=== PATIENT | male | born 1945 | race Caucasian/White ===

== ENCOUNTER → 2016-03-31 | Outpatient (CLI) | payer MEDICARE ==
[~2016-03-31] MED LIST: ASPI1TAB PO; ATEN100T PO; ATEN50TA2 PO; BACT800T5 PO; BIMA01SOL OU; CALC1TAB30 PO; CALC1TAB42 PO; CENTTAB PO; CLON0.5T PO; DRIS50002 PO; FISH100035 PO; FLAX10005 PO; FURO40TA2 PO; INSUDET SC; LATA5OPD OU; LISI-538 PO; LISI10TA4 PO; LOPE2TAB PO; MINO25TA PO; NEPHTAB PO; NIAS1TAB PO; NORC5TAB PO; PRAV20TA2 PO; RANI150T PO; VIAG100T PO; VITMTA PO
--- NOTE | 2016-03-31 11:32 | REP ---
LIMITED ABDOMINAL ULTRASOUND: Limited abdominal ultrasound performed to evaluate for ascites prior to a schedule paracentesis. Minimal ascites is present and paracentesis is not performed, as there is not enough fluid for paracentesis. Signed by Carlos Rodas MD 03/31/2016 05:20 P
== END | disposition home or self-care (01) ==
LOC: M RADPRO 10:16
PROVIDERS: ATTEND Internal Medicine
DX: R18.8 Other ascites (principal); K74.60 Unspecified cirrhosis of liver

== ENCOUNTER → 2016-04-14 | Outpatient (CLI) | payer MEDICARE ==
--- NOTE | 2016-04-14 11:17 | REP ---
Limited abdominal sonography: History: A survey for ascites. Findings: Limited abdominal sonography demonstrates a trace of ascites visible. Not sufficient quantity to tap. Impression: Trace abdominal ascites present. Signed by Karlos Reyna MD 04/14/2016 08:10 P
== END ==
LOC: M RADPRO 10:12
PROVIDERS: ATTEND Internal Medicine
DX: R18.8 Other ascites (principal); K74.60 Unspecified cirrhosis of liver; Z53.9 Procedure and treatment not carried out, unspecified reason

== ENCOUNTER 2016-04-29 15:03 | Inpatient (IN) | payer MEDICARE ==
[~2016-04-29] VITALS: Ht 172.7 cm; Wt 88.2 kg
[2016-04-29] MEDS ORDERED: PANTOPRAZOLE 40MG INJ (PROTONIX) (C9113) As Ordered ONE (15:39)
[2016-04-29 15:46] LABS: BASO % 0.3 % (0.0-1.0); EOS # 0.2 K/mm3 (0.0-0.50); EOS % 3.1 % (0.0-3.0); LARGE UNSTAINED CELL # 0.1 K/mm3 (0.0-0.4); LARGE UNSTAINED CELL % 2.1 % (0.0-4.0); LYMPH # 0.3 K/mm3 (1.5-4.5); LYMPH % 6.1 % (24.0-44.0); MEAN CORPUSCULAR HEMOGLOBIN 30.9 pg (27.0-33.0); MEAN CORPUSCULAR HGB CONC 33.7 g/dl (32.0-36.5); MEAN CORPUSCULAR VOLUME 91.7 fl (80.0-96.0); MONO # 0.3 K/mm3 (0.0-0.8); MONO % 4.6 % (0.0-5.0); NEUTROPHILS # 4.5 K/mm3 (1.8-7.7); NEUTROPHILS % 83.7 % (36.0-66.0); PLATELET COUNT, AUTOMATED 132 k/mm3 (150-450); RED CELL DISTRIBUTION WIDTH 17.2 % (11.5-14.5); WHITE BLOOD COUNT 5.3 K/mm3 (4.0-10.0)
[2016-04-29 15:56] LABS: ALBUMIN 3.5 GM/DL (3.2-5.2); ALBUMIN/GLOBULIN RATIO 1.17 (1.00-1.93); BILIRUBIN,DIRECT 0.2 MG/DL (0.0-0.2); BILIRUBIN,TOTAL 0.6 MG/DL (0.2-1.0); CALCIUM LEVEL 8.5 MG/DL (8.8-10.2); CREATININE FOR GFR 4.42 MG/DL (0.70-1.30); GLOMERULAR FILTRATION RATE 14.1 (>42); POTASSIUM SERUM 3.8 MEQ/L (3.5-5.1); TOTAL PROTEIN 6.5 GM/DL (6.4-8.2)
[2016-04-29 16:05] LABS: INR 1.14
--- NOTE | 2016-04-29 16:31 | REP ---
Portable chest x-ray: Single view. History: fatigue. Comparison chest x-ray February 21, 2016. Findings: Moderate cardiac enlargement is seen unchanged. The lungs are symmetrically aerated and free of infiltrate. Pleural angles are sharp. EKG electrodes are seen. The aorta is calcific and tortuous. No significant bony abnormality is seen. Impression: Cardiomegaly. Otherwise no active disease. Signed by Karlos Reyna MD 04/30/2016 10:14 A
[2016-04-29] MEDS ORDERED: LISI-538 PO (17:24)
[2016-04-29] MEDS ORDERED: LOPERAMIDE 2 MG CAP PO PRN (17:45)
[2016-04-29 18:08] LABS: RETIC HEMOGLOBIN CONTENT CHr 35.9 PG (24-36); RETICULOCYTE ABSOLUTE ADVIA212 148 x10(9)/L (17-77)
--- NOTE | 2016-04-29 18:39 | EDDOCDS ---
Physician Documentation [facility] Name: Jadiel Rodriguez Age: 70 yrs Sex: Male : 1945 Arrival Date: 04/29/2016 Time: 15:03 Bed 11 Private MD: Disposition: 04/29 16:44 Critical Care:. pc Disposition: 04/29/16 16:46 Hospitalization ordered by Bladimir Ventura for Inpatient Admission. Preliminary diagnosis are Gastrointestinal hemorrhage, unspecified - upper, Anemia, unspecified - multifactorial: acute blood loss, AoCD, Fe def anemia, End stage renal disease. - Bed requested for PCU. - Status is Inpatient Admission. kr3 - Condition is Stable. - Problem is new. - Symptoms have improved. HPI: 15:43 This 70 yrs old Male presents to ER via Ambulance with complaints of Weakness.pc 15:43 The history is obtained from the patient. He has been feeling weak for 2-3 days, pc started vomiting black material for 2 days, but none in 24 hours, and fernandez shad black bowel movements for 36 hours. He does get iron during dialysis but is not on any oral iron. He was at dialysis and was not feeling well and staff noticed he was not himself, stopped dialysis an hour short and called for EMS. He denies any abdominal pain, he remains nauseated and complains of thirst and fatigue. He was admitted for the same 2 months ago, with hemoccult positive stools but was discharged after transfusion of 3 units of PRBC with an UGI bleed not believed to be the cause. The patient has been recently seen by Dr. Jackson. Historical: - Allergies: amlodipine; Levaquin; - Home Meds: 1. aspirin 81 mg Oral tab 1 tab once daily 2. atenolol 50 mg Oral tab once daily 3. Calcium + Vitamin D 500mg-1250mg Oral 1 tab daily 4. Centrum Silver oral tab daily 5. clonazepam 0.5 mg Oral tab 1 tab nightly 6. Fish Oil 1,000 mg Oral cap twice a day 7. flaxseed 1,000 mg oral cap twice a day on non dialysis days 8. furosemide 40 mg Oral tab 1 tab 2 times per day 9. hydrocodone-acetaminophen 5-325 mg Oral tab nightly 10. lisinopril 10 mg Oral tab 1 tab once daily 11. Lumigan 0.01 % Opht drop 1 drop nightly 12. pravastatin 20 mg oral tab 1 tab once daily 13. ranitidine HCl 150 mg Oral cap 1 cap 2 times per day 14. Viagra 100 mg Oral tab 1 tab as needed 15. Vitamin D2 50,000 unit oral cap once wkly 16. Renvela 800 mg oral tab 1 tab 3 times per day 17. Imodium 2 mg Oral cap twice a day 18. minoxidil 2.5 mg Oral tab 1 tabs 2 times per day 19. iron during dialysis - PMHx: Cancer, Bladder; Chronic Renal Failure with dialysis; Diabetes - IDDM: controlled; High Cholesterol; Hypertension; Alcoholism; Cirrhosis; - PSHx: bilateral lower leg amputee; Hernia repair; Cystectomy; Urostomy Construction; circumcision; AV Fistula- Left arm; - The history from nurses notes was reviewed: and elements of the historical information I have obtained differs from that reported to nursing. - Social history: Smoking status: Patient states former smoker of tobacco. No barriers to communication noted, The patient speaks fluent Hebrew, Speaks appropriately for age. - : The pt / caregiver states he / she is not on anticoagulants. Home medication list is obtained from the facility MAR. - Exposure Risk Screening:: None identified. - Immunization history:: All immunizations up-to-date. - Family history: Not pertinent. - Social history:: the patient is a non-smoker, the patient formerly used alcohol. ROS: 15:48 All systems are negative except as listed. pc Exam: 15:48 General Appearance: no acute distress, alert, lethargic. pc 15:48 EENT: ears, nose and throat normal, pale conjunctiva, mucous membranes dry. 15:48 Neck: The exam reveals no acute abnormalities. ROM is normal and painless. No nuchal rigidity is noted.. 15:48 Respiratory: no respiratory distress, normal breath sounds. 15:48 CVS: regular pulse rate, regular rhythm, normal S1 and S2, no murmurs, strong peripheral pulses, normal capillary refill. 15:48 Abdomen: soft, non-tender, no organomegaly, normal bowel sounds, Rectal exam: stool is guaiac positive, black. 15:48 Back: normal inspection. 15:48 Skin: warm, dry, the skin appears pale, diffusely. 15:48 Extremities: bilateral BKAs. 15:48 Neuro: oriented x 3, cranial nerves normal as tested, no motor deficits, no sensory deficits. 15:48 Psych: normal mood. Vital Signs: 15:17 BP 169 / 70; Pulse 63; Resp 18; Temp 97.2(O); Pulse Ox 97% on R/A; ld5 15:40 BP 158 / 69 (auto/); kr3 15:40 Pulse 64 MON; Pulse Ox 95% ; kr3 15:46 Weight 78.93 kg / 174.01 lbs (R); Height 5 ft. 8 in. (172.72 cm) (R); kr3 16:10 BP 145 / 75 (auto/); kr3 16:10 Pulse 60 MON; Pulse Ox 97% ; kr3 16:40 BP 144 / 65 (auto/); kr3 16:40 Pulse 60 MON; Pulse Ox 98% ; kr3 17:09 Pulse 58 MON; Pulse Ox 96% ; kr3 17:10 BP 154 / 71 (auto/); kr3 17:27 BP 162 / 72 (auto/); kr3 17:27 Pulse 60 MON; Pulse Ox 97% ; kr3 17:40 BP 158 / 72 (auto/); kr3 17:40 Pulse 62 MON; Pulse Ox 96% ; kr3 17:43 BP 160 / 72 (auto/); kr3 17:44 Pulse 60 MON; Resp 16; Temp 97.1(O); Pulse Ox 97% ; kr3 18:10 BP 158 / 70 (auto/); kr3 18:10 Pulse 58 MON; Resp 16; Pulse Ox 98% on R/A; kr3 15:46 Body Mass Index 26.46 (78.93 kg, 172.72 cm) kr3 MDM: 15:29 IV Saline Lock ordered. pc 15:29 NS 0.9% 1000 ml IV at 100 mL/hr continuous ordered. pc 15:29 Technical Sales Representative/Pulse Ox/q 30 min VS ordered. pc 15:30 CBC with Diff Ordered. EDMS 15:30 MED Profile Ordered. EDMS 15:30 Liver Profile Ordered. EDMS 15:31 NOTHING BY MOUTH+DIET ordered. EDMS 15:37 pantoprazole 80 mg IV at bolus once ordered. pc 15:48 Differential Diagnosis: UGI bleed, ESRD on HD, alcoholic cirrhosis. Plan: labs, EKG, pc imaging, meds. 15:52 CBC with Diff Reviewed. pc 15:52 Chest, 1 View Ordered. EDMS 15:53 Transfuse PRBC's 2 units, ensure PRBCs ordered in lab ordered. pc 15:55 Type and Cross, Packed Cells Ordered. EDMS 15:55 Pt & Aptt Ordered. EDMS 15:56 TYPE & SCREEN Ordered. EDMS 15:58 ECG WITH READING ER PHYS+CARDIAG ordered. EDMS 15:58 BED REQUEST+ADM ordered. EDMS 16:27 MED Profile Reviewed. pc 16:27 Pt & Aptt Reviewed. pc 16:27 Liver Profile Reviewed. pc 16:43 TYPE & SCREEN Reviewed. pc 16:43 Chest, 1 View Reviewed. pc 16:44 Data reviewed: old medical records, vital signs, nurses notes, lab test results, all pc radiology studies and available results. Test interpretation: LAB - all labs as ordered have been reviewed, interpreted and considered in the overall management of the clinical presentation; X-RAY - interpreted by Radiologist and personally reviewed, 1 view chest no acute disease. The patient has been re-examined and re-evaluated. The patient's symptoms have mildly improved after treatment. Physician consultation: Dr. Power Alan MD regarding consult, and will see patient in inpatient room. 16:44 Physician consultation: Dr. Bladimir Ventura regarding admission, and will see patient in ED. Disposition: The historical points, examination findings, and any diagnostic results supporting the provided diagnosis, were discussed with the patient or legal guardian. The need for further work-up and/or treatment in the hospital was explained. 16:59 Test interpretation: EKG. pc 17:05 Financial registration complete. zo 17:06 [facility] Payment Agreement was scanned into [employer] and attached to record. zo 17:33 HEMOGLOBIN & HEMATOCRIT Ordered. EDMS 17:35 Admission / Observation Status ordered. EDMS 17:35 CLEAR LIQUIDS DIET ordered. EDMS 17:35 NPO FOR TEST/PROCEDURE ordered. EDMS EC:59 Rate is 60 beats/min. Rhythm is regular, Normal Sinus Rhythm. QRS [place] is Normal. HI pc interval is normal. QRS interval is normal. QT interval is prolonged at 470 msec. No Q waves. T waves are Normal. No ST changes noted. Clinical impression: Normal Sinus Rhythm, LVH, and prolonged QT. Administered Medications: 15:38 Drug: NS 0.9% 1000 ml [sodium chloride 0.9 % intravenous solution] Route: IV; Rate: 100 kr3 mL/hr; Site: right forearm; 17:30 Follow up: IV Status: Infusion discontinued; IV Intake: 100ml kr3 15:46 Drug: pantoprazole 80 mg [pantoprazole 40 mg intravenous solution] Route: IV; Rate: kr3 bolus; Site: right forearm; Critical Care Time: 16:44 Critical care time: Bedside Care: 20 minutes, Consultation: 15 minutes. Total time: 35 pc minutes Signatures: Dispatcher [employer] EDMS Saran Scott MD MD pc Robie, Kathleen, RN RN kr3 Etta Bryant Michele RN RN mts The chart was reviewed and I authenticate all verbal orders and agree with the evaluation and treatment provided.Corrections: (The following items were deleted from the chart) 15:20 15:14 Home Meds: minoxidil 2.5 mg Oral tab 2 tabs 2 times per day; kr3 kr3 15:49 15:43 The history from nurses notes was reviewed and I agree with what is documented. pcpc 16:03 15:30 TYPE & SCREEN+BBK ordered. EDMS EDMS 17:35 17:35 NPO DIET ordered. EDMS EDMS 17:35 17:35 NPO DIET ordered. EDMS EDMS 17:59 17:33 RETICULOCYTE COUNT ordered. EDMS EDMS Attachments: 17:06 [facility] [place] [email or web address]
--- NOTE | 2016-04-29 18:39 | EDDOCDS ---
Nurse's Notes [facility] Name: Jadiel Rodriguez Age: 70 yrs Sex: Male : 1945 Arrival Date: 04/29/2016 Time: 15:03 Bed 11 Private MD: Diagnosis: Gastrointestinal hemorrhage, unspecified-upper;Anemia, unspecified-multifactorial: acute blood loss, AoCD, Fe def anemia;End stage renal disease Presentation: 04/29 15:05 Presenting complaint: EMS states: at 2:15 noticed decrease responsiveness, droop left kr3 eye and left cheek per dialysis saff. The last date and time the patient was known to be well was was at 14:15 on April 29, 2016. No acute neurological deficit is noted. Pre-hospital glucose is not applicable to this patient. Adult Sepsis Screening: The patient does not have new or worsening altered mentation. Patient's respiratory rate is less than 22. Systolic blood pressure is greater than 100. Patient has a qSOFA score of 0- Negative Sepsis Screen. Suicide/Homicide risk assessment- the patient denies having any suicidal and/or homicidal ideations and does not present with any other emotional, behavioral or mental health complaints. Status: Patient is not a social services coordinator or dependent. Transition of care: patient was received from dialysis. Care prior to arrival: Glucose check. 244. 15:05 Method Of Arrival: Ambulance kr3 15:05 Acuity: PRADIP Level 3 kr3 15:14 Presenting complaint: Patient states: Tuesday night had vomiting which continued into kr3 Tuesday. Skipped Dialysis on Tuesday. Reports had dark stools when seen by PCP this week. Triage Assessment: 15:14 The onset of the patients symptoms was less than three hours ago. General: Appears in kr3 no apparent distress, comfortable, Behavior is appropriate for age, cooperative. Pain: Denies pain. The patient is triaged at the bedside. See Assessment in Nurses Notes section of ED record. Neurological: Level of Consciousness is awake, alert, Moves all extremities. Speech is normal. Respiratory: Respiratory effort is even, unlabored. Derm: Skin is dry, Skin is normal. Historical: - Allergies: amlodipine; Levaquin; - Home Meds: 1. aspirin 81 mg Oral tab 1 tab once daily 2. atenolol 50 mg Oral tab once daily 3. Calcium + Vitamin D 500mg-1250mg Oral 1 tab daily 4. Centrum Silver oral tab daily 5. clonazepam 0.5 mg Oral tab 1 tab nightly 6. Fish Oil 1,000 mg Oral cap twice a day 7. flaxseed 1,000 mg oral cap twice a day on non dialysis days 8. furosemide 40 mg Oral tab 1 tab 2 times per day 9. hydrocodone-acetaminophen 5-325 mg Oral tab nightly 10. lisinopril 10 mg Oral tab 1 tab once daily 11. Lumigan 0.01 % Opht drop 1 drop nightly 12. pravastatin 20 mg oral tab 1 tab once daily 13. ranitidine HCl 150 mg Oral cap 1 cap 2 times per day 14. Viagra 100 mg Oral tab 1 tab as needed 15. Vitamin D2 50,000 unit oral cap once wkly 16. Renvela 800 mg oral tab 1 tab 3 times per day 17. Imodium 2 mg Oral cap twice a day 18. minoxidil 2.5 mg Oral tab 1 tabs 2 times per day 19. iron during dialysis - PMHx: Cancer, Bladder; Chronic Renal Failure with dialysis; Diabetes - IDDM: controlled; High Cholesterol; Hypertension; Alcoholism; Cirrhosis; - PSHx: bilateral lower leg amputee; Hernia repair; Cystectomy; Urostomy Construction; circumcision; AV Fistula- Left arm; - The history from nurses notes was reviewed: and elements of the historical information I have obtained differs from that reported to nursing. - Social history: Smoking status: Patient states former smoker of tobacco. No barriers to communication noted, The patient speaks fluent Syriac, Speaks appropriately for age. - : The pt / caregiver states he / she is not on anticoagulants. Home medication list is obtained from the facility [facility]. - Exposure Risk Screening:: None identified. - Immunization history:: All immunizations up-to-date. - Family history: Not pertinent. - Social history:: the patient is a non-smoker, the patient formerly used alcohol. Screenin:28 Screening information is obtained from the patient. Fall risk: At risk due to gait kr3 disturbance, The following interventions are performed due to a positive Fall Risk Screen: Fall Alert bracelet is placed on the patient. Assistance ADL's: requires no assistance with activities of daily living. Abuse/DV Screen: The patient / caregiver reports he/she is: not in a situation that causes fear, pain or injury. Nutritional screening: On renal diet. home support is adequate. 18:09 Advance Directives: Currently, there is a health care proxy, daughter. There is an kr3 active Power of Barber Apprentice, daughter. Assessment: 15:28 Reassessment: Patient appears in no apparent distress at this time. Patient denies pain kr3 at this time. 16:33 Reassessment: Patient appears in no apparent distress at this time. General: Behavior kr3 is cooperative, pleasant. Pain: Denies pain. Neurological: Level of Consciousness is awake, alert, Moves all extremities. Speech is normal. 17:45 Reassessment: Patient appears in no apparent distress at this time. General: Appears kr3 comfortable, Behavior is cooperative, no complaints, daughter at bedside. 18:15 Reassessment: Patient appears in no apparent distress at this time. Patient denies pain kr3 at this time. Neurological: No deficits noted. Respiratory: Respiratory effort is even, unlabored. Derm: Skin is dry, Skin is normal. Vital Signs: 15:17 BP 169 / 70; Pulse 63; Resp 18; Temp 97.2(O); Pulse Ox 97% on R/A; ld5 15:40 BP 158 / 69 (auto/); kr3 15:40 Pulse 64 MON; Pulse Ox 95% ; kr3 15:46 Weight 78.93 kg (R); Height 5 ft. 8 in. (172.72 cm) (R); kr3 16:10 BP 145 / 75 (auto/); kr3 16:10 Pulse 60 MON; Pulse Ox 97% ; kr3 16:40 BP 144 / 65 (auto/); kr3 16:40 Pulse 60 MON; Pulse Ox 98% ; kr3 17:09 Pulse 58 MON; Pulse Ox 96% ; kr3 17:10 BP 154 / 71 (auto/); kr3 17:27 BP 162 / 72 (auto/); kr3 17:27 Pulse 60 MON; Pulse Ox 97% ; kr3 17:40 BP 158 / 72 (auto/); kr3 17:40 Pulse 62 MON; Pulse Ox 96% ; kr3 17:43 BP 160 / 72 (auto/); kr3 17:44 Pulse 60 MON; Resp 16; Temp 97.1(O); Pulse Ox 97% ; kr3 18:10 BP 158 / 70 (auto/); kr3 18:10 Pulse 58 MON; Resp 16; Pulse Ox 98% on R/A; kr3 15:46 Body Mass Index 26.46 (78.93 kg, 172.72 cm) kr3 Vitals: 15:17 Log In Time N/A - ambulance arrival. ld5 ED Course: 15:04 Patient visited by Destiny Holman, Senior Field Service Engineer. deg 15:04 Rachel Humphries,RN is Primary Nurse. deg 15:04 Patient moved to Waiting deg 15:04 Patient moved to 11 deg 15:07 Triage Initiated kr3 15:10 Saran Scott MD is Attending Physician. pc 15:28 Patient visited by Saran Scott MD. pc 15:28 Maintain field IV. Dressing intact. Good blood return noted. Site clean & dry. Gauge & kr3 site: #20 right forearm. 16:33 Patient visited by Rachel Humphries RN. kr3 16:38 Chest, 1 View Returned. EDMS 16:46 Bladimir Ventura is Hospitalizing Provider. pc 16:52 Patient visited by Emmanuel Bergman PCA. jrd 16:52 EKG done. (by ED staff). Reviewed by Saran Scott MD. jrd 17:06 [facility] Payment Agreement was scanned into [employer] and attached to record. zo 17:44 Blood products: PRBCs X 1 unit given. See transfusion record [id number]. kr3 17:45 The patient / caregiver is instructed regarding the plan of care and ED course. Patient kr3 has correct armband on for positive identification. Placed in gown. Bed in low position. Call light in reach. Side rails up X2. lunchroom monitor on. Pulse ox on. NIBP on. 17:45 PO fluids given. kr3 18:10 No procedures done that require assistance. kr3 Administered Medications: 15:38 Drug: NS 0.9% 1000 ml [sodium chloride 0.9 % intravenous solution] Route: IV; Rate: 100 kr3 mL/hr; Site: right forearm; 17:30 Follow up: IV Status: Infusion discontinued; IV Intake: 100ml kr3 15:46 Drug: pantoprazole 80 mg [pantoprazole 40 mg intravenous solution] Route: IV; Rate: kr3 bolus; Site: right forearm; Intake: 17:30 IV: 100.00ml; Total: 100.00ml. kr3 Order Results: Lab Order: CBC with Diff; SPEC'M 04/29/16 15:24 Test: WHITE BLOOD COUNT; Value: 5.3; Range: 4.0-10.0; Units: K/mm3; Status: F Test: RED BLOOD COUNT; Value: 2.32; Range: 4.30-6.10; Abnormal: Below low normal; Units: M/mm3; Status: F Test: HEMOGLOBIN; Value: 7.2; Range: 14.0-18.0; Abnormal: Below low normal; Units: g/dl; Status: F Test: HEMATOCRIT; Value: 21.3; Range: 42.0-52.0; Abnormal: Below low normal; Units: %; Status: F Test: MEAN CORPUSCULAR VOLUME; Value: 91.7; Range: 80.0-96.0; Units: fl; Status: F Test: MEAN CORPUSCULAR HEMOGLOBIN; Value: 30.9; Range: 27.0-33.0; Units: pg; Status: F Test: MEAN CORPUSCULAR HGB CONC; Value: 33.7; Range: 32.0-36.5; Units: g/dl; Status: F Test: RED CELL DISTRIBUTION WIDTH; Value: 17.2; Range: 11.5-14.5; Abnormal: Above high normal; Units: %; Status: F Test: PLATELET COUNT, AUTOMATED; Value: 132; Range: 150-450; Abnormal: Below low normal; Units: k/mm3; Status: F Test: NEUTROPHILS %; Value: 83.7; Range: 36.0-66.0; Abnormal: Above high normal; Units: %; Status: F Test: LYMPH %; Value: 6.1; Range: 24.0-44.0; Abnormal: Below low normal; Units: %; Status: F Test: MONO %; Value: 4.6; Range: 0.0-5.0; Units: %; Status: F Test: EOS %; Value: 3.1; Range: 0.0-3.0; Abnormal: Above high normal; Units: %; Status: F Test: BASO %; Value: 0.3; Range: 0.0-1.0; Units: %; Status: F Test: LARGE UNSTAINED CELL %; Value: 2.1; Range: 0.0-4.0; Units: %; Status: F Test: NEUTROPHILS #; Value: 4.5; Range: 1.8-7.7; Units: K/mm3; Status: F Test: LYMPH #; Value: 0.3; Range: 1.5-4.5; Abnormal: Below low normal; Units: K/mm3; Status: F Test: MONO #; Value: 0.3; Range: 0.0-0.8; Units: K/mm3; Status: F Test: EOS #; Value: 0.2; Range: 0.0-0.50; Units: K/mm3; Status: F Test: BASO #; Value: 0.0; Range: 0.0-0.2; Units: K/mm3; Status: F Test: LARGE UNSTAINED CELL #; Value: 0.1; Range: 0.0-0.4; Units: K/mm3; Status: F Lab Order: MED Profile; [facility]' 04/29/16 15:24 Test: GLUCOSE, FASTING; Value: 188; Range: 83-110; Abnormal: Above high normal; Units: MG/DL; Status: F Test: BLOOD UREA NITROGEN; Value: 75; Range: 7-18; Abnormal: Above high normal; Units: MG/DL; Status: F Test: CREATININE FOR GFR; Value: 4.42; Range: 0.70-1.30; Abnormal: Above high normal; Units: MG/DL; Status: F Test: GLOMERULAR FILTRATION RATE; Value: 14.1; Range: >42; Abnormal: Below low normal; Status: F Test: SODIUM LEVEL; Value: 140; Range: 136-145; Units: MEQ/L; Status: F Test: POTASSIUM SERUM; Value: 3.8; Range: 3.5-5.1; Units: MEQ/L; Status: F Test: CHLORIDE LEVEL; Value: 103; Range: 98-107; Units: MEQ/L; Status: F Test: CARBON DIOXIDE LEVEL; Value: 24; Range: 21-32; Units: MEQ/L; Status: F Test: ANION GAP; Value: 13; Range: 8-16; Units: MEQ/L; Status: F Test: CALCIUM LEVEL; Value: 8.5; Range: 8.8-10.2; Abnormal: Below low normal; Units: MG/DL; Status: F Test Note: ; Units are mL/min/1.73 m2 Chronic Kidney Disease Staging per NKF: Stage I & II GFR >=60 Normal to Mildly Decreased Stage III GFR 30-59 Moderately Decreased Stage IV GFR 15-29 Severely Decreased Stage V GFR <15 Very Little GFR Left ESRD GFR <15 on FLOOR SANDER Lab Order: Liver Profile; SPEC'M 04/29/16 15:24 Test: AST/SGOT; Value: 17; Range: 15-37; Units: U/L; Status: F Test: ALT/SGPT; Value: 19; Range: 12-78; Units: U/L; Status: F Test: ALKALINE PHOSPHATASE; Value: 70; Range: 45-117; Units: U/L; Status: F Test: BILIRUBIN,TOTAL; Value: 0.6; Range: 0.2-1.0; Units: MG/DL; Status: F Test: BILIRUBIN,DIRECT; Value: 0.2; Range: 0.0-0.2; Units: MG/DL; Status: F Test: TOTAL PROTEIN; Value: 6.5; Range: 6.4-8.2; Units: GM/DL; Status: F Test: ALBUMIN; Value: 3.5; Range: 3.2-5.2; Units: GM/DL; Status: F Test: ALBUMIN/GLOBULIN RATIO; Value: 1.17; Range: 1.00-1.93; Status: F Lab Order: Pt & Aptt; SPEC'04/29/16 15:24 Test: PROTHROMBIN TIME; Value: 14.7; Range: 12.3-14.5; Abnormal: Above high normal; Units: SECONDS; Status: F Test: INR; Value: 1.14; Status: F Test: PARTIAL THROMBOPLASTIN TIME; Value: 29.2; Range: 26.6-37.1; Units: SECONDS; Status: F Test Note: ; THERAPUTIC HUMAN INR VALUES INDICATIONS NORMAL RANGES PROPHYLAXIS/TREATMENT OF: VENOUS THROMBOSIS 2.0-3.0 PULMONARY EMBOLISM 2.0-3.0 PREVENTION OF SYSTEMIC EMBOLISM FROM: TISSUE HEART VALVES 2.0-3.0 ACUTE MYOCARDIAL INFARCTION 2.0-3.0 VALVULAR HEART DISEASE 2.0-3.0 ATRIAL FIBRILLATION 2.0-3.0 MECHANICAL VALVES(HIGH RISK) 2.5-3.5 RECURRENT MYOCARDIAL INFARCTION 2.5-3.5 Lab Order: TYPE & SCREEN; YURIY'Sara 04/29/16 15:24 Test: BLOOD TYPE; Value: O NEG; Status: F Test: AB SCREEN (INDIRECT RENAE)GEL; Value: NEGATIVE; Status: F Test: IMMEDIATE SPIN CROSSMATCH; Value: [id number] O NEGATIVE Compatible? Y; Status: F Test: IMMEDIATE SPIN CROSSMATCH; Value: [id number] O NEGATIVE Compatible? Y; Status: F Lab Order: RETICULOCYTE COUNT; SPEC'M 04/29/16 15:24 Test: RETICULOCYTE % [id number]; Value: 6.20; Range: 0.5-1.5; Abnormal: Above high normal; Units: %; Status: F Test: RETICULOCYTE ABSOLUTE [id number]; Value: 148; Range: 17-77; Abnormal: Above high normal; Units: x10(9)/L; Status: F Test: RETIC HEMOGLOBIN CONTENT CHr; Value: 35.9; Range: 24-36; Units: PG; Status: F Radiology Order: Chest, 1 View Test: Chest, 1 View REASON FOR EXAMINATION: fatigue; Portable chest x-ray: Single view.; ; History: fatigue.; ; Comparison chest x-ray February 21, 2016.; ; Findings: Moderate cardiac enlargement is seen unchanged. The lungs are; symmetrically aerated and free of infiltrate. Pleural angles are sharp. EKG; electrodes are seen. The aorta is calcific and tortuous. No significant bony; abnormality is seen.; ; Impression:; ; Cardiomegaly. Otherwise no active disease.; ; ; ; ; Unreviewed; Outcome: 16:46 Decision to Hospitalize by Provider. pc 18:10 No special radiology studies were completed. kr3 18:10 Discharge Assessment: patient administered narcotics - no. kr3 18:15 The following High Risk Discharge criteria are identified: None. Admitted to PCU kr3 accompanied by nurse, family with patient, via stretcher, on monitor, with chart. Condition: stable. Property :Personal belongings accompany Pt. 18:38 Patient left the ED. kr3 Signatures: Dispatcher [employer] EDMS Tyler Saran, MD MD pc Holman, Destiny, Senior Field Service Engineer Unit deg Rachel Humhpries,RN RN kr3 Etta Bryant Laura,RN RN ld5 Emmanuel Bergman, WANDA [employer] SALES MANAGER jrd Corrections: (The following items were deleted from the chart) 15:20 15:14 Home Meds: minoxidil 2.5 mg Oral tab 2 tabs 2 times per day; kr3 kr3 15:49 15:43 The history from nurses notes was reviewed and I agree with what is documented. pcpc MTDD
[2016-04-29 18:54] VITALS: BP 191/78
[2016-04-29] MEDS: PANTOPRAZOLE SODIUM 40 MG in D5W MINI-BAG PLUS 50 ML IV SCH ×2 (19:33→22:30)
--- NOTE | 2016-04-29 19:39 | HPEPDOC ---
General Date of Admission Apr 29, 2016 at 17:24 Chief Complaint The patient is a 70-year-old male Presented to the ER with complains of dark stool and vomiting dark material for 2 days. History of Present Illness Patient is a 70 year old male with a PMHx of ESRD ON HD (TTS), HTN, DLP, Cirrhosis (goes for paracentesis evaluation every 2 weeks), DM (no longer on medications), and Bladder CA (s/p surgery and now with cystostomy) who presented to the ER with complaints of vomiting dark substance and having tarry black stool. He notes that this has been going on for multiple times in the day. He had missed his HD session on Tuesday because of these symptoms. When he went for HD today (04/29) he was not feeling well and was sent to the ER. He notes that he does experience some dizziness, but denies SOB, palpitations or chest pain. Denies passing out. He notes that he has not had an EGD in the past, but has had a colonoscopy in 11/2015 which reveled polyps. He has not been taking over the counter medications, including NSAIDS. Patient was admitted on 03/03 to 03/05 for anemia. He had occult blood checked and was negative. He did received 3 units of PRBC transfusion at that time. Currently he denies fever, chills, SOB, cough, abdominal pain, diarrhea or constipation. Denies any dysuria. Home Medications Scheduled (Fish Oil 1000 mg) 1 Cap Cap 1 CAP PO BID (Reported) (Flaxseed Oil 1000 mg) 1 Cap Cap 1 CAP PO 4XWK (Reported) TAKES ON NON-DIALYSIS DAYS ONLY (Calcium 500+D 500-200 mg-Unit) 1 Tab Tab 1 TAB PO QHS (Reported) Acetaminophen/Hydrocodone ([place] 5-325 mg) 1 Tab Tab 1 TAB PO QHS (Reported) Aspirin (Aspirin 81) 81 Mg Tab 81 MG PO DAILY (Reported) Atenolol (Atenolol) 50 Mg Tab 50 MG PO QHS (Reported) Clonazepam (Clonazepam) 0.5 Mg Tab 0.5 MG PO QHS (Reported) Furosemide (Furosemide) 40 Mg Tab 40 MG PO BID (Reported) Latanoprost (Latanoprost) 50 Drop/2.5 Ml Soln 1 DROP OU QHS (Reported) Lisinopril (Lisinopril) 20 Mg Tab 20 MG PO QHS (Reported) Minoxidil (Minoxidil) 2.5 Mg Tab 2.5 MG PO BID (Reported) Multivitamins *[facility] STOCKED* (Thera M Plus *[facility] STOCKED*) 1 Tab Tab 1 TAB PO DAILY (Reported) Pravastatin Sodium (Pravastatin Sodium) 20 Mg Tab 20 MG PO DAILY (Reported) Ranitidine HCl (Ranitidine HCl) 150 Mg Tab 1 TAB PO BID (Reported) Vitamin D (Drisdol) 50,000 Unit Cap 50,000 UNIT PO QWEEK (Reported) SUNDAYS Scheduled PRN Loperamide HCl (Loperamide HCl) 2 Mg Tab 2 MG PO BID PRN PRN DIARRHEA (Reported ) Sildenafil Citrate (Viagra) 100 Mg Tab 100 MG PO PRN PRN PRN ERECTILE DYSFUNCTION (Reported) Allergies Coded Allergies: Quinolones (Verified Allergy, Mild, RASH RT ARM,ITCHING, 06/26/12) Amlodipine (Unverified Allergy, Unknown, 05/23/15) Levofloxacin (Unverified Allergy, Unknown, 05/23/15) Past Medical History Medical History ESRD ON HD (TTS), HTN, DLP, Cirrhosis (goes for paracentesis evaluation every 2 weeks), DM (no longer on medications), and Bladder CA (s/p surgery and now with cystostomy) Surgical History 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 Bladder surgery 10 years prior Family History Family History Non-contributory Social History Social History - Denies the use of alcohol or illicit drugs; Quit smoking 20-30 years ago, smoked for 40 years at 1ppd - Denies recent travel or sick contacts - Lives alone - 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; 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 Review of Symptoms Other systems Constitutional: Denies weight loss, change in appetite, or recent trauma Eyes: No visual changes or eye pain Ears, Nose, Throat: Denies nose bleeds, or difficulty swallowing Cardiovascular: Denies chest pain, sweating, or orthopnea Respiratory: Denies cough, wheezing, or shortness of breath GI: Positive nausea, vomiting, and dark stools, Denies abdominal pain, Constipation : Denies pain with urination or frequency Musculoskeletal: Denies joint pain or swelling Neuro / Psych: Denies muscle weakness or sensory loss, Positive dizziness Skin: No skin rashes noted All other review of systems negative; otherwise stated in history of present illness Vital Signs - Vitals: BP 158/69, HR 64, RR 18, Sat 95%RA, Temp 97.2F - General: Lying in bed, No acute distress, Speaking in full sentences, AAOx3 - HEENT: NC, AT, PERRLA, EOMI - CVS: RRR, +S1S2, +Systolic murmur - Lungs: Fair air entry bilaterally, Bilateral crackles at bases - Abdomen: Soft, Non-distended, Non-tender, + Bowel sounds x 4, + Cystostomy - Extremities: + PPx4, Bilateral below knee amputations - Neuro: No focal motor or sensory deficit - Skin: No visible rashes Laboratory Data Labs 24H Laboratory Tests 2 04/29/16 15:24: Absolute Reticulocyte Count 148H, Activated Partial Thromboplast Time 29.2, Aspartate Amino Transf (AST/SGOT) 17, Alanine Aminotransferase (ALT/SGPT) 19, Alkaline Phosphatase 70, Total Bilirubin 0.6, Direct Bilirubin 0.2, Albumin 3.5 , Albumin/Globulin Ratio 1.17, Anion Gap 13, White Blood Count 5.3, Red Blood Count 2.32L, Hemoglobin 7.2L, Hematocrit 21.3L, Mean Corpuscular Volume 91.7, Mean Corpuscular Hemoglobin 30.9, Mean Corpuscular Hemoglobin Concent 33.7, Red Cell Distribution Width 17.2H, Platelet Count 132L, Neutrophils (%) (Auto) 83.7H , Lymphocytes (%) (Auto) 6.1L, Monocytes (%) (Auto) 4.6, Eosinophils (%) (Auto) 3.1H, Basophils (%) (Auto) 0.3, Neutrophils # (Auto) 4.5, Lymphocytes # (Auto) 0.3L, Monocytes # (Auto) 0.3, Eosinophils # (Auto) 0.2, Basophils # (Auto) 0.0, Calcium Level 8.5L, Glomerular Filtration Rate 14.1L, Large Unclassified Cells # 0.1, Large Unclassified Cells % 2.1, Percent Reticulocyte Count 6.20H, Prothromb Time International Ratio 1.14, Prothrombin Time 14.7H, Reticulocyte Hgb Content (CHr) 35.9, Total Protein 6.5 CBC/BMP Laboratory Tests 04/29/16 15:24 Red Blood Count 2.32 L, Mean Corpuscular Volume 91.7, Mean Corpuscular Hemoglobin 30.9, Mean Corpuscular Hemoglobin Concent 33.7, Red Cell Distribution Width 17.2 H, Neutrophils (%) (Auto) 83.7 H, Lymphocytes (%) (Auto ) 6.1 L, Monocytes (%) (Auto) 4.6, Eosinophils (%) (Auto) 3.1 H, Basophils (%) ( Auto) 0.3, Neutrophils # (Auto) 4.5, Lymphocytes # (Auto) 0.3 L, Monocytes # ( Auto) 0.3, Eosinophils # (Auto) 0.2, Basophils # (Auto) 0.0 Plan / VTE VTE Prophylaxis Ordered?: Yes Plan Plan Dark vomitus and dark stool likely 2/2 Upper GI bleed - Presented to ER with 2 days history of tarry black stool and black vomitus - History of anemia in the past, but has never had an EGD - Colonoscopy 11/2015 only revealed polyps - Physical is unrevealing - Hg currently 7.2, down from baseline of 9-10 - He is currently receiving 2 units of PRBC transfusion in the ER - Will follow H&H q6 hours - Will start protonix drip - Discussed case with Dr. Alan (surgery); will go for EGD in AM ESRD ON HD (TTS) - Missed HD on Tuesday - Has received 3 hour session of dialysis today (04/29) - Nephrology on case (Dr. Coleman) appreciate their input HTN - will c/w home medications with holding parameters DLP - c/ pravastatin Cirrhosis - INR of 1.14, Albumin of 3.5 - Goes for paracentesis evaluation every 2 weeks - Does not appear to have any ascities at this time - Next scheduled evaluation is May 19 DM - Use to be on medications, but has resolved with weight loss Bladder CA - s/p surgery and now with cystostomy Gastrointestinal prophylaxis - Will start protonix DVT prophylaxis - Will start SCDs Will be signed out to TED Garcia MD Apr 29, 2016 19:39
[2016-04-29 20:00] VITALS: BP 150/65
[2016-04-29] MEDS ORDERED: ATENOLOL 50 MG TAB PO SCH (21:00)
[2016-04-29] MEDS: clonazePAM 0.5 MG TAB PO SCH (21:12)
[2016-04-29] MEDS: MINOXIDIL 2.5 MG TAB PO SCH (21:12)
[2016-04-29] MEDS: LISINOPRIL 20 MG TAB PO SCH (21:12)
[2016-04-29] MEDS: LATANOPROST 0.005% OPHTH SOLN 2.5 ML OU SCH (21:12)
[2016-04-29] MEDS: NORCO, ANEXSIA 5/325MG TABLET (HYDROcodone/ACETAMINOPHEN) PO SCH (21:13)
--- NOTE | 2016-04-29 22:38 | CR ---
DATE OF CONSULTATION: 04/29/2016 REQUESTING PHYSICIAN: Dr. Mustapha Alvarado CONSULTING PHYSICIAN: Dr. Coleman REASON FOR CONSULTATION: Management of end-stage renal disease and hemodialysis. CHIEF COMPLAINT: The patient presented to the emergency room with complaints of dark stool and dark vomiting for the last 2 days. HISTORY OF THE PRESENT ILLNESS: MR. Jadiel Rodriguez is a 70-year-old male with past medical history of end-stage renal disease, on hemodialysis Tuesday, , Tuesday, history of cirrhosis, he gets paracentesis done every 2 weeks, status post bilateral below-knee amputation, multiple other comorbidities as mentioned below. He is well known to nephrology service from dialysis center. He was being dialyzed today as an outpatient. He was not feeling well, his blood pressures were low during hemodialysis. He was also experiencing dizziness. He also reported having black, tarry stools for the last 2 days and he also complained of vomiting a dark substance, so the patient's hemodialysis was stopped after 3 hours and he was sent to the emergency room for further evaluation of possible upper gastrointestinal (GI) bleed. The patient was found to have a hemoglobin of 7.2 on arrival in the emergency room. Stat packed red blood cells transfusion was started and nephrology service was called for further management of end-stage renal disease. PAST MEDICAL HISTORY: The patient has a past medical history of end-stage renal disease, on hemodialysis Tuesday, , Tuesday, history of decompensated cirrhosis with ascites requiring ascitic taps every 2 weeks, diet-controlled diabetes mellitus, hypertension, history of CA of bladder status post cystostomy. PAST SURGICAL HISTORY: Bilateral below-knee amputations secondary to gangrene in 2011 and status post cystectomy and formation of right lower quadrant ileal conduit. ALLERGIES: The patient is allergic to AMLODIPINE, LEVAQUIN and QUINOLONES. CURRENT MEDICATIONS: The patient is currently on: - Protonix drip - [place] as needed - atenolol 50 mg by mouth nightly - Klonopin 0.5 mg nightly - Lasix 40 mg by mouth twice a day - latanoprost eye drops - lisinopril 20 mg nightly - Imodium as needed for diarrhea - minoxidil 2.5 mg by mouth twice a day - multivitamin - pravastatin 20 mg by mouth daily FAMILY HISTORY: No significant family history of end-stage renal disease or hemodialysis. SOCIAL HISTORY: The patient denies any drug abuse, alcohol abuse or smoking. He is a former smoker; he quit almost 20 years ago. The patient lives alone, and he is retired. REVIEW OF SYSTEMS: CONSTITUTIONAL: The patient denies any fever, chills, rigors or weight loss. EYES: The patient denies any blurry vision or any recent change in vision. ENT: He denies any nose bleeds, dysphagia, odynophagia or ear discharge. CARDIOVASCULAR: He denies any chest pain, palpitations. RESPIRATORY: He denies any cough, wheezing or shortness of breath. GASTROINTESTINAL: He reports nausea, vomiting and black, tarry stools. GENITOURINARY: He denies any dysuria or hematuria. He has a history of cystectomy. He has a right lower quadrant urostomy at this time. MUSCULOSKELETAL: He has a history of bilateral below-knee amputations. CENTRAL NERVOUS SYSTEM: He denies any history of strokes or seizures. SKIN: He denies any rashes or ulcers. PSYCHIATRIC: He denies any history of depression or anxiety. All other review of systems is negative. PHYSICAL EXAMINATION: GENERAL: The patient is awake, alert, oriented times three, sitting in the bed, no apparent distress. He looks very pale on exam. VITAL SIGNS: Temperature is 98 degrees Fahrenheit. Blood pressure is 158/69, pulse is 64, respiratory rate of 18, saturating 95% on room air. HEAD AND NECK EXAM: Extraocular muscles intact. Positive conjunctival pallor. There is no jaundice. Mucous membranes are moist. Neck is supple. There is no jugular venous distention (JVD). CARDIOVASCULAR: S1, S2. Regular rate. No murmur, rub or gallop. RESPIRATORY: Decreased breath sounds at the bases. Bilateral inspiratory crepitations at the bases. ABDOMEN: Soft. Positive bowel sounds. Nontender. Mild amount of ascites and positive right lower quadrant cystostomy with slightly cloudy urine in the bag. EXTREMITIES: Positive bilateral below-knee amputations. CENTRAL NERVOUS SYSTEM: No focal neurological deficit. Power is 5/5 in all extremities. SKIN: No rashes or ulcers. PSYCHIATRIC: Normal mood and affect. LAB REVIEW: CBC showed a WBC of 5.3, hemoglobin 7.2, platelets 132. INR is 1.14. BMP showed sodium 140, potassium 3.8, chloride 103, bicarbonate 24, BUN 75, creatinine 4.4, calcium is 8.5. IMAGING: A chest x-ray done today in the emergency room showed cardiomegaly; otherwise there was no acute cardiopulmonary process. ASSESSMENT: A 70-year-old male with a past medical history of end-stage renal disease, on hemodialysis, admitted this time with dark-colored vomiting and melena, possible upper gastrointestinal (GI) bleed. Nephrology following the patient for management of end-stage renal disease. PLAN: 1. Melena and dark vomiting. Most likely upper GI bleed. The patient is kept nothing by mouth (n.p.o.) at this time. He is getting packed red blood cell transfusion. The patient will get an upper GI endoscopy tomorrow morning. The rest of the management is as per primary team and Dr. Alan. 2. End-stage renal disease, on hemodialysis. The patient got hemodialysis for 3 hours today. No urgent need for hemodialysis today. The patient will be evaluated tomorrow for any need of hemodialysis after the procedure. 3. Hypertension. Continue the home medications with holding parameters because the patient is having upper GI bleed. 4. Liver cirrhosis. The patient's INR is normal at this time. He gets paracentesis every 2 weeks. No urgent need for ascitic tap at this time. Continue the diuretics at this time. 5. Anemia in end-stage renal disease. The patient is having blood transfusion at this time. He does not need any IV iron or Aranesp at this time. Thank you for involving us in the care of this patient. We shall be happy to follow the patient along with you tomorrow morning. Plan of care was discussed with the hospitalist team doctor, Bladimir Ventura. STEVEN
[2016-04-29] MEDS: LIDOCAINE 5% (LIDODERM) PATCH TD SCH (22:53)
[2016-04-29 23:59] VITALS: BP 126/60
[2016-04-30] VITALS (7 sets, daily range): BP systolic 110–164; BP diastolic 52–75
[2016-04-30] MEDS: PANTOPRAZOLE SODIUM 40 MG in D5W MINI-BAG PLUS 50 ML IV SCH ×3 (03:30→14:49)
[2016-04-30 05:42] LABS: BASO % 0.4 % (0.0-1.0); EOS # 0.3 K/mm3 (0.0-0.50); EOS % 6.6 % (0.0-3.0); LARGE UNSTAINED CELL # 0.1 K/mm3 (0.0-0.4); LARGE UNSTAINED CELL % 2.8 % (0.0-4.0); LYMPH # 0.6 K/mm3 (1.5-4.5); LYMPH % 13.3 % (24.0-44.0); MEAN CORPUSCULAR HEMOGLOBIN 30.5 pg (27.0-33.0); MEAN CORPUSCULAR HGB CONC 33.2 g/dl (32.0-36.5); MEAN CORPUSCULAR VOLUME 91.9 fl (80.0-96.0); MONO # 0.4 K/mm3 (0.0-0.8); MONO % 7.9 % (0.0-5.0); NEUTROPHILS # 3.3 K/mm3 (1.8-7.7); PLATELET COUNT, AUTOMATED 107 k/mm3 (150-450); RED CELL DISTRIBUTION WIDTH 16.8 % (11.5-14.5); WHITE BLOOD COUNT 4.8 K/mm3 (4.0-10.0)
[2016-04-30 06:01] LABS: ALBUMIN 2.9 GM/DL (3.2-5.2); ALBUMIN/GLOBULIN RATIO 1.04 (1.00-1.93); BILIRUBIN,TOTAL 0.6 MG/DL (0.2-1.0); CALCIUM LEVEL 8.3 MG/DL (8.8-10.2); CREATININE FOR GFR 5.29 MG/DL (0.70-1.30); GLOMERULAR FILTRATION RATE 11.5 (>42); POTASSIUM SERUM 4.2 MEQ/L (3.5-5.1); TOTAL PROTEIN 5.7 GM/DL (6.4-8.2)
[2016-04-30] MEDS: PRAVASTATIN 20 MG TAB PO SCH (08:28)
[2016-04-30] MEDS: MULTIVITAMINS/MINERALS THERAP 1 TAB PO SCH (08:29)
[2016-04-30] MEDS: FUROSEMIDE 40 MG TAB PO SCH ×2 (08:29→17:27)
[2016-04-30] MEDS: MINOXIDIL 2.5 MG TAB PO SCH ×2 (08:29→20:20)
[2016-04-30] MEDS: **NOTE PATIENT COMMENT** MISC XX SCH (08:32)
--- NOTE | 2016-04-30 10:50 | ECGEPIP ---
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
--- NOTE | 2016-04-30 11:07 | CR ---
DATE OF CONSULTATION: 04/29/2016 REASON FOR CONSULTATION: Possible upper gastrointestinal bleeding, acute blood loss anemia. HISTORY OF PRESENT ILLNESS: Mr. Rodriguez is a 70-year-old gentleman with end-stage renal disease on dialysis, likewise a long-time history of liver cirrhosis with ascites. He also has been chronically intermittently anemic. He was admitted back in early February 2016 with anemia at that time, though during that time it was not evident that he was having acute GI blood loss. This time around, the patient reports that last Tuesday they checked his blood and his hemoglobin was deemed appropriate at 10. On Tuesday evening, the patient started having bouts of nausea, coffee ground and black vomitus, as well as melena going through to Tuesday. He held off on dialysis last Tuesday due to feeling well. On during dialysis he was hypotensive, thus they cut down on his dialysis time. He was sent to the emergency room and was found to be profoundly anemic at 7.2 of hemoglobin. Subsequently admitted. Last bowel movement was early this morning, it is still black but now formed. He denies any associated abdominal pain. He had an upper endoscopy more than [address] Siegel for suspected dyspeptic symptoms. He had a colonoscopy in November 2015 in [place] and was found to have polyps, otherwise no other significant findings according to the patient. He was scheduled for an upper endoscopy this April also in [place]. I was then called in to consider an upper endoscopy during this admission. ALLERGIES: AMLODIPINE, LEVOFLOXACIN, QUINOLONES. HOME MEDICATIONS: Home medications were reviewed. He is only on 81 mg of aspirin. He is not on any blood thinners. PAST MEDICAL HISTORY: Includes: 1. End-stage renal disease on dialysis. 2. Hypertension. 3. Cirrhosis with ascites. 4. History of bladder cancer status post radiation, chemotherapy and subsequently on recurrence had a radical cystectomy with a cystostomy. PAST SURGICAL HISTORY: 1. Bilateral below-knee amputations due to gangrene. 2. Radical cystectomy. FAMILY HISTORY: Noncontributory. SOCIAL HISTORY: The patient denies any his current use of alcohol. REVIEW OF SYSTEMS: The patient denies any ongoing white weight loss. He denies change in appetite. Denies any visual problems, hearing problems. Denies any problems with swallowing, hoarseness in his voice. Denies neck pains. Denies any chest pains or palpitations. Reports some mild dizziness during dialysis yesterday. Denies any chronic cough or colds, dyspnea on effort. The patient denies any abdominal complaints. The rest of the gastrointestinal symptoms enumerated in history of present illness. The patient has a radical cystectomy with ileal conduit. He still produces urine. He is on hemodialysis. The patient reports previously he was diabetic, but not on any medications right now , well controlled. Reports chronic history of cirrhosis, unknown etiology. No history of variceal bleeding, but has had frequent ascites, though this also seems to be getting less, requiring less taps. No skin rashes reported. Denies any history of strokes, seizures, muscle weakness. Has bilateral amputations and is wearing prosthesis. PHYSICAL EXAMINATION: Most latest vitals were reviewed. He is hemodynamically stable. Temperature of 97.7, pulse rate 56, respiratory rate of 18, blood pressure of 110/56, 96% pulse oximetry reading on room air. Patient is seen laying in bed, appears comfortable, awake, alert, oriented. He is pleasant and cooperative. Skin is warm and moist. Normocephalic, atraumatic. Mildly pale palpebral conjunctivae. Nonicteric sclerae. Lips appear moist. Neck is supple. No thyromegaly. No chest wall abnormalities. Lung sounds are clear to auscultation bilaterally. No wheezing appreciated. Heart rate with systolic ejection type murmur, moderate in severity, 3/6. Has a left upper extremity AV fistula. Abdomen is slightly rounded, soft, nondistended, nontender on palpation. Extremities with BKA prosthesis on the bed. LABORATORY Initial labs on presentation showed hemoglobin of 7.2 and after 2 units packed red blood cells this is 8.7, hematocrit of 26.1, WBCs 4.8, platelet count is 107. Chemistry: Sodium is 141, potassium 4.2, chloride is 105, CO2 is 24, BUN of 82, creatinine 5.29, glucose is 120. Liver function tests fall within normal range. Total bilirubin at 0.6, AST is 15, ALT of 18, albumin of 2.9, PT of 14.7, INR of 1.14, a PTT of 29.2. IMAGING STUDIES: The chest x-ray was done showing no acute disease. I reviewed all his previous studies. He did not have any recent CT scans of the abdomen and pelvis. Multiple abdominal ultrasounds to check for ascites. Last CT of the abdomen was in 2009. IMPRESSION 1. Acute blood loss anemia, probably from melena from suspected upper gastrointestinal bleeding. The etiology of the upper GI bleeding could be multifactorial. His risks, including that of liver cirrhosis with possibility of variceal bleeding, though this is usually more dramatic in presentation with hematemesis and the patient would be more symptomatic. He had a colonoscopy in 2016. There was no mention of rectal varices. There was no recent CT scan of the abdomen and pelvis to check for varices in the esophagus and around the stomach though this is a distinct possibility. This includes ulcers or gastritis. He is hemodynamically stable at this point. He got 2 units of packed red blood cells and this irasema up appropriately. Last bowel movement early this morning is now formed, so there is a possibility that he is no longer bleeding. He is scheduled for an upper GI endoscopy today. This will be done in the operating room as per hospital protocol because he is a hemodialysis patient. I have discussed with him risks and benefits of the procedure and got consent from the patient. He is in agreement with our plan of therapy. STEVEN
--- NOTE | 2016-04-30 13:01 | IPNPDOC ---
Assessment/Plan Date Seen The patient was seen on 04/30/16. Problems Problems: (1) Anemia due to acute blood loss Status: Acute Problem Text: * pt admits to having dark blood in vomit and black tarry stool * s/p 2 units of PRBC, hg went from 7.2 to 8.7 * hemodynamically stable, no chest pain, sob or dizziness * was seen by surgery, EGD scheduled for today * pantoprazole drip (2) ESRD on hemodialysis Status: Chronic Problem Text: * HD tuesday , and tuesday * s/p dialysis on 04/29 * Dr Mac aware that pt is here (3) Symptomatic anemia Status: Acute Response to Treatment: Stable, Improving (4) Diabetes Status: Chronic Problem Text: * pt is not on any medication at home (5) History of bladder cancer Status: Resolved (6) Dyslipidemia Status: Chronic Problem Text: continue pravastatin (7) Cirrhosis Status: Chronic Problem Text: gets paracentesis every 2 weeks, next schedule one is on may 19 Plan / VTE VTE Prophylaxis Ordered?: Yes Subjective Review of Systems CC/HPI The patient is a 70-year-old male admitted with a reason for visit of Symptomatic Anemia. Events since last encounter pt seen and examined, denies any chest pain or palpitations, no shortness of breath, no dizziness or light headness Objective Physical Examination General Exam: Positive: Alert, No Acute Distress Neck Exam: Positive: Supple, Negative: JVD, thyromegaly Chest Exam: Positive: Clear to auscultation, Normal air movement Heart Exam: Positive: Murmurs (systolic 3/6), Rate Normal Abdomen Exam: Positive: Normal bowel sounds, Soft Extremity Exam: Positive: Other (lower extremety ambulations) Vital Signs/I&O Vital Signs Date Time Temp Pulse Resp B/P Pulse Ox O2 Delivery O2 Flow Rate FiO2 04/30/16 08:29 125/75 04/30/16 08:02 Room Air 04/30/16 04:00 97.7 56 18 96 I&O- Last 24 Hours up to 6 AM 04/30/16 06:00 Intake Total 710 ml Output Total 250 ml Balance 460 ml Laboratory Data Labs 24H Laboratory Tests 2 04/29/16 15:24: Absolute Reticulocyte Count 148H, Activated Partial Thromboplast Time 29.2, Aspartate Amino Transf (AST/SGOT) 17, Alanine Aminotransferase (ALT/SGPT) 19, Alkaline Phosphatase 70, Total Bilirubin 0.6, Direct Bilirubin 0.2, Albumin 3.5 , Albumin/Globulin Ratio 1.17, Anion Gap 13, White Blood Count 5.3, Red Blood Count 2.32L, Hemoglobin 7.2L, Hematocrit 21.3L, Mean Corpuscular Volume 91.7, Mean Corpuscular Hemoglobin 30.9, Mean Corpuscular Hemoglobin Concent 33.7, Red Cell Distribution Width 17.2H, Platelet Count 132L, Neutrophils (%) (Auto) 83.7H , Lymphocytes (%) (Auto) 6.1L, Monocytes (%) (Auto) 4.6, Eosinophils (%) (Auto) 3.1H, Basophils (%) (Auto) 0.3, Neutrophils # (Auto) 4.5, Lymphocytes # (Auto) 0.3L, Monocytes # (Auto) 0.3, Eosinophils # (Auto) 0.2, Basophils # (Auto) 0.0, Calcium Level 8.5L, Glomerular Filtration Rate 14.1L, Large Unclassified Cells # 0.1, Large Unclassified Cells % 2.1, Percent Reticulocyte Count 6.20H, Prothromb Time International Ratio 1.14, Prothrombin Time 14.7H, Reticulocyte Hgb Content (CHr) 35.9, Total Protein 6.5 04/30/16 05:14: Aspartate Amino Transf (AST/SGOT) 15, Alanine Aminotransferase (ALT/SGPT) 18, Alkaline Phosphatase 67, Total Bilirubin 0.6, Albumin 2.9L, Albumin/Globulin Ratio 1.04, Anion Gap 12, White Blood Count 4.8, Red Blood Count 2.84L, Hemoglobin 8.7L, Hematocrit 26.1L, Mean Corpuscular Volume 91.9, Mean Corpuscular Hemoglobin 30.5, Mean Corpuscular Hemoglobin Concent 33.2, Red Cell Distribution Width 16.8H, Platelet Count 107L, Neutrophils (%) (Auto) 69.0H, Lymphocytes (%) (Auto) 13.3L, Monocytes (%) (Auto) 7.9H, Eosinophils (%) (Auto) 6.6H, Basophils (%) (Auto) 0.4, Neutrophils # (Auto) 3.3, Lymphocytes # (Auto) 0.6L, Monocytes # (Auto) 0.4, Eosinophils # (Auto) 0.3, Basophils # (Auto) 0.0, Calcium Level 8.3L, Glomerular Filtration Rate 11.5L, Large Unclassified Cells # 0.1, Large Unclassified Cells % 2.8, Total Protein 5.7L, Blood Urea Nitrogen 82H, Creatinine 5.29H, Sodium Level 141, Potassium Level 4.2, Chloride Level 105 , Carbon Dioxide Level 24, Magnesium Level 2.0 CBC/BMP Laboratory Tests 04/29/16 15:24 Red Blood Count 2.32 L, Mean Corpuscular Volume 91.7, Mean Corpuscular Hemoglobin 30.9, Mean Corpuscular Hemoglobin Concent 33.7, Red Cell Distribution Width 17.2 H, Neutrophils (%) (Auto) 83.7 H, Lymphocytes (%) (Auto ) 6.1 L, Monocytes (%) (Auto) 4.6, Eosinophils (%) (Auto) 3.1 H, Basophils (%) ( Auto) 0.3, Neutrophils # (Auto) 4.5, Lymphocytes # (Auto) 0.3 L, Monocytes # ( Auto) 0.3, Eosinophils # (Auto) 0.2, Basophils # (Auto) 0.0 04/29/16 20:46 04/30/16 05:14 Red Blood Count 2.84 L, Mean Corpuscular Volume 91.9, Mean Corpuscular Hemoglobin 30.5, Mean Corpuscular Hemoglobin Concent 33.2, Red Cell Distribution Width 16.8 H, Neutrophils (%) (Auto) 69.0 H, Lymphocytes (%) (Auto ) 13.3 L, Monocytes (%) (Auto) 7.9 H, Eosinophils (%) (Auto) 6.6 H, Basophils (% ) (Auto) 0.4, Neutrophils # (Auto) 3.3, Lymphocytes # (Auto) 0.6 L, Monocytes # (Auto) 0.4, Eosinophils # (Auto) 0.3, Basophils # (Auto) 0.0, Calcium Level 8.3 L, Aspartate Amino Transf (AST/SGOT) 15, Alanine Aminotransferase (ALT/SGPT) 18 , Alkaline Phosphatase 67, Total Bilirubin 0.6, Total Protein 5.7 L, Albumin 2.9 L NIECY KAT DO Apr 30, 2016 11:24
--- NOTE | 2016-04-30 13:53 | IPNPDOC ---
Date Seen The patient was seen on 04/30/16. Progress Note DATE OF ENCOUNTER: 04/30/2016 SUBJECTIVE: Mr. Rodriguez was seen this morning at bedside. No acute overnight issues. He reports that he has dark stool. No nausea, vomiting, hematemesis, abdominal pain, diarrhea. No chest pain, chest pressure, palpitations, shortness of breath, lightheadedness, dizziness or headache. No fevers or chills. He is due to have endoscopy today. He had hemodialysis yesterday. OBJECTIVE: Vital Signs Date Time Temp Pulse Resp B/P Pulse Ox O2 Delivery O2 Flow Rate FiO2 04/30/16 12:00 98.0 50 18 130/52 98 Room Air I&O- Last 24 Hours up to 6 AM 04/30/16 06:00 Intake Total 710 ml Output Total 250 ml Balance 460 ml PHYSICAL EXAMINATION: GENERAL: Alert and oriented, in no acute distress. HEENT: Normocephalic, atraumatic, extraocular muscles are intact, moist mucosa. NECK: Supple. No thyromegaly. No jugular venous distention appreciated. HEART: Normal S1, S2. Regular rate and rhythm. LUNGS: Diminished breath sounds bilaterally. No rhonchi or wheezing appreciated. ABDOMEN: Soft. Non-tender. Bowel sounds are present. He has right lower quadrant cystostomy bag. EXTREMITIES: He has bilateral below knee amputation. No evidence of swelling in the stump area. SKIN: Warm and dry. No rashes noted. NEUROLOGIC: No focal deficits. Moving all extremities. LABORATORY DATA: 04/30/16 05:14 MICROBIOLOGY: IMAGING: Chest x-ray on 04/29 revealed moderate cardiac enlargement, no acute disease. ASSESSMENT AND PLAN: 1. End-stage renal disease, on hemodialysis. Patient received hemodialysis yesterday. We will continue with his normal schedule of Tuesday, and Tuesday. His volume status appears stable and electrolytes are stable. 2. Melena with likely upper GI bleed. He is currently nothing by mouth. He will be taken to the operating room for upper endoscopy by Dr. Alan today. Hemoglobin is currently 8.7. He is status post 2 units of packed red blood cells on 04/29. 3. Hypertension. Blood pressure stable on Lasix, atenolol, lisinopril and minoxidil. Monitor for hemodynamic instability. 4. Liver cirrhosis. He gets paracentesis every 2 weeks. Continue with Lasix. 5. Anemia in end-stage renal disease superimposed on likely GI bleed. Hemoglobin is currently 8.7. He is status post 2 units of packed red blood cells. GME ATTESTATION GME ATTESTATION My preceptor for this patient encounter was physically present in the building during the encounter and was fully available. As needed, all aspects of the patient interview, examination, medical decision making process, and medical care plan development were reviewed and approved by the preceptor. Preceptor is aware and concurs with the plan as stated in the body of this note and will attest to such by his/her cosignature. ATTENDING NOTE Nephrology: Pt was examined during rounds. s/p 2 unit PRBC yesterday. NPO for EGD today. No need of HD today. KINJAL STEEN DO Apr 30, 2016 13:53 DEANDRE TAN MD May 02, 2016 22:06
[2016-04-30] MEDS ORDERED: LIDOCAINE 2% INJ 100 MG/5 ML SDV (FOR ANES.) As Ordered ONE (14:07)
[2016-04-30] MEDS ORDERED: MIDAZOLAM INJ 2 MG/2 ML VIAL (J2250) As Ordered ONE (14:07)
[2016-04-30] MEDS ORDERED: PROPOFOL 200 MG/20 ML VIAL As Ordered ONE (14:07)
[2016-04-30] MEDS ORDERED: fentaNYL 100 MCG/2 ML INJECTION (J3010) As Ordered ONE (14:08)
--- NOTE | 2016-04-30 15:00 | ROOR ---
Patient Name: Jadiel Rodriguez Procedure Date: 04/30/2016 2:11 PM Date of : 1945 Age: 70 Room: Main OR Gender: Male Note Status: Finalized Procedure: Upper GI endoscopy Indications: Melena Providers: Power Alan MD Referring MD: Mustapha Alvarado DO Requesting Provider: Medicines: Monitored Anesthesia Care Complications: No immediate complications. Procedure: Pre-Anesthesia Assessment: - Prior to the procedure, a History and Physical was performed, and patient medications and allergies were reviewed. The patient is competent. The risks and benefits of the procedure and the sedation options and risks were discussed with the patient. All questions were answered and informed consent was obtained. Patient identification and proposed procedure were verified by the physician, the nurse and the soa architect in the procedure room. Mental Status Examination: alert and oriented. Airway Examination: normal oropharyngeal airway and neck mobility. Respiratory Examination: clear to auscultation. CV Examination: systolic murmur. Prophylactic Antibiotics: The patient does not require prophylactic antibiotics. Prior Anticoagulants: The patient has taken aspirin, last dose was 1 day prior to procedure. ASA Grade Assessment: III - A patient with severe systemic disease. After reviewing the risks and benefits, the patient was deemed in satisfactory condition to undergo the procedure. The anesthesia plan was to use monitored anesthesia care (MAC). Immediately prior to administration of medications, the patient was re-assessed for adequacy to receive sedatives. The heart rate, respiratory rate, oxygen saturations, blood pressure, adequacy of pulmonary ventilation, and response to care were monitored throughout the procedure. The physical status of the patient was re-assessed after the procedure. The Endoscope was introduced through the mouth, and advanced to the second part of duodenum. The upper GI endoscopy was accomplished without difficulty. The patient tolerated the procedure well. The Endoscope was introduced through the mouth, and advanced to the second part of duodenum. Findings: The examined esophagus was normal. No evidence for bleeding. No esophageal varices Estimated blood loss: none. Mild portal hypertensive gastropathy was found in the gastric fundus and in the gastric body. This was biopsied with a cold forceps for histology. Estimated blood loss was minimal. The second portion of the duodenum was normal. Impression: - Normal esophagus. - Portal hypertensive gastropathy. Biopsied. - Normal second portion of the duodenum. Recommendation: - [facility] the [facility]. - Resume regular diet today. - Give a beta morris with dosage titrated by the heart rate. Power Alan MD Power Alan MD 04/30/2016 3:00:44 PM This report has been signed electronically. Number of Addenda: 0 Note Initiated On: 04/30/2016 2:11 PM Estimated Blood Loss: Estimated blood loss was minimal.
[2016-04-30] MEDS ORDERED: SLF 3 ML SYR IV PRN (17:00)
[2016-04-30] MEDS ORDERED: LR 1,000 ML IV SCH (17:30)
[2016-04-30] MEDS: NORCO, ANEXSIA 5/325MG TABLET (HYDROcodone/ACETAMINOPHEN) PO SCH (20:20)
[2016-04-30] MEDS: clonazePAM 0.5 MG TAB PO SCH (20:20)
[2016-04-30] MEDS: PANTOPRAZOLE 40MG TAB (PROTONIX) PO SCH (20:21)
[2016-04-30] MEDS: LISINOPRIL 20 MG TAB PO SCH (20:21)
[2016-04-30] MEDS: LATANOPROST 0.005% OPHTH SOLN 2.5 ML OU SCH (20:22)
[2016-04-30] MEDS: LIDOCAINE 5% (LIDODERM) PATCH TD SCH (20:25)
[2016-04-30] MEDS: PROPRANOLOL 20 MG TAB PO SCH (21:10)
[2016-04-30] MEDS: SLF 3 ML SYR IV SCH (22:00)
[2016-05-01] MEDS ORDERED: ONDANSETRON 4MG/2ML VIAL (J2405) IV ONE (01:45)
[2016-05-01 05:20] VITALS: BP 168/56
[2016-05-01 05:50] LABS: BASO % 0.3 % (0.0-1.0); EOS # 0.2 K/mm3 (0.0-0.50); EOS % 4.4 % (0.0-3.0); LARGE UNSTAINED CELL # 0.1 K/mm3 (0.0-0.4); LARGE UNSTAINED CELL % 2.5 % (0.0-4.0); LYMPH # 0.5 K/mm3 (1.5-4.5); LYMPH % 9.7 % (24.0-44.0); MEAN CORPUSCULAR HEMOGLOBIN 30.4 pg (27.0-33.0); MEAN CORPUSCULAR HGB CONC 32.5 g/dl (32.0-36.5); MEAN CORPUSCULAR VOLUME 93.5 fl (80.0-96.0); MONO # 0.2 K/mm3 (0.0-0.8); MONO % 4.8 % (0.0-5.0); NEUTROPHILS % 78.3 % (36.0-66.0); PLATELET COUNT, AUTOMATED 108 k/mm3 (150-450); WHITE BLOOD COUNT 5.1 K/mm3 (4.0-10.0)
[2016-05-01 06:03] LABS: ALBUMIN 3.3 GM/DL (3.2-5.2); ALBUMIN/GLOBULIN RATIO 1.1 (1.00-1.93); BILIRUBIN,TOTAL 0.5 MG/DL (0.2-1.0); CALCIUM LEVEL 8.6 MG/DL (8.8-10.2); CREATININE FOR GFR 6.49 MG/DL (0.70-1.30); GLOMERULAR FILTRATION RATE 9.1 (>42); MAGNESIUM LEVEL 2.2 MG/DL (1.8-2.4); TOTAL PROTEIN 6.3 GM/DL (6.4-8.2)
[2016-05-01] MEDS: PRAVASTATIN 20 MG TAB PO SCH (06:12)
[2016-05-01] MEDS: MINOXIDIL 2.5 MG TAB PO SCH ×2 (06:12→21:41)
[2016-05-01] MEDS: PROPRANOLOL 20 MG TAB PO SCH ×2 (06:13→22:16)
[2016-05-01] MEDS: MULTIVITAMINS/MINERALS THERAP 1 TAB PO SCH (06:14)
[2016-05-01] MEDS: FUROSEMIDE 40 MG TAB PO SCH ×2 (06:14→22:17)
[2016-05-01] MEDS: PANTOPRAZOLE 40MG TAB (PROTONIX) PO SCH ×2 (06:22→21:41)
[2016-05-01] MEDS: SLF 3 ML SYR IV SCH ×3 (06:23→21:42)
[2016-05-01 08:00] VITALS: BP 160/58
[2016-05-01] MEDS: **NOTE PATIENT COMMENT** MISC XX SCH (08:35)
[2016-05-01 11:41] VITALS: BP 152/50
[2016-05-01 16:00] VITALS: BP 162/60
--- NOTE | 2016-05-01 17:14 | IPNPDOC ---
Date Seen The patient was seen on 05/01/16. Progress Note DATE OF ENCOUNTER: 05/01/2016 SUBJECTIVE: Mr. Rodriguez was seen this afternoon in hemodialysis. No acute overnight issues. He denies any bleeding in his stool. No hematemesis. No bright red blood per rectum. No nausea, vomiting, abdominal pain, diarrhea. No chest pain, chest pressure, palpitations, shortness of breath, lightheadedness, dizziness or headache. No fevers or chills. He had an upper endoscopy yesterday which showed portal hypertensive gastropathy and he was started on a beta morris. He is currently receiving hemodialysis. Vitals are stable thus far. OBJECTIVE: Vital Signs Date Time Temp Pulse Resp B/P Pulse Ox O2 Delivery O2 Flow Rate FiO2 05/01/16 16:00 97.1 58 18 162/60 98 Room Air I&O- Last 24 Hours up to 6 AM 05/01/16 06:00 Intake Total 1205 ml Output Total 150 ml Balance 1055 ml GENERAL: Alert and oriented, in no acute distress. HEENT: Normocephalic, atraumatic, extraocular muscles are intact, moist mucosa. NECK: Supple. No thyromegaly. No jugular venous distention appreciated. HEART: Normal S1, S2. Regular rate and rhythm. Positive systolic murmur heard along the left sternal border. LUNGS: Faint crackles heard bilaterally. Good air movement. ABDOMEN: Soft. Non-tender. Bowel sounds are present. Mild ascites. He has right lower quadrant cystostomy bag. EXTREMITIES: He has bilateral below knee amputation. No evidence of swelling in the stump area. SKIN: Warm and dry. No rashes noted. NEUROLOGIC: No focal deficits. Moving all extremities. LABORATORY DATA: 05/01/16 05:24 05/01/16 12:00 IMAGING: Chest x-ray on 04/29 revealed moderate cardiac enlargement, no acute disease. ASSESSMENT AND PLAN: 1. End-stage renal disease, on hemodialysis. Patient is receiving hemodialysis today, goal of removing 3.5 L. Volume status and electrolytes are stable. We will continue with his normal schedule of Tuesday, and Tuesday. 2. Melena, thought to be due to possible upper GI bleed. He is status post 2 units of packed red blood cells on 04/29. He had upper endoscopy done yesterday which revealed portal hypertensive gastropathy, no active bleeding. He was initiated on a beta morris. No evidence of further bleeding. 3. Portal hypertensive gastropathy. Patient has been initiated on propranolol by the primary team. 4. Liver cirrhosis. He gets regular paracentesis. He reports that he has not had one done in about 5 weeks, as the last time he had ultrasound, there was no significant ascites. Continue with Lasix. 5. Hypertension. Blood pressure stable. Continue Lasix, lisinopril and minoxidil. His atenolol was changed to propranolol. 6. Anemia in end-stage renal disease. Hemoglobin is currently 8.2. He is status post 2 units of packed red blood cells. No evidence of bleeding on endoscopy. GME ATTESTATION GME ATTESTATION My preceptor for this patient encounter was physically present in the building during the encounter and was fully available. As needed, all aspects of the patient interview, examination, medical decision making process, and medical care plan development were reviewed and approved by the preceptor. Preceptor is aware and concurs with the plan as stated in the body of this note and will attest to such by his/her cosignature. KINJAL STEEN DO May 01, 2016 17:14
--- NOTE | 2016-05-01 19:39 | EDDOCDS ---
Physician Documentation [facility] Name: Jadiel Rodriguez Age: 70 yrs Sex: Male : 1945 Arrival Date: 04/29/2016 Time: 15:03 Bed 11 Private MD: Disposition: 04/29 16:44 Critical Care:. pc Disposition: 04/29/16 16:46 Hospitalization ordered by Bladimir Ventura for Inpatient Admission. Preliminary diagnosis are Gastrointestinal hemorrhage, unspecified - upper, Anemia, unspecified - multifactorial: acute blood loss, AoCD, Fe def anemia, End stage renal disease. - Bed requested for PCU. - Status is Inpatient Admission. kr3 - Condition is Stable. - Problem is new. - Symptoms have improved. HPI: 15:43 This 70 yrs old Male presents to ER via Ambulance with complaints of Weakness.pc 15:43 The history is obtained from the patient. He has been feeling weak for 2-3 days, pc started vomiting black material for 2 days, but none in 24 hours, and fernandez shad black bowel movements for 36 hours. He does get iron during dialysis but is not on any oral iron. He was at dialysis and was not feeling well and staff noticed he was not himself, stopped dialysis an hour short and called for EMS. He denies any abdominal pain, he remains nauseated and complains of thirst and fatigue. He was admitted for the same 2 months ago, with hemoccult positive stools but was discharged after transfusion of 3 units of PRBC with an UGI bleed not believed to be the cause. The patient has been recently seen by Dr. Jackson. Historical: - Allergies: amlodipine; Levaquin; - Home Meds: 1. aspirin 81 mg Oral tab 1 tab once daily 2. atenolol 50 mg Oral tab once daily 3. Calcium + Vitamin D 500mg-1250mg Oral 1 tab daily 4. Centrum Silver oral tab daily 5. clonazepam 0.5 mg Oral tab 1 tab nightly 6. Fish Oil 1,000 mg Oral cap twice a day 7. flaxseed 1,000 mg oral cap twice a day on non dialysis days 8. furosemide 40 mg Oral tab 1 tab 2 times per day 9. hydrocodone-acetaminophen 5-325 mg Oral tab nightly 10. lisinopril 10 mg Oral tab 1 tab once daily 11. Lumigan 0.01 % Opht drop 1 drop nightly 12. pravastatin 20 mg oral tab 1 tab once daily 13. ranitidine HCl 150 mg Oral cap 1 cap 2 times per day 14. Viagra 100 mg Oral tab 1 tab as needed 15. Vitamin D2 50,000 unit oral cap once wkly 16. Renvela 800 mg oral tab 1 tab 3 times per day 17. Imodium 2 mg Oral cap twice a day 18. minoxidil 2.5 mg Oral tab 1 tabs 2 times per day 19. iron during dialysis - PMHx: Cancer, Bladder; Chronic Renal Failure with dialysis; Diabetes - IDDM: controlled; High Cholesterol; Hypertension; Alcoholism; Cirrhosis; - PSHx: bilateral lower leg amputee; Hernia repair; Cystectomy; Urostomy Construction; circumcision; AV Fistula- Left arm; - The history from nurses notes was reviewed: and elements of the historical information I have obtained differs from that reported to nursing. - Social history: Smoking status: Patient states former smoker of tobacco. No barriers to communication noted, The patient speaks fluent Syriac, Speaks appropriately for age. - : The pt / caregiver states he / she is not on anticoagulants. Home medication list is obtained from the facility MAR. - Exposure Risk Screening:: None identified. - Immunization history:: All immunizations up-to-date. - Family history: Not pertinent. - Social history:: the patient is a non-smoker, the patient formerly used alcohol. ROS: 15:48 All systems are negative except as listed. pc Exam: 15:48 General Appearance: no acute distress, alert, lethargic. pc 15:48 EENT: ears, nose and throat normal, pale conjunctiva, mucous membranes dry. 15:48 Neck: The exam reveals no acute abnormalities. ROM is normal and painless. No nuchal rigidity is noted.. 15:48 Respiratory: no respiratory distress, normal breath sounds. 15:48 CVS: regular pulse rate, regular rhythm, normal S1 and S2, no murmurs, strong peripheral pulses, normal capillary refill. 15:48 Abdomen: soft, non-tender, no organomegaly, normal bowel sounds, Rectal exam: stool is guaiac positive, black. 15:48 Back: normal inspection. 15:48 Skin: warm, dry, the skin appears pale, diffusely. 15:48 Extremities: bilateral BKAs. 15:48 Neuro: oriented x 3, cranial nerves normal as tested, no motor deficits, no sensory deficits. 15:48 Psych: normal mood. Vital Signs: 15:17 BP 169 / 70; Pulse 63; Resp 18; Temp 97.2(O); Pulse Ox 97% on R/A; ld5 15:40 BP 158 / 69 (auto/); kr3 15:40 Pulse 64 MON; Pulse Ox 95% ; kr3 15:46 Weight 78.93 kg / 174.01 lbs (R); Height 5 ft. 8 in. (172.72 cm) (R); kr3 16:10 BP 145 / 75 (auto/); kr3 16:10 Pulse 60 MON; Pulse Ox 97% ; kr3 16:40 BP 144 / 65 (auto/); kr3 16:40 Pulse 60 MON; Pulse Ox 98% ; kr3 17:09 Pulse 58 MON; Pulse Ox 96% ; kr3 17:10 BP 154 / 71 (auto/); kr3 17:27 BP 162 / 72 (auto/); kr3 17:27 Pulse 60 MON; Pulse Ox 97% ; kr3 17:40 BP 158 / 72 (auto/); kr3 17:40 Pulse 62 MON; Pulse Ox 96% ; kr3 17:43 BP 160 / 72 (auto/); kr3 17:44 Pulse 60 MON; Resp 16; Temp 97.1(O); Pulse Ox 97% ; kr3 18:10 BP 158 / 70 (auto/); kr3 18:10 Pulse 58 MON; Resp 16; Pulse Ox 98% on R/A; kr3 15:46 Body Mass Index 26.46 (78.93 kg, 172.72 cm) kr3 MDM: 15:29 IV Saline Lock ordered. pc 15:29 NS 0.9% 1000 ml IV at 100 mL/hr continuous ordered. pc 15:29 Technology Risk Intern/Pulse Ox/q 30 min VS ordered. pc 15:30 CBC with Diff Ordered. EDMS 15:30 MED Profile Ordered. EDMS 15:30 Liver Profile Ordered. EDMS 15:31 NOTHING BY MOUTH+DIET ordered. EDMS 15:37 pantoprazole 80 mg IV at bolus once ordered. pc 15:48 Differential Diagnosis: UGI bleed, ESRD on HD, alcoholic cirrhosis. Plan: labs, EKG, pc imaging, meds. 15:52 CBC with Diff Reviewed. pc 15:52 Chest, 1 View Ordered. EDMS 15:53 Transfuse PRBC's 2 units, ensure PRBCs ordered in lab ordered. pc 15:55 Type and Cross, Packed Cells Ordered. EDMS 15:55 Pt & Aptt Ordered. EDMS 15:56 TYPE & SCREEN Ordered. EDMS 15:58 ECG WITH READING ER PHYS+CARDIAG ordered. EDMS 15:58 BED REQUEST+ADM ordered. EDMS 16:27 MED Profile Reviewed. pc 16:27 Pt & Aptt Reviewed. pc 16:27 Liver Profile Reviewed. pc 16:43 TYPE & SCREEN Reviewed. pc 16:43 Chest, 1 View Reviewed. pc 16:44 Data reviewed: old medical records, vital signs, nurses notes, lab test results, all pc radiology studies and available results. Test interpretation: LAB - all labs as ordered have been reviewed, interpreted and considered in the overall management of the clinical presentation; X-RAY - interpreted by Radiologist and personally reviewed, 1 view chest no acute disease. The patient has been re-examined and re-evaluated. The patient's symptoms have mildly improved after treatment. Physician consultation: Dr. Power Alan MD regarding consult, and will see patient in inpatient room. 16:44 Physician consultation: Dr. Bladimir Ventura regarding admission, and will see patient in ED. Disposition: The historical points, examination findings, and any diagnostic results supporting the provided diagnosis, were discussed with the patient or legal guardian. The need for further work-up and/or treatment in the hospital was explained. 16:59 Test interpretation: EKG. pc 17:05 Financial registration complete. zo 17:06 [facility] [place] was [place] into [employer] and attached to record. zo 17:33 HEMOGLOBIN & HEMATOCRIT Ordered. EDMS 17:35 Admission / Observation Status ordered. EDMS 17:35 CLEAR LIQUIDS DIET ordered. EDMS 17:35 NPO FOR TEST/PROCEDURE ordered. EDMS 04/30 11:07 Consents was scanned into [employer] and attached to record. 11:07 ECG/EKG was scanned into [employer] and attached to record. gb EC/02 16:59 Rate is 60 beats/min. Rhythm is regular, Normal Sinus Rhythm. QRS [place] is Normal. MO pc interval is normal. QRS interval is normal. QT interval is prolonged at 470 msec. No Q waves. T waves are Normal. No ST changes noted. Clinical impression: Normal Sinus Rhythm, LVH, and prolonged QT. Administered Medications: 15:38 Drug: NS 0.9% 1000 ml [sodium chloride 0.9 % intravenous solution] Route: IV; Rate: 100 kr3 mL/hr; Site: right forearm; 17:30 Follow up: IV Status: Infusion discontinued; IV Intake: 100ml kr3 15:46 Drug: pantoprazole 80 mg [pantoprazole 40 mg intravenous solution] Route: IV; Rate: kr3 bolus; Site: right forearm; Critical Care Time: 16:44 Critical care time: Bedside Care: 20 minutes, Consultation: 15 minutes. Total time: 35 pc minutes Signatures: Dispatcher [employer] EDSaran Greco MD MD pc Barnhardt, Gloria, Reg Reg gb Robie, Kathleen, RN RN kr3 Etta Bryant Michele, RN RN mts The chart was reviewed and I authenticate all verbal orders and agree with the evaluation and treatment provided.Corrections: (The following items were deleted from the chart) 15:20 15:14 Home Meds: minoxidil 2.5 mg Oral tab 2 tabs 2 times per day; kr3 kr3 15:49 15:43 The history from nurses notes was reviewed and I agree with what is documented. pcpc 16:03 15:30 TYPE & SCREEN+BBK ordered. EDMS EDMS 17:35 17:35 NPO DIET ordered. EDMS EDMS 17:35 17:35 NPO DIET ordered. EDMS EDMS 17:59 17:33 RETICULOCYTE COUNT ordered. EDMS EDMS Attachments: 17:06 [facility] Payment Agreement zo 11:07 ECG/EKG gb Chart Complete MTDD
--- NOTE | 2016-05-01 19:40 | EDDOCDS ---
Nurse's Notes [facility] Name: Jadiel Rodriguez Age: 70 yrs Sex: Male : 1945 Arrival Date: 04/29/2016 Time: 15:03 Bed 11 Private MD: Diagnosis: Gastrointestinal hemorrhage, unspecified-upper;Anemia, unspecified-multifactorial: acute blood loss, AoCD, Fe def anemia;End stage renal disease Presentation: 04/29 15:05 Presenting complaint: EMS states: at 2:15 noticed decrease responsiveness, droop left kr3 eye and left cheek per dialysis saff. The last date and time the patient was known to be well was was at 14:15 on April 29, 2016. No acute neurological deficit is noted. Pre-hospital glucose is not applicable to this patient. Adult Sepsis Screening: The patient does not have new or worsening altered mentation. Patient's respiratory rate is less than 22. Systolic blood pressure is greater than 100. Patient has a qSOFA score of 0- Negative Sepsis Screen. Suicide/Homicide risk assessment- the patient denies having any suicidal and/or homicidal ideations and does not present with any other emotional, behavioral or mental health complaints. Status: Patient is not a caregiver services home or dependent. Transition of care: patient was received from dialysis. Care prior to arrival: Glucose check. 244. 15:05 Method Of Arrival: Ambulance kr3 15:05 Acuity: PRADIP Level 3 kr3 15:14 Presenting complaint: Patient states: Tuesday night had vomiting which continued into kr3 Tuesday. Skipped Dialysis on Tuesday. Reports had dark stools when seen by PCP this week. Triage Assessment: 15:14 The onset of the patients symptoms was less than three hours ago. General: Appears in kr3 no apparent distress, comfortable, Behavior is appropriate for age, cooperative. Pain: Denies pain. The patient is triaged at the bedside. See Assessment in Nurses Notes section of ED record. Neurological: Level of Consciousness is awake, alert, Moves all extremities. Speech is normal. Respiratory: Respiratory effort is even, unlabored. Derm: Skin is dry, Skin is normal. Historical: - Allergies: amlodipine; Levaquin; - Home Meds: 1. aspirin 81 mg Oral tab 1 tab once daily 2. atenolol 50 mg Oral tab once daily 3. Calcium + Vitamin D 500mg-1250mg Oral 1 tab daily 4. Centrum Silver oral tab daily 5. clonazepam 0.5 mg Oral tab 1 tab nightly 6. Fish Oil 1,000 mg Oral cap twice a day 7. flaxseed 1,000 mg oral cap twice a day on non dialysis days 8. furosemide 40 mg Oral tab 1 tab 2 times per day 9. hydrocodone-acetaminophen 5-325 mg Oral tab nightly 10. lisinopril 10 mg Oral tab 1 tab once daily 11. Lumigan 0.01 % Opht drop 1 drop nightly 12. pravastatin 20 mg oral tab 1 tab once daily 13. ranitidine HCl 150 mg Oral cap 1 cap 2 times per day 14. Viagra 100 mg Oral tab 1 tab as needed 15. Vitamin D2 50,000 unit oral cap once wkly 16. Renvela 800 mg oral tab 1 tab 3 times per day 17. Imodium 2 mg Oral cap twice a day 18. minoxidil 2.5 mg Oral tab 1 tabs 2 times per day 19. iron during dialysis - PMHx: Cancer, Bladder; Chronic Renal Failure with dialysis; Diabetes - IDDM: controlled; High Cholesterol; Hypertension; Alcoholism; Cirrhosis; - PSHx: bilateral lower leg amputee; Hernia repair; Cystectomy; Urostomy Construction; circumcision; AV Fistula- Left arm; - The history from nurses notes was reviewed: and elements of the historical information I have obtained differs from that reported to nursing. - Social history: Smoking status: Patient states former smoker of tobacco. No barriers to communication noted, The patient speaks fluent Telugu, Speaks appropriately for age. - : The pt / caregiver states he / she is not on anticoagulants. Home medication list is obtained from the facility [facility]. - Exposure Risk Screening:: None identified. - Immunization history:: All immunizations up-to-date. - Family history: Not pertinent. - Social history:: the patient is a non-smoker, the patient formerly used alcohol. Screenin:28 Screening information is obtained from the patient. Fall risk: At risk due to gait kr3 disturbance, The following interventions are performed due to a positive Fall Risk Screen: Fall Alert bracelet is placed on the patient. Assistance ADL's: requires no assistance with activities of daily living. Abuse/DV Screen: The patient / caregiver reports he/she is: not in a situation that causes fear, pain or injury. Nutritional screening: On renal diet. home support is adequate. 18:09 Advance Directives: Currently, there is a health care proxy, daughter. There is an kr3 active Power of Car[employer] Cutter Helper, daughter. Assessment: 15:28 Reassessment: Patient appears in no apparent distress at this time. Patient denies pain kr3 at this time. 16:33 Reassessment: Patient appears in no apparent distress at this time. General: Behavior kr3 is cooperative, pleasant. Pain: Denies pain. Neurological: Level of Consciousness is awake, alert, Moves all extremities. Speech is normal. 17:45 Reassessment: Patient appears in no apparent distress at this time. General: Appears kr3 comfortable, Behavior is cooperative, no complaints, daughter at bedside. 18:15 Reassessment: Patient appears in no apparent distress at this time. Patient denies pain kr3 at this time. Neurological: No deficits noted. Respiratory: Respiratory effort is even, unlabored. Derm: Skin is dry, Skin is normal. Vital Signs: 15:17 BP 169 / 70; Pulse 63; Resp 18; Temp 97.2(O); Pulse Ox 97% on R/A; ld5 15:40 BP 158 / 69 (auto/); kr3 15:40 Pulse 64 MON; Pulse Ox 95% ; kr3 15:46 Weight 78.93 kg (R); Height 5 ft. 8 in. (172.72 cm) (R); kr3 16:10 BP 145 / 75 (auto/); kr3 16:10 Pulse 60 MON; Pulse Ox 97% ; kr3 16:40 BP 144 / 65 (auto/); kr3 16:40 Pulse 60 MON; Pulse Ox 98% ; kr3 17:09 Pulse 58 MON; Pulse Ox 96% ; kr3 17:10 BP 154 / 71 (auto/); kr3 17:27 BP 162 / 72 (auto/); kr3 17:27 Pulse 60 MON; Pulse Ox 97% ; kr3 17:40 BP 158 / 72 (auto/); kr3 17:40 Pulse 62 MON; Pulse Ox 96% ; kr3 17:43 BP 160 / 72 (auto/); kr3 17:44 Pulse 60 MON; Resp 16; Temp 97.1(O); Pulse Ox 97% ; kr3 18:10 BP 158 / 70 (auto/); kr3 18:10 Pulse 58 MON; Resp 16; Pulse Ox 98% on R/A; kr3 15:46 Body Mass Index 26.46 (78.93 kg, 172.72 cm) kr3 Vitals: 15:17 Log In Time N/A - ambulance arrival. ld5 ED Course: 15:04 Patient visited by Destiny Holman, Vp Security. deg 15:04 Rachel Humphries,RN is Primary Nurse. deg 15:04 Patient moved to Waiting deg 15:04 Patient moved to 11 deg 15:07 Triage Initiated kr3 15:10 Saran Scott MD is Attending Physician. pc 15:28 Patient visited by Saran Scott MD. pc 15:28 Maintain field IV. Dressing intact. Good blood return noted. Site clean & dry. Gauge & kr3 site: #20 right forearm. 16:33 Patient visited by Rachel Humphries RN. kr3 16:38 Chest, 1 View Returned. EDMS 16:46 Bladimir Ventura is Hospitalizing Provider. pc 16:52 Patient visited by Emmanuel Bergman PCA. jrd 16:52 EKG done. (by ED staff). Reviewed by Saran Scott MD. jrd 17:06 [facility] Payment Agreement was scanned into [employer] and attached to record. zo 17:44 Blood products: PRBCs X 1 unit given. See transfusion record [id number]. kr3 17:45 The patient / caregiver is instructed regarding the plan of care and ED course. Patient kr3 has correct armband on for positive identification. Placed in gown. Bed in low position. Call light in reach. Side rails up X2. clinical research monitor on. Pulse ox on. NIBP on. 17:45 PO fluids given. kr3 18:10 No procedures done that require assistance. kr3 04/30 11:07 Consents was scanned into [employer] and attached to record. gb 11:07 ECG/EKG was scanned into [employer] and attached to record. gb Administered Medications: 04/29 15:38 Drug: NS 0.9% 1000 ml [sodium chloride 0.9 % intravenous solution] Route: IV; Rate: 100 kr3 mL/hr; Site: right forearm; 17:30 Follow up: IV Status: Infusion discontinued; IV Intake: 100ml kr3 15:46 Drug: pantoprazole 80 mg [pantoprazole 40 mg intravenous solution] Route: IV; Rate: kr3 bolus; Site: right forearm; Attachments: 04/30 11:07 Consents gb Intake: 04/29 17:30 IV: 100.00ml; Total: 100.00ml. kr3 Order Results: Lab Order: CBC with Diff; SPEC'M 04/29/16 15:24 Test: WHITE BLOOD COUNT; Value: 5.3; Range: 4.0-10.0; Units: K/mm3; Status: F Test: RED BLOOD COUNT; Value: 2.32; Range: 4.30-6.10; Abnormal: Below low normal; Units: M/mm3; Status: F Test: HEMOGLOBIN; Value: 7.2; Range: 14.0-18.0; Abnormal: Below low normal; Units: g/dl; Status: F Test: HEMATOCRIT; Value: 21.3; Range: 42.0-52.0; Abnormal: Below low normal; Units: %; Status: F Test: MEAN CORPUSCULAR VOLUME; Value: 91.7; Range: 80.0-96.0; Units: fl; Status: F Test: MEAN CORPUSCULAR HEMOGLOBIN; Value: 30.9; Range: 27.0-33.0; Units: pg; Status: F Test: MEAN CORPUSCULAR HGB CONC; Value: 33.7; Range: 32.0-36.5; Units: g/dl; Status: F Test: RED CELL DISTRIBUTION WIDTH; Value: 17.2; Range: 11.5-14.5; Abnormal: Above high normal; Units: %; Status: F Test: PLATELET COUNT, AUTOMATED; Value: 132; Range: 150-450; Abnormal: Below low normal; Units: k/mm3; Status: F Test: NEUTROPHILS %; Value: 83.7; Range: 36.0-66.0; Abnormal: Above high normal; Units: %; Status: F Test: LYMPH %; Value: 6.1; Range: 24.0-44.0; Abnormal: Below low normal; Units: %; Status: F Test: MONO %; Value: 4.6; Range: 0.0-5.0; Units: %; Status: F Test: EOS %; Value: 3.1; Range: 0.0-3.0; Abnormal: Above high normal; Units: %; Status: F Test: BASO %; Value: 0.3; Range: 0.0-1.0; Units: %; Status: F Test: LARGE UNSTAINED CELL %; Value: 2.1; Range: 0.0-4.0; Units: %; Status: F Test: NEUTROPHILS #; Value: 4.5; Range: 1.8-7.7; Units: K/mm3; Status: F Test: LYMPH #; Value: 0.3; Range: 1.5-4.5; Abnormal: Below low normal; Units: K/mm3; Status: F Test: MONO #; Value: 0.3; Range: 0.0-0.8; Units: K/mm3; Status: F Test: EOS #; Value: 0.2; Range: 0.0-0.50; Units: K/mm3; Status: F Test: BASO #; Value: 0.0; Range: 0.0-0.2; Units: K/mm3; Status: F Test: LARGE UNSTAINED CELL #; Value: 0.1; Range: 0.0-0.4; Units: K/mm3; Status: F Lab Order: [facility] Profile; [facility]' 04/29/16 15:24 Test: GLUCOSE, FASTING; Value: 188; Range: 83-110; Abnormal: Above high normal; Units: MG/DL; Status: F Test: BLOOD UREA NITROGEN; Value: 75; Range: 7-18; Abnormal: Above high normal; Units: MG/DL; Status: F Test: CREATININE FOR GFR; Value: 4.42; Range: 0.70-1.30; Abnormal: Above high normal; Units: MG/DL; Status: F Test: GLOMERULAR FILTRATION RATE; Value: 14.1; Range: >42; Abnormal: Below low normal; Status: F Test: SODIUM LEVEL; Value: 140; Range: 136-145; Units: MEQ/L; Status: F Test: POTASSIUM SERUM; Value: 3.8; Range: 3.5-5.1; Units: MEQ/L; Status: F Test: CHLORIDE LEVEL; Value: 103; Range: 98-107; Units: MEQ/L; Status: F Test: CARBON DIOXIDE LEVEL; Value: 24; Range: 21-32; Units: MEQ/L; Status: F Test: ANION GAP; Value: 13; Range: 8-16; Units: MEQ/L; Status: F Test: CALCIUM LEVEL; Value: 8.5; Range: 8.8-10.2; Abnormal: Below low normal; Units: MG/DL; Status: F Test Note: ; Units are mL/min/1.73 m2 Chronic Kidney Disease Staging per NKF: Stage I & II GFR >=60 Normal to Mildly Decreased Stage III GFR 30-59 Moderately Decreased Stage IV GFR 15-29 Severely Decreased Stage V GFR <15 Very Little GFR Left ESRD GFR <15 on TELEPHONE DIRECTORY DISTRIBUTOR DRIVER Lab Order: Liver Profile; SPEC'04/29/16 15:24 Test: AST/SGOT; Value: 17; Range: 15-37; Units: U/L; Status: F Test: ALT/SGPT; Value: 19; Range: 12-78; Units: U/L; Status: F Test: ALKALINE PHOSPHATASE; Value: 70; Range: 45-117; Units: U/L; Status: F Test: BILIRUBIN,TOTAL; Value: 0.6; Range: 0.2-1.0; Units: MG/DL; Status: F Test: BILIRUBIN,DIRECT; Value: 0.2; Range: 0.0-0.2; Units: MG/DL; Status: F Test: TOTAL PROTEIN; Value: 6.5; Range: 6.4-8.2; Units: GM/DL; Status: F Test: ALBUMIN; Value: 3.5; Range: 3.2-5.2; Units: GM/DL; Status: F Test: ALBUMIN/GLOBULIN RATIO; Value: 1.17; Range: 1.00-1.93; Status: F Lab Order: Pt & Aptt; SPEC'04/29/16 15:24 Test: PROTHROMBIN TIME; Value: 14.7; Range: 12.3-14.5; Abnormal: Above high normal; Units: SECONDS; Status: F Test: INR; Value: 1.14; Status: F Test: PARTIAL THROMBOPLASTIN TIME; Value: 29.2; Range: 26.6-37.1; Units: SECONDS; Status: F Test Note: ; THERAPUTIC HUMAN INR VALUES INDICATIONS NORMAL RANGES PROPHYLAXIS/TREATMENT OF: VENOUS THROMBOSIS 2.0-3.0 PULMONARY EMBOLISM 2.0-3.0 PREVENTION OF SYSTEMIC EMBOLISM FROM: TISSUE HEART VALVES 2.0-3.0 ACUTE MYOCARDIAL INFARCTION 2.0-3.0 VALVULAR HEART DISEASE 2.0-3.0 ATRIAL FIBRILLATION 2.0-3.0 MECHANICAL VALVES(HIGH RISK) 2.5-3.5 RECURRENT MYOCARDIAL INFARCTION 2.5-3.5 Lab Order: TYPE & SCREEN; SPEC' 04/29/16 15:24 Test: BLOOD TYPE; Value: O NEG; Status: F Test: AB SCREEN (INDIRECT RENAE)GEL; Value: NEGATIVE; Status: F Test: IMMEDIATE SPIN CROSSMATCH; Value: [id number] O NEGATIVE Compatible? Y; Status: F Test: IMMEDIATE SPIN CROSSMATCH; Value: [id number] O NEGATIVE Compatible? Y; Status: F Lab Order: RETICULOCYTE COUNT; [facility]' 04/29/16 15:24 Test: RETICULOCYTE % [id number]; Value: 6.20; Range: 0.5-1.5; Abnormal: Above high normal; Units: %; Status: F Test: RETICULOCYTE ABSOLUTE [id number]; Value: 148; Range: 17-77; Abnormal: Above high normal; Units: x10(9)/L; Status: F Test: RETIC HEMOGLOBIN CONTENT CHr; Value: 35.9; Range: 24-36; Units: PG; Status: F Radiology Order: Chest, 1 View Test: Chest, 1 View REASON FOR EXAMINATION: fatigue; Portable chest x-ray: Single view.; ; History: fatigue.; ; Comparison chest x-ray February 21, 2016.; ; Findings: Moderate cardiac enlargement is seen unchanged. The lungs are; symmetrically aerated and free of infiltrate. Pleural angles are sharp. EKG; electrodes are seen. The aorta is calcific and tortuous. No significant bony; abnormality is seen.; ; Impression:; ; Cardiomegaly. Otherwise no active disease.; ; ; ; ; Unreviewed; Outcome: 16:46 Decision to Hospitalize by Provider. 18:10 No special radiology studies were completed. 3 18:10 Discharge Assessment: patient administered narcotics - no. kr3 18:15 The following High Risk Discharge criteria are identified: None. Admitted to PCU kr3 accompanied by nurse, family with patient, via stretcher, on monitor, with chart. Condition: stable. Property :Personal belongings accompany Pt. 18:38 Patient left the ED. kr3 Signatures: Dispatcher [employer] Saran Ortiz MD MD pc Murray, Denise, Vp Security Unit deg Tanika, Ines, Reg Reg gb Rachel HumphriesRN RN kr3 Etta Bryant Laura, RN RN ld5 Emmanuel Bergman, WANDA SENIOR ACCOUNTING MANAGER jrd Corrections: (The following items were deleted from the chart) 15:20 15:14 Home Meds: minoxidil 2.5 mg Oral tab 2 tabs 2 times per day; kr3 kr3 15:49 15:43 The history from nurses notes was reviewed and I agree with what is documented. pcpc Chart Complete MTDD
--- NOTE | 2016-05-01 20:56 | IPNPDOC ---
Assessment/Plan Date Seen The patient was seen on 05/01/16. Problems Problems: (1) Anemia due to acute blood loss Status: Acute Problem Text: * pt admits to having dark blood in vomit and black tarry stool * s/p 2 units of PRBC, hg went from 7.2 to 8.7 * hemodynamically stable, no chest pain, sob or dizziness * was seen by surgery, EGD 04/30 no active bleeding seen * pantoprazole * switch atenolol to propranolol (2) ESRD on hemodialysis Status: Chronic Problem Text: * HD tuesday , and tuesday * s/p dialysis on 04/29 * Dr Mac aware that pt is here (3) Symptomatic anemia Status: Acute Response to Treatment: Stable, Improving (4) Diabetes Status: Chronic Problem Text: * pt is not on any medication at home (5) History of bladder cancer Status: Resolved (6) Dyslipidemia Status: Chronic Problem Text: continue pravastatin (7) Cirrhosis Status: Chronic Problem Text: gets paracentesis every 2 weeks, next schedule one is on may 19 Plan / VTE VTE Prophylaxis Ordered?: Yes Subjective Review of Systems CC/HPI The patient is a 70-year-old male admitted with a reason for visit of Symptomatic Anemia. Pulmonary: Denies: Cough, Dyspnea Cardiovascular: Denies: Chest Pain, Edema, Lt Headedness, Orthopnea, Other Symptoms, Palpitations, Paroxysmal Noc. Dyspnea Objective Physical Examination General Exam: Positive: Alert, No Acute Distress Neck Exam: Positive: Supple, Negative: JVD, thyromegaly Chest Exam: Positive: Clear to auscultation, Normal air movement Heart Exam: Positive: Murmurs (systolic 3/6), Rate Normal Abdomen Exam: Positive: Normal bowel sounds, Soft Extremity Exam: Positive: Other (lower extremety ambulations) Vital Signs/I&O Vital Signs Date Time Temp Pulse Resp B/P Pulse Ox O2 Delivery O2 Flow Rate FiO2 05/01/16 16:00 97.1 58 18 162/60 98 Room Air I&O- Last 24 Hours up to 6 AM 05/01/16 06:00 Intake Total 1205 ml Output Total 150 ml Balance 1055 ml Laboratory Data Labs 24H Laboratory Tests 2 05/01/16 05:24: Blood Urea Nitrogen 89H, Creatinine 6.49H, Sodium Level 140, Potassium Level 5.0 , Chloride Level 104, Carbon Dioxide Level 22, Calcium Level 8.6L, Aspartate Amino Transf (AST/SGOT) 14L, Alanine Aminotransferase (ALT/SGPT) 17, Alkaline Phosphatase 77, Total Bilirubin 0.5, Total Protein 6.3L, Albumin 3.3, Albumin/ Globulin Ratio 1.10, Anion Gap 14, White Blood Count 5.1, Red Blood Count 2.96L , Hemoglobin 9.0L, Hematocrit 27.7L, Mean Corpuscular Volume 93.5, Mean Corpuscular Hemoglobin 30.4, Mean Corpuscular Hemoglobin Concent 32.5, Red Cell Distribution Width 17.0H, Platelet Count 108L, Neutrophils (%) (Auto) 78.3H, Lymphocytes (%) (Auto) 9.7L, Monocytes (%) (Auto) 4.8, Eosinophils (%) (Auto) 4.4H, Basophils (%) (Auto) 0.3, Neutrophils # (Auto) 4.0, Lymphocytes # (Auto) 0.5L, Monocytes # (Auto) 0.2, Eosinophils # (Auto) 0.2, Basophils # (Auto) 0.0, Glomerular Filtration Rate 9.1L, Large Unclassified Cells # 0.1, Large Unclassified Cells % 2.5, Magnesium Level 2.2 CBC/BMP Laboratory Tests 05/01/16 00:04 05/01/16 05:24 Calcium Level 8.6 L, Aspartate Amino Transf (AST/SGOT) 14 L, Alanine Aminotransferase (ALT/SGPT) 17, Alkaline Phosphatase 77, Total Bilirubin 0.5, Total Protein 6.3 L, Albumin 3.3, Red Blood Count 2.96 L, Mean Corpuscular Volume 93.5, Mean Corpuscular Hemoglobin 30.4, Mean Corpuscular Hemoglobin Concent 32.5, Red Cell Distribution Width 17.0 H, Neutrophils (%) (Auto) 78.3 H , Lymphocytes (%) (Auto) 9.7 L, Monocytes (%) (Auto) 4.8, Eosinophils (%) (Auto ) 4.4 H, Basophils (%) (Auto) 0.3, Neutrophils # (Auto) 4.0, Lymphocytes # (Auto ) 0.5 L, Monocytes # (Auto) 0.2, Eosinophils # (Auto) 0.2, Basophils # (Auto) 0.0 05/01/16 12:00 05/01/16 18:00 NIECY KAT DO May 01, 2016 20:56
[2016-05-01 21:40] VITALS: BP 158/58
[2016-05-01] MEDS: NORCO, ANEXSIA 5/325MG TABLET (HYDROcodone/ACETAMINOPHEN) PO SCH (21:40)
[2016-05-01] MEDS: clonazePAM 0.5 MG TAB PO SCH (21:40)
[2016-05-01] MEDS: LISINOPRIL 20 MG TAB PO SCH (21:41)
[2016-05-01] MEDS: LATANOPROST 0.005% OPHTH SOLN 2.5 ML OU SCH (21:42)
[2016-05-01] MEDS: LIDOCAINE 5% (LIDODERM) PATCH TD SCH (21:42)
[2016-05-01 23:54] VITALS: BP 138/52
[2016-05-02] VITALS (7 sets, daily range): BP systolic 122–156; BP diastolic 48–65
[2016-05-02] MEDS: SLF 3 ML SYR IV SCH ×3 (04:57→21:48)
[2016-05-02 05:30] LABS: ALBUMIN 2.9 GM/DL (3.2-5.2); ALBUMIN/GLOBULIN RATIO 1.07 (1.00-1.93); BILIRUBIN,TOTAL 0.6 MG/DL (0.2-1.0); CALCIUM LEVEL 8.2 MG/DL (8.8-10.2); CREATININE FOR GFR 3.95 MG/DL (0.70-1.30); GLOMERULAR FILTRATION RATE 16.1 (>42); MAGNESIUM LEVEL 1.9 MG/DL (1.8-2.4); POTASSIUM SERUM 3.6 MEQ/L (3.5-5.1); TOTAL PROTEIN 5.6 GM/DL (6.4-8.2)
[2016-05-02 05:36] LABS: BASO % 0.1 % (0.0-1.0); EOS # 0.2 K/mm3 (0.0-0.50); EOS % 6.9 % (0.0-3.0); LARGE UNSTAINED CELL # 0.1 K/mm3 (0.0-0.4); LARGE UNSTAINED CELL % 2.3 % (0.0-4.0); LYMPH # 0.6 K/mm3 (1.5-4.5); LYMPH % 14.1 % (24.0-44.0); MEAN CORPUSCULAR HEMOGLOBIN 30.2 pg (27.0-33.0); MEAN CORPUSCULAR HGB CONC 32.7 g/dl (32.0-36.5); MEAN CORPUSCULAR VOLUME 92.3 fl (80.0-96.0); MONO # 0.3 K/mm3 (0.0-0.8); MONO % 8.3 % (0.0-5.0); NEUTROPHILS # 2.4 K/mm3 (1.8-7.7); NEUTROPHILS % 68.3 % (36.0-66.0); RED CELL DISTRIBUTION WIDTH 17.5 % (11.5-14.5); WHITE BLOOD COUNT 3.5 K/mm3 (4.0-10.0)
[2016-05-02 05:40] LABS: PLATELET COUNT, AUTOMATED 86 k/mm3 (150-450)
[2016-05-02] MEDS: **NOTE PATIENT COMMENT** MISC XX SCH (09:00)
[2016-05-02] MEDS: PANTOPRAZOLE 40MG TAB (PROTONIX) PO SCH ×2 (09:05→21:46)
[2016-05-02] MEDS: FUROSEMIDE 40 MG TAB PO SCH ×2 (09:05→16:26)
[2016-05-02] MEDS: PRAVASTATIN 20 MG TAB PO SCH (09:05)
[2016-05-02] MEDS: PROPRANOLOL 20 MG TAB PO SCH ×2 (09:05→21:46)
[2016-05-02] MEDS: MULTIVITAMINS/MINERALS THERAP 1 TAB PO SCH (09:05)
[2016-05-02] MEDS: MINOXIDIL 2.5 MG TAB PO SCH ×2 (09:09→21:47)
--- NOTE | 2016-05-02 11:54 | IPN ---
DATE: 05/02/2016 Mr. Rodriguez is seen this morning on his bedside. He underwent hemodialysis yesterday afternoon which he tolerated very well. His blood pressure remained stable through dialysis treatments. The patient denies any nausea, vomiting, dyspnea or chest pain. He reports that he had a bowel movement yesterday with normal color stools and no more blood or black colored stool noted. He denies any abdominal pain. However, his ascites is present. The patient reports a good appetite and he ate a good breakfast this morning. On physical exam, temperature 98 degrees Fahrenheit, heart rate 56 per minute and respiratory rate 18 per minute. Blood pressure 142/48 mmHg and oxygen saturation 95% on room air. Head is atraumatic. Ears, nose and throat are unremarkable. Neck is supple and without any jugular venous distention or thyroid enlargement. Pupils are equal and reactive to light and sclera is anicteric. Heart: Sounds are regular and without a gallop or murmur. Lungs: Clear to auscultation. Abdomen is distended with ascites. Hepatomegaly is noted. Bowel sounds are normal. Extremities have no cyanosis or clubbing. Left arm AV fistula is patent. He has bilateral [id number] amputations. Today's labs showed WBC count 3.5, hemoglobin 8.5 and hematocrit 26.2. Sodium 140 and potassium 3.6. BUN 37 and creatinine 3.95. PROBLEMS: 1. Recurrent anemia with GI bleed. The patient had upper endoscopy which did not show any signs of active bleeding or source of bleeding. He has been transfused however, his anemia is worsened once again. He is likely to require further transfusion. I recommend to recheck his CBC later today and consider transfusing 1 unit if needed. 2. End-stage renal disease: The patient was dialyzed yesterday which he tolerated very well. His volume status is well-compensated and electrolytes are within normal range. Next dialysis will be scheduled for Tuesday. 3. Recurrent ascites with cirrhosis: The patient does get periodic paracentesis. At this point there is no emergent need for paracentesis and his ascites was only moderate. He will need to have an abdominal ultrasound in few days when he will need another paracentesis. All other issues are being addressed by hospitalist service and they are stable.
--- NOTE | 2016-05-02 20:35 | IPNPDOC ---
Assessment/Plan Date Seen The patient was seen on 05/02/16. Problems Problems: (1) Anemia due to acute blood loss Status: Acute Problem Text: * pt admits to having dark blood in vomit and black tarry stool * s/p 2 units of PRBC, hg went from 7.2 to 8.7 * hemodynamically stable, no chest pain, sob or dizziness * was seen by surgery, EGD 04/30 no active bleeding seen * pantoprazole * switch atenolol to propranolol (2) ESRD on hemodialysis Status: Chronic Problem Text: * HD tuesday , and tuesday * s/p dialysis on 04/29 * Dr Mac aware that pt is here (3) Symptomatic anemia Status: Acute Response to Treatment: Stable, Improving (4) Diabetes Status: Chronic Problem Text: * pt is not on any medication at home (5) History of bladder cancer Status: Resolved (6) Dyslipidemia Status: Chronic Problem Text: continue pravastatin (7) Cirrhosis Status: Chronic Problem Text: gets paracentesis every 2 weeks, next schedule one is on may 19 Plan / VTE VTE Prophylaxis Ordered?: Yes Subjective Review of Systems CC/HPI The patient is a 70-year-old male admitted with a reason for visit of Symptomatic Anemia. Objective Physical Examination General Exam: Positive: Alert, No Acute Distress Neck Exam: Positive: Supple, Negative: JVD, thyromegaly Chest Exam: Positive: Clear to auscultation, Normal air movement Heart Exam: Positive: Murmurs (systolic 3/6), Rate Normal Abdomen Exam: Positive: Normal bowel sounds, Soft Extremity Exam: Positive: Other (lower extremety ambulations) Vital Signs/I&O Vital Signs Date Time Temp Pulse Resp B/P Pulse Ox O2 Delivery O2 Flow Rate FiO2 05/02/16 20:16 Room Air 05/02/16 19:20 98.3 58 18 150/56 93 I&O- Last 24 Hours up to 6 AM 05/02/16 06:00 Intake Total 600 ml Output Total 3675 ml Balance -3075 ml Laboratory Data Labs 24H Laboratory Tests 2 05/02/16 04:54: Blood Urea Nitrogen 37#H, Creatinine 3.95H, Sodium Level 140, Potassium Level 3.6#, Chloride Level 101, Carbon Dioxide Level 28, Calcium Level 8.2L, Aspartate Amino Transf (AST/SGOT) 12L, Alanine Aminotransferase (ALT/SGPT) 18, Alkaline Phosphatase 74, Total Bilirubin 0.6, Total Protein 5.6L, Albumin 2.9L, Albumin/Globulin Ratio 1.07, Anion Gap 11, White Blood Count 3.5L, Red Blood Count 2.83L, Hemoglobin 8.5L, Hematocrit 26.2L, Mean Corpuscular Volume 92.3, Mean Corpuscular Hemoglobin 30.2, Mean Corpuscular Hemoglobin Concent 32.7, Red Cell Distribution Width 17.5H, Platelet Count 86L, Neutrophils (%) (Auto) 68.3H , Lymphocytes (%) (Auto) 14.1L, Monocytes (%) (Auto) 8.3H, Eosinophils (%) (Auto ) 6.9H, Basophils (%) (Auto) 0.1, Neutrophils # (Auto) 2.4, Lymphocytes # (Auto ) 0.6L, Monocytes # (Auto) 0.3, Eosinophils # (Auto) 0.2, Basophils # (Auto) 0.0 , Glomerular Filtration Rate 16.1L, Large Unclassified Cells # 0.1, Large Unclassified Cells % 2.3, Magnesium Level 1.9 CBC/BMP Laboratory Tests 05/02/16 04:54 Calcium Level 8.2 L, Aspartate Amino Transf (AST/SGOT) 12 L, Alanine Aminotransferase (ALT/SGPT) 18, Alkaline Phosphatase 74, Total Bilirubin 0.6, Total Protein 5.6 L, Albumin 2.9 L, Red Blood Count 2.83 L, Mean Corpuscular Volume 92.3, Mean Corpuscular Hemoglobin 30.2, Mean Corpuscular Hemoglobin Concent 32.7, Red Cell Distribution Width 17.5 H, Neutrophils (%) (Auto) 68.3 H , Lymphocytes (%) (Auto) 14.1 L, Monocytes (%) (Auto) 8.3 H, Eosinophils (%) ( Auto) 6.9 H, Basophils (%) (Auto) 0.1, Neutrophils # (Auto) 2.4, Lymphocytes # ( Auto) 0.6 L, Monocytes # (Auto) 0.3, Eosinophils # (Auto) 0.2, Basophils # (Auto ) 0.0 05/02/16 11:58 05/02/16 17:44 NIECY KAT DO May 02, 2016 20:35
[2016-05-02] MEDS: LISINOPRIL 20 MG TAB PO SCH (21:46)
[2016-05-02] MEDS: clonazePAM 0.5 MG TAB PO SCH (21:47)
[2016-05-02] MEDS: NORCO, ANEXSIA 5/325MG TABLET (HYDROcodone/ACETAMINOPHEN) PO SCH (21:47)
[2016-05-02] MEDS: LATANOPROST 0.005% OPHTH SOLN 2.5 ML OU SCH (21:47)
[2016-05-02] MEDS: LIDOCAINE 5% (LIDODERM) PATCH TD SCH (21:48)
[2016-05-03 03:57] VITALS: BP 152/58
[2016-05-03] MEDS: **NOTE PATIENT COMMENT** MISC XX SCH (04:13)
[2016-05-03] MEDS: SLF 3 ML SYR IV SCH (04:14)
[2016-05-03 05:30] LABS: BASO % 0.2 % (0.0-1.0); EOS # 0.4 K/mm3 (0.0-0.50); EOS % 10.9 % (0.0-3.0); LARGE UNSTAINED CELL # 0.1 K/mm3 (0.0-0.4); LYMPH # 0.6 K/mm3 (1.5-4.5); LYMPH % 13.3 % (24.0-44.0); MEAN CORPUSCULAR HEMOGLOBIN 30.3 pg (27.0-33.0); MEAN CORPUSCULAR HGB CONC 33.5 g/dl (32.0-36.5); MEAN CORPUSCULAR VOLUME 90.4 fl (80.0-96.0); MONO # 0.3 K/mm3 (0.0-0.8); MONO % 6.6 % (0.0-5.0); NEUTROPHILS # 2.6 K/mm3 (1.8-7.7); RED CELL DISTRIBUTION WIDTH 17.2 % (11.5-14.5); WHITE BLOOD COUNT 3.8 K/mm3 (4.0-10.0)
[2016-05-03 05:42] LABS: BILIRUBIN,TOTAL 0.7 MG/DL (0.2-1.0); CALCIUM LEVEL 8.1 MG/DL (8.8-10.2); CREATININE FOR GFR 5.21 MG/DL (0.70-1.30); GLOMERULAR FILTRATION RATE 11.7 (>42); MAGNESIUM LEVEL 1.9 MG/DL (1.8-2.4); POTASSIUM SERUM 4.2 MEQ/L (3.5-5.1)
[2016-05-03 05:45] LABS: PLATELET COUNT, AUTOMATED 93 k/mm3 (150-450)
[2016-05-03 08:00] VITALS: BP 142/78
[2016-05-03] MEDS ORDERED: PANT40TA2 PO (08:56)
[2016-05-03] MEDS ORDERED: PROP20TA PO (08:56)
[2016-05-03] MEDS: PROPRANOLOL 20 MG TAB PO SCH (09:08)
[2016-05-03 09:09] VITALS: BP 152/58
[2016-05-03] MEDS: MULTIVITAMINS/MINERALS THERAP 1 TAB PO SCH (09:09)
[2016-05-03] MEDS: PRAVASTATIN 20 MG TAB PO SCH (09:09)
[2016-05-03] MEDS: FUROSEMIDE 40 MG TAB PO SCH (09:09)
[2016-05-03] MEDS: MINOXIDIL 2.5 MG TAB PO SCH (09:09)
[2016-05-03] MEDS: PANTOPRAZOLE 40MG TAB (PROTONIX) PO SCH (09:09)
--- NOTE | 2016-05-03 12:37 | IPN ---
DATE: 05/03/2016 SUBJECTIVE: Patient was seen and examined at the bedside today in the morning. He denies anymore episodes of melena or vomiting. His hemoglobin is stable. He is hemodynamically stable at this time. REVIEW OF SYSTEMS: Patient denies any fever or chills, rigors, headache, nausea, vomiting, chest pain, shortness of breath, pain in abdomen, constipation, or diarrhea. The rest of review of system is negative. OBJECTIVE: VITAL SIGNS: Temperature is 96.6 degrees Fahrenheit. Blood pressure is 142/78. Pulse is 56. Respiratory rate of 18. Saturating 96% on room air. INTAKE/OUTPUT: Urine output recorded is 525 mL yesterday, 425 mL so far today. Weight on the bed scale is 88.2 kg. PHYSICAL EXAMINATION: GENERAL: Patient is awake, alert, oriented times three, sitting in the bed, no apparent distress. HEAD AND NECK EXAM: Extraocular muscles intact. Pupils are equally round and reactive to light. Mucous membranes are moist. Neck is supple. There is no jugular venous distention (JVD). CARDIOVASCULAR: S1, S2. Regular rate. No murmur, rub, or gallop. RESPIRATORY: Chest is clear to auscultation bilaterally. Bilateral equal air entry. ABDOMEN: Is soft. Positive bowel sounds. Nontender. Mild amount of ascites. Right lower quadrant cystotomy with cloudy urine in the bag. EXTREMITIES: Patient has bilateral [id number]. CENTRAL NERVOUS SYSTEM (RECENTERER): No focal neurological deficit. Power is 5/5 in all extremities. LABORATORY REVIEW: CBC showed WBC 3.8, hemoglobin is 9.8, platelets are 93. BMP showed sodium 138, potassium 4.2, chloride 100, bicarbonate 25, BUN 48, creatinine is 5.2. CURRENT MEDICATIONS: Patient's medications are all reviewed by me. There is no change in the medications at this time. ASSESSMENT: 70-year-old male with past medical history of end-stage renal disease on hemodialysis, cirrhosis with recurrent ascites, admitted this time with recurrent anemia and possible gastrointestinal (GI) bleed. Nephrology service following the patient for management of end-stage renal disease. PROBLEMS: 1. Recurrent anemia and with GI bleed. Patient got the esophagogastroduodenoscopy (EGD) done this time and that showed portal hypertensive gastropathy. He has bene started on beta-blockers for portal hypertension, and he continues to be on Protonix at this time. No further need of transfusion at this time. 2. End-stage renal disease. Patient's regular dialysis days are Tuesday, , Tuesday. No urgent need of dialysis today. Patient can be dialyzed as outpatient tomorrow morning. 3. Recurrent ascites and cirrhosis. Patient's ascites is under control. He requires ascitic tap about 3-4 weeks. At this time, his volume status is optimized. We shall try to do more ultrafiltration with hemodialysis. 4. Discharge planning. It is okay to discharge the patient from nephrology standpoint. Patient will be dialyzed as outpatient tomorrow morning.
== END 2016-05-03 11:19 | disposition home or self-care (01) | DRG 377 ==
LOC: M ED 15:03 → M ED INP 17:24 → M PCU 18:30
PROVIDERS: ADMIT Internal Medicine; ATTEND Internal Medicine
PROC: 30253N1 (ICD-10-PCS; 2016-04-29)
PROC: 0DB68ZX Excision of Stomach, Via Natural or Artificial Opening Endoscopic, Diagnostic (ICD-10-PCS; principal; 2016-05-03)
DX: K92.2 Gastrointestinal hemorrhage, unspecified (principal); N18.6 End stage renal disease; I12.0 Hypertensive chronic kidney disease with stage 5 chronic kidney disease or end stage renal disease; D62 Acute posthemorrhagic anemia; R18.8 Other ascites; E78.5 Hyperlipidemia, unspecified; K31.89 Other diseases of stomach and duodenum; D63.1 Anemia in chronic kidney disease; K74.60 Unspecified cirrhosis of liver; Z85.51 Personal history of malignant neoplasm of bladder; Z99.2 Dependence on renal dialysis; Z79.82 Long term (current) use of aspirin; Z79.899 Other long term (current) drug therapy; Z89.511 Acquired absence of right leg below knee; Z89.512 Acquired absence of left leg below knee; Z87.891 Personal history of nicotine dependence; Z93.59 Other cystostomy status; Z92.21 Personal history of antineoplastic chemotherapy; Z92.3 Personal history of irradiation

== ENCOUNTER → 2016-05-19 | Outpatient (CLI) | payer MEDICARE ==
[~2016-05-19] MED LIST changes: +PANT40TA2 PO; +PROP20TA PO
--- NOTE | 2016-05-19 11:03 | REP ---
LIMITED ABDOMINAL ULTRASOUND: 05/19/2016. Clinical history: Hepatic cirrhosis with recurrent ascites. Ultrasound guidance for paracentesis. Findings: Four quadrant scanning for this examination shows no ultrasound evidence of intra-abdominal or pelvic ascites. No drainable collection. Impression: 1. No visible ascites in the abdomen or pelvis. No drainable fluid. Procedure cancelled. The patient is discharged. Signed by Pratik Paulson MD 05/19/2016 08:17 P
== END ==
LOC: M RADPRO 10:12
PROVIDERS: ATTEND Internal Medicine
DX: R18.8 Other ascites (principal); K74.60 Unspecified cirrhosis of liver

== ENCOUNTER → 2016-06-16 | Outpatient (CLI) | payer MEDICARE ==
--- NOTE | 2016-06-16 10:54 | REP ---
Clinical: Ascites. Findings: Ultrasound survey of the four quadrants of the abdomen and pelvis demonstrates no significant ascites. Impression: No ascites. The patient is not amendable to paracentesis. Signed by Andre Murillo MD 06/16/2016 10:46 A
== END ==
LOC: M RADPRO 09:58
PROVIDERS: ATTEND Internal Medicine
DX: R18.8 Other ascites (principal); K74.60 Unspecified cirrhosis of liver; Z88.8 Allergy status to other drugs, medicaments and biological substances; Z79.82 Long term (current) use of aspirin; Z79.899 Other long term (current) drug therapy

== ENCOUNTER → 2016-08-02 | Outpatient (CLI) | payer MEDICARE ==
[~2016-08-02] MED LIST changes: +NORC1TAB4 PO; -NORC5TAB PO
[2016-08-02 18:21] LABS: INR 1.11
[2016-08-02 19:03] LABS: MEAN CORPUSCULAR HEMOGLOBIN 29.8 pg (27.0-33.0); MEAN CORPUSCULAR HGB CONC 31.4 g/dl (32.0-36.5); RED CELL DISTRIBUTION WIDTH 16.1 % (11.5-14.5); WHITE BLOOD COUNT 4.4 K/mm3 (4.0-10.0)
[2016-08-02 19:39] LABS: ALBUMIN 3.9 GM/DL (3.2-5.2); ALBUMIN/GLOBULIN RATIO 1.18 (1.00-1.93); BILIRUBIN,TOTAL 0.6 MG/DL (0.2-1.0); CREATININE FOR GFR 5.75 MG/DL (0.70-1.30); GLOMERULAR FILTRATION RATE 10.4 (>42); TOTAL PROTEIN 7.2 GM/DL (6.4-8.2)
[2016-08-02 19:42] LABS: POTASSIUM SERUM 5.7 MEQ/L (3.5-5.1)
== END ==
LOC: M WUC 12:50
PROVIDERS: ATTEND Dentist
DX: Z01.812 Encounter for preprocedural laboratory examination (principal); Z79.899 Other long term (current) drug therapy

== ENCOUNTER 2016-10-04 10:06 | Outpatient (CLI) | payer MEDICARE ==
[~2016-10-04 10:06] MED LIST changes: -FISH100035 PO; +FISH7.5C PO; +LOPE2CAP PO; -LOPE2TAB PO; +MINO2.5T PO; -MINO25TA PO
== END 2016-10-04 12:20 | disposition home or self-care (01) ==
LOC: M OPCLI3 10:06 → M LDI 10:11 → M RR INP 10:38 → M OPCLI3 12:20
PROVIDERS: ATTEND Internal Medicine Nephrology
DX: D62 Acute posthemorrhagic anemia (principal); Z53.09 Procedure and treatment not carried out because of other contraindication

== ENCOUNTER 2016-10-06 10:44 | Outpatient (CLI) | payer MEDICARE | END 2016-10-06 16:50 | disposition home or self-care (01) | LOC: M INFU 10:44 | PROVIDERS: ATTEND Internal Medicine Nephrology | DX: D62 Acute posthemorrhagic anemia (principal); Z79.899 Other long term (current) drug therapy; Z79.82 Long term (current) use of aspirin; Z88.1 Allergy status to other antibiotic agents; Z88.8 Allergy status to other drugs, medicaments and biological substances | CPT/HCPCS: 36430; P9016 ==

== ENCOUNTER 2017-02-20 17:06 | Emergency (ER) | payer MEDICARE ==
[~2017-02-20] VITALS: Ht 172.7 cm; Wt 81.8 kg
[2017-02-20 17:07] VITALS: BP 180/80
[2017-02-20] MEDS ORDERED: ACETAMINOPH W/CODEINE #3 TAB UD PO ONE (18:00)
[2017-02-20] MEDS ORDERED: LIDOCAINE VISCOUS 2% SOLN 15ML UDC MT ONE (18:00)
[2017-02-20] MEDS ORDERED: CLINDAMYCIN 150 MG CAP PO ONE (18:00)
[2017-02-20] MEDS ORDERED: CLEO300C2 PO (18:04)
[2017-02-20] MEDS ORDERED: ACET30TAB PO (18:04)
== END 2017-02-20 18:41 | disposition home or self-care (01) ==
LOC: M ED 17:06
DX: K04.7 Periapical abscess without sinus (principal); K08.89 Other specified disorders of teeth and supporting structures; E11.40 Type 2 diabetes mellitus with diabetic neuropathy, unspecified; I12.0 Hypertensive chronic kidney disease with stage 5 chronic kidney disease or end stage renal disease; N18.6 End stage renal disease; K70.31 Alcoholic cirrhosis of liver with ascites; Z89.511 Acquired absence of right leg below knee; Z89.512 Acquired absence of left leg below knee; Z87.891 Personal history of nicotine dependence; Z88.8 Allergy status to other drugs, medicaments and biological substances; Z88.1 Allergy status to other antibiotic agents; Z79.899 Other long term (current) drug therapy; Z79.82 Long term (current) use of aspirin

== ENCOUNTER → 2017-05-04 | Outpatient (CLI) | payer MEDICARE ==
[~2017-05-04] MED LIST changes: -ASPI1TAB PO; -ATEN100T PO; -ATEN50TA2 PO; -BACT800T5 PO; -BIMA01SOL OU; -CALC1TAB30 PO; -CALC1TAB42 PO; -CENTTAB PO; -CLON0.5T PO; -DRIS50002 PO; -FISH7.5C PO; -FLAX10005 PO; -FURO40TA2 PO; -INSUDET SC; +ISOVUE-300 61% 50ML VIAL (Q9967) As Ordered; -LATA5OPD OU; -LISI-538 PO; -LISI10TA4 PO; -LOPE2CAP PO; +MIDAZOLAM INJ 2 MG/2 ML VIAL (J2250) As Ordered; -MINO2.5T PO; -NEPHTAB PO; -NIAS1TAB PO; -NORC1TAB4 PO; -PANT40TA2 PO; -PRAV20TA2 PO; -PROP20TA PO; -RANI150T PO; -VIAG100T PO; -VITMTA PO; +fentaNYL 100 MCG/2 ML INJECTION (J3010) As Ordered
== END | disposition home or self-care (01) ==
LOC: M IRPRO 12:31
DX: T82.858A Stenosis of other vascular prosthetic devices, implants and grafts, initial encounter (principal); N18.6 End stage renal disease
CPT/HCPCS: 36902

== ENCOUNTER 2017-06-04 16:48 | Inpatient (IN) | payer MEDICARE ==
[2017-06-04] MEDS ORDERED: PANTOPRAZOLE SODIUM 40 MG in D5W 50 ML IV (17:30)
[2017-06-04 17:57] LABS: BASO % 0.2 % (0.0-1.0); EOS # 0.2 10^3/uL (0.0-0.50); EOS % 3.2 % (0.0-3.0); HEMATOCRIT 22.5 % (42.0-52.0); IMMATURE GRANULOCYTE % 0.9 % (0-3.0); LYMPH # 0.5 10^3/uL (1.5-4.5); LYMPH % 7.1 % (24.0-44.0); MEAN CORPUSCULAR HEMOGLOBIN 28.8 pg (27.0-33.0); MEAN CORPUSCULAR HGB CONC 30.7 g/dl (32.0-36.5); MEAN CORPUSCULAR VOLUME 93.8 fl (80.0-96.0); MONO # 0.5 10^3/uL (0.0-0.8); MONO % 7.3 % (0.0-5.0); NEUTROPHILS # 5.1 10^3/uL (1.8-7.7); NEUTROPHILS % 81.3 % (36.0-66.0); PLATELET COUNT, AUTOMATED 229 10^3/uL (150-450); RED CELL DISTRIBUTION WIDTH 19.6 % (11.5-14.5); WHITE BLOOD COUNT 6.3 10^3/uL (4.0-10.0)
[2017-06-04 17:58] LABS: HEMOGLOBIN 6.9 g/dl (14.0-18.0)
[2017-06-04 18:00] LABS: INR 1.18; PROTHROMBIN TIME 15.2 SECONDS (12.4-14.5)
[2017-06-04 18:01] LABS: PARTIAL THROMBOPLASTIN TIME 37.3 SECONDS (26.8-37.9)
[2017-06-04 18:04] LABS: RETIC HEMOGLOBIN EQUIVALENT 31.3 pg (24-36); RETICULOCYTE # 139.1 10^9/L (17-77); RETICULOCYTE % 5.8 % (0.5-1.5)
[2017-06-04 18:08] LABS: ALBUMIN 3.2 GM/DL (3.2-5.2); ALKALINE PHOSPHATASE 99 U/L (45-117); ALT/SGPT 16 U/L (12-78); AMYLASE 61 U/L (25-115); ANION GAP 7 MEQ/L (8-16); AST/SGOT 23 U/L (7-37); BILIRUBIN,DIRECT 0.3 MG/DL (0.0-0.2); BILIRUBIN,TOTAL 0.7 MG/DL (0.2-1.0); BLOOD UREA NITROGEN 13 MG/DL (7-18); CALCIUM LEVEL 8.4 MG/DL (8.8-10.2); CARBON DIOXIDE LEVEL 33 MEQ/L (21-32); CHLORIDE LEVEL 98 MEQ/L (98-107); CK-MB VALUE MASS 5.3 NG/ML (0.0-3.6); CPK CREATINE PHOSPHOKINASE 126 U/L (39-308); CREATININE FOR GFR 2.35 MG/DL (0.70-1.30); FERRITIN 775 NG/ML (26-388); GLOMERULAR FILTRATION RATE 29.2 (>42); GLUCOSE, FASTING 142 MG/DL (70-100); IRON (FE) 78 UG/DL (65-175); LIPASE 157 U/L (73-393); PERCENT SATURATION 36.3 % (19.7-50.0); POTASSIUM SERUM 2.9 MEQ/L (3.5-5.1); SODIUM LEVEL 138 MEQ/L (136-145); TOTAL IRON BINDING CAPACITY 215 UG/DL (250-450); TOTAL PROTEIN 7.2 GM/DL (6.4-8.2); TROPONIN I 0.02 NG/ML (< 0.10)
[2017-06-04] MEDS: PANTOPRAZOLE 40MG INJ (PROTONIX) (C9113) IV ×2 (18:15→19:02)
[2017-06-04] MEDS: PANTOPRAZOLE SODIUM 40 MG in D5W 50 ML IV (18:18)
[2017-06-04] MEDS: LISINOPRIL 20 MG TAB PO (19:02)
[2017-06-04] MEDS: MINOXIDIL 2.5 MG TAB PO (19:02)
[2017-06-04] MEDS: SUCRALFATE 1 GM TAB PO (19:02)
[2017-06-04 19:13] LABS: IMMEDIATE SPIN CROSSMATCH 1 1
[2017-06-04] MEDS: POTASSIUM CHLORIDE 10 MEQ SR TABLET PO ×2 (20:24→21:18)
[2017-06-04 20:53] LABS: MAGNESIUM LEVEL 2.2 MG/DL (1.8-2.4)
[2017-06-04] MEDS: **NOTE PATIENT COMMENT** MISC XX (21:00)
[2017-06-04] MEDS: clonazePAM 0.5 MG TAB PO (21:19)
[2017-06-04] MEDS: NORCO, ANEXSIA 5/325MG TABLET (HYDROcodone/ACETAMINOPHEN) PO (21:19)
[2017-06-04] MEDS: PROPRANOLOL 20 MG TAB PO (21:20)
[2017-06-04 21:58] LABS: IMMEDIATE SPIN CROSSMATCH 1 1
[2017-06-05] MEDS: PANTOPRAZOLE SODIUM 40 MG in D5W 50 ML IV ×3 (00:38→06:24)
[2017-06-05] MEDS: LATANOPROST 0.005% OPHTH SOLN 2.5 ML OU ×2 (00:39→21:50)
[2017-06-05] MEDS: SUCRALFATE 1 GM TAB PO ×4 (00:39→17:07)
[2017-06-05] MEDS: D5W/0.45% SODIUM CHLORIDE 1,000 ML IV (01:27)
[2017-06-05 01:39] LABS: HEMATOCRIT 24.7 % (42.0-52.0); HEMOGLOBIN 7.8 g/dl (14.0-18.0)
[2017-06-05 03:03] LABS: CK-MB VALUE MASS 3.5 NG/ML (0.0-3.6); CPK CREATINE PHOSPHOKINASE 100 U/L (39-308); TROPONIN I 0.03 NG/ML (< 0.10)
[2017-06-05 05:18] LABS: HEMATOCRIT 23.5 % (42.0-52.0); HEMOGLOBIN 7.4 g/dl (14.0-18.0); MEAN CORPUSCULAR HEMOGLOBIN 28.6 pg (27.0-33.0); MEAN CORPUSCULAR HGB CONC 31.5 g/dl (32.0-36.5); MEAN CORPUSCULAR VOLUME 90.7 fl (80.0-96.0); PLATELET COUNT, AUTOMATED 182 10^3/uL (150-450); RED BLOOD COUNT 2.59 10^6/uL (4.30-6.10); RED CELL DISTRIBUTION WIDTH 19.3 % (11.5-14.5); WHITE BLOOD COUNT 5.9 10^3/uL (4.0-10.0)
[2017-06-05 05:34] LABS: ANION GAP 7 MEQ/L (8-16); BLOOD UREA NITROGEN 17 MG/DL (7-18); CALCIUM LEVEL 8.1 MG/DL (8.8-10.2); CARBON DIOXIDE LEVEL 32 MEQ/L (21-32); CHLORIDE LEVEL 102 MEQ/L (98-107); CREATININE FOR GFR 2.99 MG/DL (0.70-1.30); GLOMERULAR FILTRATION RATE 22.1 (>42); GLUCOSE, FASTING 136 MG/DL (70-100); POTASSIUM SERUM 3.6 MEQ/L (3.5-5.1); SODIUM LEVEL 141 MEQ/L (136-145)
[2017-06-05 05:44] LABS: CPK CREATINE PHOSPHOKINASE 85 U/L (39-308); MB/CK RELATIVE INDEX 3.52 (< OR =4); TROPONIN I 0.03 NG/ML (< 0.10)
[2017-06-05] MEDS: MULTIVITAMINS/MINERALS THERAP 1 TAB PO (09:15)
[2017-06-05] MEDS: PROPRANOLOL 20 MG TAB PO ×2 (09:15→20:57)
[2017-06-05] MEDS: PRAVASTATIN 20 MG TAB PO (09:15)
[2017-06-05 10:33] LABS: INFLUENZA A AMPLIFICATION NEGATIVE (NEGATIVE); INFLUENZA B AMPLIFICATION NEGATIVE (NEGATIVE)
[2017-06-05 11:37] LABS: HEMATOCRIT 23.9 % (42.0-52.0); HEMOGLOBIN 7.6 g/dl (14.0-18.0)
[2017-06-05] MEDS: PANTOPRAZOLE 40MG INJ (PROTONIX) (C9113) IV ×2 (12:03→21:49)
[2017-06-05 17:57] LABS: HEMOGLOBIN 7.8 g/dl (14.0-18.0)
[2017-06-05] MEDS: **NOTE PATIENT COMMENT** MISC XX (21:00)
[2017-06-05] MEDS: clonazePAM 0.5 MG TAB PO (21:50)
[2017-06-05] MEDS: diphenhydrAMINE CREAM 30GM TOP (21:50)
[2017-06-05] MEDS: LISINOPRIL 20 MG TAB PO (21:50)
[2017-06-05] MEDS: MINOXIDIL 2.5 MG TAB PO (21:51)
[2017-06-05] MEDS: NORCO, ANEXSIA 5/325MG TABLET (HYDROcodone/ACETAMINOPHEN) PO (21:52)
[2017-06-05 23:39] LABS: HEMATOCRIT 24.9 % (42.0-52.0); HEMOGLOBIN 7.9 g/dl (14.0-18.0)
[2017-06-06] MEDS: SUCRALFATE 1 GM TAB PO ×5 (00:05→23:26)
[2017-06-06 05:19] LABS: HEMATOCRIT 23.4 % (42.0-52.0); HEMOGLOBIN 7.4 g/dl (14.0-18.0); MEAN CORPUSCULAR HEMOGLOBIN 28.8 pg (27.0-33.0); MEAN CORPUSCULAR HGB CONC 31.6 g/dl (32.0-36.5); MEAN CORPUSCULAR VOLUME 91.1 fl (80.0-96.0); PLATELET COUNT, AUTOMATED 164 10^3/uL (150-450); RED BLOOD COUNT 2.57 10^6/uL (4.30-6.10); RED CELL DISTRIBUTION WIDTH 19.1 % (11.5-14.5); WHITE BLOOD COUNT 4.5 10^3/uL (4.0-10.0)
[2017-06-06 05:49] LABS: ANION GAP 8 MEQ/L (8-16); BLOOD UREA NITROGEN 23 MG/DL (7-18); CALCIUM LEVEL 8.2 MG/DL (8.8-10.2); CARBON DIOXIDE LEVEL 30 MEQ/L (21-32); CHLORIDE LEVEL 98 MEQ/L (98-107); CREATININE FOR GFR 4.18 MG/DL (0.70-1.30); GLUCOSE, FASTING 112 MG/DL (70-100); POTASSIUM SERUM 3.9 MEQ/L (3.5-5.1); SODIUM LEVEL 136 MEQ/L (136-145)
[2017-06-06 07:11] LABS: MAGNESIUM LEVEL 2.2 MG/DL (1.8-2.4)
[2017-06-06] MEDS: MULTIVITAMINS/MINERALS THERAP 1 TAB PO (09:14)
[2017-06-06] MEDS: PROPRANOLOL 20 MG TAB PO ×2 (09:15→20:31)
[2017-06-06] MEDS: PRAVASTATIN 20 MG TAB PO (09:15)
[2017-06-06] MEDS: PANTOPRAZOLE 40MG INJ (PROTONIX) (C9113) IV ×2 (09:15→20:29)
[2017-06-06 12:32] LABS: VITAMIN B12 LEVEL 993 PG/ML (247-911)
[2017-06-06 12:37] LABS: FOLATE 12.7 NG/ML (>5.4)
[2017-06-06 17:18] LABS: SOURCE, BODY FLUID ALBUMIN PERITONEAL
[2017-06-06 17:20] LABS: BF MONONUCLEAR CELL % 56.8 % (0-0); BF POLYMORPHONUCLEAR CELL % 43.2 % (0-0); RBC BODY FLUID < 2 10^3/uL (<2); WBC BODY FLUID 876 /uL (0-10)
[2017-06-06 17:21] LABS: PERITONEAL FL COLOR YELLOW (COLORLESS); SOURCE, BODY FLUID PERITONEAL
[2017-06-06 17:22] LABS: APPEARANCE, BODY FLUID HAZY (CLEAR); BF DIFF IF INDICATED? YES (NO); SPEC. GRAVITY BODY FLUIDS 1.022 (NOT ESTABLISHED)
[2017-06-06 17:23] LABS: SOURCE, BODY FLUID GLUCOSE PERITONEAL; SOURCE, BODY FLUID TOT PROTEIN PERITONEAL; TOTAL PROTEIN, BODY FLUID 3.4 G/DL (NOT ESTABLISHED)
[2017-06-06] MEDS: **NOTE PATIENT COMMENT** MISC XX (20:26)
[2017-06-06] MEDS: MINOXIDIL 2.5 MG TAB PO (20:31)
[2017-06-06] MEDS: NORCO, ANEXSIA 5/325MG TABLET (HYDROcodone/ACETAMINOPHEN) PO (20:31)
[2017-06-06] MEDS: clonazePAM 0.5 MG TAB PO (20:31)
[2017-06-06] MEDS: LISINOPRIL 20 MG TAB PO (20:31)
[2017-06-06] MEDS: LATANOPROST 0.005% OPHTH SOLN 2.5 ML OU (20:32)
[2017-06-07] MEDS ORDERED: SLF 3 ML SYR IV (04:15)
[2017-06-07] MEDS: PROPRANOLOL 20 MG TAB PO ×2 (06:00→21:52)
[2017-06-07] MEDS: PRAVASTATIN 20 MG TAB PO (06:21)
[2017-06-07] MEDS: MULTIVITAMINS/MINERALS THERAP 1 TAB PO (06:21)
[2017-06-07] MEDS: SUCRALFATE 1 GM TAB PO ×4 (06:21→23:16)
[2017-06-07] MEDS: PANTOPRAZOLE 40MG INJ (PROTONIX) (C9113) IV ×2 (06:21→21:51)
[2017-06-07] MEDS: SLF 3 ML SYR IV ×3 (06:22→21:54)
[2017-06-07 10:24] LABS: BASO % 0.2 % (0.0-1.0); EOS # 0.2 10^3/uL (0.0-0.50); EOS % 5.1 % (0.0-3.0); HEMATOCRIT 24.1 % (42.0-52.0); HEMOGLOBIN 7.9 g/dl (14.0-18.0); IMMATURE GRANULOCYTE % 0.9 % (0-3.0); LYMPH # 0.4 10^3/uL (1.5-4.5); LYMPH % 8.6 % (24.0-44.0); MEAN CORPUSCULAR HGB CONC 32.8 g/dl (32.0-36.5); MEAN CORPUSCULAR VOLUME 88.6 fl (80.0-96.0); MONO # 0.5 10^3/uL (0.0-0.8); MONO % 11.8 % (0.0-5.0); NEUTROPHILS # 3.2 10^3/uL (1.8-7.7); NEUTROPHILS % 73.4 % (36.0-66.0); PLATELET COUNT, AUTOMATED 165 10^3/uL (150-450); RED BLOOD COUNT 2.72 10^6/uL (4.30-6.10); RED CELL DISTRIBUTION WIDTH 17.8 % (11.5-14.5); WHITE BLOOD COUNT 4.3 10^3/uL (4.0-10.0)
[2017-06-07 11:00] LABS: ANION GAP 7 MEQ/L (8-16); BLOOD UREA NITROGEN 19 MG/DL (7-18); CALCIUM LEVEL 8.3 MG/DL (8.8-10.2); CARBON DIOXIDE LEVEL 30 MEQ/L (21-32); CHLORIDE LEVEL 99 MEQ/L (98-107); GLOMERULAR FILTRATION RATE 22.9 (>42); GLUCOSE, FASTING 105 MG/DL (70-100); POTASSIUM SERUM 3.8 MEQ/L (3.5-5.1); SODIUM LEVEL 136 MEQ/L (136-145)
[2017-06-07] MEDS: diphenhydrAMINE CREAM 30GM TOP (18:15)
[2017-06-07] MEDS: **NOTE PATIENT COMMENT** MISC XX ×2 (21:00)
[2017-06-07] MEDS: clonazePAM 0.5 MG TAB PO (21:51)
[2017-06-07] MEDS: MINOXIDIL 2.5 MG TAB PO (21:52)
[2017-06-07] MEDS: NORCO, ANEXSIA 5/325MG TABLET (HYDROcodone/ACETAMINOPHEN) PO (21:53)
[2017-06-07] MEDS: LATANOPROST 0.005% OPHTH SOLN 2.5 ML OU (21:53)
[2017-06-07] MEDS: LISINOPRIL 20 MG TAB PO (21:53)
[2017-06-07] MEDS: LIDOCAINE 5% (LIDODERM) PATCH TD (23:16)
[2017-06-08 05:51] LABS: HEMOGLOBIN 8.5 g/dl (14.0-18.0); MEAN CORPUSCULAR HEMOGLOBIN 28.1 pg (27.0-33.0); MEAN CORPUSCULAR HGB CONC 31.5 g/dl (32.0-36.5); MEAN CORPUSCULAR VOLUME 89.4 fl (80.0-96.0); PLATELET COUNT, AUTOMATED 194 10^3/uL (150-450); RED BLOOD COUNT 3.02 10^6/uL (4.30-6.10); RED CELL DISTRIBUTION WIDTH 17.7 % (11.5-14.5); WHITE BLOOD COUNT 5.2 10^3/uL (4.0-10.0)
[2017-06-08] MEDS: SUCRALFATE 1 GM TAB PO ×3 (05:59→17:14)
[2017-06-08] MEDS: SLF 3 ML SYR IV ×3 (06:00→22:27)
[2017-06-08 06:18] LABS: ALBUMIN 2.3 GM/DL (3.2-5.2); ANION GAP 4 MEQ/L (8-16); BLOOD UREA NITROGEN 15 MG/DL (7-18); CALCIUM LEVEL 8.5 MG/DL (8.8-10.2); CARBON DIOXIDE LEVEL 30 MEQ/L (21-32); CHLORIDE LEVEL 99 MEQ/L (98-107); CREATININE FOR GFR 3.29 MG/DL (0.70-1.30); GLOMERULAR FILTRATION RATE 19.8 (>42); GLUCOSE, FASTING 131 MG/DL (70-100); MAGNESIUM LEVEL 2.3 MG/DL (1.8-2.4); PHOSPHORUS LEVEL 2.2 MG/DL (2.5-4.9); POTASSIUM SERUM 4.5 MEQ/L (3.5-5.1); SODIUM LEVEL 133 MEQ/L (136-145)
[2017-06-08] MEDS: PROPRANOLOL 20 MG TAB PO ×2 (09:00→21:00)
[2017-06-08] MEDS: PANTOPRAZOLE 40MG INJ (PROTONIX) (C9113) IV ×2 (09:30→22:27)
[2017-06-08] MEDS: MULTIVITAMINS/MINERALS THERAP 1 TAB PO (09:30)
[2017-06-08] MEDS: PRAVASTATIN 20 MG TAB PO (09:30)
[2017-06-08] MEDS: **NOTE PATIENT COMMENT** MISC XX (21:00)
[2017-06-08] MEDS: clonazePAM 0.5 MG TAB PO (22:27)
[2017-06-08] MEDS: NORCO, ANEXSIA 5/325MG TABLET (HYDROcodone/ACETAMINOPHEN) PO (22:28)
[2017-06-08] MEDS: MINOXIDIL 2.5 MG TAB PO (22:28)
[2017-06-08] MEDS: LISINOPRIL 20 MG TAB PO (22:28)
[2017-06-08] MEDS: LIDOCAINE 5% (LIDODERM) PATCH TD (22:29)
[2017-06-08] MEDS: LATANOPROST 0.005% OPHTH SOLN 2.5 ML OU (22:29)
[2017-06-09] MEDS: SUCRALFATE 1 GM TAB PO ×5 (01:12→23:59)
[2017-06-09 05:10] LABS: HEMATOCRIT 25.4 % (42.0-52.0); MEAN CORPUSCULAR HEMOGLOBIN 27.7 pg (27.0-33.0); MEAN CORPUSCULAR HGB CONC 31.5 g/dl (32.0-36.5); MEAN CORPUSCULAR VOLUME 87.9 fl (80.0-96.0); PLATELET COUNT, AUTOMATED 181 10^3/uL (150-450); RED BLOOD COUNT 2.89 10^6/uL (4.30-6.10); WHITE BLOOD COUNT 5.1 10^3/uL (4.0-10.0)
[2017-06-09 05:22] LABS: ALBUMIN 2.1 GM/DL (3.2-5.2); ANION GAP 7 MEQ/L (8-16); BLOOD UREA NITROGEN 23 MG/DL (7-18); CARBON DIOXIDE LEVEL 27 MEQ/L (21-32); CHLORIDE LEVEL 97 MEQ/L (98-107); CREATININE FOR GFR 4.25 MG/DL (0.70-1.30); GLOMERULAR FILTRATION RATE 14.7 (>42); GLUCOSE, FASTING 113 MG/DL (70-100); MAGNESIUM LEVEL 1.8 MG/DL (1.8-2.4); PHOSPHORUS LEVEL 2.3 MG/DL (2.5-4.9); POTASSIUM SERUM 4.6 MEQ/L (3.5-5.1); SODIUM LEVEL 131 MEQ/L (136-145)
[2017-06-09] MEDS: PRAVASTATIN 20 MG TAB PO (05:29)
[2017-06-09] MEDS: MULTIVITAMINS/MINERALS THERAP 1 TAB PO (05:29)
[2017-06-09] MEDS: PANTOPRAZOLE 40MG INJ (PROTONIX) (C9113) IV ×2 (05:29→20:35)
[2017-06-09] MEDS: SLF 3 ML SYR IV ×3 (05:30→20:36)
[2017-06-09] MEDS: PROPRANOLOL 20 MG TAB PO ×2 (07:45→20:38)
[2017-06-09 09:55] LABS: IMMEDIATE SPIN CROSSMATCH 1 1
[2017-06-09] MEDS: clonazePAM 0.5 MG TAB PO (20:33)
[2017-06-09] MEDS: MINOXIDIL 2.5 MG TAB PO (20:33)
[2017-06-09] MEDS: LISINOPRIL 20 MG TAB PO (20:35)
[2017-06-09] MEDS: NORCO, ANEXSIA 5/325MG TABLET (HYDROcodone/ACETAMINOPHEN) PO (20:35)
[2017-06-09] MEDS: LATANOPROST 0.005% OPHTH SOLN 2.5 ML OU (20:35)
[2017-06-09] MEDS: **NOTE PATIENT COMMENT** MISC XX (20:36)
[2017-06-09] MEDS: diphenhydrAMINE CREAM 30GM TOP (20:45)
[2017-06-09] MEDS: LIDOCAINE 5% (LIDODERM) PATCH TD (23:38)
[2017-06-10] MEDS: SLF 3 ML SYR IV ×3 (05:20→22:00)
[2017-06-10] MEDS: SUCRALFATE 1 GM TAB PO ×3 (05:20→18:45)
[2017-06-10 07:05] LABS: HEMATOCRIT 28.8 % (42.0-52.0); HEMOGLOBIN 9.5 g/dl (14.0-18.0); MEAN CORPUSCULAR HEMOGLOBIN 28.7 pg (27.0-33.0); PLATELET COUNT, AUTOMATED 157 10^3/uL (150-450); RED BLOOD COUNT 3.31 10^6/uL (4.30-6.10); WHITE BLOOD COUNT 5.9 10^3/uL (4.0-10.0)
[2017-06-10 07:25] LABS: ALBUMIN 2.4 GM/DL (3.2-5.2); ANION GAP 7 MEQ/L (8-16); BLOOD UREA NITROGEN 18 MG/DL (7-18); CALCIUM LEVEL 7.9 MG/DL (8.8-10.2); CARBON DIOXIDE LEVEL 28 MEQ/L (21-32); CHLORIDE LEVEL 98 MEQ/L (98-107); CREATININE FOR GFR 3.21 MG/DL (0.70-1.30); GLOMERULAR FILTRATION RATE 20.4 (>42); GLUCOSE, FASTING 104 MG/DL (70-100); MAGNESIUM LEVEL 1.8 MG/DL (1.8-2.4); PHOSPHORUS LEVEL 2.2 MG/DL (2.5-4.9); POTASSIUM SERUM 4.1 MEQ/L (3.5-5.1); SODIUM LEVEL 133 MEQ/L (136-145)
[2017-06-10] MEDS: PRAVASTATIN 20 MG TAB PO (09:17)
[2017-06-10] MEDS: PANTOPRAZOLE 40MG INJ (PROTONIX) (C9113) IV ×2 (09:17→21:06)
[2017-06-10] MEDS: PROPRANOLOL 20 MG TAB PO ×2 (09:17→21:16)
[2017-06-10] MEDS: MULTIVITAMINS/MINERALS THERAP 1 TAB PO (09:17)
[2017-06-10] MEDS: diphenhydrAMINE CREAM 30GM TOP (18:46)
[2017-06-10] MEDS: **NOTE PATIENT COMMENT** MISC XX (21:00)
[2017-06-10] MEDS: LOPERAMIDE 2 MG CAP PO (21:07)
[2017-06-10] MEDS: NORCO, ANEXSIA 5/325MG TABLET (HYDROcodone/ACETAMINOPHEN) PO (21:07)
[2017-06-10] MEDS: clonazePAM 0.5 MG TAB PO (21:07)
[2017-06-10] MEDS: LISINOPRIL 20 MG TAB PO (21:17)
[2017-06-10] MEDS: MINOXIDIL 2.5 MG TAB PO (21:17)
[2017-06-10] MEDS: LIDOCAINE 5% (LIDODERM) PATCH TD (21:18)
[2017-06-11] MEDS: LATANOPROST 0.005% OPHTH SOLN 2.5 ML OU ×2 (00:13→20:18)
[2017-06-11] MEDS: SUCRALFATE 1 GM TAB PO ×5 (00:13→20:17)
[2017-06-11] MEDS ORDERED: **NOTE PATIENT COMMENT** MISC XX (04:45)
[2017-06-11] MEDS: PRAVASTATIN 20 MG TAB PO (05:13)
[2017-06-11] MEDS: PROPRANOLOL 20 MG TAB PO ×2 (05:13→20:16)
[2017-06-11] MEDS: LOPERAMIDE 2 MG CAP PO (05:13)
[2017-06-11] MEDS: MULTIVITAMINS/MINERALS THERAP 1 TAB PO (05:13)
[2017-06-11] MEDS: PANTOPRAZOLE 40MG INJ (PROTONIX) (C9113) IV (05:13)
[2017-06-11] MEDS: SLF 3 ML SYR IV ×3 (05:14→20:20)
[2017-06-11 06:35] LABS: HEMATOCRIT 28.4 % (42.0-52.0); HEMOGLOBIN 9.2 g/dl (14.0-18.0); MEAN CORPUSCULAR HGB CONC 32.4 g/dl (32.0-36.5); MEAN CORPUSCULAR VOLUME 86.3 fl (80.0-96.0); PLATELET COUNT, AUTOMATED 145 10^3/uL (150-450); RED BLOOD COUNT 3.29 10^6/uL (4.30-6.10); RED CELL DISTRIBUTION WIDTH 16.7 % (11.5-14.5); WHITE BLOOD COUNT 5.6 10^3/uL (4.0-10.0)
[2017-06-11 06:50] LABS: ALBUMIN 2.2 GM/DL (3.2-5.2); ANION GAP 10 MEQ/L (8-16); BLOOD UREA NITROGEN 34 MG/DL (7-18); CARBON DIOXIDE LEVEL 25 MEQ/L (21-32); CHLORIDE LEVEL 96 MEQ/L (98-107); CREATININE FOR GFR 4.24 MG/DL (0.70-1.30); GLOMERULAR FILTRATION RATE 14.8 (>42); GLUCOSE, FASTING 112 MG/DL (70-100); PHOSPHORUS LEVEL 2.6 MG/DL (2.5-4.9); POTASSIUM SERUM 4.3 MEQ/L (3.5-5.1); SODIUM LEVEL 131 MEQ/L (136-145)
[2017-06-11] MEDS: MINOXIDIL 2.5 MG TAB PO (20:16)
[2017-06-11] MEDS: clonazePAM 0.5 MG TAB PO (20:17)
[2017-06-11] MEDS: NORCO, ANEXSIA 5/325MG TABLET (HYDROcodone/ACETAMINOPHEN) PO (20:17)
[2017-06-11] MEDS: LISINOPRIL 20 MG TAB PO (20:17)
[2017-06-11] MEDS: PANTOPRAZOLE 40MG TAB (PROTONIX) PO (20:17)
[2017-06-12] MEDS: SLF 3 ML SYR IV ×3 (05:49→20:23)
[2017-06-12 06:22] LABS: HEMATOCRIT 27.3 % (42.0-52.0); HEMOGLOBIN 8.8 g/dl (14.0-18.0); MEAN CORPUSCULAR HEMOGLOBIN 27.9 pg (27.0-33.0); MEAN CORPUSCULAR HGB CONC 32.2 g/dl (32.0-36.5); MEAN CORPUSCULAR VOLUME 86.7 fl (80.0-96.0); PLATELET COUNT, AUTOMATED 149 10^3/uL (150-450); RED BLOOD COUNT 3.15 10^6/uL (4.30-6.10); RED CELL DISTRIBUTION WIDTH 16.7 % (11.5-14.5)
[2017-06-12 06:46] LABS: ALBUMIN 2.2 GM/DL (3.2-5.2); ANION GAP 7 MEQ/L (8-16); BLOOD UREA NITROGEN 25 MG/DL (7-18); CARBON DIOXIDE LEVEL 27 MEQ/L (21-32); CHLORIDE LEVEL 99 MEQ/L (98-107); GLUCOSE, FASTING 110 MG/DL (70-100); MAGNESIUM LEVEL 1.8 MG/DL (1.8-2.4); PHOSPHORUS LEVEL 2.1 MG/DL (2.5-4.9); POTASSIUM SERUM 4.2 MEQ/L (3.5-5.1); SODIUM LEVEL 133 MEQ/L (136-145)
[2017-06-12] MEDS: PRAVASTATIN 20 MG TAB PO (08:24)
[2017-06-12] MEDS: PROPRANOLOL 20 MG TAB PO ×2 (08:24→20:22)
[2017-06-12] MEDS: PANTOPRAZOLE 40MG TAB (PROTONIX) PO ×2 (08:25→20:22)
[2017-06-12] MEDS: MULTIVITAMINS/MINERALS THERAP 1 TAB PO (08:25)
[2017-06-12] MEDS: SUCRALFATE 1 GM TAB PO ×4 (08:25→20:21)
[2017-06-12] MEDS: LISINOPRIL 20 MG TAB PO (18:52)
[2017-06-12] MEDS: NORCO, ANEXSIA 5/325MG TABLET (HYDROcodone/ACETAMINOPHEN) PO (20:21)
[2017-06-12] MEDS: MINOXIDIL 2.5 MG TAB PO (20:22)
[2017-06-12] MEDS: LATANOPROST 0.005% OPHTH SOLN 2.5 ML OU (20:22)
[2017-06-12] MEDS: clonazePAM 0.5 MG TAB PO (20:22)
[2017-06-13] MEDS: SLF 3 ML SYR IV ×3 (06:02→20:18)
[2017-06-13 06:51] LABS: HEMATOCRIT 26.7 % (42.0-52.0); HEMOGLOBIN 8.6 g/dl (14.0-18.0); MEAN CORPUSCULAR HEMOGLOBIN 27.9 pg (27.0-33.0); MEAN CORPUSCULAR HGB CONC 32.2 g/dl (32.0-36.5); MEAN CORPUSCULAR VOLUME 86.7 fl (80.0-96.0); PLATELET COUNT, AUTOMATED 136 10^3/uL (150-450); RED BLOOD COUNT 3.08 10^6/uL (4.30-6.10); RED CELL DISTRIBUTION WIDTH 16.1 % (11.5-14.5); WHITE BLOOD COUNT 4.9 10^3/uL (4.0-10.0)
[2017-06-13 07:14] LABS: ALBUMIN 2.3 GM/DL (3.2-5.2); ANION GAP 9 MEQ/L (8-16); BLOOD UREA NITROGEN 39 MG/DL (7-18); CALCIUM LEVEL 8.2 MG/DL (8.8-10.2); CARBON DIOXIDE LEVEL 26 MEQ/L (21-32); CHLORIDE LEVEL 93 MEQ/L (98-107); CREATININE FOR GFR 3.94 MG/DL (0.70-1.30); GLOMERULAR FILTRATION RATE 16.1 (>42); GLUCOSE, FASTING 111 MG/DL (70-100); PHOSPHORUS LEVEL 2.3 MG/DL (2.5-4.9); POTASSIUM SERUM 4.4 MEQ/L (3.5-5.1); SODIUM LEVEL 128 MEQ/L (136-145)
[2017-06-13] MEDS: PROPRANOLOL 20 MG TAB PO ×2 (08:21→20:17)
[2017-06-13] MEDS: PRAVASTATIN 20 MG TAB PO (08:21)
[2017-06-13] MEDS: MULTIVITAMINS/MINERALS THERAP 1 TAB PO (08:21)
[2017-06-13] MEDS: LIDOCAINE 5% (LIDODERM) PATCH TD (08:22)
[2017-06-13] MEDS: SUCRALFATE 1 GM TAB PO ×4 (08:22→20:17)
[2017-06-13] MEDS: PANTOPRAZOLE 40MG TAB (PROTONIX) PO ×2 (08:22→20:17)
[2017-06-13] MEDS: NORCO, ANEXSIA 5/325MG TABLET (HYDROcodone/ACETAMINOPHEN) PO ×3 (14:25→23:53)
[2017-06-13] MEDS: MINOXIDIL 2.5 MG TAB PO (20:17)
[2017-06-13] MEDS: LISINOPRIL 20 MG TAB PO (20:17)
[2017-06-13] MEDS: clonazePAM 0.5 MG TAB PO (20:18)
[2017-06-13] MEDS: LATANOPROST 0.005% OPHTH SOLN 2.5 ML OU (20:18)
[2017-06-14] MEDS: SLF 3 ML SYR IV (05:05)
[2017-06-14] MEDS: MULTIVITAMINS/MINERALS THERAP 1 TAB PO (05:10)
[2017-06-14] MEDS: PRAVASTATIN 20 MG TAB PO (05:10)
[2017-06-14] MEDS: LOPERAMIDE 2 MG CAP PO (05:11)
[2017-06-14] MEDS: PROPRANOLOL 20 MG TAB PO (05:11)
[2017-06-14] MEDS: PANTOPRAZOLE 40MG TAB (PROTONIX) PO (05:11)
[2017-06-14] MEDS: SUCRALFATE 1 GM TAB PO ×2 (05:13→12:00)
[2017-06-14 05:37] LABS: HEMATOCRIT 27.7 % (42.0-52.0); HEMOGLOBIN 9.2 g/dl (14.0-18.0); MEAN CORPUSCULAR HEMOGLOBIN 28.6 pg (27.0-33.0); MEAN CORPUSCULAR HGB CONC 33.2 g/dl (32.0-36.5); PLATELET COUNT, AUTOMATED 124 10^3/uL (150-450); RED BLOOD COUNT 3.22 10^6/uL (4.30-6.10); RED CELL DISTRIBUTION WIDTH 15.8 % (11.5-14.5); WHITE BLOOD COUNT 5.2 10^3/uL (4.0-10.0)
[2017-06-14 05:53] LABS: ALBUMIN 2.2 GM/DL (3.2-5.2); ANION GAP 10 MEQ/L (8-16); BLOOD UREA NITROGEN 50 MG/DL (7-18); CALCIUM LEVEL 7.8 MG/DL (8.8-10.2); CARBON DIOXIDE LEVEL 24 MEQ/L (21-32); CHLORIDE LEVEL 92 MEQ/L (98-107); CREATININE FOR GFR 4.96 MG/DL (0.70-1.30); GLOMERULAR FILTRATION RATE 12.3 (>42); GLUCOSE, FASTING 130 MG/DL (70-100); MAGNESIUM LEVEL 1.8 MG/DL (1.8-2.4); PHOSPHORUS LEVEL 3.3 MG/DL (2.5-4.9); POTASSIUM SERUM 4.9 MEQ/L (3.5-5.1); SODIUM LEVEL 126 MEQ/L (136-145)
== END 2017-06-14 11:40 | DRG 377 ==
LOC: M MS5PR 06-09 23:16 → M ED 16:48 → M ED INP 18:18 → M PCU 23:56
PROC: 30233N1 Transfusion of Nonautologous Red Blood Cells into Peripheral Vein, Percutaneous Approach (ICD-10-PCS; 2017-06-04)
PROC: 0W9G3ZZ Drainage of Peritoneal Cavity, Percutaneous Approach (ICD-10-PCS; 2017-06-06)
PROC: 5A1D70Z Performance of Urinary Filtration, Intermittent, Less than 6 Hours Per Day (ICD-10-PCS; principal; 2017-06-07)
PROC: 0W9G3ZZ Drainage of Peritoneal Cavity, Percutaneous Approach (ICD-10-PCS; 2017-06-13)
DX: K92.2 Gastrointestinal hemorrhage, unspecified (principal); N18.6 End stage renal disease; D62 Acute posthemorrhagic anemia; I12.0 Hypertensive chronic kidney disease with stage 5 chronic kidney disease or end stage renal disease; K31.89 Other diseases of stomach and duodenum; E87.6 Hypokalemia; D63.1 Anemia in chronic kidney disease; E78.5 Hyperlipidemia, unspecified; F10.21 Alcohol dependence, in remission; K70.31 Alcoholic cirrhosis of liver with ascites; Z85.51 Personal history of malignant neoplasm of bladder; Z89.511 Acquired absence of right leg below knee; Z89.512 Acquired absence of left leg below knee; Z87.891 Personal history of nicotine dependence; Z99.2 Dependence on renal dialysis; Z79.82 Long term (current) use of aspirin; Z79.899 Other long term (current) drug therapy; Z88.1 Allergy status to other antibiotic agents; Z88.8 Allergy status to other drugs, medicaments and biological substances; Z95.828 Presence of other vascular implants and grafts

== ENCOUNTER 2017-06-14 16:25 | Inpatient (IN) | payer MEDICARE ==
[~2017-06-14 16:25] MED LIST changes: +BISACODYL 10 MG SUPP PR; +FLEET ENEMA PR; -ISOVUE-300 61% 50ML VIAL (Q9967) As Ordered; +LOPERAMIDE 2 MG CAP PO; -MIDAZOLAM INJ 2 MG/2 ML VIAL (J2250) As Ordered; +MOM 30ML SUSPENSION UDC PO; +ONDANSETRON 4 MG ORAL DISINTEGRATING TAB (S0181) PO; -fentaNYL 100 MCG/2 ML INJECTION (J3010) As Ordered
[2017-06-14] MEDS: SUCRALFATE 1 GM TAB PO ×2 (18:02→22:34)
[2017-06-14] MEDS: **NOTE PATIENT COMMENT** MISC XX (22:30)
[2017-06-14] MEDS: clonazePAM 0.5 MG TAB PO (22:34)
[2017-06-14] MEDS: PANTOPRAZOLE 40MG TAB (PROTONIX) PO (22:34)
[2017-06-14] MEDS: PROPRANOLOL 20 MG TAB PO (22:34)
[2017-06-14] MEDS: LISINOPRIL 20 MG TAB PO (22:35)
[2017-06-14] MEDS: MINOXIDIL 2.5 MG TAB PO (22:37)
[2017-06-14] MEDS: NORCO, ANEXSIA 5/325MG TABLET (HYDROcodone/ACETAMINOPHEN) PO (22:57)
[2017-06-14] MEDS: LATANOPROST 0.005% OPHTH SOLN 2.5 ML OU (23:05)
[2017-06-15 06:56] LABS: BASO % 0.5 % (0.0-1.0); EOS # 0.2 10^3/uL (0.0-0.50); HEMOGLOBIN 8.8 g/dl (14.0-18.0); IMMATURE GRANULOCYTE % 0.3 % (0-3.0); LYMPH # 0.5 10^3/uL (1.5-4.5); LYMPH % 12.7 % (24.0-44.0); MEAN CORPUSCULAR HEMOGLOBIN 27.7 pg (27.0-33.0); MEAN CORPUSCULAR HGB CONC 32.6 g/dl (32.0-36.5); MEAN CORPUSCULAR VOLUME 84.9 fl (80.0-96.0); MONO # 0.5 10^3/uL (0.0-0.8); MONO % 13.2 % (0.0-5.0); NEUTROPHILS # 2.6 10^3/uL (1.8-7.7); NEUTROPHILS % 69.3 % (36.0-66.0); PLATELET COUNT, AUTOMATED 131 10^3/uL (150-450); RED BLOOD COUNT 3.18 10^6/uL (4.30-6.10); RED CELL DISTRIBUTION WIDTH 15.9 % (11.5-14.5); WHITE BLOOD COUNT 3.7 10^3/uL (4.0-10.0)
[2017-06-15 07:18] LABS: ALBUMIN 2.2 GM/DL (3.2-5.2); ALBUMIN/GLOBULIN RATIO 0.71 (1.00-1.93); ALKALINE PHOSPHATASE 93 U/L (45-117); ALT/SGPT 18 U/L (12-78); ANION GAP 9 MEQ/L (8-16); AST/SGOT 30 U/L (7-37); BILIRUBIN,TOTAL 0.6 MG/DL (0.2-1.0); BLOOD UREA NITROGEN 26 MG/DL (7-18); CALCIUM LEVEL 7.9 MG/DL (8.8-10.2); CARBON DIOXIDE LEVEL 28 MEQ/L (21-32); CHLORIDE LEVEL 100 MEQ/L (98-107); CREATININE FOR GFR 3.16 MG/DL (0.70-1.30); GLOMERULAR FILTRATION RATE 20.7 (>42); GLUCOSE, FASTING 102 MG/DL (70-100); POTASSIUM SERUM 3.9 MEQ/L (3.5-5.1); SODIUM LEVEL 137 MEQ/L (136-145); TOTAL PROTEIN 5.3 GM/DL (6.4-8.2)
[2017-06-15] MEDS: PROPRANOLOL 20 MG TAB PO ×2 (08:34→22:23)
[2017-06-15] MEDS: MULTIVITAMINS/MINERALS THERAP 1 TAB PO (08:34)
[2017-06-15] MEDS: PANTOPRAZOLE 40MG TAB (PROTONIX) PO ×2 (08:34→22:24)
[2017-06-15] MEDS: PRAVASTATIN 20 MG TAB PO (08:34)
[2017-06-15] MEDS: SUCRALFATE 1 GM TAB PO ×4 (08:34→22:23)
[2017-06-15] MEDS: LIDOCAINE 5% (LIDODERM) PATCH TD (17:13)
[2017-06-15] MEDS: NORCO, ANEXSIA 5/325MG TABLET (HYDROcodone/ACETAMINOPHEN) PO ×2 (17:13→22:27)
[2017-06-15] MEDS: **NOTE PATIENT COMMENT** MISC XX (21:00)
[2017-06-15] MEDS: MINOXIDIL 2.5 MG TAB PO (22:24)
[2017-06-15] MEDS: clonazePAM 0.5 MG TAB PO (22:24)
[2017-06-15] MEDS: LISINOPRIL 20 MG TAB PO (22:24)
[2017-06-15] MEDS: LATANOPROST 0.005% OPHTH SOLN 2.5 ML OU (22:28)
[2017-06-16] MEDS: SUCRALFATE 1 GM TAB PO ×4 (09:41→21:21)
[2017-06-16] MEDS: PRAVASTATIN 20 MG TAB PO (09:41)
[2017-06-16] MEDS: PANTOPRAZOLE 40MG TAB (PROTONIX) PO ×2 (09:41→21:21)
[2017-06-16] MEDS: PROPRANOLOL 20 MG TAB PO ×2 (09:41→21:21)
[2017-06-16] MEDS: MULTIVITAMINS/MINERALS THERAP 1 TAB PO (09:41)
[2017-06-16] MEDS: LIDOCAINE 5% (LIDODERM) PATCH TD (12:21)
[2017-06-16] MEDS: **NOTE PATIENT COMMENT** MISC XX (21:00)
[2017-06-16] MEDS: LISINOPRIL 20 MG TAB PO (21:21)
[2017-06-16] MEDS: clonazePAM 0.5 MG TAB PO (21:21)
[2017-06-16] MEDS: MINOXIDIL 2.5 MG TAB PO (21:22)
[2017-06-16] MEDS: LATANOPROST 0.005% OPHTH SOLN 2.5 ML OU (21:26)
[2017-06-16] MEDS ORDERED: DARBEPOETIN 100 MCG/0.5 ML *DIALYSIS* SYRINGE (J0882) IV (21:30)
[2017-06-16] MEDS: NORCO, ANEXSIA 5/325MG TABLET (HYDROcodone/ACETAMINOPHEN) PO (22:39)
[2017-06-17] MEDS: NORCO, ANEXSIA 5/325MG TABLET (HYDROcodone/ACETAMINOPHEN) PO ×2 (03:44→20:13)
[2017-06-17] MEDS: SUCRALFATE 1 GM TAB PO ×4 (07:46→20:13)
[2017-06-17] MEDS: MULTIVITAMINS/MINERALS THERAP 1 TAB PO (07:46)
[2017-06-17] MEDS: PROPRANOLOL 20 MG TAB PO ×2 (07:46→20:13)
[2017-06-17] MEDS: PANTOPRAZOLE 40MG TAB (PROTONIX) PO ×2 (07:46→20:13)
[2017-06-17] MEDS: PRAVASTATIN 20 MG TAB PO (07:46)
[2017-06-17] MEDS: LOPERAMIDE 2 MG CAP PO (14:58)
[2017-06-17] MEDS: LIDOCAINE 5% (LIDODERM) PATCH TD (20:09)
[2017-06-17] MEDS: LISINOPRIL 20 MG TAB PO (20:13)
[2017-06-17] MEDS: clonazePAM 0.5 MG TAB PO (20:13)
[2017-06-17] MEDS: MINOXIDIL 2.5 MG TAB PO (20:13)
[2017-06-17] MEDS: LATANOPROST 0.005% OPHTH SOLN 2.5 ML OU (20:14)
[2017-06-17] MEDS: **NOTE PATIENT COMMENT** MISC XX (20:33)
[2017-06-18] MEDS: NORCO, ANEXSIA 5/325MG TABLET (HYDROcodone/ACETAMINOPHEN) PO ×2 (00:17→20:33)
[2017-06-18] MEDS: PRAVASTATIN 20 MG TAB PO (06:54)
[2017-06-18] MEDS: PROPRANOLOL 20 MG TAB PO ×2 (06:54→20:32)
[2017-06-18] MEDS: PANTOPRAZOLE 40MG TAB (PROTONIX) PO ×2 (06:54→20:33)
[2017-06-18] MEDS: SUCRALFATE 1 GM TAB PO ×4 (06:54→20:33)
[2017-06-18] MEDS: MULTIVITAMINS/MINERALS THERAP 1 TAB PO (06:54)
[2017-06-18] MEDS: **NOTE PATIENT COMMENT** MISC XX ×2 (08:00→20:33)
[2017-06-18] MEDS: LIDOCAINE 5% (LIDODERM) PATCH TD ×2 (08:30→20:32)
[2017-06-18 11:41] LABS: BASO % 0.3 % (0.0-1.0); EOS # 0.2 10^3/uL (0.0-0.50); EOS % 5.5 % (0.0-3.0); HEMATOCRIT 28.1 % (42.0-52.0); HEMOGLOBIN 9.1 g/dl (14.0-18.0); IMMATURE GRANULOCYTE % 0.3 % (0-3.0); LYMPH # 0.3 10^3/uL (1.5-4.5); LYMPH % 8.2 % (24.0-44.0); MEAN CORPUSCULAR HEMOGLOBIN 28.2 pg (27.0-33.0); MEAN CORPUSCULAR HGB CONC 32.4 g/dl (32.0-36.5); MONO # 0.5 10^3/uL (0.0-0.8); MONO % 12.6 % (0.0-5.0); NEUTROPHILS # 2.8 10^3/uL (1.8-7.7); NEUTROPHILS % 73.1 % (36.0-66.0); PLATELET COUNT, AUTOMATED 106 10^3/uL (150-450); RED BLOOD COUNT 3.23 10^6/uL (4.30-6.10); RED CELL DISTRIBUTION WIDTH 16.1 % (11.5-14.5); WHITE BLOOD COUNT 3.8 10^3/uL (4.0-10.0)
[2017-06-18 12:01] LABS: ALBUMIN 2.4 GM/DL (3.2-5.2); ANION GAP 8 MEQ/L (8-16); BLOOD UREA NITROGEN 41 MG/DL (7-18); CALCIUM LEVEL 7.9 MG/DL (8.8-10.2); CARBON DIOXIDE LEVEL 29 MEQ/L (21-32); CHLORIDE LEVEL 97 MEQ/L (98-107); CREATININE FOR GFR 4.31 MG/DL (0.70-1.30); GLOMERULAR FILTRATION RATE 14.4 (>42); GLUCOSE, FASTING 151 MG/DL (70-100); PHOSPHORUS LEVEL 3.1 MG/DL (2.5-4.9); POTASSIUM SERUM 4.6 MEQ/L (3.5-5.1); SODIUM LEVEL 134 MEQ/L (136-145)
[2017-06-18] MEDS: LATANOPROST 0.005% OPHTH SOLN 2.5 ML OU (20:33)
[2017-06-18] MEDS: LISINOPRIL 20 MG TAB PO (20:33)
[2017-06-18] MEDS: clonazePAM 0.5 MG TAB PO (20:33)
[2017-06-18] MEDS: MINOXIDIL 2.5 MG TAB PO (20:33)
[2017-06-18] MEDS: diphenhydrAMINE CREAM 30GM TOP (20:36)
[2017-06-19] MEDS: NORCO, ANEXSIA 5/325MG TABLET (HYDROcodone/ACETAMINOPHEN) PO ×2 (00:35→21:22)
[2017-06-19] MEDS: SUCRALFATE 1 GM TAB PO ×4 (07:32→21:20)
[2017-06-19] MEDS: MULTIVITAMINS/MINERALS THERAP 1 TAB PO (08:07)
[2017-06-19] MEDS: PRAVASTATIN 20 MG TAB PO (08:07)
[2017-06-19] MEDS: PANTOPRAZOLE 40MG TAB (PROTONIX) PO ×2 (08:07→21:22)
[2017-06-19] MEDS: PROPRANOLOL 20 MG TAB PO ×2 (08:07→21:22)
[2017-06-19] MEDS: **NOTE PATIENT COMMENT** MISC XX (21:00)
[2017-06-19] MEDS: LISINOPRIL 20 MG TAB PO (21:21)
[2017-06-19] MEDS: MINOXIDIL 2.5 MG TAB PO (21:22)
[2017-06-19] MEDS: LATANOPROST 0.005% OPHTH SOLN 2.5 ML OU (21:22)
[2017-06-19] MEDS: diphenhydrAMINE CREAM 30GM TOP (21:23)
[2017-06-19] MEDS: LIDOCAINE 5% (LIDODERM) PATCH TD (21:26)
[2017-06-19] MEDS: clonazePAM 0.5 MG TAB PO (21:31)
[2017-06-20] MEDS: NORCO, ANEXSIA 5/325MG TABLET (HYDROcodone/ACETAMINOPHEN) PO ×3 (01:09→21:06)
[2017-06-20] MEDS: MULTIVITAMINS/MINERALS THERAP 1 TAB PO (08:18)
[2017-06-20] MEDS: PRAVASTATIN 20 MG TAB PO (08:18)
[2017-06-20] MEDS: SUCRALFATE 1 GM TAB PO ×4 (08:18→21:05)
[2017-06-20] MEDS: PANTOPRAZOLE 40MG TAB (PROTONIX) PO ×2 (08:18→21:05)
[2017-06-20] MEDS: **NOTE PATIENT COMMENT** MISC XX (08:19)
[2017-06-20] MEDS: PROPRANOLOL 20 MG TAB PO ×2 (08:19→21:05)
[2017-06-20] MEDS ORDERED: HYDROCORTISONE 1% CREAM 30 GM TOP (09:57)
[2017-06-20] MEDS: HYDROCORTISONE 1% CREAM 30 GM TOP ×3 (13:55→21:08)
[2017-06-20] MEDS: clonazePAM 0.5 MG TAB PO (21:05)
[2017-06-20] MEDS: MINOXIDIL 2.5 MG TAB PO (21:06)
[2017-06-20] MEDS: LISINOPRIL 20 MG TAB PO (21:06)
[2017-06-20] MEDS: LATANOPROST 0.005% OPHTH SOLN 2.5 ML OU (21:07)
[2017-06-20] MEDS: LIDOCAINE 5% (LIDODERM) PATCH TD (21:07)
[2017-06-21] MEDS: NORCO, ANEXSIA 5/325MG TABLET (HYDROcodone/ACETAMINOPHEN) PO ×3 (01:07→21:34)
[2017-06-21] MEDS: PRAVASTATIN 20 MG TAB PO (08:45)
[2017-06-21] MEDS: PANTOPRAZOLE 40MG TAB (PROTONIX) PO ×2 (08:45→21:34)
[2017-06-21] MEDS: MULTIVITAMINS/MINERALS THERAP 1 TAB PO (08:45)
[2017-06-21] MEDS: **NOTE PATIENT COMMENT** MISC XX (08:45)
[2017-06-21] MEDS: PROPRANOLOL 20 MG TAB PO ×2 (08:45→21:33)
[2017-06-21] MEDS: SUCRALFATE 1 GM TAB PO ×4 (08:45→21:33)
[2017-06-21] MEDS: HYDROCORTISONE 1% CREAM 30 GM TOP ×3 (08:45→21:35)
[2017-06-21 15:14] LABS: BASO % 0.5 % (0.0-1.0); EOS # 0.3 10^3/uL (0.0-0.50); EOS % 7.1 % (0.0-3.0); HEMOGLOBIN 9.6 g/dl (14.0-18.0); IMMATURE GRANULOCYTE % 0.2 % (0-3.0); LYMPH # 0.4 10^3/uL (1.5-4.5); LYMPH % 9.3 % (24.0-44.0); MEAN CORPUSCULAR HEMOGLOBIN 28.6 pg (27.0-33.0); MEAN CORPUSCULAR HGB CONC 33.1 g/dl (32.0-36.5); MEAN CORPUSCULAR VOLUME 86.3 fl (80.0-96.0); MONO # 0.4 10^3/uL (0.0-0.8); MONO % 10.2 % (0.0-5.0); NEUTROPHILS # 3.1 10^3/uL (1.8-7.7); NEUTROPHILS % 72.7 % (36.0-66.0); PLATELET COUNT, AUTOMATED 108 10^3/uL (150-450); RED BLOOD COUNT 3.36 10^6/uL (4.30-6.10); WHITE BLOOD COUNT 4.2 10^3/uL (4.0-10.0)
[2017-06-21 15:31] LABS: ALBUMIN 2.7 GM/DL (3.2-5.2); ANION GAP 10 MEQ/L (8-16); BLOOD UREA NITROGEN 49 MG/DL (7-18); CALCIUM LEVEL 8.4 MG/DL (8.8-10.2); CARBON DIOXIDE LEVEL 24 MEQ/L (21-32); CHLORIDE LEVEL 99 MEQ/L (98-107); CREATININE FOR GFR 5.32 MG/DL (0.70-1.30); GLOMERULAR FILTRATION RATE 11.3 (>42); GLUCOSE, FASTING 133 MG/DL (70-100); PHOSPHORUS LEVEL 3.5 MG/DL (2.5-4.9); POTASSIUM SERUM 4.9 MEQ/L (3.5-5.1); SODIUM LEVEL 133 MEQ/L (136-145)
[2017-06-21] MEDS: LIDOCAINE 5% (LIDODERM) PATCH TD (20:30)
[2017-06-21] MEDS: clonazePAM 0.5 MG TAB PO (21:33)
[2017-06-21] MEDS: MINOXIDIL 2.5 MG TAB PO (21:34)
[2017-06-21] MEDS: LISINOPRIL 20 MG TAB PO (21:34)
[2017-06-21] MEDS: LATANOPROST 0.005% OPHTH SOLN 2.5 ML OU (21:35)
[2017-06-22] MEDS: NORCO, ANEXSIA 5/325MG TABLET (HYDROcodone/ACETAMINOPHEN) PO (01:39)
[2017-06-22] MEDS: PROPRANOLOL 20 MG TAB PO (08:30)
[2017-06-22] MEDS: PRAVASTATIN 20 MG TAB PO (08:30)
[2017-06-22] MEDS: PANTOPRAZOLE 40MG TAB (PROTONIX) PO (08:30)
[2017-06-22] MEDS: MULTIVITAMINS/MINERALS THERAP 1 TAB PO (08:30)
[2017-06-22] MEDS: **NOTE PATIENT COMMENT** MISC XX (08:30)
[2017-06-22] MEDS: SUCRALFATE 1 GM TAB PO ×2 (08:30→12:12)
== END 2017-06-22 13:35 | disposition home or self-care (01) | DRG 947 ==
LOC: M PM&R 16:25
PROC: 5A1D70Z Performance of Urinary Filtration, Intermittent, Less than 6 Hours Per Day (ICD-10-PCS; 2017-06-16)
PROC: 0W9G3ZZ Drainage of Peritoneal Cavity, Percutaneous Approach (ICD-10-PCS; principal; 2017-06-21)
DX: R53.81 Other malaise (principal); N18.6 End stage renal disease; E87.1 Hypo-osmolality and hyponatremia; D62 Acute posthemorrhagic anemia; R53.1 Weakness; E11.9 Type 2 diabetes mellitus without complications; I10 Essential (primary) hypertension; Z99.2 Dependence on renal dialysis; E78.5 Hyperlipidemia, unspecified; Z85.51 Personal history of malignant neoplasm of bladder; Z89.511 Acquired absence of right leg below knee; Z89.512 Acquired absence of left leg below knee; K70.31 Alcoholic cirrhosis of liver with ascites; Z87.891 Personal history of nicotine dependence; R19.7 Diarrhea, unspecified; Z79.899 Other long term (current) drug therapy; Z88.1 Allergy status to other antibiotic agents; Z88.8 Allergy status to other drugs, medicaments and biological substances; I73.9 Peripheral vascular disease, unspecified; D63.1 Anemia in chronic kidney disease

== ENCOUNTER → 2017-07-20 | Outpatient (CLI) | payer MEDICARE | LOC: M RADPRO 11:51 | DX: K70.31 Alcoholic cirrhosis of liver with ascites (principal); I12.0 Hypertensive chronic kidney disease with stage 5 chronic kidney disease or end stage renal disease; E78.00 Pure hypercholesterolemia, unspecified; N18.6 End stage renal disease; D64.9 Anemia, unspecified; I73.9 Peripheral vascular disease, unspecified; Z79.899 Other long term (current) drug therapy; Z88.8 Allergy status to other drugs, medicaments and biological substances; Z89.511 Acquired absence of right leg below knee; Z89.512 Acquired absence of left leg below knee | CPT/HCPCS: 49083 ==

== ENCOUNTER → 2017-08-10 | Outpatient (CLI) | payer MEDICARE | LOC: M RADPRO 11:55 | DX: K70.31 Alcoholic cirrhosis of liver with ascites (principal); I12.0 Hypertensive chronic kidney disease with stage 5 chronic kidney disease or end stage renal disease; E78.00 Pure hypercholesterolemia, unspecified; E11.9 Type 2 diabetes mellitus without complications; N18.6 End stage renal disease; Z87.19 Personal history of other diseases of the digestive system; Z85.51 Personal history of malignant neoplasm of bladder | CPT/HCPCS: 49083 ==

== ENCOUNTER 2017-09-07 00:08 | Inpatient (IN) | payer MEDICARE ==
[2017-09-07 00:37] LABS: BASO % 0.1 % (0.0-1.0); EOS # 0.3 10^3/uL (0.0-0.50); EOS % 3.8 % (0.0-3.0); IMMATURE GRANULOCYTE % 0.3 % (0-3.0); LYMPH # 0.5 10^3/uL (1.5-4.5); LYMPH % 6.9 % (24.0-44.0); MEAN CORPUSCULAR HEMOGLOBIN 29.2 pg (27.0-33.0); MEAN CORPUSCULAR HGB CONC 33.3 g/dl (32.0-36.5); MEAN CORPUSCULAR VOLUME 87.7 fl (80.0-96.0); MONO # 0.7 10^3/uL (0.0-0.8); MONO % 10.1 % (0.0-5.0); NEUTROPHILS # 5.6 10^3/uL (1.8-7.7); NEUTROPHILS % 78.8 % (36.0-66.0); PLATELET COUNT, AUTOMATED 146 10^3/uL (150-450); RED BLOOD COUNT 1.71 10^6/uL (4.30-6.10); RED CELL DISTRIBUTION WIDTH 16.8 % (11.5-14.5); WHITE BLOOD COUNT 7.1 10^3/uL (4.0-10.0)
[2017-09-07] MEDS ORDERED: ONDANSETRON 4MG/2ML VIAL (J2405) As Ordered (01:43)
[2017-09-07] MEDS: ONDANSETRON 4MG/2ML VIAL (J2405) IV ×3 (01:50→10:08)
[2017-09-07 02:38] LABS: ALBUMIN 2.4 GM/DL (3.2-5.2); ALBUMIN/GLOBULIN RATIO 0.73 (1.00-1.93); ALKALINE PHOSPHATASE 87 U/L (45-117); ALT/SGPT 19 U/L (12-78); ANION GAP 5 MEQ/L (8-16); AST/SGOT 28 U/L (7-37); BILIRUBIN,DIRECT 0.2 MG/DL (0.0-0.2); BILIRUBIN,TOTAL 0.5 MG/DL (0.2-1.0); BLOOD UREA NITROGEN 43 MG/DL (7-18); CALCIUM LEVEL 7.5 MG/DL (8.8-10.2); CARBON DIOXIDE LEVEL 32 MEQ/L (21-32); CHLORIDE LEVEL 99 MEQ/L (98-107); CK-MB VALUE MASS 7.2 NG/ML (<3.6); CPK CREATINE PHOSPHOKINASE 210 U/L (39-308); CREATININE FOR GFR 2.85 MG/DL (0.70-1.30); GLOMERULAR FILTRATION RATE 23.3 (>42); GLUCOSE, FASTING 150 MG/DL (70-100); LIPASE 231 U/L (73-393); MB/CK RELATIVE INDEX 3.42 (< OR =4); POTASSIUM SERUM 3.7 MEQ/L (3.5-5.1); SODIUM LEVEL 136 MEQ/L (136-145); TOTAL PROTEIN 5.7 GM/DL (6.4-8.2); TROPONIN I 0.03 NG/ML (< 0.10)
[2017-09-07 02:38] LABS: AMMONIA 131 uMOL/L (<32)
[2017-09-07] MEDS: LACTULOSE 20 GM/30 ML SYRUP UD PO ×3 (02:43→20:08)
[2017-09-07 03:01] LABS: LACTIC ACID SEPSIS PROTOCOL 2.5 MMOL/L (0.4-2.0)
[2017-09-07] MEDS ORDERED: ACETAMINOPHEN TAB 650MG DOSE (2X325MG) PO (03:30)
[2017-09-07] MEDS: NS 1,000 ML IV ×3 (03:33→13:45)
[2017-09-07 03:37] LABS: INR 1.19; PARTIAL THROMBOPLASTIN TIME 35.9 SECONDS (26.8-37.9); PROTHROMBIN TIME 15.3 SECONDS (12.4-14.5)
[2017-09-07] MEDS: PANTOPRAZOLE SODIUM 40 MG in D5W 50 ML IV ×4 (04:21→20:08)
[2017-09-07] MEDS: cefTRIAXone SOD 1 GM in D5W MINI-BAG PLUS 50 ML IV (04:22)
[2017-09-07] MEDS: OCTREOTIDE ACETATE 1,200 MCG in NS 238.8 ML IV (04:30)
[2017-09-07] MEDS ORDERED: cefTRIAXone SOD 1 GM VIAL (J0696) IM (09:00)
[2017-09-07 09:41] LABS: BASO % 0.3 % (0.0-1.0); EOS # 0.1 10^3/uL (0.0-0.50); EOS % 1.3 % (0.0-3.0); HEMATOCRIT 23.5 % (42.0-52.0); LYMPH # 0.6 10^3/uL (1.5-4.5); LYMPH % 8.3 % (24.0-44.0); MEAN CORPUSCULAR HEMOGLOBIN 29.2 pg (27.0-33.0); MEAN CORPUSCULAR HGB CONC 33.6 g/dl (32.0-36.5); MEAN CORPUSCULAR VOLUME 86.7 fl (80.0-96.0); MONO # 0.8 10^3/uL (0.0-0.8); MONO % 11.5 % (0.0-5.0); NEUTROPHILS # 5.5 10^3/uL (1.8-7.7); NEUTROPHILS % 77.6 % (36.0-66.0); PLATELET COUNT, AUTOMATED 153 10^3/uL (150-450); RED BLOOD COUNT 2.71 10^6/uL (4.30-6.10); RED CELL DISTRIBUTION WIDTH 15.6 % (11.5-14.5)
[2017-09-07 09:47] LABS: HEMOGLOBIN 7.9 g/dl (13.5-17.5)
[2017-09-07 09:54] LABS: AMMONIA 116 uMOL/L (<32)
[2017-09-07 10:06] LABS: ANION GAP 11 MEQ/L (8-16); BLOOD UREA NITROGEN 49 MG/DL (7-18); CALCIUM LEVEL 7.9 MG/DL (8.8-10.2); CARBON DIOXIDE LEVEL 27 MEQ/L (21-32); CHLORIDE LEVEL 98 MEQ/L (98-107); CREATININE FOR GFR 3.13 MG/DL (0.70-1.30); GLOMERULAR FILTRATION RATE 20.9 (>42); GLUCOSE, FASTING 150 MG/DL (70-100); POTASSIUM SERUM 3.7 MEQ/L (3.5-5.1); SODIUM LEVEL 136 MEQ/L (136-145)
[2017-09-07 13:06] LABS: BF MONONUCLEAR CELL % 78.5 % (0-0); BF POLYMORPHONUCLEAR CELL % 21.5 % (0-0); RBC BODY FLUID < 2 10^3/uL (<2); WBC BODY FLUID 93 /uL (0-10)
[2017-09-07 13:13] LABS: APPEARANCE, BODY FLUID CLEAR (CLEAR); PERITONEAL FL COLOR PALE YELLOW (COLORLESS); SOURCE, BODY FLUID PERITONEAL
[2017-09-07 13:14] LABS: BF DIFF IF INDICATED? YES (NO)
[2017-09-07 13:20] LABS: SPEC. GRAVITY BODY FLUIDS 1.019 (NOT ESTABLISHED)
[2017-09-07] MEDS ORDERED: fentaNYL 100 MCG/2 ML INJECTION (J3010) As Ordered (13:23)
[2017-09-07] MEDS ORDERED: MIDAZOLAM INJ 2 MG/2 ML VIAL (J2250) As Ordered (13:23)
[2017-09-07] MEDS ORDERED: ROCURONIUM BROMIDE 50 MG/5 ML VIAL As Ordered (13:26)
[2017-09-07] MEDS ORDERED: PROPOFOL 200 MG/20 ML VIAL As Ordered (13:26)
[2017-09-07] MEDS ORDERED: LIDOCAINE 2% INJ 100 MG/5 ML SDV (FOR ANES.) As Ordered (13:26)
[2017-09-07 13:42] LABS: SOURCE, BODY FLUID ALBUMIN PERITONEAL; SOURCE, BODY FLUID GLUCOSE PERITONEAL; SOURCE, BODY FLUID TOT PROTEIN PERITONEAL; TOTAL PROTEIN, BODY FLUID 2.6 G/DL (NOT ESTABLISHED)
[2017-09-07] MEDS ORDERED: ePHEDrine SULFATE 25 MG/5 ML(5MG/ML) SYRINGE As Ordered (14:37)
[2017-09-07] MEDS ORDERED: PHENYLephrine HCL 500 MCG/5 ML (100MCG/ML) SYRINGE (J2370) As Ordered (14:40)
[2017-09-07 17:28] LABS: HEMATOCRIT 22.1 % (42.0-52.0); HEMOGLOBIN 7.6 g/dl (13.5-17.5); MEAN CORPUSCULAR HEMOGLOBIN 29.9 pg (27.0-33.0); MEAN CORPUSCULAR HGB CONC 34.4 g/dl (32.0-36.5); PLATELET COUNT, AUTOMATED 141 10^3/uL (150-450); RED BLOOD COUNT 2.54 10^6/uL (4.30-6.10); RED CELL DISTRIBUTION WIDTH 15.8 % (11.5-14.5); WHITE BLOOD COUNT 8.7 10^3/uL (4.0-10.0)
[2017-09-07 18:34] LABS: IMMEDIATE SPIN CROSSMATCH 1 5
[2017-09-08] MEDS: PANTOPRAZOLE SODIUM 40 MG in D5W 50 ML IV ×2 (00:05→04:50)
[2017-09-08] MEDS: OCTREOTIDE ACETATE 1,200 MCG in NS 238.8 ML IV (02:48)
[2017-09-08] MEDS: cefTRIAXone SOD 1 GM in D5W MINI-BAG PLUS 50 ML IV (04:50)
[2017-09-08 05:33] LABS: HEMATOCRIT 20.4 % (42.0-52.0); MEAN CORPUSCULAR HGB CONC 34.3 g/dl (32.0-36.5); MEAN CORPUSCULAR VOLUME 87.6 fl (80.0-96.0); PLATELET COUNT, AUTOMATED 131 10^3/uL (150-450); RED BLOOD COUNT 2.33 10^6/uL (4.30-6.10); RED CELL DISTRIBUTION WIDTH 15.6 % (11.5-14.5); WHITE BLOOD COUNT 8.1 10^3/uL (4.0-10.0)
[2017-09-08 05:53] LABS: ANION GAP 12 MEQ/L (8-16); BLOOD UREA NITROGEN 59 MG/DL (7-18); CALCIUM LEVEL 7.3 MG/DL (8.8-10.2); CARBON DIOXIDE LEVEL 26 MEQ/L (21-32); CHLORIDE LEVEL 99 MEQ/L (98-107); CREATININE FOR GFR 3.99 MG/DL (0.70-1.30); GLOMERULAR FILTRATION RATE 15.8 (>42); GLUCOSE, FASTING 167 MG/DL (70-100); POTASSIUM SERUM 3.7 MEQ/L (3.5-5.1); SODIUM LEVEL 137 MEQ/L (136-145)
[2017-09-08 06:01] LABS: ESTIMATED AVERAGE GLUCOSE 94 MG/DL (60-110); HEMOGLOBIN A1c 4.9 %
[2017-09-08] MEDS ORDERED: NS 1,000 ML IV (07:30)
[2017-09-08] MEDS: LACTULOSE 20 GM/30 ML SYRUP UD PO ×2 (08:40→20:14)
[2017-09-08] MEDS: PANTOPRAZOLE 40MG INJ (PROTONIX) (C9113) IV (08:40)
[2017-09-08] MEDS: NORCO, ANEXSIA 5/325MG TABLET (HYDROcodone/ACETAMINOPHEN) PO ×2 (10:19→19:31)
[2017-09-08] MEDS: LIDOCAINE 5% (LIDODERM) PATCH TD (10:20)
[2017-09-08 15:18] LABS: IMMEDIATE SPIN CROSSMATCH 1 2
[2017-09-08 17:05] LABS: TYPE AND SCREEN 1
[2017-09-08 18:29] LABS: HEMOGLOBIN 8.9 g/dl (13.5-17.5)
[2017-09-08] MEDS: FUROSEMIDE 40 MG TAB PO (20:13)
[2017-09-08] MEDS: LISINOPRIL 20 MG TAB PO (20:13)
[2017-09-08] MEDS: **NOTE PATIENT COMMENT** MISC XX (20:17)
[2017-09-08] MEDS: MINOXIDIL 2.5 MG TAB PO (20:39)
[2017-09-08] MEDS: LABETALOL HCL 100 MG/20 ML VIAL IV (22:32)
[2017-09-09 02:49] LABS: BASO % 0.3 % (0.0-1.0); EOS # 0.4 10^3/uL (0.0-0.50); EOS % 5.9 % (0.0-3.0); HEMATOCRIT 22.9 % (42.0-52.0); HEMOGLOBIN 7.8 g/dl (13.5-17.5); IMMATURE GRANULOCYTE % 0.7 % (0-3.0); LYMPH # 0.5 10^3/uL (1.5-4.5); LYMPH % 8.3 % (24.0-44.0); MEAN CORPUSCULAR HEMOGLOBIN 29.7 pg (27.0-33.0); MEAN CORPUSCULAR HGB CONC 34.1 g/dl (32.0-36.5); MEAN CORPUSCULAR VOLUME 87.1 fl (80.0-96.0); MONO # 0.7 10^3/uL (0.0-0.8); MONO % 12.6 % (0.0-5.0); NEUTROPHILS # 4.3 10^3/uL (1.8-7.7); NEUTROPHILS % 72.2 % (36.0-66.0); PLATELET COUNT, AUTOMATED 107 10^3/uL (150-450); RED BLOOD COUNT 2.63 10^6/uL (4.30-6.10); RED CELL DISTRIBUTION WIDTH 15.9 % (11.5-14.5); WHITE BLOOD COUNT 5.9 10^3/uL (4.0-10.0)
[2017-09-09] MEDS: cefTRIAXone SOD 1 GM in D5W MINI-BAG PLUS 50 ML IV (03:00)
[2017-09-09 03:08] LABS: ALBUMIN 2.6 GM/DL (3.2-5.2); ALKALINE PHOSPHATASE 70 U/L (45-117); ALT/SGPT 14 U/L (12-78); ANION GAP 9 MEQ/L (8-16); AST/SGOT 16 U/L (7-37); BILIRUBIN,TOTAL 0.7 MG/DL (0.2-1.0); BLOOD UREA NITROGEN 24 MG/DL (7-18); CALCIUM LEVEL 7.9 MG/DL (8.8-10.2); CARBON DIOXIDE LEVEL 27 MEQ/L (21-32); CHLORIDE LEVEL 106 MEQ/L (98-107); CREATININE FOR GFR 2.55 MG/DL (0.70-1.30); GLOMERULAR FILTRATION RATE 26.5 (>42); GLUCOSE, FASTING 199 MG/DL (70-100); POTASSIUM SERUM 3.6 MEQ/L (3.5-5.1); SODIUM LEVEL 142 MEQ/L (136-145); TOTAL PROTEIN 5.2 GM/DL (6.4-8.2)
[2017-09-09] MEDS: FUROSEMIDE 40 MG TAB PO ×2 (07:54→16:14)
[2017-09-09] MEDS: PROPRANOLOL 20 MG TAB PO ×2 (07:54→20:31)
[2017-09-09] MEDS: LACTULOSE 20 GM/30 ML SYRUP UD PO (09:00)
[2017-09-09] MEDS ORDERED: LACTULOSE 20 GM/30 ML SYRUP UD PO (09:00)
[2017-09-09 09:17] LABS: IMMEDIATE SPIN CROSSMATCH 1 1
[2017-09-09] MEDS: LIDOCAINE 5% (LIDODERM) PATCH TD (09:23)
[2017-09-09] MEDS: LISINOPRIL 10 MG TAB PO (09:23)
[2017-09-09] MEDS: PANTOPRAZOLE 40MG INJ (PROTONIX) (C9113) IV (09:23)
[2017-09-09] MEDS: NORCO, ANEXSIA 5/325MG TABLET (HYDROcodone/ACETAMINOPHEN) PO ×2 (09:52→16:15)
[2017-09-09 10:15] LABS: AMMONIA 32 uMOL/L (<32)
[2017-09-09] MEDS ORDERED: SLF 3 ML SYR IV (14:30)
[2017-09-09 14:47] LABS: iSTAT CA++ 4.4 MG/DL (4.5-5.3)
[2017-09-09 18:20] LABS: HEMOGLOBIN 10.1 g/dl (13.5-17.5)
[2017-09-09] MEDS: MINOXIDIL 2.5 MG TAB PO (20:33)
[2017-09-09] MEDS: LISINOPRIL 20 MG TAB PO (20:33)
[2017-09-09] MEDS: **NOTE PATIENT COMMENT** MISC XX (21:00)
[2017-09-09] MEDS: SLF 3 ML SYR IV (22:00)
[2017-09-10] MEDS: NORCO, ANEXSIA 5/325MG TABLET (HYDROcodone/ACETAMINOPHEN) PO ×4 (00:08→20:50)
[2017-09-10] MEDS: cefTRIAXone SOD 1 GM in D5W MINI-BAG PLUS 50 ML IV (04:13)
[2017-09-10 05:03] LABS: BASO % 0.1 % (0.0-1.0); EOS # 0.6 10^3/uL (0.0-0.50); EOS % 8.6 % (0.0-3.0); HEMATOCRIT 25.8 % (42.0-52.0); HEMOGLOBIN 8.8 g/dl (13.5-17.5); IMMATURE GRANULOCYTE % 0.5 % (0-3.0); LYMPH # 0.6 10^3/uL (1.5-4.5); LYMPH % 7.6 % (24.0-44.0); MEAN CORPUSCULAR HEMOGLOBIN 30.2 pg (27.0-33.0); MEAN CORPUSCULAR HGB CONC 34.1 g/dl (32.0-36.5); MEAN CORPUSCULAR VOLUME 88.7 fl (80.0-96.0); MONO # 0.8 10^3/uL (0.0-0.8); NEUTROPHILS # 5.4 10^3/uL (1.8-7.7); NEUTROPHILS % 72.2 % (36.0-66.0); PLATELET COUNT, AUTOMATED 119 10^3/uL (150-450); RED BLOOD COUNT 2.91 10^6/uL (4.30-6.10); RED CELL DISTRIBUTION WIDTH 15.9 % (11.5-14.5); WHITE BLOOD COUNT 7.5 10^3/uL (4.0-10.0)
[2017-09-10 05:25] LABS: ALBUMIN 2.4 GM/DL (3.2-5.2); ALBUMIN/GLOBULIN RATIO 0.96 (1.00-1.93); ALKALINE PHOSPHATASE 92 U/L (45-117); ALT/SGPT 19 U/L (12-78); ANION GAP 9 MEQ/L (8-16); AST/SGOT 26 U/L (7-37); BILIRUBIN,TOTAL 0.5 MG/DL (0.2-1.0); BLOOD UREA NITROGEN 34 MG/DL (7-18); CALCIUM LEVEL 7.3 MG/DL (8.8-10.2); CARBON DIOXIDE LEVEL 26 MEQ/L (21-32); CHLORIDE LEVEL 102 MEQ/L (98-107); CREATININE FOR GFR 3.65 MG/DL (0.70-1.30); GLOMERULAR FILTRATION RATE 17.5 (>42); GLUCOSE, FASTING 176 MG/DL (70-100); POTASSIUM SERUM 4.1 MEQ/L (3.5-5.1); SODIUM LEVEL 137 MEQ/L (136-145); TOTAL PROTEIN 4.9 GM/DL (6.4-8.2)
[2017-09-10] MEDS: SLF 3 ML SYR IV ×3 (06:10→21:55)
[2017-09-10] MEDS: PANTOPRAZOLE 40MG INJ (PROTONIX) (C9113) IV (08:11)
[2017-09-10] MEDS: LACTULOSE 20 GM/30 ML SYRUP UD PO ×2 (08:12→16:34)
[2017-09-10] MEDS: LIDOCAINE 5% (LIDODERM) PATCH TD (08:12)
[2017-09-10] MEDS: LISINOPRIL 10 MG TAB PO (08:13)
[2017-09-10] MEDS: PROPRANOLOL 20 MG TAB PO ×2 (08:23→20:35)
[2017-09-10] MEDS: FUROSEMIDE 40 MG TAB PO ×2 (08:43→16:35)
[2017-09-10 10:03] LABS: HEMOGLOBIN 10.2 g/dl (13.5-17.5)
[2017-09-10] MEDS: MINOXIDIL 2.5 MG TAB PO (20:49)
[2017-09-10] MEDS: LISINOPRIL 20 MG TAB PO (20:50)
[2017-09-10] MEDS: **NOTE PATIENT COMMENT** MISC XX (20:53)
[2017-09-11] MEDS: cefTRIAXone SOD 1 GM in D5W MINI-BAG PLUS 50 ML IV (03:17)
[2017-09-11] MEDS: SLF 3 ML SYR IV ×3 (03:18→21:41)
[2017-09-11 04:03] LABS: BASO % 0.2 % (0.0-1.0); EOS # 0.5 10^3/uL (0.0-0.50); EOS % 8.7 % (0.0-3.0); HEMATOCRIT 27.9 % (42.0-52.0); HEMOGLOBIN 9.3 g/dl (13.5-17.5); IMMATURE GRANULOCYTE % 0.6 % (0-3.0); LYMPH # 0.4 10^3/uL (1.5-4.5); LYMPH % 6.6 % (24.0-44.0); MEAN CORPUSCULAR HEMOGLOBIN 29.8 pg (27.0-33.0); MEAN CORPUSCULAR HGB CONC 33.3 g/dl (32.0-36.5); MEAN CORPUSCULAR VOLUME 89.4 fl (80.0-96.0); MONO # 0.7 10^3/uL (0.0-0.8); MONO % 11.7 % (0.0-5.0); NEUTROPHILS # 4.5 10^3/uL (1.8-7.7); NEUTROPHILS % 72.2 % (36.0-66.0); PLATELET COUNT, AUTOMATED 129 10^3/uL (150-450); RED BLOOD COUNT 3.12 10^6/uL (4.30-6.10); RED CELL DISTRIBUTION WIDTH 16.4 % (11.5-14.5); WHITE BLOOD COUNT 6.2 10^3/uL (4.0-10.0)
[2017-09-11] MEDS: NORCO, ANEXSIA 5/325MG TABLET (HYDROcodone/ACETAMINOPHEN) PO ×2 (04:17→21:40)
[2017-09-11 04:26] LABS: ALBUMIN 2.5 GM/DL (3.2-5.2); ALBUMIN/GLOBULIN RATIO 0.86 (1.00-1.93); ALKALINE PHOSPHATASE 104 U/L (45-117); ALT/SGPT 21 U/L (12-78); ANION GAP 10 MEQ/L (8-16); AST/SGOT 28 U/L (7-37); BILIRUBIN,TOTAL 0.7 MG/DL (0.2-1.0); BLOOD UREA NITROGEN 20 MG/DL (7-18); CALCIUM LEVEL 7.7 MG/DL (8.8-10.2); CARBON DIOXIDE LEVEL 28 MEQ/L (21-32); CHLORIDE LEVEL 100 MEQ/L (98-107); CREATININE FOR GFR 2.63 MG/DL (0.70-1.30); GLOMERULAR FILTRATION RATE 25.5 (>42); GLUCOSE, FASTING 174 MG/DL (70-100); MAGNESIUM LEVEL 1.7 MG/DL (1.8-2.4); POTASSIUM SERUM 4.1 MEQ/L (3.5-5.1); SODIUM LEVEL 138 MEQ/L (136-145); TOTAL PROTEIN 5.4 GM/DL (6.4-8.2)
[2017-09-11] MEDS: PROPRANOLOL 20 MG TAB PO ×2 (09:00→21:00)
[2017-09-11] MEDS: PANTOPRAZOLE 40MG TAB (PROTONIX) PO (09:58)
[2017-09-11] MEDS: LACTULOSE 20 GM/30 ML SYRUP UD PO (09:58)
[2017-09-11] MEDS: LIDOCAINE 5% (LIDODERM) PATCH TD (09:58)
[2017-09-11] MEDS: FUROSEMIDE 40 MG TAB PO ×2 (09:59→16:53)
[2017-09-11] MEDS: LISINOPRIL 10 MG TAB PO (09:59)
[2017-09-11] MEDS: **NOTE PATIENT COMMENT** MISC XX (21:00)
[2017-09-11] MEDS: LISINOPRIL 20 MG TAB PO (21:39)
[2017-09-11] MEDS: **hydrALAZINE** 10 MG TAB PO (21:39)
[2017-09-11] MEDS: MINOXIDIL 2.5 MG TAB PO (21:39)
[2017-09-12] MEDS: cefTRIAXone SOD 1 GM in D5W MINI-BAG PLUS 50 ML IV (04:14)
[2017-09-12] MEDS: NORCO, ANEXSIA 5/325MG TABLET (HYDROcodone/ACETAMINOPHEN) PO ×3 (04:15→20:55)
[2017-09-12 05:21] LABS: BASO % 0.2 % (0.0-1.0); EOS # 0.6 10^3/uL (0.0-0.50); EOS % 9.4 % (0.0-3.0); HEMATOCRIT 27.6 % (42.0-52.0); HEMOGLOBIN 9.2 g/dl (13.5-17.5); IMMATURE GRANULOCYTE % 0.5 % (0-3.0); LYMPH # 0.5 10^3/uL (1.5-4.5); LYMPH % 7.6 % (24.0-44.0); MEAN CORPUSCULAR HEMOGLOBIN 29.5 pg (27.0-33.0); MEAN CORPUSCULAR HGB CONC 33.3 g/dl (32.0-36.5); MEAN CORPUSCULAR VOLUME 88.5 fl (80.0-96.0); MONO # 0.7 10^3/uL (0.0-0.8); NEUTROPHILS # 4.7 10^3/uL (1.8-7.7); NEUTROPHILS % 71.3 % (36.0-66.0); PLATELET COUNT, AUTOMATED 123 10^3/uL (150-450); RED BLOOD COUNT 3.12 10^6/uL (4.30-6.10); WHITE BLOOD COUNT 6.6 10^3/uL (4.0-10.0)
[2017-09-12] MEDS: **hydrALAZINE** 10 MG TAB PO ×3 (05:25→22:10)
[2017-09-12] MEDS: SLF 3 ML SYR IV ×3 (05:26→22:14)
[2017-09-12 05:46] LABS: ALBUMIN 2.3 GM/DL (3.2-5.2); ALBUMIN/GLOBULIN RATIO 0.74 (1.00-1.93); ALKALINE PHOSPHATASE 114 U/L (45-117); ALT/SGPT 25 U/L (12-78); ANION GAP 8 MEQ/L (8-16); AST/SGOT 35 U/L (7-37); BILIRUBIN,TOTAL 0.5 MG/DL (0.2-1.0); BLOOD UREA NITROGEN 30 MG/DL (7-18); CALCIUM LEVEL 7.7 MG/DL (8.8-10.2); CARBON DIOXIDE LEVEL 26 MEQ/L (21-32); CHLORIDE LEVEL 98 MEQ/L (98-107); GLOMERULAR FILTRATION RATE 17.2 (>42); GLUCOSE, FASTING 149 MG/DL (70-100); MAGNESIUM LEVEL 1.7 MG/DL (1.8-2.4); POTASSIUM SERUM 4.3 MEQ/L (3.5-5.1); SODIUM LEVEL 132 MEQ/L (136-145); TOTAL PROTEIN 5.4 GM/DL (6.4-8.2)
[2017-09-12] MEDS: LACTULOSE 20 GM/30 ML SYRUP UD PO (08:55)
[2017-09-12] MEDS: PROPRANOLOL 20 MG TAB PO ×2 (08:56→20:51)
[2017-09-12] MEDS: FUROSEMIDE 40 MG TAB PO ×2 (08:56→18:21)
[2017-09-12] MEDS: LIDOCAINE 5% (LIDODERM) PATCH TD (08:57)
[2017-09-12] MEDS: PANTOPRAZOLE 40MG TAB (PROTONIX) PO (08:57)
[2017-09-12] MEDS: LISINOPRIL 10 MG TAB PO (08:57)
[2017-09-12] MEDS: MINOXIDIL 2.5 MG TAB PO (20:51)
[2017-09-12] MEDS: LISINOPRIL 20 MG TAB PO (20:51)
[2017-09-12] MEDS: **NOTE PATIENT COMMENT** MISC XX (20:52)
[2017-09-13] MEDS: cefTRIAXone SOD 1 GM in D5W MINI-BAG PLUS 50 ML IV (03:00)
[2017-09-13] MEDS: NORCO, ANEXSIA 5/325MG TABLET (HYDROcodone/ACETAMINOPHEN) PO ×2 (03:00→09:42)
[2017-09-13] MEDS: SLF 3 ML SYR IV (06:00)
[2017-09-13] MEDS: **hydrALAZINE** 10 MG TAB PO (06:39)
[2017-09-13] MEDS: PROPRANOLOL 20 MG TAB PO (06:40)
[2017-09-13] MEDS: LISINOPRIL 10 MG TAB PO (06:41)
[2017-09-13] MEDS: FUROSEMIDE 40 MG TAB PO (06:41)
[2017-09-13] MEDS: PANTOPRAZOLE 40MG TAB (PROTONIX) PO (06:42)
[2017-09-13] MEDS: LIDOCAINE 5% (LIDODERM) PATCH TD (06:43)
[2017-09-13 06:59] LABS: BASO % 0.1 % (0.0-1.0); EOS # 0.8 10^3/uL (0.0-0.50); EOS % 10.5 % (0.0-3.0); HEMATOCRIT 29.6 % (42.0-52.0); IMMATURE GRANULOCYTE % 0.5 % (0-3.0); LYMPH # 0.5 10^3/uL (1.5-4.5); LYMPH % 6.7 % (24.0-44.0); MEAN CORPUSCULAR HEMOGLOBIN 29.8 pg (27.0-33.0); MEAN CORPUSCULAR HGB CONC 33.8 g/dl (32.0-36.5); MEAN CORPUSCULAR VOLUME 88.1 fl (80.0-96.0); MONO # 0.8 10^3/uL (0.0-0.8); MONO % 10.8 % (0.0-5.0); NEUTROPHILS # 5.4 10^3/uL (1.8-7.7); NEUTROPHILS % 71.4 % (36.0-66.0); PLATELET COUNT, AUTOMATED 150 10^3/uL (150-450); RED BLOOD COUNT 3.36 10^6/uL (4.30-6.10); WHITE BLOOD COUNT 7.5 10^3/uL (4.0-10.0)
[2017-09-13 07:27] LABS: ALBUMIN 2.5 GM/DL (3.2-5.2); ALBUMIN/GLOBULIN RATIO 0.71 (1.00-1.93); ALKALINE PHOSPHATASE 129 U/L (45-117); ALT/SGPT 29 U/L (12-78); ANION GAP 13 MEQ/L (8-16); AST/SGOT 42 U/L (7-37); BILIRUBIN,TOTAL 0.7 MG/DL (0.2-1.0); BLOOD UREA NITROGEN 41 MG/DL (7-18); CALCIUM LEVEL 7.7 MG/DL (8.8-10.2); CARBON DIOXIDE LEVEL 25 MEQ/L (21-32); CHLORIDE LEVEL 92 MEQ/L (98-107); CREATININE FOR GFR 4.49 MG/DL (0.70-1.30); GLOMERULAR FILTRATION RATE 13.8 (>42); GLUCOSE, FASTING 119 MG/DL (70-100); MAGNESIUM LEVEL 1.6 MG/DL (1.8-2.4); POTASSIUM SERUM 4.6 MEQ/L (3.5-5.1); SODIUM LEVEL 130 MEQ/L (136-145)
[2017-09-13] MEDS ORDERED: NEPHRO-VIT TAB (NEPHROCAPS) PO (09:00)
[2017-09-13] MEDS ORDERED: MAGNESIUM CHLORIDE 64 MG TABCR (SLO MAG) PO (09:00)
== END 2017-09-13 14:13 | DRG 377 ==
LOC: M MS4PR 09-12 09:49 → M ED 00:08 → M ED INP 03:29 → M ICU 08:32
PROC: 0W3P8ZZ Control Bleeding in Gastrointestinal Tract, Via Natural or Artificial Opening Endoscopic (ICD-10-PCS; principal; 2017-09-07 11:08)
PROC: 30233N1 Transfusion of Nonautologous Red Blood Cells into Peripheral Vein, Percutaneous Approach (ICD-10-PCS; 2017-09-07 14:29)
PROC: 30233J1 Transfusion of Nonautologous Serum Albumin into Peripheral Vein, Percutaneous Approach (ICD-10-PCS; 2017-09-07 14:29)
PROC: 5A1D70Z Performance of Urinary Filtration, Intermittent, Less than 6 Hours Per Day (ICD-10-PCS; 2017-09-07 14:29)
DX: K31.811 Angiodysplasia of stomach and duodenum with bleeding (principal); N18.6 End stage renal disease; D62 Acute posthemorrhagic anemia; I12.0 Hypertensive chronic kidney disease with stage 5 chronic kidney disease or end stage renal disease; K31.89 Other diseases of stomach and duodenum; K74.60 Unspecified cirrhosis of liver; E11.22 Type 2 diabetes mellitus with diabetic chronic kidney disease; E11.51 Type 2 diabetes mellitus with diabetic peripheral angiopathy without gangrene; K72.90 Hepatic failure, unspecified without coma; E78.5 Hyperlipidemia, unspecified; D69.6 Thrombocytopenia, unspecified; Z89.511 Acquired absence of right leg below knee; Z89.512 Acquired absence of left leg below knee; Z85.51 Personal history of malignant neoplasm of bladder; Z79.891 Long term (current) use of opiate analgesic; Z79.899 Other long term (current) drug therapy; Z99.2 Dependence on renal dialysis; Z88.1 Allergy status to other antibiotic agents; Z88.8 Allergy status to other drugs, medicaments and biological substances; Z87.891 Personal history of nicotine dependence

== ENCOUNTER 2017-09-13 14:15 | Inpatient (IN) | payer MEDICARE ==
[~2017-09-13 14:15] MED LIST changes: +BISACODYL 5 MG TAB PO; -LOPERAMIDE 2 MG CAP PO; -MOM 30ML SUSPENSION UDC PO; +ONDANSETRON 4 MG ORAL DISINTEGRATING TAB (Q0162 PER 1MG) PO; -ONDANSETRON 4 MG ORAL DISINTEGRATING TAB (S0181) PO
[2017-09-13] MEDS: **hydrALAZINE** 10 MG TAB PO ×2 (15:35→22:27)
[2017-09-13] MEDS: NORCO, ANEXSIA 5/325MG TABLET (HYDROcodone/ACETAMINOPHEN) PO ×2 (17:06→23:07)
[2017-09-13] MEDS: FUROSEMIDE 40 MG TAB PO (17:06)
[2017-09-13] MEDS: clonazePAM 0.5 MG TAB PO (22:27)
[2017-09-13] MEDS: FAMOTIDINE 20 MG TAB PO (22:27)
[2017-09-13] MEDS: PRAVASTATIN 20 MG TAB PO (22:27)
[2017-09-13] MEDS: LATANOPROST 0.005% OPHTH SOLN 2.5 ML OU (22:27)
[2017-09-13] MEDS: MINOXIDIL 2.5 MG TAB PO (22:28)
[2017-09-13] MEDS: LISINOPRIL 20 MG TAB PO (22:28)
[2017-09-13] MEDS: PROPRANOLOL 20 MG TAB PO (22:29)
[2017-09-13] MEDS: **NOTE PATIENT COMMENT** MISC XX (22:35)
[2017-09-14] MEDS: **hydrALAZINE** 10 MG TAB PO ×3 (05:49→21:37)
[2017-09-14] MEDS: NORCO, ANEXSIA 5/325MG TABLET (HYDROcodone/ACETAMINOPHEN) PO ×2 (05:52→18:45)
[2017-09-14 06:57] LABS: BASO % 0.3 % (0.0-1.0); EOS # 0.5 10^3/uL (0.0-0.50); EOS % 8.5 % (0.0-3.0); HEMATOCRIT 26.6 % (42.0-52.0); HEMOGLOBIN 9.1 g/dl (13.5-17.5); IMMATURE GRANULOCYTE % 0.5 % (0-3.0); LYMPH # 0.4 10^3/uL (1.5-4.5); LYMPH % 6.9 % (24.0-44.0); MEAN CORPUSCULAR HGB CONC 34.2 g/dl (32.0-36.5); MEAN CORPUSCULAR VOLUME 87.8 fl (80.0-96.0); MONO # 0.9 10^3/uL (0.0-0.8); MONO % 15.1 % (0.0-5.0); NEUTROPHILS % 68.7 % (36.0-66.0); PLATELET COUNT, AUTOMATED 131 10^3/uL (150-450); RED BLOOD COUNT 3.03 10^6/uL (4.30-6.10); RED CELL DISTRIBUTION WIDTH 16.3 % (11.5-14.5); WHITE BLOOD COUNT 5.8 10^3/uL (4.0-10.0)
[2017-09-14 07:19] LABS: ALBUMIN 2.3 GM/DL (3.2-5.2); ALBUMIN/GLOBULIN RATIO 0.72 (1.00-1.93); ALKALINE PHOSPHATASE 120 U/L (45-117); ALT/SGPT 24 U/L (12-78); ANION GAP 10 MEQ/L (8-16); AST/SGOT 37 U/L (7-37); BILIRUBIN,TOTAL 0.5 MG/DL (0.2-1.0); BLOOD UREA NITROGEN 24 MG/DL (7-18); CALCIUM LEVEL 7.3 MG/DL (8.8-10.2); CARBON DIOXIDE LEVEL 27 MEQ/L (21-32); CHLORIDE LEVEL 101 MEQ/L (98-107); GLOMERULAR FILTRATION RATE 21.1 (>42); GLUCOSE, FASTING 120 MG/DL (70-100); POTASSIUM SERUM 3.7 MEQ/L (3.5-5.1); SODIUM LEVEL 138 MEQ/L (136-145); TOTAL PROTEIN 5.5 GM/DL (6.4-8.2)
[2017-09-14] MEDS: PANTOPRAZOLE 40MG TAB (PROTONIX) PO (08:31)
[2017-09-14] MEDS: FAMOTIDINE 20 MG TAB PO ×2 (08:31→21:35)
[2017-09-14] MEDS: MULTIVITAMINS/MINERALS THERAP 1 TAB PO (08:31)
[2017-09-14] MEDS: MAGNESIUM CHLORIDE 64 MG TABCR (SLO MAG) PO (08:31)
[2017-09-14] MEDS: PROPRANOLOL 20 MG TAB PO ×2 (08:32→21:36)
[2017-09-14] MEDS: LIDOCAINE 5% (LIDODERM) PATCH TD ×3 (08:32→21:34)
[2017-09-14] MEDS: FUROSEMIDE 40 MG TAB PO ×2 (08:32→17:50)
[2017-09-14] MEDS: LISINOPRIL 10 MG TAB PO (08:33)
[2017-09-14] MEDS: LACTULOSE 20 GM/30 ML SYRUP UD PO ×2 (08:33→08:37)
[2017-09-14] MEDS ORDERED: **NOTE PATIENT COMMENT** MISC XX (10:35)
[2017-09-14 16:33] LABS: HEMATOCRIT 28.6 % (42.0-52.0); HEMOGLOBIN 9.5 g/dl (13.5-17.5); MEAN CORPUSCULAR HEMOGLOBIN 29.8 pg (27.0-33.0); MEAN CORPUSCULAR HGB CONC 33.2 g/dl (32.0-36.5); MEAN CORPUSCULAR VOLUME 89.7 fl (80.0-96.0); PLATELET COUNT, AUTOMATED 135 10^3/uL (150-450); RED BLOOD COUNT 3.19 10^6/uL (4.30-6.10); RED CELL DISTRIBUTION WIDTH 16.4 % (11.5-14.5); WHITE BLOOD COUNT 7.2 10^3/uL (4.0-10.0)
[2017-09-14 16:48] LABS: INR 1.09; PROTHROMBIN TIME 14.3 SECONDS (12.4-14.5)
[2017-09-14] MEDS: LATANOPROST 0.005% OPHTH SOLN 2.5 ML OU (21:33)
[2017-09-14] MEDS: PRAVASTATIN 20 MG TAB PO (21:35)
[2017-09-14] MEDS: clonazePAM 0.5 MG TAB PO (21:35)
[2017-09-14] MEDS: LISINOPRIL 20 MG TAB PO (21:35)
[2017-09-14] MEDS: MINOXIDIL 2.5 MG TAB PO (21:36)
[2017-09-14 21:57] LABS: HEMATOCRIT 27.6 % (42.0-52.0); HEMOGLOBIN 9.3 g/dl (13.5-17.5); MEAN CORPUSCULAR HEMOGLOBIN 30.1 pg (27.0-33.0); MEAN CORPUSCULAR HGB CONC 33.7 g/dl (32.0-36.5); MEAN CORPUSCULAR VOLUME 89.3 fl (80.0-96.0); PLATELET COUNT, AUTOMATED 131 10^3/uL (150-450); RED BLOOD COUNT 3.09 10^6/uL (4.30-6.10); RED CELL DISTRIBUTION WIDTH 16.4 % (11.5-14.5); WHITE BLOOD COUNT 6.7 10^3/uL (4.0-10.0)
[2017-09-14 22:08] LABS: TYPE AND SCREEN 1
[2017-09-15 00:21] LABS: TYPE AND SCREEN 1
[2017-09-15] MEDS: NORCO, ANEXSIA 5/325MG TABLET (HYDROcodone/ACETAMINOPHEN) PO ×4 (00:57→22:53)
[2017-09-15 05:26] LABS: HEMATOCRIT 24.7 % (42.0-52.0); HEMOGLOBIN 8.5 g/dl (13.5-17.5); MEAN CORPUSCULAR HEMOGLOBIN 30.5 pg (27.0-33.0); MEAN CORPUSCULAR HGB CONC 34.4 g/dl (32.0-36.5); MEAN CORPUSCULAR VOLUME 88.5 fl (80.0-96.0); PLATELET COUNT, AUTOMATED 123 10^3/uL (150-450); RED BLOOD COUNT 2.79 10^6/uL (4.30-6.10); RED CELL DISTRIBUTION WIDTH 16.1 % (11.5-14.5); WHITE BLOOD COUNT 4.9 10^3/uL (4.0-10.0)
[2017-09-15 05:43] LABS: INR 1.11; PROTHROMBIN TIME 14.5 SECONDS (12.4-14.5)
[2017-09-15 05:49] LABS: ALBUMIN 2.3 GM/DL (3.2-5.2); ALBUMIN/GLOBULIN RATIO 0.77 (1.00-1.93); ALKALINE PHOSPHATASE 104 U/L (45-117); ALT/SGPT 24 U/L (12-78); ANION GAP 10 MEQ/L (8-16); AST/SGOT 31 U/L (7-37); BILIRUBIN,TOTAL 0.6 MG/DL (0.2-1.0); BLOOD UREA NITROGEN 39 MG/DL (7-18); CARBON DIOXIDE LEVEL 26 MEQ/L (21-32); CHLORIDE LEVEL 97 MEQ/L (98-107); CREATININE FOR GFR 4.28 MG/DL (0.70-1.30); GLOMERULAR FILTRATION RATE 14.6 (>42); GLUCOSE, FASTING 108 MG/DL (70-100); MAGNESIUM LEVEL 1.6 MG/DL (1.8-2.4); POTASSIUM SERUM 4.4 MEQ/L (3.5-5.1); SODIUM LEVEL 133 MEQ/L (136-145); TOTAL PROTEIN 5.3 GM/DL (6.4-8.2)
[2017-09-15] MEDS: **hydrALAZINE** 10 MG TAB PO ×3 (05:57→22:54)
[2017-09-15] MEDS: MULTIVITAMINS/MINERALS THERAP 1 TAB PO (08:20)
[2017-09-15] MEDS: PANTOPRAZOLE 40MG TAB (PROTONIX) PO (08:20)
[2017-09-15] MEDS: FAMOTIDINE 20 MG TAB PO ×2 (08:21→21:35)
[2017-09-15] MEDS: FUROSEMIDE 40 MG TAB PO ×2 (08:21→17:42)
[2017-09-15] MEDS: PROPRANOLOL 20 MG TAB PO ×2 (08:21→21:35)
[2017-09-15] MEDS: MAGNESIUM CHLORIDE 64 MG TABCR (SLO MAG) PO (08:21)
[2017-09-15] MEDS: LISINOPRIL 10 MG TAB PO (08:21)
[2017-09-15] MEDS: LACTULOSE 20 GM/30 ML SYRUP UD PO (08:21)
[2017-09-15] MEDS: **NOTE PATIENT COMMENT** MISC XX (08:22)
[2017-09-15 09:58] LABS: HEMATOCRIT 29.6 % (42.0-52.0); HEMOGLOBIN 9.9 g/dl (13.5-17.5); MEAN CORPUSCULAR HEMOGLOBIN 30.3 pg (27.0-33.0); MEAN CORPUSCULAR HGB CONC 33.4 g/dl (32.0-36.5); MEAN CORPUSCULAR VOLUME 90.5 fl (80.0-96.0); PLATELET COUNT, AUTOMATED 155 10^3/uL (150-450); RED BLOOD COUNT 3.27 10^6/uL (4.30-6.10); RED CELL DISTRIBUTION WIDTH 16.5 % (11.5-14.5); WHITE BLOOD COUNT 7.1 10^3/uL (4.0-10.0)
[2017-09-15 16:03] LABS: MEAN CORPUSCULAR HGB CONC 34.6 g/dl (32.0-36.5); MEAN CORPUSCULAR VOLUME 86.7 fl (80.0-96.0); PLATELET COUNT, AUTOMATED 126 10^3/uL (150-450); WHITE BLOOD COUNT 5.7 10^3/uL (4.0-10.0)
[2017-09-15] MEDS: PRAVASTATIN 20 MG TAB PO (21:35)
[2017-09-15] MEDS: LISINOPRIL 20 MG TAB PO (21:35)
[2017-09-15] MEDS: clonazePAM 0.5 MG TAB PO (21:35)
[2017-09-15] MEDS: LATANOPROST 0.005% OPHTH SOLN 2.5 ML OU (21:36)
[2017-09-15] MEDS: MINOXIDIL 2.5 MG TAB PO (21:36)
[2017-09-15] MEDS: LIDOCAINE 5% (LIDODERM) PATCH TD (21:36)
[2017-09-16] MEDS: **hydrALAZINE** 10 MG TAB PO ×3 (05:33→22:05)
[2017-09-16] MEDS: NORCO, ANEXSIA 5/325MG TABLET (HYDROcodone/ACETAMINOPHEN) PO ×3 (05:34→22:05)
[2017-09-16 07:48] LABS: HEMOGLOBIN 8.8 g/dl (13.5-17.5); MEAN CORPUSCULAR HEMOGLOBIN 30.1 pg (27.0-33.0); MEAN CORPUSCULAR HGB CONC 33.8 g/dl (32.0-36.5); PLATELET COUNT, AUTOMATED 125 10^3/uL (150-450); RED BLOOD COUNT 2.92 10^6/uL (4.30-6.10); RED CELL DISTRIBUTION WIDTH 16.2 % (11.5-14.5); WHITE BLOOD COUNT 5.8 10^3/uL (4.0-10.0)
[2017-09-16] MEDS: MAGNESIUM CHLORIDE 64 MG TABCR (SLO MAG) PO (07:55)
[2017-09-16] MEDS: LACTULOSE 20 GM/30 ML SYRUP UD PO (07:55)
[2017-09-16] MEDS: PANTOPRAZOLE 40MG TAB (PROTONIX) PO (07:56)
[2017-09-16] MEDS: FUROSEMIDE 40 MG TAB PO ×2 (07:56→17:23)
[2017-09-16] MEDS: FAMOTIDINE 20 MG TAB PO ×2 (07:56→22:03)
[2017-09-16] MEDS: MULTIVITAMINS/MINERALS THERAP 1 TAB PO (07:56)
[2017-09-16] MEDS: PROPRANOLOL 20 MG TAB PO ×2 (07:56→22:04)
[2017-09-16] MEDS: **NOTE PATIENT COMMENT** MISC XX (07:57)
[2017-09-16] MEDS: LISINOPRIL 10 MG TAB PO (07:57)
[2017-09-16 08:04] LABS: AMMONIA 25 uMOL/L (<32)
[2017-09-16 08:07] LABS: ALBUMIN 2.4 GM/DL (3.2-5.2); ALBUMIN/GLOBULIN RATIO 0.77 (1.00-1.93); ALKALINE PHOSPHATASE 116 U/L (45-117); ALT/SGPT 29 U/L (12-78); ANION GAP 8 MEQ/L (8-16); AST/SGOT 38 U/L (7-37); BILIRUBIN,TOTAL 0.6 MG/DL (0.2-1.0); BLOOD UREA NITROGEN 28 MG/DL (7-18); CALCIUM LEVEL 7.3 MG/DL (8.8-10.2); CARBON DIOXIDE LEVEL 29 MEQ/L (21-32); CHLORIDE LEVEL 97 MEQ/L (98-107); GLOMERULAR FILTRATION RATE 21.9 (>42); GLUCOSE, FASTING 112 MG/DL (70-100); MAGNESIUM LEVEL 1.9 MG/DL (1.8-2.4); POTASSIUM SERUM 4.2 MEQ/L (3.5-5.1); SODIUM LEVEL 134 MEQ/L (136-145); TOTAL PROTEIN 5.5 GM/DL (6.4-8.2)
[2017-09-16] MEDS: LIDOCAINE 5% (LIDODERM) PATCH TD (22:02)
[2017-09-16] MEDS: clonazePAM 0.5 MG TAB PO (22:03)
[2017-09-16] MEDS: PRAVASTATIN 20 MG TAB PO (22:03)
[2017-09-16] MEDS: MINOXIDIL 2.5 MG TAB PO (22:04)
[2017-09-16] MEDS: LISINOPRIL 20 MG TAB PO (22:04)
[2017-09-16] MEDS: LATANOPROST 0.005% OPHTH SOLN 2.5 ML OU (22:05)
[2017-09-17] MEDS: **hydrALAZINE** 10 MG TAB PO ×3 (05:54→23:09)
[2017-09-17 07:36] LABS: HEMOGLOBIN 9.3 g/dl (13.5-17.5); MEAN CORPUSCULAR HEMOGLOBIN 30.5 pg (27.0-33.0); MEAN CORPUSCULAR HGB CONC 34.4 g/dl (32.0-36.5); MEAN CORPUSCULAR VOLUME 88.5 fl (80.0-96.0); PLATELET COUNT, AUTOMATED 147 10^3/uL (150-450); RED BLOOD COUNT 3.05 10^6/uL (4.30-6.10); WHITE BLOOD COUNT 7.3 10^3/uL (4.0-10.0)
[2017-09-17 07:46] LABS: ALBUMIN 2.5 GM/DL (3.2-5.2); ALBUMIN/GLOBULIN RATIO 0.71 (1.00-1.93); ALKALINE PHOSPHATASE 139 U/L (45-117); ALT/SGPT 34 U/L (12-78); ANION GAP 10 MEQ/L (8-16); AST/SGOT 44 U/L (7-37); BILIRUBIN,TOTAL 0.7 MG/DL (0.2-1.0); BLOOD UREA NITROGEN 42 MG/DL (7-18); CALCIUM LEVEL 7.6 MG/DL (8.8-10.2); CARBON DIOXIDE LEVEL 27 MEQ/L (21-32); CHLORIDE LEVEL 93 MEQ/L (98-107); GLOMERULAR FILTRATION RATE 15.7 (>42); GLUCOSE, FASTING 107 MG/DL (70-100); POTASSIUM SERUM 4.4 MEQ/L (3.5-5.1); SODIUM LEVEL 130 MEQ/L (136-145)
[2017-09-17] MEDS ORDERED: DARBEPOETIN 100 MCG/0.5 ML *DIALYSIS* SYRINGE (J0882) IV (08:00)
[2017-09-17] MEDS: NORCO, ANEXSIA 5/325MG TABLET (HYDROcodone/ACETAMINOPHEN) PO ×2 (08:12→18:35)
[2017-09-17] MEDS: **NOTE PATIENT COMMENT** MISC XX (09:00)
[2017-09-17] MEDS: FUROSEMIDE 40 MG TAB PO ×2 (09:03→18:33)
[2017-09-17] MEDS: PROPRANOLOL 20 MG TAB PO ×2 (09:03→20:10)
[2017-09-17] MEDS: LACTULOSE 20 GM/30 ML SYRUP UD PO (09:03)
[2017-09-17] MEDS: MULTIVITAMINS/MINERALS THERAP 1 TAB PO (09:04)
[2017-09-17] MEDS: FAMOTIDINE 20 MG TAB PO ×2 (09:04→20:10)
[2017-09-17] MEDS: LISINOPRIL 10 MG TAB PO (09:04)
[2017-09-17] MEDS: PANTOPRAZOLE 40MG TAB (PROTONIX) PO (09:04)
[2017-09-17] MEDS: MAGNESIUM CHLORIDE 64 MG TABCR (SLO MAG) PO (09:04)
[2017-09-17] MEDS: LIDOCAINE 1% SDV 5 ML VIAL SQ (10:30)
[2017-09-17] MEDS: LIDOCAINE 5% (LIDODERM) PATCH TD (20:07)
[2017-09-17] MEDS: clonazePAM 0.5 MG TAB PO (20:10)
[2017-09-17] MEDS: LISINOPRIL 20 MG TAB PO (20:10)
[2017-09-17] MEDS: PRAVASTATIN 20 MG TAB PO (20:10)
[2017-09-17] MEDS: MINOXIDIL 2.5 MG TAB PO (20:11)
[2017-09-17] MEDS: LATANOPROST 0.005% OPHTH SOLN 2.5 ML OU (20:11)
[2017-09-18] MEDS: **hydrALAZINE** 10 MG TAB PO ×3 (05:39→22:18)
[2017-09-18] MEDS: NORCO, ANEXSIA 5/325MG TABLET (HYDROcodone/ACETAMINOPHEN) PO ×2 (05:39→20:21)
[2017-09-18] MEDS: MAGNESIUM CHLORIDE 64 MG TABCR (SLO MAG) PO (08:35)
[2017-09-18] MEDS: LACTULOSE 20 GM/30 ML SYRUP UD PO (08:35)
[2017-09-18] MEDS: LISINOPRIL 10 MG TAB PO (08:36)
[2017-09-18] MEDS: MULTIVITAMINS/MINERALS THERAP 1 TAB PO (08:36)
[2017-09-18] MEDS: VITAMIN D 50,000 UNITS CAPSULE (ERGOCALCIFEROL 1.25MG) PO (08:36)
[2017-09-18] MEDS: PROPRANOLOL 20 MG TAB PO ×2 (08:37→20:08)
[2017-09-18] MEDS: FAMOTIDINE 20 MG TAB PO ×2 (08:37→20:08)
[2017-09-18] MEDS: **NOTE PATIENT COMMENT** MISC XX (08:37)
[2017-09-18] MEDS: PANTOPRAZOLE 40MG TAB (PROTONIX) PO (08:37)
[2017-09-18] MEDS: FUROSEMIDE 40 MG TAB PO ×2 (08:37→17:02)
[2017-09-18] MEDS: ACETAMINOPHEN TAB 650MG DOSE (2X325MG) PO (09:38)
[2017-09-18] MEDS: LOPERAMIDE 2 MG CAP PO (14:13)
[2017-09-18] MEDS: LATANOPROST 0.005% OPHTH SOLN 2.5 ML OU (20:07)
[2017-09-18] MEDS: MINOXIDIL 2.5 MG TAB PO (20:07)
[2017-09-18] MEDS: PRAVASTATIN 20 MG TAB PO (20:07)
[2017-09-18] MEDS: LIDOCAINE 5% (LIDODERM) PATCH TD (20:07)
[2017-09-18] MEDS: clonazePAM 0.5 MG TAB PO (20:08)
[2017-09-18] MEDS: LISINOPRIL 20 MG TAB PO (20:08)
[2017-09-19] MEDS: NORCO, ANEXSIA 5/325MG TABLET (HYDROcodone/ACETAMINOPHEN) PO ×4 (03:22→22:36)
[2017-09-19] MEDS: **hydrALAZINE** 10 MG TAB PO ×3 (06:23→21:25)
[2017-09-19] MEDS: FAMOTIDINE 20 MG TAB PO ×2 (07:50→21:26)
[2017-09-19] MEDS: LISINOPRIL 10 MG TAB PO (07:50)
[2017-09-19] MEDS: PROPRANOLOL 20 MG TAB PO ×2 (07:50→21:25)
[2017-09-19] MEDS: MULTIVITAMINS/MINERALS THERAP 1 TAB PO (07:50)
[2017-09-19] MEDS: MAGNESIUM CHLORIDE 64 MG TABCR (SLO MAG) PO (07:51)
[2017-09-19] MEDS: PANTOPRAZOLE 40MG TAB (PROTONIX) PO (07:51)
[2017-09-19] MEDS: **NOTE PATIENT COMMENT** MISC XX (07:51)
[2017-09-19] MEDS: FUROSEMIDE 40 MG TAB PO ×2 (07:51→16:30)
[2017-09-19] MEDS: LACTULOSE 20 GM/30 ML SYRUP UD PO (07:51)
[2017-09-19] MEDS: LIDOCAINE 5% (LIDODERM) PATCH TD (21:24)
[2017-09-19] MEDS: MINOXIDIL 2.5 MG TAB PO (21:25)
[2017-09-19] MEDS: PRAVASTATIN 20 MG TAB PO (21:26)
[2017-09-19] MEDS: LISINOPRIL 20 MG TAB PO (21:26)
[2017-09-19] MEDS: LATANOPROST 0.005% OPHTH SOLN 2.5 ML OU (21:26)
[2017-09-19] MEDS: clonazePAM 0.5 MG TAB PO (21:26)
[2017-09-20] MEDS: **hydrALAZINE** 10 MG TAB PO ×3 (04:53→20:27)
[2017-09-20] MEDS: NORCO, ANEXSIA 5/325MG TABLET (HYDROcodone/ACETAMINOPHEN) PO ×3 (04:53→20:27)
[2017-09-20] MEDS: **NOTE PATIENT COMMENT** MISC XX (09:00)
[2017-09-20] MEDS: FAMOTIDINE 20 MG TAB PO ×2 (10:55→20:28)
[2017-09-20] MEDS: PANTOPRAZOLE 40MG TAB (PROTONIX) PO (10:55)
[2017-09-20] MEDS: MULTIVITAMINS/MINERALS THERAP 1 TAB PO (10:55)
[2017-09-20] MEDS: LACTULOSE 20 GM/30 ML SYRUP UD PO (10:55)
[2017-09-20] MEDS: PROPRANOLOL 20 MG TAB PO ×2 (10:56→20:26)
[2017-09-20] MEDS: LISINOPRIL 10 MG TAB PO (10:57)
[2017-09-20] MEDS: FUROSEMIDE 40 MG TAB PO ×2 (10:57→17:43)
[2017-09-20] MEDS: MAGNESIUM CHLORIDE 64 MG TABCR (SLO MAG) PO (10:58)
[2017-09-20] MEDS: MINOXIDIL 2.5 MG TAB PO (20:26)
[2017-09-20] MEDS: clonazePAM 0.5 MG TAB PO (20:27)
[2017-09-20] MEDS: LIDOCAINE 5% (LIDODERM) PATCH TD (20:28)
[2017-09-20] MEDS: LATANOPROST 0.005% OPHTH SOLN 2.5 ML OU (20:28)
[2017-09-20] MEDS: PRAVASTATIN 20 MG TAB PO (20:28)
[2017-09-20] MEDS: LISINOPRIL 20 MG TAB PO (20:28)
[2017-09-21] MEDS: **hydrALAZINE** 10 MG TAB PO (05:57)
[2017-09-21] MEDS: NORCO, ANEXSIA 5/325MG TABLET (HYDROcodone/ACETAMINOPHEN) PO (06:02)
[2017-09-21 07:12] LABS: HEMATOCRIT 26.7 % (42.0-52.0); MEAN CORPUSCULAR HEMOGLOBIN 30.1 pg (27.0-33.0); MEAN CORPUSCULAR HGB CONC 33.7 g/dl (32.0-36.5); MEAN CORPUSCULAR VOLUME 89.3 fl (80.0-96.0); PLATELET COUNT, AUTOMATED 169 10^3/uL (150-450); RED BLOOD COUNT 2.99 10^6/uL (4.30-6.10); RED CELL DISTRIBUTION WIDTH 16.6 % (11.5-14.5); WHITE BLOOD COUNT 6.2 10^3/uL (4.0-10.0)
[2017-09-21 07:29] LABS: PROTHROMBIN TIME 14.4 SECONDS (12.4-14.5)
[2017-09-21 07:46] LABS: ALBUMIN 2.5 GM/DL (3.2-5.2); ALBUMIN/GLOBULIN RATIO 0.68 (1.00-1.93); ALKALINE PHOSPHATASE 154 U/L (45-117); ALT/SGPT 33 U/L (12-78); ANION GAP 11 MEQ/L (8-16); AST/SGOT 37 U/L (7-37); BILIRUBIN,TOTAL 0.6 MG/DL (0.2-1.0); BLOOD UREA NITROGEN 29 MG/DL (7-18); CALCIUM LEVEL 8.1 MG/DL (8.8-10.2); CARBON DIOXIDE LEVEL 27 MEQ/L (21-32); CHLORIDE LEVEL 97 MEQ/L (98-107); CREATININE FOR GFR 3.29 MG/DL (0.70-1.30); GLOMERULAR FILTRATION RATE 19.7 (>42); GLUCOSE, FASTING 102 MG/DL (70-100); POTASSIUM SERUM 4.2 MEQ/L (3.5-5.1); SODIUM LEVEL 135 MEQ/L (136-145); TOTAL PROTEIN 6.2 GM/DL (6.4-8.2)
[2017-09-21] MEDS: LISINOPRIL 10 MG TAB PO (08:43)
[2017-09-21] MEDS: FAMOTIDINE 20 MG TAB PO (08:43)
[2017-09-21] MEDS: PROPRANOLOL 20 MG TAB PO (08:44)
[2017-09-21] MEDS: MULTIVITAMINS/MINERALS THERAP 1 TAB PO (08:44)
[2017-09-21] MEDS: PANTOPRAZOLE 40MG TAB (PROTONIX) PO (08:45)
[2017-09-21] MEDS: MAGNESIUM CHLORIDE 64 MG TABCR (SLO MAG) PO (08:45)
[2017-09-21] MEDS: LACTULOSE 20 GM/30 ML SYRUP UD PO (08:45)
[2017-09-21] MEDS: **NOTE PATIENT COMMENT** MISC XX (08:46)
[2017-09-21] MEDS: FUROSEMIDE 40 MG TAB PO (08:46)
== END 2017-09-21 09:45 | DRG 947 ==
LOC: M PM&R 14:15
PROC: 5A1D70Z Performance of Urinary Filtration, Intermittent, Less than 6 Hours Per Day (ICD-10-PCS; principal; 2017-09-13)
PROC: 0W9G3ZZ Drainage of Peritoneal Cavity, Percutaneous Approach (ICD-10-PCS; 2017-09-14)
PROC: 30233J1 Transfusion of Nonautologous Serum Albumin into Peripheral Vein, Percutaneous Approach (ICD-10-PCS; 2017-09-14)
PROC: 0W9G3ZZ Drainage of Peritoneal Cavity, Percutaneous Approach (ICD-10-PCS; 2017-09-21)
DX: R53.81 Other malaise (principal); N18.6 End stage renal disease; I12.0 Hypertensive chronic kidney disease with stage 5 chronic kidney disease or end stage renal disease; D62 Acute posthemorrhagic anemia; E72.20 Disorder of urea cycle metabolism, unspecified; E87.1 Hypo-osmolality and hyponatremia; E11.22 Type 2 diabetes mellitus with diabetic chronic kidney disease; E11.40 Type 2 diabetes mellitus with diabetic neuropathy, unspecified; E78.5 Hyperlipidemia, unspecified; M19.011 Primary osteoarthritis, right shoulder; K55.20 Angiodysplasia of colon without hemorrhage; E83.42 Hypomagnesemia; K31.89 Other diseases of stomach and duodenum; K70.31 Alcoholic cirrhosis of liver with ascites; D63.1 Anemia in chronic kidney disease; K72.90 Hepatic failure, unspecified without coma; R19.7 Diarrhea, unspecified; Z79.899 Other long term (current) drug therapy; I27.20 Pulmonary hypertension, unspecified; Z88.1 Allergy status to other antibiotic agents; Z95.828 Presence of other vascular implants and grafts; Z87.891 Personal history of nicotine dependence; Z89.511 Acquired absence of right leg below knee; Z93.2 Ileostomy status; Z89.512 Acquired absence of left leg below knee; Z99.2 Dependence on renal dialysis; Z85.51 Personal history of malignant neoplasm of bladder

== ENCOUNTER → 2017-10-12 | Outpatient (CLI) | payer MEDICARE | LOC: M RADPRO 09:48 | DX: K70.31 Alcoholic cirrhosis of liver with ascites (principal); N18.6 End stage renal disease; E11.9 Type 2 diabetes mellitus without complications; D64.9 Anemia, unspecified; Z79.899 Other long term (current) drug therapy; Z88.8 Allergy status to other drugs, medicaments and biological substances; Z87.19 Personal history of other diseases of the digestive system; Z85.51 Personal history of malignant neoplasm of bladder; Z87.891 Personal history of nicotine dependence | CPT/HCPCS: 49083 ==

== ENCOUNTER → 2017-10-21 | Outpatient (CLI) | payer MEDICARE ==
[2017-10-21 09:40] LABS: TYPE AND SCREEN 1
== END ==
LOC: M RADPRO 13:09
DX: N18.6 End stage renal disease (principal); R18.8 Other ascites; K74.69 Other cirrhosis of liver; I12.0 Hypertensive chronic kidney disease with stage 5 chronic kidney disease or end stage renal disease; E78.00 Pure hypercholesterolemia, unspecified; E11.9 Type 2 diabetes mellitus without complications; Z79.899 Other long term (current) drug therapy; Z88.8 Allergy status to other drugs, medicaments and biological substances; Z87.891 Personal history of nicotine dependence; Z89.512 Acquired absence of left leg below knee; Z89.511 Acquired absence of right leg below knee; Z87.19 Personal history of other diseases of the digestive system; Z85.51 Personal history of malignant neoplasm of bladder
CPT/HCPCS: 49083

== ENCOUNTER → 2017-10-26 | Outpatient (CLI) | payer MEDICARE ==
[2017-10-26 11:02] LABS: TYPE AND SCREEN 1
== END ==
LOC: M RADPRO 11:00
DX: R18.8 Other ascites (principal); K74.69 Other cirrhosis of liver; N18.6 End stage renal disease; Z79.899 Other long term (current) drug therapy; Z88.1 Allergy status to other antibiotic agents; Z88.8 Allergy status to other drugs, medicaments and biological substances
CPT/HCPCS: 49083

== ENCOUNTER → 2017-11-02 | Outpatient (CLI) | payer MEDICARE ==
[2017-11-02 11:19] LABS: TYPE AND SCREEN 1
== END ==
LOC: M RADPRO 10:50
DX: N18.6 End stage renal disease (principal); R18.8 Other ascites; K74.69 Other cirrhosis of liver
CPT/HCPCS: 49083

== ENCOUNTER 2017-11-05 08:00 | Inpatient (IN) | payer MEDICARE ==
[2017-11-05] MEDS: HEPARIN SOD (PORCINE) 5000 UNITS/ML VIAL SC ×3 (09:59→21:16)
[2017-11-05] MEDS ORDERED: LIDOCAINE 5% (LIDODERM) PATCH TD (10:45)
[2017-11-05] MEDS: **hydrALAZINE** 10 MG TAB PO ×3 (12:52→21:16)
[2017-11-05] MEDS: MAGNESIUM CHLORIDE 64 MG TABCR (SLO MAG) PO (13:00)
[2017-11-05] MEDS: ASPIRIN 81 MG ENTERIC TAB PO (13:01)
[2017-11-05] MEDS: LISINOPRIL 10 MG TAB PO (13:01)
[2017-11-05] MEDS: MULTIVITAMINS/MINERALS THERAP 1 TAB PO (13:02)
[2017-11-05] MEDS: LOPERAMIDE 2 MG CAP PO (13:02)
[2017-11-05] MEDS: PANTOPRAZOLE 40MG TAB (PROTONIX) PO (13:02)
[2017-11-05] MEDS: FAMOTIDINE 20 MG TAB PO ×2 (13:02→21:15)
[2017-11-05] MEDS: DICYCLOMINE 10 MG CAP PO (13:02)
[2017-11-05] MEDS: PROPRANOLOL 20 MG TAB PO ×2 (13:03→21:14)
[2017-11-05] MEDS: NORCO, ANEXSIA 5/325MG TABLET (HYDROcodone/ACETAMINOPHEN) PO ×2 (13:12→21:15)
[2017-11-05 13:36] LABS: MEAN CORPUSCULAR HEMOGLOBIN 29.6 pg (27.0-33.0); MEAN CORPUSCULAR HGB CONC 32.1 g/dl (32.0-36.5); MEAN CORPUSCULAR VOLUME 92.1 fl (80.0-96.0); PLATELET COUNT, AUTOMATED 208 10^3/uL (150-450); RED BLOOD COUNT 3.04 10^6/uL (4.30-6.10); RED CELL DISTRIBUTION WIDTH 15.5 % (11.5-14.5); WHITE BLOOD COUNT 7.2 10^3/uL (4.0-10.0)
[2017-11-05 13:57] LABS: ANION GAP 12 MEQ/L (8-16); BLOOD UREA NITROGEN 57 MG/DL (7-18); CALCIUM LEVEL 7.8 MG/DL (8.8-10.2); CARBON DIOXIDE LEVEL 21 MEQ/L (21-32); CHLORIDE LEVEL 105 MEQ/L (98-107); CREATININE FOR GFR 7.67 MG/DL (0.70-1.30); GLOMERULAR FILTRATION RATE 7.4 (>42); GLUCOSE, FASTING 153 MG/DL (70-100); SODIUM LEVEL 138 MEQ/L (136-145)
[2017-11-05 14:16] LABS: POTASSIUM SERUM 5.3 MEQ/L (3.5-5.1)
[2017-11-05] MEDS: **NOTE PATIENT COMMENT** MISC XX (21:00)
[2017-11-05] MEDS: MINOXIDIL 2.5 MG TAB PO (21:14)
[2017-11-05] MEDS: PRAVASTATIN 20 MG TAB PO (21:14)
[2017-11-05] MEDS: clonazePAM 0.5 MG TAB PO (21:14)
[2017-11-05] MEDS: LISINOPRIL 20 MG TAB PO (21:15)
[2017-11-05] MEDS: LATANOPROST 0.005% OPHTH SOLN 2.5 ML OU (21:16)
[2017-11-05] MEDS: FUROSEMIDE 40 MG TAB PO (21:16)
[2017-11-06] MEDS: HEPARIN SOD (PORCINE) 5000 UNITS/ML VIAL SC ×3 (05:38→21:05)
[2017-11-06] MEDS: NORCO, ANEXSIA 5/325MG TABLET (HYDROcodone/ACETAMINOPHEN) PO ×3 (05:39→16:45)
[2017-11-06 05:47] LABS: HEMATOCRIT 24.8 % (42.0-52.0); MEAN CORPUSCULAR HEMOGLOBIN 29.2 pg (27.0-33.0); MEAN CORPUSCULAR HGB CONC 32.3 g/dl (32.0-36.5); MEAN CORPUSCULAR VOLUME 90.5 fl (80.0-96.0); PLATELET COUNT, AUTOMATED 160 10^3/uL (150-450); RED BLOOD COUNT 2.74 10^6/uL (4.30-6.10); RED CELL DISTRIBUTION WIDTH 15.1 % (11.5-14.5); WHITE BLOOD COUNT 4.6 10^3/uL (4.0-10.0)
[2017-11-06 05:59] LABS: ANION GAP 7 MEQ/L (8-16); BLOOD UREA NITROGEN 27 MG/DL (7-18); CALCIUM LEVEL 7.4 MG/DL (8.8-10.2); CARBON DIOXIDE LEVEL 30 MEQ/L (21-32); CHLORIDE LEVEL 103 MEQ/L (98-107); CREATININE FOR GFR 4.21 MG/DL (0.70-1.30); GLOMERULAR FILTRATION RATE 14.8 (>42); GLUCOSE, FASTING 105 MG/DL (70-100); POTASSIUM SERUM 4.4 MEQ/L (3.5-5.1); SODIUM LEVEL 140 MEQ/L (136-145)
[2017-11-06] MEDS: LISINOPRIL 10 MG TAB PO (09:00)
[2017-11-06] MEDS: PROPRANOLOL 20 MG TAB PO ×2 (09:00→21:04)
[2017-11-06] MEDS: **hydrALAZINE** 10 MG TAB PO ×3 (09:00→21:03)
[2017-11-06] MEDS: ASPIRIN 81 MG ENTERIC TAB PO (09:12)
[2017-11-06] MEDS: PANTOPRAZOLE 40MG TAB (PROTONIX) PO (09:12)
[2017-11-06] MEDS: MULTIVITAMINS/MINERALS THERAP 1 TAB PO (09:13)
[2017-11-06] MEDS: FAMOTIDINE 20 MG TAB PO ×2 (09:13→21:04)
[2017-11-06] MEDS: MAGNESIUM CHLORIDE 64 MG TABCR (SLO MAG) PO (09:13)
[2017-11-06] MEDS: LATANOPROST 0.005% OPHTH SOLN 2.5 ML OU (21:00)
[2017-11-06] MEDS: **NOTE PATIENT COMMENT** MISC XX (21:00)
[2017-11-06] MEDS: LISINOPRIL 20 MG TAB PO (21:04)
[2017-11-06] MEDS: MINOXIDIL 2.5 MG TAB PO (21:05)
[2017-11-06] MEDS: clonazePAM 0.5 MG TAB PO (21:05)
[2017-11-06] MEDS: FUROSEMIDE 40 MG TAB PO (21:05)
[2017-11-06] MEDS: PRAVASTATIN 20 MG TAB PO (21:05)
[2017-11-07] MEDS: NORCO, ANEXSIA 5/325MG TABLET (HYDROcodone/ACETAMINOPHEN) PO ×4 (00:08→23:06)
[2017-11-07] MEDS: HEPARIN SOD (PORCINE) 5000 UNITS/ML VIAL SC ×3 (05:12→23:05)
[2017-11-07 05:49] LABS: HEMATOCRIT 25.1 % (42.0-52.0); HEMOGLOBIN 8.1 g/dl (13.5-17.5); MEAN CORPUSCULAR HEMOGLOBIN 29.7 pg (27.0-33.0); MEAN CORPUSCULAR HGB CONC 32.3 g/dl (32.0-36.5); MEAN CORPUSCULAR VOLUME 91.9 fl (80.0-96.0); PLATELET COUNT, AUTOMATED 158 10^3/uL (150-450); RED BLOOD COUNT 2.73 10^6/uL (4.30-6.10); RED CELL DISTRIBUTION WIDTH 14.9 % (11.5-14.5); WHITE BLOOD COUNT 4.5 10^3/uL (4.0-10.0)
[2017-11-07 06:25] LABS: ALBUMIN 1.7 GM/DL (3.2-5.2); ALBUMIN/GLOBULIN RATIO 0.47 (1.00-1.93); ALKALINE PHOSPHATASE 128 U/L (45-117); ALT/SGPT 24 U/L (12-78); ANION GAP 10 MEQ/L (8-16); AST/SGOT 36 U/L (7-37); BILIRUBIN,TOTAL 0.4 MG/DL (0.2-1.0); BLOOD UREA NITROGEN 36 MG/DL (7-18); CALCIUM LEVEL 7.6 MG/DL (8.8-10.2); CARBON DIOXIDE LEVEL 25 MEQ/L (21-32); CHLORIDE LEVEL 102 MEQ/L (98-107); GLOMERULAR FILTRATION RATE 11.6 (>42); GLUCOSE, FASTING 105 MG/DL (70-100); IRON (FE) 49 UG/DL (65-175); PERCENT SATURATION 34.8 % (19.7-50.0); POTASSIUM SERUM 4.8 MEQ/L (3.5-5.1); SODIUM LEVEL 137 MEQ/L (136-145); TOTAL IRON BINDING CAPACITY 141 UG/DL (250-450); TOTAL PROTEIN 5.3 GM/DL (6.4-8.2)
[2017-11-07] MEDS ORDERED: SLF 3 ML SYR IV (09:00)
[2017-11-07] MEDS: **hydrALAZINE** 10 MG TAB PO ×3 (09:19→20:33)
[2017-11-07] MEDS: PROPRANOLOL 20 MG TAB PO ×2 (09:19→20:33)
[2017-11-07] MEDS: MULTIVITAMINS/MINERALS THERAP 1 TAB PO (09:20)
[2017-11-07] MEDS: LISINOPRIL 10 MG TAB PO (09:20)
[2017-11-07] MEDS: PANTOPRAZOLE 40MG TAB (PROTONIX) PO (09:20)
[2017-11-07] MEDS: FAMOTIDINE 20 MG TAB PO ×2 (09:20→20:34)
[2017-11-07] MEDS: ASPIRIN 81 MG ENTERIC TAB PO (09:20)
[2017-11-07] MEDS: SLF 3 ML SYR IV ×2 (13:47→23:05)
[2017-11-07] MEDS: clonazePAM 0.5 MG TAB PO (20:33)
[2017-11-07] MEDS: LATANOPROST 0.005% OPHTH SOLN 2.5 ML OU (20:34)
[2017-11-07] MEDS: FUROSEMIDE 40 MG TAB PO (20:34)
[2017-11-07] MEDS: MINOXIDIL 2.5 MG TAB PO (20:34)
[2017-11-07] MEDS: PRAVASTATIN 20 MG TAB PO (20:34)
[2017-11-07] MEDS: LISINOPRIL 20 MG TAB PO (20:34)
[2017-11-07] MEDS: **NOTE PATIENT COMMENT** MISC XX (20:34)
[2017-11-08] MEDS: SLF 3 ML SYR IV ×3 (05:30→20:02)
[2017-11-08] MEDS: HEPARIN SOD (PORCINE) 5000 UNITS/ML VIAL SC ×3 (05:30→21:38)
[2017-11-08] MEDS: NORCO, ANEXSIA 5/325MG TABLET (HYDROcodone/ACETAMINOPHEN) PO ×2 (07:14→16:21)
[2017-11-08] MEDS: PROPRANOLOL 20 MG TAB PO ×2 (07:15→21:00)
[2017-11-08] MEDS: **hydrALAZINE** 10 MG TAB PO ×3 (07:15→21:00)
[2017-11-08] MEDS: LISINOPRIL 10 MG TAB PO (07:15)
[2017-11-08] MEDS: MULTIVITAMINS/MINERALS THERAP 1 TAB PO (07:16)
[2017-11-08] MEDS: PANTOPRAZOLE 40MG TAB (PROTONIX) PO (07:16)
[2017-11-08] MEDS: FAMOTIDINE 20 MG TAB PO ×2 (07:16→20:01)
[2017-11-08] MEDS: ASPIRIN 81 MG ENTERIC TAB PO (07:16)
[2017-11-08 08:27] LABS: HEMATOCRIT 28.5 % (42.0-52.0); HEMOGLOBIN 9.2 g/dl (13.5-17.5); MEAN CORPUSCULAR HEMOGLOBIN 29.3 pg (27.0-33.0); MEAN CORPUSCULAR HGB CONC 32.3 g/dl (32.0-36.5); MEAN CORPUSCULAR VOLUME 90.8 fl (80.0-96.0); PLATELET COUNT, AUTOMATED 189 10^3/uL (150-450); RED BLOOD COUNT 3.14 10^6/uL (4.30-6.10); RED CELL DISTRIBUTION WIDTH 14.9 % (11.5-14.5); WHITE BLOOD COUNT 6.2 10^3/uL (4.0-10.0)
[2017-11-08 08:54] LABS: INR 1.07
[2017-11-08 09:17] LABS: ALBUMIN 2.2 GM/DL (3.2-5.2); ALBUMIN/GLOBULIN RATIO 0.55 (1.00-1.93); ALKALINE PHOSPHATASE 186 U/L (45-117); ALT/SGPT 33 U/L (12-78); ANION GAP 12 MEQ/L (8-16); AST/SGOT 49 U/L (7-37); BILIRUBIN,TOTAL 0.5 MG/DL (0.2-1.0); BLOOD UREA NITROGEN 51 MG/DL (7-18); CALCIUM LEVEL 7.7 MG/DL (8.8-10.2); CARBON DIOXIDE LEVEL 23 MEQ/L (21-32); CHLORIDE LEVEL 97 MEQ/L (98-107); GLOMERULAR FILTRATION RATE 9.5 (>42); GLUCOSE, FASTING 127 MG/DL (70-100); MAGNESIUM LEVEL 1.9 MG/DL (1.8-2.4); SODIUM LEVEL 132 MEQ/L (136-145); TOTAL PROTEIN 6.2 GM/DL (6.4-8.2)
[2017-11-08 09:24] LABS: POTASSIUM SERUM 5.2 MEQ/L (3.5-5.1)
[2017-11-08] MEDS: FERROUS SULFATE 325MG TAB PO ×2 (15:22→20:01)
[2017-11-08] MEDS: SENOKOT S TAB PO ×2 (15:22→20:01)
[2017-11-08] MEDS: ASCORBIC ACID 500 MG TAB PO ×2 (15:22→20:01)
[2017-11-08] MEDS: LATANOPROST 0.005% OPHTH SOLN 2.5 ML OU (20:01)
[2017-11-08] MEDS: clonazePAM 0.5 MG TAB PO (20:01)
[2017-11-08] MEDS: FUROSEMIDE 40 MG TAB PO (20:01)
[2017-11-08] MEDS: **NOTE PATIENT COMMENT** MISC XX (20:02)
[2017-11-08] MEDS: PRAVASTATIN 20 MG TAB PO (20:02)
[2017-11-08] MEDS: MINOXIDIL 2.5 MG TAB PO (21:00)
[2017-11-08] MEDS: LISINOPRIL 20 MG TAB PO (21:00)
[2017-11-08] MEDS: ONDANSETRON 4 MG ORAL DISINTEGRATING TAB (Q0162 PER 1MG) PO (23:28)
[2017-11-09 00:01] LABS: BEDSIDE GLUCOSE 129 MG/DL (83-110)
[2017-11-09] MEDS: NORCO, ANEXSIA 5/325MG TABLET (HYDROcodone/ACETAMINOPHEN) PO ×3 (00:07→20:36)
[2017-11-09] MEDS: HEPARIN SOD (PORCINE) 5000 UNITS/ML VIAL SC (04:22)
[2017-11-09] MEDS: SLF 3 ML SYR IV ×3 (04:22→21:22)
[2017-11-09 05:51] LABS: HEMATOCRIT 21.2 % (42.0-52.0); MEAN CORPUSCULAR HEMOGLOBIN 29.2 pg (27.0-33.0); MEAN CORPUSCULAR HGB CONC 32.1 g/dl (32.0-36.5); PLATELET COUNT, AUTOMATED 165 10^3/uL (150-450); RED BLOOD COUNT 2.33 10^6/uL (4.30-6.10); RED CELL DISTRIBUTION WIDTH 14.8 % (11.5-14.5); WHITE BLOOD COUNT 5.5 10^3/uL (4.0-10.0)
[2017-11-09 06:01] LABS: HEMOGLOBIN 6.8 g/dl (13.5-17.5)
[2017-11-09 06:03] LABS: ALBUMIN 1.7 GM/DL (3.2-5.2); ALBUMIN/GLOBULIN RATIO 0.47 (1.00-1.93); ALKALINE PHOSPHATASE 142 U/L (45-117); ALT/SGPT 26 U/L (12-78); ANION GAP 9 MEQ/L (8-16); AST/SGOT 33 U/L (7-37); BILIRUBIN,TOTAL 0.4 MG/DL (0.2-1.0); BLOOD UREA NITROGEN 47 MG/DL (7-18); CALCIUM LEVEL 7.4 MG/DL (8.8-10.2); CARBON DIOXIDE LEVEL 28 MEQ/L (21-32); CHLORIDE LEVEL 100 MEQ/L (98-107); CREATININE FOR GFR 4.22 MG/DL (0.70-1.30); GLOMERULAR FILTRATION RATE 14.8 (>42); GLUCOSE, FASTING 101 MG/DL (70-100); MAGNESIUM LEVEL 1.9 MG/DL (1.8-2.4); POTASSIUM SERUM 4.6 MEQ/L (3.5-5.1); SODIUM LEVEL 137 MEQ/L (136-145); TOTAL PROTEIN 5.3 GM/DL (6.4-8.2)
[2017-11-09] MEDS: ONDANSETRON 4 MG ORAL DISINTEGRATING TAB (Q0162 PER 1MG) PO (06:58)
[2017-11-09 08:04] LABS: REASON FOR REVIEW RBC MORPHOLOGY; SOURCE PERIPHERAL SMEAR
[2017-11-09 08:08] LABS: RETIC HEMOGLOBIN EQUIVALENT 34.8 pg (24-36); RETICULOCYTE # 36.2 10^9/L (17-77); RETICULOCYTE % 1.6 % (0.5-1.5)
[2017-11-09 09:22] LABS: IMMEDIATE SPIN CROSSMATCH 1 2
[2017-11-09 09:40] LABS: HEMATOCRIT 21.4 % (42.0-52.0); HEMOGLOBIN 7.1 g/dl (13.5-17.5)
[2017-11-09] MEDS: ASCORBIC ACID 500 MG TAB PO ×2 (10:30→20:26)
[2017-11-09] MEDS: FERROUS SULFATE 325MG TAB PO ×2 (10:30→20:26)
[2017-11-09] MEDS: ASPIRIN 81 MG ENTERIC TAB PO (10:30)
[2017-11-09] MEDS: FAMOTIDINE 20 MG TAB PO ×2 (10:30→20:27)
[2017-11-09] MEDS: PROPRANOLOL 20 MG TAB PO ×2 (10:31→20:27)
[2017-11-09] MEDS: LISINOPRIL 10 MG TAB PO (10:31)
[2017-11-09] MEDS: PANTOPRAZOLE 40MG TAB (PROTONIX) PO (10:32)
[2017-11-09] MEDS: **hydrALAZINE** 10 MG TAB PO ×3 (10:32→20:25)
[2017-11-09] MEDS: SENOKOT S TAB PO ×2 (10:33→20:27)
[2017-11-09] MEDS: MULTIVITAMINS/MINERALS THERAP 1 TAB PO (10:33)
[2017-11-09 15:20] LABS: SLIDE REVIEW Report
[2017-11-09 16:19] LABS: HEMATOCRIT 25.8 % (42.0-52.0); HEMOGLOBIN 8.7 g/dl (13.5-17.5)
[2017-11-09 16:20] LABS: TYPE AND SCREEN 1
[2017-11-09] MEDS ORDERED: PROPOFOL 200 MG/20 ML VIAL ×2 (18:12)
[2017-11-09] MEDS ORDERED: ONDANSETRON 4MG/2ML VIAL (J2405) (18:12)
[2017-11-09] MEDS ORDERED: ONDANSETRON 4MG/2ML VIAL (J2405) IV (19:15)
[2017-11-09] MEDS: NS 1,000 ML IV (19:15)
[2017-11-09] MEDS: MINOXIDIL 2.5 MG TAB PO (20:26)
[2017-11-09] MEDS: FUROSEMIDE 40 MG TAB PO (20:26)
[2017-11-09] MEDS: LATANOPROST 0.005% OPHTH SOLN 2.5 ML OU (20:27)
[2017-11-09] MEDS: LISINOPRIL 20 MG TAB PO (20:27)
[2017-11-09] MEDS: clonazePAM 0.5 MG TAB PO (20:27)
[2017-11-09] MEDS: PRAVASTATIN 20 MG TAB PO (20:27)
[2017-11-09] MEDS: **NOTE PATIENT COMMENT** MISC XX (20:28)
[2017-11-09] MEDS: PANTOPRAZOLE 40MG INJ (PROTONIX) (C9113) IV (20:36)
[2017-11-09 23:06] LABS: HEMATOCRIT 29.1 % (42.0-52.0); HEMOGLOBIN 9.6 g/dl (13.5-17.5)
[2017-11-10] MEDS: NORCO, ANEXSIA 5/325MG TABLET (HYDROcodone/ACETAMINOPHEN) PO ×3 (02:43→21:01)
[2017-11-10] MEDS: SLF 3 ML SYR IV ×3 (05:24→21:56)
[2017-11-10 06:32] LABS: HEMATOCRIT 24.2 % (42.0-52.0); HEMOGLOBIN 8.4 g/dl (13.5-17.5); MEAN CORPUSCULAR HEMOGLOBIN 29.6 pg (27.0-33.0); MEAN CORPUSCULAR HGB CONC 34.7 g/dl (32.0-36.5); MEAN CORPUSCULAR VOLUME 85.2 fl (80.0-96.0); PLATELET COUNT, AUTOMATED 159 10^3/uL (150-450); RED BLOOD COUNT 2.84 10^6/uL (4.30-6.10); RED CELL DISTRIBUTION WIDTH 15.8 % (11.5-14.5); WHITE BLOOD COUNT 4.9 10^3/uL (4.0-10.0)
[2017-11-10 06:50] LABS: ALBUMIN 1.9 GM/DL (3.2-5.2); ALBUMIN/GLOBULIN RATIO 0.58 (1.00-1.93); ALKALINE PHOSPHATASE 129 U/L (45-117); ALT/SGPT 25 U/L (12-78); ANION GAP 11 MEQ/L (8-16); AST/SGOT 28 U/L (7-37); BILIRUBIN,TOTAL 0.5 MG/DL (0.2-1.0); BLOOD UREA NITROGEN 62 MG/DL (7-18); CALCIUM LEVEL 7.8 MG/DL (8.8-10.2); CARBON DIOXIDE LEVEL 25 MEQ/L (21-32); CHLORIDE LEVEL 99 MEQ/L (98-107); CREATININE FOR GFR 5.09 MG/DL (0.70-1.30); GLOMERULAR FILTRATION RATE 11.9 (>42); GLUCOSE, FASTING 89 MG/DL (70-100); POTASSIUM SERUM 4.7 MEQ/L (3.5-5.1); SODIUM LEVEL 135 MEQ/L (136-145); TOTAL PROTEIN 5.2 GM/DL (6.4-8.2)
[2017-11-10 09:43] LABS: TYPE AND SCREEN 1
[2017-11-10] MEDS: PROPRANOLOL 20 MG TAB PO ×2 (10:12→20:58)
[2017-11-10] MEDS: FAMOTIDINE 20 MG TAB PO ×2 (10:12→21:02)
[2017-11-10] MEDS: **hydrALAZINE** 10 MG TAB PO ×3 (10:12→21:00)
[2017-11-10] MEDS: SENOKOT S TAB PO ×2 (10:12→21:02)
[2017-11-10] MEDS: ASCORBIC ACID 500 MG TAB PO ×2 (10:13→21:00)
[2017-11-10] MEDS: PANTOPRAZOLE 40MG INJ (PROTONIX) (C9113) IV ×2 (10:13→20:58)
[2017-11-10] MEDS: FERROUS SULFATE 325MG TAB PO ×2 (10:14→21:02)
[2017-11-10 15:46] LABS: HEMATOCRIT 25.2 % (42.0-52.0); HEMOGLOBIN 8.5 g/dl (13.5-17.5)
[2017-11-10] MEDS: MULTIVITAMINS/MINERALS THERAP 1 TAB PO (16:13)
[2017-11-10] MEDS: LISINOPRIL 10 MG TAB PO (16:14)
[2017-11-10] MEDS: LISINOPRIL 20 MG TAB PO (21:00)
[2017-11-10] MEDS: MINOXIDIL 2.5 MG TAB PO (21:00)
[2017-11-10] MEDS: **NOTE PATIENT COMMENT** MISC XX (21:00)
[2017-11-10] MEDS: clonazePAM 0.5 MG TAB PO (21:01)
[2017-11-10] MEDS: PRAVASTATIN 20 MG TAB PO (21:01)
[2017-11-10] MEDS: LATANOPROST 0.005% OPHTH SOLN 2.5 ML OU (21:02)
[2017-11-10] MEDS: FUROSEMIDE 40 MG TAB PO (21:02)
[2017-11-10] MEDS: LOPERAMIDE 2 MG CAP PO (22:55)
[2017-11-11] MEDS: SLF 3 ML SYR IV ×3 (05:13→21:55)
[2017-11-11 05:40] LABS: HEMOGLOBIN 7.9 g/dl (13.5-17.5); MEAN CORPUSCULAR HEMOGLOBIN 29.2 pg (27.0-33.0); MEAN CORPUSCULAR HGB CONC 32.9 g/dl (32.0-36.5); MEAN CORPUSCULAR VOLUME 88.6 fl (80.0-96.0); PLATELET COUNT, AUTOMATED 136 10^3/uL (150-450); RED BLOOD COUNT 2.71 10^6/uL (4.30-6.10); RED CELL DISTRIBUTION WIDTH 15.4 % (11.5-14.5); WHITE BLOOD COUNT 4.2 10^3/uL (4.0-10.0)
[2017-11-11 06:04] LABS: ALBUMIN/GLOBULIN RATIO 0.63 (1.00-1.93); ALKALINE PHOSPHATASE 133 U/L (45-117); ALT/SGPT 24 U/L (12-78); ANION GAP 8 MEQ/L (8-16); AST/SGOT 32 U/L (7-37); BILIRUBIN,TOTAL 0.5 MG/DL (0.2-1.0); BLOOD UREA NITROGEN 32 MG/DL (7-18); CALCIUM LEVEL 7.7 MG/DL (8.8-10.2); CARBON DIOXIDE LEVEL 30 MEQ/L (21-32); CHLORIDE LEVEL 101 MEQ/L (98-107); CREATININE FOR GFR 3.38 MG/DL (0.70-1.30); GLOMERULAR FILTRATION RATE 19.1 (>42); GLUCOSE, FASTING 111 MG/DL (70-100); MAGNESIUM LEVEL 1.7 MG/DL (1.8-2.4); POTASSIUM SERUM 3.9 MEQ/L (3.5-5.1); SODIUM LEVEL 139 MEQ/L (136-145); TOTAL PROTEIN 5.2 GM/DL (6.4-8.2)
[2017-11-11] MEDS: MAG SULF 1GM/100ML (MAG RUN) 1 GM in APPROPRIATE DILUENT 1 EA IV (06:43)
[2017-11-11] MEDS: ASCORBIC ACID 500 MG TAB PO ×2 (08:17→21:47)
[2017-11-11] MEDS: FAMOTIDINE 20 MG TAB PO ×2 (08:17→21:54)
[2017-11-11] MEDS: PANTOPRAZOLE 40MG INJ (PROTONIX) (C9113) IV ×2 (08:17→21:47)
[2017-11-11] MEDS: FERROUS SULFATE 325MG TAB PO ×2 (08:17→21:54)
[2017-11-11] MEDS: MULTIVITAMINS/MINERALS THERAP 1 TAB PO (08:17)
[2017-11-11] MEDS: LISINOPRIL 10 MG TAB PO (08:19)
[2017-11-11] MEDS: **hydrALAZINE** 10 MG TAB PO ×3 (08:19→21:50)
[2017-11-11] MEDS: SENOKOT S TAB PO ×2 (08:19→21:54)
[2017-11-11] MEDS: PROPRANOLOL 20 MG TAB PO ×2 (08:19→21:53)
[2017-11-11] MEDS: NORCO, ANEXSIA 5/325MG TABLET (HYDROcodone/ACETAMINOPHEN) PO ×3 (09:23→21:47)
[2017-11-11 11:36] LABS: IMMEDIATE SPIN CROSSMATCH 1 2
[2017-11-11 14:04] LABS: HEMATOCRIT 31.9 % (42.0-52.0); MEAN CORPUSCULAR HEMOGLOBIN 29.9 pg (27.0-33.0); MEAN CORPUSCULAR HGB CONC 33.9 g/dl (32.0-36.5); MEAN CORPUSCULAR VOLUME 88.4 fl (80.0-96.0); PLATELET COUNT, AUTOMATED 150 10^3/uL (150-450); RED BLOOD COUNT 3.61 10^6/uL (4.30-6.10); RED CELL DISTRIBUTION WIDTH 14.7 % (11.5-14.5); WHITE BLOOD COUNT 5.7 10^3/uL (4.0-10.0)
[2017-11-11 14:09] LABS: HEMOGLOBIN 10.8 g/dl (13.5-17.5)
[2017-11-11] MEDS: **NOTE PATIENT COMMENT** MISC XX (21:00)
[2017-11-11] MEDS: PRAVASTATIN 20 MG TAB PO (21:51)
[2017-11-11] MEDS: LISINOPRIL 20 MG TAB PO (21:53)
[2017-11-11] MEDS: clonazePAM 0.5 MG TAB PO (21:53)
[2017-11-11] MEDS: MINOXIDIL 2.5 MG TAB PO (21:54)
[2017-11-11] MEDS: FUROSEMIDE 40 MG TAB PO (21:55)
[2017-11-11] MEDS: LATANOPROST 0.005% OPHTH SOLN 2.5 ML OU (21:55)
[2017-11-12 05:42] LABS: HEMATOCRIT 30.6 % (42.0-52.0); HEMOGLOBIN 10.3 g/dl (13.5-17.5); MEAN CORPUSCULAR HEMOGLOBIN 29.1 pg (27.0-33.0); MEAN CORPUSCULAR HGB CONC 33.7 g/dl (32.0-36.5); MEAN CORPUSCULAR VOLUME 86.4 fl (80.0-96.0); PLATELET COUNT, AUTOMATED 131 10^3/uL (150-450); RED BLOOD COUNT 3.54 10^6/uL (4.30-6.10); RED CELL DISTRIBUTION WIDTH 14.6 % (11.5-14.5); WHITE BLOOD COUNT 4.7 10^3/uL (4.0-10.0)
[2017-11-12] MEDS: SLF 3 ML SYR IV ×3 (06:00→21:00)
[2017-11-12 06:04] LABS: ALBUMIN 2.1 GM/DL (3.2-5.2); ALKALINE PHOSPHATASE 142 U/L (45-117); ALT/SGPT 29 U/L (12-78); ANION GAP 14 MEQ/L (8-16); AST/SGOT 36 U/L (7-37); BILIRUBIN,TOTAL 0.6 MG/DL (0.2-1.0); BLOOD UREA NITROGEN 41 MG/DL (7-18); CALCIUM LEVEL 8.2 MG/DL (8.8-10.2); CARBON DIOXIDE LEVEL 23 MEQ/L (21-32); CHLORIDE LEVEL 98 MEQ/L (98-107); CREATININE FOR GFR 4.29 MG/DL (0.70-1.30); GLOMERULAR FILTRATION RATE 14.5 (>42); GLUCOSE, FASTING 113 MG/DL (70-100); MAGNESIUM LEVEL 2.1 MG/DL (1.8-2.4); POTASSIUM SERUM 4.4 MEQ/L (3.5-5.1); SODIUM LEVEL 135 MEQ/L (136-145); TOTAL PROTEIN 5.6 GM/DL (6.4-8.2)
[2017-11-12] MEDS: PANTOPRAZOLE 40MG INJ (PROTONIX) (C9113) IV (07:56)
[2017-11-12] MEDS: FERROUS SULFATE 325MG TAB PO ×2 (07:58→20:57)
[2017-11-12] MEDS: FAMOTIDINE 20 MG TAB PO ×2 (07:58→20:55)
[2017-11-12] MEDS: SENOKOT S TAB PO ×2 (07:58→20:50)
[2017-11-12] MEDS: NORCO, ANEXSIA 5/325MG TABLET (HYDROcodone/ACETAMINOPHEN) PO ×2 (07:58→16:51)
[2017-11-12] MEDS: MULTIVITAMINS/MINERALS THERAP 1 TAB PO (07:58)
[2017-11-12] MEDS: ASCORBIC ACID 500 MG TAB PO ×2 (07:59→20:57)
[2017-11-12] MEDS: LISINOPRIL 10 MG TAB PO (08:00)
[2017-11-12] MEDS: **hydrALAZINE** 10 MG TAB PO ×3 (08:01→20:56)
[2017-11-12] MEDS: PROPRANOLOL 20 MG TAB PO ×2 (08:01→20:55)
[2017-11-12] MEDS: PANTOPRAZOLE 40MG TAB (PROTONIX) PO (20:49)
[2017-11-12] MEDS: FUROSEMIDE 40 MG TAB PO (20:50)
[2017-11-12] MEDS: PRAVASTATIN 20 MG TAB PO (20:56)
[2017-11-12] MEDS: clonazePAM 0.5 MG TAB PO (20:56)
[2017-11-12] MEDS: MINOXIDIL 2.5 MG TAB PO (20:57)
[2017-11-12] MEDS: LISINOPRIL 20 MG TAB PO (20:57)
[2017-11-12] MEDS: LATANOPROST 0.005% OPHTH SOLN 2.5 ML OU (20:58)
[2017-11-12] MEDS: **NOTE PATIENT COMMENT** MISC XX (21:00)
[2017-11-13] MEDS: NORCO, ANEXSIA 5/325MG TABLET (HYDROcodone/ACETAMINOPHEN) PO ×4 (00:34→20:41)
[2017-11-13] MEDS: SLF 3 ML SYR IV ×3 (05:28→20:43)
[2017-11-13 06:02] LABS: HEMATOCRIT 31.1 % (42.0-52.0); HEMOGLOBIN 10.2 g/dl (13.5-17.5); MEAN CORPUSCULAR HEMOGLOBIN 29.1 pg (27.0-33.0); MEAN CORPUSCULAR HGB CONC 32.8 g/dl (32.0-36.5); MEAN CORPUSCULAR VOLUME 88.9 fl (80.0-96.0); PLATELET COUNT, AUTOMATED 108 10^3/uL (150-450); RED CELL DISTRIBUTION WIDTH 14.9 % (11.5-14.5); WHITE BLOOD COUNT 6.4 10^3/uL (4.0-10.0)
[2017-11-13 06:29] LABS: ALBUMIN/GLOBULIN RATIO 0.61 (1.00-1.93); ALKALINE PHOSPHATASE 143 U/L (45-117); ALT/SGPT 31 U/L (12-78); ANION GAP 9 MEQ/L (8-16); AST/SGOT 37 U/L (7-37); BILIRUBIN,TOTAL 0.5 MG/DL (0.2-1.0); BLOOD UREA NITROGEN 27 MG/DL (7-18); CALCIUM LEVEL 7.9 MG/DL (8.8-10.2); CARBON DIOXIDE LEVEL 28 MEQ/L (21-32); CHLORIDE LEVEL 99 MEQ/L (98-107); CREATININE FOR GFR 3.18 MG/DL (0.70-1.30); GLOMERULAR FILTRATION RATE 20.5 (>42); GLUCOSE, FASTING 141 MG/DL (70-100); MAGNESIUM LEVEL 1.9 MG/DL (1.8-2.4); POTASSIUM SERUM 3.5 MEQ/L (3.5-5.1); SODIUM LEVEL 136 MEQ/L (136-145); TOTAL PROTEIN 5.3 GM/DL (6.4-8.2)
[2017-11-13] MEDS: **hydrALAZINE** 10 MG TAB PO ×3 (08:45→20:42)
[2017-11-13] MEDS: PANTOPRAZOLE 40MG TAB (PROTONIX) PO ×2 (08:45→20:42)
[2017-11-13] MEDS: FERROUS SULFATE 325MG TAB PO (08:45)
[2017-11-13] MEDS: FAMOTIDINE 20 MG TAB PO ×2 (08:45→20:43)
[2017-11-13] MEDS: PROPRANOLOL 20 MG TAB PO ×2 (08:45→20:43)
[2017-11-13] MEDS: MULTIVITAMINS/MINERALS THERAP 1 TAB PO (08:46)
[2017-11-13] MEDS: ASCORBIC ACID 500 MG TAB PO ×2 (08:46→20:42)
[2017-11-13] MEDS: LISINOPRIL 10 MG TAB PO (08:46)
[2017-11-13] MEDS: SENOKOT S TAB PO (09:00)
[2017-11-13] MEDS ORDERED: SENOKOT S TAB PO (10:00)
[2017-11-13] MEDS: PRAVASTATIN 20 MG TAB PO (20:40)
[2017-11-13] MEDS: clonazePAM 0.5 MG TAB PO (20:42)
[2017-11-13] MEDS: LISINOPRIL 20 MG TAB PO (20:42)
[2017-11-13] MEDS: MINOXIDIL 2.5 MG TAB PO (20:42)
[2017-11-13] MEDS: LATANOPROST 0.005% OPHTH SOLN 2.5 ML OU (20:43)
[2017-11-13] MEDS: FUROSEMIDE 40 MG TAB PO (20:43)
[2017-11-13] MEDS: **NOTE PATIENT COMMENT** MISC XX (21:00)
[2017-11-14] MEDS: NORCO, ANEXSIA 5/325MG TABLET (HYDROcodone/ACETAMINOPHEN) PO ×4 (03:05→21:45)
[2017-11-14 05:20] LABS: HEMATOCRIT 29.7 % (42.0-52.0); HEMOGLOBIN 9.9 g/dl (13.5-17.5); MEAN CORPUSCULAR HEMOGLOBIN 29.9 pg (27.0-33.0); MEAN CORPUSCULAR HGB CONC 33.3 g/dl (32.0-36.5); MEAN CORPUSCULAR VOLUME 89.7 fl (80.0-96.0); PLATELET COUNT, AUTOMATED 110 10^3/uL (150-450); RED BLOOD COUNT 3.31 10^6/uL (4.30-6.10); RED CELL DISTRIBUTION WIDTH 15.4 % (11.5-14.5); WHITE BLOOD COUNT 15.5 10^3/uL (4.0-10.0)
[2017-11-14 05:43] LABS: ALBUMIN 1.9 GM/DL (3.2-5.2); ALBUMIN/GLOBULIN RATIO 0.56 (1.00-1.93); ALKALINE PHOSPHATASE 149 U/L (45-117); ALT/SGPT 34 U/L (12-78); ANION GAP 13 MEQ/L (8-16); AST/SGOT 40 U/L (7-37); BILIRUBIN,TOTAL 0.7 MG/DL (0.2-1.0); BLOOD UREA NITROGEN 40 MG/DL (7-18); CALCIUM LEVEL 7.8 MG/DL (8.8-10.2); CARBON DIOXIDE LEVEL 24 MEQ/L (21-32); CHLORIDE LEVEL 98 MEQ/L (98-107); CREATININE FOR GFR 4.36 MG/DL (0.70-1.30); GLOMERULAR FILTRATION RATE 14.3 (>42); GLUCOSE, FASTING 114 MG/DL (70-100); POTASSIUM SERUM 3.9 MEQ/L (3.5-5.1); SODIUM LEVEL 135 MEQ/L (136-145); TOTAL PROTEIN 5.3 GM/DL (6.4-8.2)
[2017-11-14] MEDS: SLF 3 ML SYR IV ×3 (06:27→21:34)
[2017-11-14] MEDS: MULTIVITAMINS/MINERALS THERAP 1 TAB PO (08:44)
[2017-11-14] MEDS: PANTOPRAZOLE 40MG TAB (PROTONIX) PO ×2 (08:45→21:32)
[2017-11-14] MEDS: FAMOTIDINE 20 MG TAB PO ×2 (08:46→21:33)
[2017-11-14] MEDS: PROPRANOLOL 20 MG TAB PO ×2 (08:46→21:33)
[2017-11-14] MEDS: LISINOPRIL 10 MG TAB PO (08:46)
[2017-11-14] MEDS: ASCORBIC ACID 500 MG TAB PO ×2 (08:46→21:33)
[2017-11-14] MEDS: **hydrALAZINE** 10 MG TAB PO ×3 (08:47→21:32)
[2017-11-14] MEDS: ONDANSETRON 4 MG ORAL DISINTEGRATING TAB (Q0162 PER 1MG) PO (18:15)
[2017-11-14] MEDS: ACETAMINOPHEN TAB 650MG DOSE (2X325MG) PO (19:50)
[2017-11-14] MEDS: **NOTE PATIENT COMMENT** MISC XX (21:00)
[2017-11-14] MEDS: MINOXIDIL 2.5 MG TAB PO (21:32)
[2017-11-14] MEDS: LISINOPRIL 20 MG TAB PO (21:32)
[2017-11-14] MEDS: PRAVASTATIN 20 MG TAB PO (21:32)
[2017-11-14] MEDS: clonazePAM 0.5 MG TAB PO (21:32)
[2017-11-14] MEDS: FUROSEMIDE 40 MG TAB PO (21:33)
[2017-11-14] MEDS: LATANOPROST 0.005% OPHTH SOLN 2.5 ML OU (21:33)
[2017-11-15] MEDS: NORCO, ANEXSIA 5/325MG TABLET (HYDROcodone/ACETAMINOPHEN) PO ×2 (04:19→17:59)
[2017-11-15 05:44] LABS: HEMATOCRIT 28.5 % (42.0-52.0); HEMOGLOBIN 9.4 g/dl (13.5-17.5); MEAN CORPUSCULAR HEMOGLOBIN 29.6 pg (27.0-33.0); MEAN CORPUSCULAR VOLUME 89.6 fl (80.0-96.0); RED BLOOD COUNT 3.18 10^6/uL (4.30-6.10); RED CELL DISTRIBUTION WIDTH 15.7 % (11.5-14.5); WHITE BLOOD COUNT 11.9 10^3/uL (4.0-10.0)
[2017-11-15 05:45] LABS: PLATELET COUNT, AUTOMATED 95 10^3/uL (150-450)
[2017-11-15 05:47] LABS: IMMATURE PLATELET FRACTION % 4.4 % (0.0-10.9)
[2017-11-15 05:57] LABS: ALBUMIN 1.8 GM/DL (3.2-5.2); ALBUMIN/GLOBULIN RATIO 0.53 (1.00-1.93); ALKALINE PHOSPHATASE 141 U/L (45-117); ALT/SGPT 34 U/L (12-78); ANION GAP 13 MEQ/L (8-16); AST/SGOT 35 U/L (7-37); BILIRUBIN,TOTAL 0.6 MG/DL (0.2-1.0); BLOOD UREA NITROGEN 51 MG/DL (7-18); CALCIUM LEVEL 7.5 MG/DL (8.8-10.2); CARBON DIOXIDE LEVEL 22 MEQ/L (21-32); CHLORIDE LEVEL 97 MEQ/L (98-107); CREATININE FOR GFR 5.55 MG/DL (0.70-1.30); GLOMERULAR FILTRATION RATE 10.8 (>42); GLUCOSE, FASTING 128 MG/DL (70-100); MAGNESIUM LEVEL 2.2 MG/DL (1.8-2.4); POTASSIUM SERUM 4.3 MEQ/L (3.5-5.1); SODIUM LEVEL 132 MEQ/L (136-145); TOTAL PROTEIN 5.2 GM/DL (6.4-8.2)
[2017-11-15] MEDS: FAMOTIDINE 20 MG TAB PO ×2 (06:28→21:16)
[2017-11-15] MEDS: MULTIVITAMINS/MINERALS THERAP 1 TAB PO (06:29)
[2017-11-15] MEDS: ASCORBIC ACID 500 MG TAB PO ×2 (06:29→21:16)
[2017-11-15] MEDS: PANTOPRAZOLE 40MG TAB (PROTONIX) PO ×2 (06:29→21:15)
[2017-11-15] MEDS: SLF 3 ML SYR IV ×3 (06:30→21:17)
[2017-11-15] MEDS: **hydrALAZINE** 10 MG TAB PO (08:49)
[2017-11-15] MEDS: PROPRANOLOL 20 MG TAB PO ×2 (08:50→20:52)
[2017-11-15] MEDS: LISINOPRIL 10 MG TAB PO ×2 (08:54→20:53)
[2017-11-15] MEDS ORDERED: PIPERACILLIN/TAZOBACTAM SOD 2.25 GM in D5W MINI-BAG PLUS 50 ML IV (11:00)
[2017-11-15] MEDS: PIPERACILLIN/TAZOBACTAM SOD 2.25 GM in D5W MINI-BAG PLUS 50 ML IV ×2 (15:39→21:15)
[2017-11-15] MEDS: **VANCO AFTER HD** MISC XX (16:00)
[2017-11-15] MEDS: VANCOMYCIN HCL 1,000 MG, VIAL MATE ADAPTER 1 EACH in D5W 250 ML IV (16:45)
[2017-11-15] MEDS: VANCOMYCIN HCL 750 MG, VIAL MATE ADAPTER 1 EACH in D5W 250 ML IV (17:59)
[2017-11-15] MEDS: NYSTATIN 100,000 UNITS/GM TOPICAL PWD 15 GM TOP (17:59)
[2017-11-15] MEDS: MINOXIDIL 2.5 MG TAB PO (20:52)
[2017-11-15] MEDS: **NOTE PATIENT COMMENT** MISC XX ×2 (21:00→21:17)
[2017-11-15] MEDS: LATANOPROST 0.005% OPHTH SOLN 2.5 ML OU (21:15)
[2017-11-15] MEDS: clonazePAM 0.5 MG TAB PO (21:16)
[2017-11-15] MEDS: PRAVASTATIN 20 MG TAB PO (21:16)
[2017-11-15] MEDS: FUROSEMIDE 40 MG TAB PO (21:16)
[2017-11-16] MEDS: NORCO, ANEXSIA 5/325MG TABLET (HYDROcodone/ACETAMINOPHEN) PO ×2 (03:17→09:39)
[2017-11-16] MEDS: SLF 3 ML SYR IV ×3 (05:08→23:29)
[2017-11-16] MEDS: PIPERACILLIN/TAZOBACTAM SOD 2.25 GM in D5W MINI-BAG PLUS 50 ML IV ×3 (05:08→23:29)
[2017-11-16 05:53] LABS: HEMATOCRIT 26.7 % (42.0-52.0); HEMOGLOBIN 8.8 g/dl (13.5-17.5); MEAN CORPUSCULAR HEMOGLOBIN 29.2 pg (27.0-33.0); MEAN CORPUSCULAR VOLUME 88.7 fl (80.0-96.0); PLATELET COUNT, AUTOMATED 94 10^3/uL (150-450); RED BLOOD COUNT 3.01 10^6/uL (4.30-6.10); RED CELL DISTRIBUTION WIDTH 15.5 % (11.5-14.5); WHITE BLOOD COUNT 5.4 10^3/uL (4.0-10.0)
[2017-11-16 05:55] LABS: IMMATURE PLATELET FRACTION % 3.9 % (0.0-10.9)
[2017-11-16 06:13] LABS: ALBUMIN 1.7 GM/DL (3.2-5.2); ALBUMIN/GLOBULIN RATIO 0.53 (1.00-1.93); ALKALINE PHOSPHATASE 126 U/L (45-117); ALT/SGPT 29 U/L (12-78); ANION GAP 12 MEQ/L (8-16); AST/SGOT 31 U/L (7-37); BILIRUBIN,TOTAL 0.5 MG/DL (0.2-1.0); BLOOD UREA NITROGEN 29 MG/DL (7-18); CALCIUM LEVEL 7.4 MG/DL (8.8-10.2); CARBON DIOXIDE LEVEL 27 MEQ/L (21-32); CHLORIDE LEVEL 98 MEQ/L (98-107); CREATININE FOR GFR 3.76 MG/DL (0.70-1.30); GLOMERULAR FILTRATION RATE 16.9 (>42); GLUCOSE, FASTING 138 MG/DL (70-100); MAGNESIUM LEVEL 1.9 MG/DL (1.8-2.4); POTASSIUM SERUM 3.6 MEQ/L (3.5-5.1); SODIUM LEVEL 137 MEQ/L (136-145); TOTAL PROTEIN 4.9 GM/DL (6.4-8.2)
[2017-11-16] MEDS: LISINOPRIL 10 MG TAB PO ×2 (09:00→20:21)
[2017-11-16] MEDS: PROPRANOLOL 20 MG TAB PO ×2 (09:00→20:22)
[2017-11-16] MEDS: ASCORBIC ACID 500 MG TAB PO ×2 (09:38→20:19)
[2017-11-16] MEDS: PANTOPRAZOLE 40MG TAB (PROTONIX) PO ×2 (09:38→20:20)
[2017-11-16] MEDS: MULTIVITAMINS/MINERALS THERAP 1 TAB PO (09:38)
[2017-11-16] MEDS: FAMOTIDINE 20 MG TAB PO ×2 (09:38→20:19)
[2017-11-16] MEDS: NYSTATIN 100,000 UNITS/GM TOPICAL PWD 15 GM TOP ×2 (09:39→20:20)
[2017-11-16 13:16] LABS: RBC BODY FLUID < 2 10^3/uL (<2); SOURCE, BODY FLUID PERITONEAL; WBC BODY FLUID 100 /uL (0-10)
[2017-11-16 13:17] LABS: APPEARANCE, BODY FLUID CLEAR (CLEAR); BF DIFF IF INDICATED? YES (NO); PERITONEAL FL COLOR PALE YELLOW (COLORLESS)
[2017-11-16 15:40] LABS: TYPE AND SCREEN 1
[2017-11-16] MEDS: **VANCO AFTER HD** MISC XX (15:48)
[2017-11-16] MEDS: PRAVASTATIN 20 MG TAB PO (20:19)
[2017-11-16] MEDS: clonazePAM 0.5 MG TAB PO (20:19)
[2017-11-16] MEDS: MINOXIDIL 2.5 MG TAB PO (20:21)
[2017-11-16] MEDS: LATANOPROST 0.005% OPHTH SOLN 2.5 ML OU (20:21)
[2017-11-16] MEDS: FUROSEMIDE 40 MG TAB PO (21:00)
[2017-11-16] MEDS: **NOTE PATIENT COMMENT** MISC XX (21:00)
[2017-11-17] MEDS: NORCO, ANEXSIA 5/325MG TABLET (HYDROcodone/ACETAMINOPHEN) PO ×3 (03:19→17:02)
[2017-11-17] MEDS: PIPERACILLIN/TAZOBACTAM SOD 2.25 GM in D5W MINI-BAG PLUS 50 ML IV ×3 (05:00→22:05)
[2017-11-17 05:54] LABS: HEMATOCRIT 25.5 % (42.0-52.0); HEMOGLOBIN 8.3 g/dl (13.5-17.5); MEAN CORPUSCULAR HEMOGLOBIN 29.1 pg (27.0-33.0); MEAN CORPUSCULAR HGB CONC 32.5 g/dl (32.0-36.5); MEAN CORPUSCULAR VOLUME 89.5 fl (80.0-96.0); RED BLOOD COUNT 2.85 10^6/uL (4.30-6.10); RED CELL DISTRIBUTION WIDTH 15.2 % (11.5-14.5); WHITE BLOOD COUNT 4.2 10^3/uL (4.0-10.0)
[2017-11-17 05:57] LABS: PLATELET COUNT, AUTOMATED 94 10^3/uL (150-450)
[2017-11-17] MEDS: SLF 3 ML SYR IV ×3 (06:00→22:00)
[2017-11-17 06:13] LABS: ALBUMIN 1.7 GM/DL (3.2-5.2); ALBUMIN/GLOBULIN RATIO 0.55 (1.00-1.93); ALKALINE PHOSPHATASE 123 U/L (45-117); ALT/SGPT 31 U/L (12-78); ANION GAP 13 MEQ/L (8-16); AST/SGOT 33 U/L (7-37); BILIRUBIN,TOTAL 0.5 MG/DL (0.2-1.0); BLOOD UREA NITROGEN 42 MG/DL (7-18); CALCIUM LEVEL 7.3 MG/DL (8.8-10.2); CARBON DIOXIDE LEVEL 25 MEQ/L (21-32); CHLORIDE LEVEL 97 MEQ/L (98-107); CREATININE FOR GFR 4.78 MG/DL (0.70-1.30); GLOMERULAR FILTRATION RATE 12.8 (>42); GLUCOSE, FASTING 109 MG/DL (70-100); POTASSIUM SERUM 4.4 MEQ/L (3.5-5.1); SODIUM LEVEL 135 MEQ/L (136-145); TOTAL PROTEIN 4.8 GM/DL (6.4-8.2); VANCOMYCIN RANDOM 15.6 UG/ML
[2017-11-17] MEDS: NYSTATIN 100,000 UNITS/GM TOPICAL PWD 15 GM TOP ×2 (06:37→22:05)
[2017-11-17] MEDS: PANTOPRAZOLE 40MG TAB (PROTONIX) PO ×2 (06:37→22:06)
[2017-11-17] MEDS: ASCORBIC ACID 500 MG TAB PO ×2 (06:37→22:06)
[2017-11-17] MEDS: FAMOTIDINE 20 MG TAB PO ×2 (06:37→22:06)
[2017-11-17] MEDS: MULTIVITAMINS/MINERALS THERAP 1 TAB PO (06:38)
[2017-11-17] MEDS: LISINOPRIL 10 MG TAB PO ×2 (06:40→20:14)
[2017-11-17] MEDS: PROPRANOLOL 20 MG TAB PO ×2 (06:40→20:14)
[2017-11-17] MEDS ORDERED: DARBEPOETIN 100 MCG/0.5 ML *DIALYSIS* SYRINGE (J0882) IV (09:30)
[2017-11-17] MEDS: **VANCO AFTER HD** MISC XX (19:15)
[2017-11-17] MEDS: VANCOMYCIN HCL 1,000 MG, VIAL MATE ADAPTER 1 EACH in D5W 250 ML IV (19:19)
[2017-11-17] MEDS: MINOXIDIL 2.5 MG TAB PO (20:14)
[2017-11-17] MEDS: **NOTE PATIENT COMMENT** MISC XX (21:00)
[2017-11-17] MEDS: clonazePAM 0.5 MG TAB PO (22:05)
[2017-11-17] MEDS: LATANOPROST 0.005% OPHTH SOLN 2.5 ML OU (22:05)
[2017-11-17] MEDS: PRAVASTATIN 20 MG TAB PO (22:06)
[2017-11-17] MEDS: FUROSEMIDE 40 MG TAB PO (22:06)
[2017-11-18] MEDS: NORCO, ANEXSIA 5/325MG TABLET (HYDROcodone/ACETAMINOPHEN) PO ×3 (00:18→18:43)
[2017-11-18] MEDS: PIPERACILLIN/TAZOBACTAM SOD 2.25 GM in D5W MINI-BAG PLUS 50 ML IV ×2 (05:21→14:14)
[2017-11-18] MEDS: SLF 3 ML SYR IV ×3 (05:21→20:16)
[2017-11-18 05:44] LABS: HEMATOCRIT 25.6 % (42.0-52.0); HEMOGLOBIN 8.4 g/dl (13.5-17.5); IMMATURE PLATELET FRACTION % 3.6 % (0.0-10.9); MEAN CORPUSCULAR HEMOGLOBIN 29.3 pg (27.0-33.0); MEAN CORPUSCULAR HGB CONC 32.8 g/dl (32.0-36.5); MEAN CORPUSCULAR VOLUME 89.2 fl (80.0-96.0); PLATELET COUNT, AUTOMATED 86 10^3/uL (150-450); RED BLOOD COUNT 2.87 10^6/uL (4.30-6.10); RED CELL DISTRIBUTION WIDTH 15.1 % (11.5-14.5); WHITE BLOOD COUNT 4.1 10^3/uL (4.0-10.0)
[2017-11-18 06:14] LABS: ALBUMIN 1.7 GM/DL (3.2-5.2); ALBUMIN/GLOBULIN RATIO 0.53 (1.00-1.93); ALKALINE PHOSPHATASE 144 U/L (45-117); ALT/SGPT 33 U/L (12-78); ANION GAP 10 MEQ/L (8-16); AST/SGOT 32 U/L (7-37); BILIRUBIN,TOTAL 0.5 MG/DL (0.2-1.0); BLOOD UREA NITROGEN 29 MG/DL (7-18); CALCIUM LEVEL 7.6 MG/DL (8.8-10.2); CARBON DIOXIDE LEVEL 27 MEQ/L (21-32); CHLORIDE LEVEL 98 MEQ/L (98-107); GLOMERULAR FILTRATION RATE 17.8 (>42); GLUCOSE, FASTING 105 MG/DL (70-100); POTASSIUM SERUM 3.9 MEQ/L (3.5-5.1); SODIUM LEVEL 135 MEQ/L (136-145); TOTAL PROTEIN 4.9 GM/DL (6.4-8.2)
[2017-11-18] MEDS: LISINOPRIL 10 MG TAB PO ×2 (09:00→20:12)
[2017-11-18] MEDS: MULTIVITAMINS/MINERALS THERAP 1 TAB PO (09:00)
[2017-11-18] MEDS: ASCORBIC ACID 500 MG TAB PO ×2 (09:00→20:12)
[2017-11-18] MEDS: PROPRANOLOL 20 MG TAB PO ×2 (09:00→20:12)
[2017-11-18] MEDS: FAMOTIDINE 20 MG TAB PO ×2 (09:01→20:13)
[2017-11-18] MEDS: PANTOPRAZOLE 40MG TAB (PROTONIX) PO ×2 (09:01→20:11)
[2017-11-18] MEDS: NYSTATIN 100,000 UNITS/GM TOPICAL PWD 15 GM TOP ×2 (09:02→20:13)
[2017-11-18] MEDS: ONDANSETRON 4 MG ORAL DISINTEGRATING TAB (Q0162 PER 1MG) PO (14:14)
[2017-11-18] MEDS: **VANCO AFTER HD** MISC XX (16:00)
[2017-11-18] MEDS: clonazePAM 0.5 MG TAB PO (20:11)
[2017-11-18] MEDS: PRAVASTATIN 20 MG TAB PO (20:12)
[2017-11-18] MEDS: DOXYCYCLINE HYCLATE 100 MG TAB PO (20:12)
[2017-11-18] MEDS: MINOXIDIL 2.5 MG TAB PO (20:12)
[2017-11-18] MEDS: FUROSEMIDE 40 MG TAB PO (20:13)
[2017-11-18] MEDS: LATANOPROST 0.005% OPHTH SOLN 2.5 ML OU (20:13)
[2017-11-18] MEDS: **NOTE PATIENT COMMENT** MISC XX (20:27)
[2017-11-19] MEDS: NORCO, ANEXSIA 5/325MG TABLET (HYDROcodone/ACETAMINOPHEN) PO ×3 (03:23→17:30)
[2017-11-19] MEDS: SLF 3 ML SYR IV ×3 (05:55→21:03)
[2017-11-19] MEDS: MULTIVITAMINS/MINERALS THERAP 1 TAB PO (06:11)
[2017-11-19] MEDS: LISINOPRIL 10 MG TAB PO ×2 (06:11→20:35)
[2017-11-19] MEDS: ASCORBIC ACID 500 MG TAB PO ×2 (06:11→20:35)
[2017-11-19] MEDS: PROPRANOLOL 20 MG TAB PO ×2 (06:11→20:35)
[2017-11-19] MEDS: PANTOPRAZOLE 40MG TAB (PROTONIX) PO ×2 (06:11→20:35)
[2017-11-19] MEDS: NYSTATIN 100,000 UNITS/GM TOPICAL PWD 15 GM TOP ×2 (06:12→20:33)
[2017-11-19] MEDS: FAMOTIDINE 20 MG TAB PO ×2 (06:12→20:35)
[2017-11-19] MEDS: DOXYCYCLINE HYCLATE 100 MG TAB PO ×2 (06:12→20:35)
[2017-11-19 06:15] LABS: HEMATOCRIT 25.5 % (42.0-52.0); HEMOGLOBIN 8.7 g/dl (13.5-17.5); MEAN CORPUSCULAR HEMOGLOBIN 29.3 pg (27.0-33.0); MEAN CORPUSCULAR HGB CONC 34.1 g/dl (32.0-36.5); MEAN CORPUSCULAR VOLUME 85.9 fl (80.0-96.0); RED BLOOD COUNT 2.97 10^6/uL (4.30-6.10); RED CELL DISTRIBUTION WIDTH 14.8 % (11.5-14.5); WHITE BLOOD COUNT 5.1 10^3/uL (4.0-10.0)
[2017-11-19 06:26] LABS: PLATELET COUNT, AUTOMATED 96 10^3/uL (150-450)
[2017-11-19 06:27] LABS: IMMATURE PLATELET FRACTION % 2.6 % (0.0-10.9)
[2017-11-19 06:41] LABS: ALBUMIN 1.8 GM/DL (3.2-5.2); ALBUMIN/GLOBULIN RATIO 0.51 (1.00-1.93); ALKALINE PHOSPHATASE 164 U/L (45-117); ALT/SGPT 34 U/L (12-78); ANION GAP 13 MEQ/L (8-16); AST/SGOT 32 U/L (7-37); BILIRUBIN,TOTAL 0.5 MG/DL (0.2-1.0); BLOOD UREA NITROGEN 42 MG/DL (7-18); CALCIUM LEVEL 7.5 MG/DL (8.8-10.2); CARBON DIOXIDE LEVEL 24 MEQ/L (21-32); CHLORIDE LEVEL 94 MEQ/L (98-107); CREATININE FOR GFR 4.42 MG/DL (0.70-1.30); GLUCOSE, FASTING 115 MG/DL (70-100); POTASSIUM SERUM 4.3 MEQ/L (3.5-5.1); SODIUM LEVEL 131 MEQ/L (136-145); TOTAL PROTEIN 5.3 GM/DL (6.4-8.2); VANCOMYCIN RANDOM 18.9 UG/ML
[2017-11-19] MEDS: LATANOPROST 0.005% OPHTH SOLN 2.5 ML OU (20:34)
[2017-11-19] MEDS: MINOXIDIL 2.5 MG TAB PO (20:34)
[2017-11-19] MEDS: clonazePAM 0.5 MG TAB PO (20:34)
[2017-11-19] MEDS: PRAVASTATIN 20 MG TAB PO (20:35)
[2017-11-19] MEDS: FUROSEMIDE 40 MG TAB PO (20:36)
[2017-11-19] MEDS: **NOTE PATIENT COMMENT** MISC XX (20:36)
[2017-11-20] MEDS: NORCO, ANEXSIA 5/325MG TABLET (HYDROcodone/ACETAMINOPHEN) PO ×4 (00:13→20:41)
[2017-11-20] MEDS: SLF 3 ML SYR IV ×3 (04:52→20:39)
[2017-11-20 06:00] LABS: HEMATOCRIT 26.4 % (42.0-52.0); HEMOGLOBIN 8.8 g/dl (13.5-17.5); MEAN CORPUSCULAR HEMOGLOBIN 29.5 pg (27.0-33.0); MEAN CORPUSCULAR HGB CONC 33.3 g/dl (32.0-36.5); MEAN CORPUSCULAR VOLUME 88.6 fl (80.0-96.0); PLATELET COUNT, AUTOMATED 104 10^3/uL (150-450); RED BLOOD COUNT 2.98 10^6/uL (4.30-6.10); RED CELL DISTRIBUTION WIDTH 14.9 % (11.5-14.5); WHITE BLOOD COUNT 6.3 10^3/uL (4.0-10.0)
[2017-11-20 06:27] LABS: ALBUMIN 1.9 GM/DL (3.2-5.2); ALBUMIN/GLOBULIN RATIO 0.56 (1.00-1.93); ALKALINE PHOSPHATASE 175 U/L (45-117); ALT/SGPT 35 U/L (12-78); ANION GAP 8 MEQ/L (8-16); AST/SGOT 30 U/L (7-37); BILIRUBIN,TOTAL 0.5 MG/DL (0.2-1.0); BLOOD UREA NITROGEN 23 MG/DL (7-18); CALCIUM LEVEL 7.6 MG/DL (8.8-10.2); CARBON DIOXIDE LEVEL 28 MEQ/L (21-32); CHLORIDE LEVEL 99 MEQ/L (98-107); CREATININE FOR GFR 3.06 MG/DL (0.70-1.30); GLOMERULAR FILTRATION RATE 21.5 (>42); GLUCOSE, FASTING 116 MG/DL (70-100); MAGNESIUM LEVEL 1.8 MG/DL (1.8-2.4); POTASSIUM SERUM 4.3 MEQ/L (3.5-5.1); SODIUM LEVEL 135 MEQ/L (136-145); TOTAL PROTEIN 5.3 GM/DL (6.4-8.2)
[2017-11-20] MEDS: FAMOTIDINE 20 MG TAB PO ×2 (07:37→20:40)
[2017-11-20] MEDS: PANTOPRAZOLE 40MG TAB (PROTONIX) PO ×2 (07:37→20:38)
[2017-11-20] MEDS: LISINOPRIL 10 MG TAB PO ×2 (07:37→20:40)
[2017-11-20] MEDS: MULTIVITAMINS/MINERALS THERAP 1 TAB PO (07:37)
[2017-11-20] MEDS: DOXYCYCLINE HYCLATE 100 MG TAB PO ×2 (07:37→20:38)
[2017-11-20] MEDS: ASCORBIC ACID 500 MG TAB PO ×2 (07:37→20:39)
[2017-11-20] MEDS: NYSTATIN 100,000 UNITS/GM TOPICAL PWD 15 GM TOP ×2 (07:38→20:39)
[2017-11-20] MEDS: PROPRANOLOL 20 MG TAB PO ×2 (10:23→20:41)
[2017-11-20] MEDS: **NOTE PATIENT COMMENT** MISC XX (20:34)
[2017-11-20] MEDS: clonazePAM 0.5 MG TAB PO (20:38)
[2017-11-20] MEDS: LATANOPROST 0.005% OPHTH SOLN 2.5 ML OU (20:39)
[2017-11-20] MEDS: FUROSEMIDE 40 MG TAB PO (20:40)
[2017-11-20] MEDS: PRAVASTATIN 20 MG TAB PO (20:40)
[2017-11-20] MEDS: MINOXIDIL 2.5 MG TAB PO (20:40)
[2017-11-21] MEDS: SLF 3 ML SYR IV ×3 (04:56→20:11)
[2017-11-21 06:13] LABS: HEMATOCRIT 26.7 % (42.0-52.0); MEAN CORPUSCULAR HGB CONC 33.7 g/dl (32.0-36.5); PLATELET COUNT, AUTOMATED 118 10^3/uL (150-450); RED CELL DISTRIBUTION WIDTH 15.2 % (11.5-14.5); WHITE BLOOD COUNT 5.9 10^3/uL (4.0-10.0)
[2017-11-21] MEDS: NORCO, ANEXSIA 5/325MG TABLET (HYDROcodone/ACETAMINOPHEN) PO ×3 (06:17→20:10)
[2017-11-21 06:38] LABS: ALBUMIN 1.9 GM/DL (3.2-5.2); ALBUMIN/GLOBULIN RATIO 0.56 (1.00-1.93); ALKALINE PHOSPHATASE 167 U/L (45-117); ALT/SGPT 32 U/L (12-78); ANION GAP 11 MEQ/L (8-16); AST/SGOT 26 U/L (7-37); BILIRUBIN,TOTAL 0.5 MG/DL (0.2-1.0); BLOOD UREA NITROGEN 36 MG/DL (7-18); CALCIUM LEVEL 7.8 MG/DL (8.8-10.2); CARBON DIOXIDE LEVEL 25 MEQ/L (21-32); CHLORIDE LEVEL 99 MEQ/L (98-107); CREATININE FOR GFR 4.15 MG/DL (0.70-1.30); GLOMERULAR FILTRATION RATE 15.1 (>42); GLUCOSE, FASTING 115 MG/DL (70-100); MAGNESIUM LEVEL 1.7 MG/DL (1.8-2.4); POTASSIUM SERUM 3.9 MEQ/L (3.5-5.1); SODIUM LEVEL 135 MEQ/L (136-145); TOTAL PROTEIN 5.3 GM/DL (6.4-8.2)
[2017-11-21] MEDS: MULTIVITAMINS/MINERALS THERAP 1 TAB PO (08:10)
[2017-11-21] MEDS: PANTOPRAZOLE 40MG TAB (PROTONIX) PO ×2 (08:10→20:09)
[2017-11-21] MEDS: FAMOTIDINE 20 MG TAB PO ×2 (08:10→20:09)
[2017-11-21] MEDS: PROPRANOLOL 20 MG TAB PO ×2 (08:10→20:15)
[2017-11-21] MEDS: DOXYCYCLINE HYCLATE 100 MG TAB PO ×2 (08:10→20:10)
[2017-11-21] MEDS: ASCORBIC ACID 500 MG TAB PO ×2 (08:10→20:10)
[2017-11-21] MEDS: LISINOPRIL 10 MG TAB PO ×2 (08:10→20:09)
[2017-11-21] MEDS: NYSTATIN 100,000 UNITS/GM TOPICAL PWD 15 GM TOP ×2 (08:11→20:11)
[2017-11-21] MEDS: FUROSEMIDE 40 MG TAB PO (20:09)
[2017-11-21] MEDS: PRAVASTATIN 20 MG TAB PO (20:09)
[2017-11-21] MEDS: clonazePAM 0.5 MG TAB PO (20:09)
[2017-11-21] MEDS: MINOXIDIL 2.5 MG TAB PO (20:10)
[2017-11-21] MEDS: LATANOPROST 0.005% OPHTH SOLN 2.5 ML OU (20:10)
[2017-11-21] MEDS: **NOTE PATIENT COMMENT** MISC XX (20:11)
[2017-11-22] MEDS: NORCO, ANEXSIA 5/325MG TABLET (HYDROcodone/ACETAMINOPHEN) PO ×4 (02:22→23:05)
[2017-11-22] MEDS: MULTIVITAMINS/MINERALS THERAP 1 TAB PO (06:10)
[2017-11-22] MEDS: PANTOPRAZOLE 40MG TAB (PROTONIX) PO ×2 (06:10→20:06)
[2017-11-22] MEDS: PROPRANOLOL 20 MG TAB PO ×2 (06:10→19:57)
[2017-11-22] MEDS: SENOKOT S TAB PO (06:10)
[2017-11-22] MEDS: FAMOTIDINE 20 MG TAB PO ×2 (06:10→20:06)
[2017-11-22] MEDS: DOXYCYCLINE HYCLATE 100 MG TAB PO ×2 (06:11→20:06)
[2017-11-22] MEDS: ASCORBIC ACID 500 MG TAB PO ×2 (06:11→20:06)
[2017-11-22] MEDS: LISINOPRIL 10 MG TAB PO ×2 (06:11→19:59)
[2017-11-22] MEDS: SLF 3 ML SYR IV ×3 (06:12→20:07)
[2017-11-22] MEDS: ONDANSETRON 4 MG ORAL DISINTEGRATING TAB (Q0162 PER 1MG) PO (07:26)
[2017-11-22] MEDS: NYSTATIN 100,000 UNITS/GM TOPICAL PWD 15 GM TOP ×2 (07:26→20:08)
[2017-11-22] MEDS: MINOXIDIL 2.5 MG TAB PO (19:58)
[2017-11-22] MEDS: FUROSEMIDE 40 MG TAB PO (20:06)
[2017-11-22] MEDS: clonazePAM 0.5 MG TAB PO (20:06)
[2017-11-22] MEDS: PRAVASTATIN 20 MG TAB PO (20:06)
[2017-11-22] MEDS: LATANOPROST 0.005% OPHTH SOLN 2.5 ML OU (20:06)
[2017-11-22] MEDS: **NOTE PATIENT COMMENT** MISC XX (20:51)
[2017-11-23] MEDS: SLF 3 ML SYR IV ×3 (05:07→22:00)
[2017-11-23] MEDS: NORCO, ANEXSIA 5/325MG TABLET (HYDROcodone/ACETAMINOPHEN) PO ×3 (06:16→20:57)
[2017-11-23 06:34] LABS: HEMATOCRIT 32.1 % (42.0-52.0); HEMOGLOBIN 10.4 g/dl (13.5-17.5); MEAN CORPUSCULAR HGB CONC 32.4 g/dl (32.0-36.5); MEAN CORPUSCULAR VOLUME 89.4 fl (80.0-96.0); PLATELET COUNT, AUTOMATED 155 10^3/uL (150-450); RED BLOOD COUNT 3.59 10^6/uL (4.30-6.10); RED CELL DISTRIBUTION WIDTH 15.9 % (11.5-14.5); WHITE BLOOD COUNT 7.1 10^3/uL (4.0-10.0)
[2017-11-23 06:43] LABS: ALBUMIN 2.3 GM/DL (3.2-5.2); ANION GAP 10 MEQ/L (8-16); BLOOD UREA NITROGEN 27 MG/DL (7-18); CALCIUM LEVEL 8.3 MG/DL (8.8-10.2); CARBON DIOXIDE LEVEL 28 MEQ/L (21-32); CHLORIDE LEVEL 97 MEQ/L (98-107); CREATININE FOR GFR 3.61 MG/DL (0.70-1.30); GLOMERULAR FILTRATION RATE 17.7 (>42); GLUCOSE, FASTING 107 MG/DL (70-100); MAGNESIUM LEVEL 1.9 MG/DL (1.8-2.4); PHOSPHORUS LEVEL 4.3 MG/DL (2.5-4.9); POTASSIUM SERUM 4.1 MEQ/L (3.5-5.1); SODIUM LEVEL 135 MEQ/L (136-145)
[2017-11-23] MEDS: ASCORBIC ACID 500 MG TAB PO ×2 (09:59→20:58)
[2017-11-23] MEDS: PANTOPRAZOLE 40MG TAB (PROTONIX) PO ×2 (09:59→20:58)
[2017-11-23] MEDS: MULTIVITAMINS/MINERALS THERAP 1 TAB PO (10:00)
[2017-11-23] MEDS: DOXYCYCLINE HYCLATE 100 MG TAB PO (10:00)
[2017-11-23] MEDS: LISINOPRIL 10 MG TAB PO ×2 (10:01→20:58)
[2017-11-23] MEDS: FAMOTIDINE 20 MG TAB PO ×2 (10:01→20:58)
[2017-11-23] MEDS: NYSTATIN 100,000 UNITS/GM TOPICAL PWD 15 GM TOP ×2 (10:02→20:59)
[2017-11-23] MEDS: PROPRANOLOL 20 MG TAB PO ×2 (10:07→20:56)
[2017-11-23] MEDS: clonazePAM 0.5 MG TAB PO (20:57)
[2017-11-23] MEDS: PRAVASTATIN 20 MG TAB PO (20:58)
[2017-11-23] MEDS: FUROSEMIDE 40 MG TAB PO (20:58)
[2017-11-23] MEDS: MINOXIDIL 2.5 MG TAB PO (20:58)
[2017-11-23] MEDS: LATANOPROST 0.005% OPHTH SOLN 2.5 ML OU (20:58)
[2017-11-23] MEDS: **NOTE PATIENT COMMENT** MISC XX (21:00)
[2017-11-24] MEDS: NORCO, ANEXSIA 5/325MG TABLET (HYDROcodone/ACETAMINOPHEN) PO ×4 (02:58→23:06)
[2017-11-24 06:23] LABS: HEMATOCRIT 30.7 % (42.0-52.0); HEMOGLOBIN 10.2 g/dl (13.5-17.5); MEAN CORPUSCULAR HEMOGLOBIN 29.7 pg (27.0-33.0); MEAN CORPUSCULAR HGB CONC 33.2 g/dl (32.0-36.5); MEAN CORPUSCULAR VOLUME 89.2 fl (80.0-96.0); PLATELET COUNT, AUTOMATED 139 10^3/uL (150-450); RED BLOOD COUNT 3.44 10^6/uL (4.30-6.10); RED CELL DISTRIBUTION WIDTH 16.3 % (11.5-14.5); WHITE BLOOD COUNT 6.6 10^3/uL (4.0-10.0)
[2017-11-24] MEDS: ASCORBIC ACID 500 MG TAB PO ×2 (06:52→21:13)
[2017-11-24] MEDS: SLF 3 ML SYR IV ×3 (06:52→21:15)
[2017-11-24] MEDS: PANTOPRAZOLE 40MG TAB (PROTONIX) PO ×2 (06:53→21:11)
[2017-11-24] MEDS: MULTIVITAMINS/MINERALS THERAP 1 TAB PO (06:53)
[2017-11-24] MEDS: NYSTATIN 100,000 UNITS/GM TOPICAL PWD 15 GM TOP ×2 (06:54→21:10)
[2017-11-24] MEDS: FAMOTIDINE 20 MG TAB PO ×2 (06:54→21:13)
[2017-11-24] MEDS: LISINOPRIL 10 MG TAB PO ×2 (06:56→21:14)
[2017-11-24] MEDS: PROPRANOLOL 20 MG TAB PO ×2 (06:57→21:14)
[2017-11-24 07:03] LABS: ALBUMIN 2.2 GM/DL (3.2-5.2); ANION GAP 11 MEQ/L (8-16); BLOOD UREA NITROGEN 36 MG/DL (7-18); CARBON DIOXIDE LEVEL 25 MEQ/L (21-32); CHLORIDE LEVEL 97 MEQ/L (98-107); CREATININE FOR GFR 4.89 MG/DL (0.70-1.30); GLOMERULAR FILTRATION RATE 12.5 (>42); GLUCOSE, FASTING 119 MG/DL (70-100); MAGNESIUM LEVEL 1.7 MG/DL (1.8-2.4); PHOSPHORUS LEVEL 5.8 MG/DL (2.5-4.9); POTASSIUM SERUM 4.9 MEQ/L (3.5-5.1); SODIUM LEVEL 133 MEQ/L (136-145)
[2017-11-24] MEDS: **NOTE PATIENT COMMENT** MISC XX (21:00)
[2017-11-24] MEDS: LATANOPROST 0.005% OPHTH SOLN 2.5 ML OU (21:10)
[2017-11-24] MEDS: clonazePAM 0.5 MG TAB PO (21:10)
[2017-11-24] MEDS: FUROSEMIDE 40 MG TAB PO (21:13)
[2017-11-24] MEDS: PRAVASTATIN 20 MG TAB PO (21:13)
[2017-11-24] MEDS: MINOXIDIL 2.5 MG TAB PO (21:13)
[2017-11-25] MEDS: NORCO, ANEXSIA 5/325MG TABLET (HYDROcodone/ACETAMINOPHEN) PO ×3 (05:18→18:08)
[2017-11-25] MEDS: SLF 3 ML SYR IV ×3 (05:18→21:32)
[2017-11-25 07:21] LABS: HEMATOCRIT 28.9 % (42.0-52.0); HEMOGLOBIN 9.6 g/dl (13.5-17.5); MEAN CORPUSCULAR HEMOGLOBIN 30.1 pg (27.0-33.0); MEAN CORPUSCULAR HGB CONC 33.2 g/dl (32.0-36.5); MEAN CORPUSCULAR VOLUME 90.6 fl (80.0-96.0); PLATELET COUNT, AUTOMATED 112 10^3/uL (150-450); RED BLOOD COUNT 3.19 10^6/uL (4.30-6.10); RED CELL DISTRIBUTION WIDTH 16.8 % (11.5-14.5); WHITE BLOOD COUNT 6.2 10^3/uL (4.0-10.0)
[2017-11-25 07:26] LABS: ALBUMIN 1.9 GM/DL (3.2-5.2); ANION GAP 10 MEQ/L (8-16); BLOOD UREA NITROGEN 22 MG/DL (7-18); CARBON DIOXIDE LEVEL 27 MEQ/L (21-32); CHLORIDE LEVEL 101 MEQ/L (98-107); CREATININE FOR GFR 3.11 MG/DL (0.70-1.30); GLOMERULAR FILTRATION RATE 21.1 (>42); GLUCOSE, FASTING 103 MG/DL (70-100); MAGNESIUM LEVEL 1.9 MG/DL (1.8-2.4); PHOSPHORUS LEVEL 4.3 MG/DL (2.5-4.9); POTASSIUM SERUM 3.9 MEQ/L (3.5-5.1); SODIUM LEVEL 138 MEQ/L (136-145)
[2017-11-25] MEDS: MULTIVITAMINS/MINERALS THERAP 1 TAB PO (08:20)
[2017-11-25] MEDS: LISINOPRIL 10 MG TAB PO ×2 (08:20→20:07)
[2017-11-25] MEDS: ASCORBIC ACID 500 MG TAB PO ×2 (08:20→20:06)
[2017-11-25] MEDS: FAMOTIDINE 20 MG TAB PO ×2 (08:20→20:07)
[2017-11-25] MEDS: NYSTATIN 100,000 UNITS/GM TOPICAL PWD 15 GM TOP ×2 (08:20→20:09)
[2017-11-25] MEDS: PANTOPRAZOLE 40MG TAB (PROTONIX) PO ×2 (08:20→20:07)
[2017-11-25] MEDS: PROPRANOLOL 20 MG TAB PO ×2 (08:27→20:13)
[2017-11-25] MEDS: FUROSEMIDE 40 MG TAB PO (20:06)
[2017-11-25] MEDS: PRAVASTATIN 20 MG TAB PO (20:08)
[2017-11-25] MEDS: clonazePAM 0.5 MG TAB PO (20:08)
[2017-11-25] MEDS: MINOXIDIL 2.5 MG TAB PO (20:08)
[2017-11-25] MEDS: LATANOPROST 0.005% OPHTH SOLN 2.5 ML OU (20:09)
[2017-11-25] MEDS: **NOTE PATIENT COMMENT** MISC XX (20:14)
[2017-11-26] MEDS: NORCO, ANEXSIA 5/325MG TABLET (HYDROcodone/ACETAMINOPHEN) PO ×4 (00:03→20:36)
[2017-11-26] MEDS: PROPRANOLOL 20 MG TAB PO ×2 (06:23→20:37)
[2017-11-26] MEDS: LISINOPRIL 10 MG TAB PO ×2 (06:24→20:34)
[2017-11-26] MEDS: PANTOPRAZOLE 40MG TAB (PROTONIX) PO ×2 (06:32→20:35)
[2017-11-26] MEDS: MULTIVITAMINS/MINERALS THERAP 1 TAB PO (06:32)
[2017-11-26] MEDS: SLF 3 ML SYR IV ×3 (06:32→21:44)
[2017-11-26] MEDS: FAMOTIDINE 20 MG TAB PO ×2 (06:33→20:37)
[2017-11-26] MEDS: NYSTATIN 100,000 UNITS/GM TOPICAL PWD 15 GM TOP ×2 (07:18→20:37)
[2017-11-26] MEDS: ASCORBIC ACID 500 MG TAB PO ×2 (07:18→20:34)
[2017-11-26 08:57] LABS: HEMATOCRIT 29.6 % (42.0-52.0); HEMOGLOBIN 9.7 g/dl (13.5-17.5); MEAN CORPUSCULAR HEMOGLOBIN 29.8 pg (27.0-33.0); MEAN CORPUSCULAR HGB CONC 32.8 g/dl (32.0-36.5); MEAN CORPUSCULAR VOLUME 91.1 fl (80.0-96.0); PLATELET COUNT, AUTOMATED 120 10^3/uL (150-450); RED BLOOD COUNT 3.25 10^6/uL (4.30-6.10); RED CELL DISTRIBUTION WIDTH 17.2 % (11.5-14.5); WHITE BLOOD COUNT 8.2 10^3/uL (4.0-10.0)
[2017-11-26 09:10] LABS: ANION GAP 13 MEQ/L (8-16); BLOOD UREA NITROGEN 34 MG/DL (7-18); CALCIUM LEVEL 7.9 MG/DL (8.8-10.2); CARBON DIOXIDE LEVEL 24 MEQ/L (21-32); CHLORIDE LEVEL 98 MEQ/L (98-107); CREATININE FOR GFR 4.34 MG/DL (0.70-1.30); GLOMERULAR FILTRATION RATE 14.3 (>42); GLUCOSE, FASTING 171 MG/DL (70-100); PHOSPHORUS LEVEL 5.8 MG/DL (2.5-4.9); SODIUM LEVEL 135 MEQ/L (136-145)
[2017-11-26] MEDS: MINOXIDIL 2.5 MG TAB PO (20:25)
[2017-11-26] MEDS: PRAVASTATIN 20 MG TAB PO (20:34)
[2017-11-26] MEDS: FUROSEMIDE 40 MG TAB PO (20:34)
[2017-11-26] MEDS: clonazePAM 0.5 MG TAB PO (20:37)
[2017-11-26] MEDS: LATANOPROST 0.005% OPHTH SOLN 2.5 ML OU (20:37)
[2017-11-26] MEDS: **NOTE PATIENT COMMENT** MISC XX (20:38)
[2017-11-27] MEDS: NORCO, ANEXSIA 5/325MG TABLET (HYDROcodone/ACETAMINOPHEN) PO ×3 (02:43→20:48)
[2017-11-27] MEDS: SLF 3 ML SYR IV ×3 (05:44→22:39)
[2017-11-27] MEDS: NYSTATIN 100,000 UNITS/GM TOPICAL PWD 15 GM TOP ×2 (09:32→20:50)
[2017-11-27] MEDS: FAMOTIDINE 20 MG TAB PO ×2 (09:32→20:49)
[2017-11-27] MEDS: ASCORBIC ACID 500 MG TAB PO ×2 (09:32→20:48)
[2017-11-27] MEDS: PANTOPRAZOLE 40MG TAB (PROTONIX) PO ×2 (09:32→20:47)
[2017-11-27] MEDS: MULTIVITAMINS/MINERALS THERAP 1 TAB PO (09:32)
[2017-11-27] MEDS: PROPRANOLOL 20 MG TAB PO ×2 (09:36→20:53)
[2017-11-27] MEDS: LISINOPRIL 10 MG TAB PO ×2 (09:37→20:53)
[2017-11-27] MEDS: FUROSEMIDE 40 MG TAB PO (20:49)
[2017-11-27] MEDS: PRAVASTATIN 20 MG TAB PO (20:49)
[2017-11-27] MEDS: clonazePAM 0.5 MG TAB PO (20:50)
[2017-11-27] MEDS: MINOXIDIL 2.5 MG TAB PO (20:50)
[2017-11-27] MEDS: **NOTE PATIENT COMMENT** MISC XX (21:00)
[2017-11-27] MEDS: LATANOPROST 0.005% OPHTH SOLN 2.5 ML OU (22:40)
[2017-11-28] MEDS: NORCO, ANEXSIA 5/325MG TABLET (HYDROcodone/ACETAMINOPHEN) PO ×3 (03:07→20:18)
[2017-11-28] MEDS: SLF 3 ML SYR IV ×3 (03:08→20:19)
[2017-11-28 06:20] LABS: HEMATOCRIT 32.3 % (42.0-52.0); HEMOGLOBIN 10.3 g/dl (13.5-17.5); MEAN CORPUSCULAR HEMOGLOBIN 29.7 pg (27.0-33.0); MEAN CORPUSCULAR HGB CONC 31.9 g/dl (32.0-36.5); MEAN CORPUSCULAR VOLUME 93.1 fl (80.0-96.0); PLATELET COUNT, AUTOMATED 133 10^3/uL (150-450); RED BLOOD COUNT 3.47 10^6/uL (4.30-6.10); RED CELL DISTRIBUTION WIDTH 18.3 % (11.5-14.5); WHITE BLOOD COUNT 8.4 10^3/uL (4.0-10.0)
[2017-11-28 06:51] LABS: ALBUMIN 2.3 GM/DL (3.2-5.2); ANION GAP 12 MEQ/L (8-16); BLOOD UREA NITROGEN 30 MG/DL (7-18); CALCIUM LEVEL 8.2 MG/DL (8.8-10.2); CARBON DIOXIDE LEVEL 25 MEQ/L (21-32); CHLORIDE LEVEL 95 MEQ/L (98-107); CREATININE FOR GFR 4.16 MG/DL (0.70-1.30); GLUCOSE, FASTING 129 MG/DL (70-100); MAGNESIUM LEVEL 1.8 MG/DL (1.8-2.4); PHOSPHORUS LEVEL 5.9 MG/DL (2.5-4.9); POTASSIUM SERUM 4.3 MEQ/L (3.5-5.1); SODIUM LEVEL 132 MEQ/L (136-145)
[2017-11-28] MEDS: PROPRANOLOL 20 MG TAB PO ×2 (09:00→20:18)
[2017-11-28] MEDS: ASCORBIC ACID 500 MG TAB PO ×2 (09:38→20:13)
[2017-11-28] MEDS: FAMOTIDINE 20 MG TAB PO ×2 (09:38→20:19)
[2017-11-28] MEDS: PANTOPRAZOLE 40MG TAB (PROTONIX) PO ×2 (09:38→20:17)
[2017-11-28] MEDS: MULTIVITAMINS/MINERALS THERAP 1 TAB PO (09:38)
[2017-11-28] MEDS: NYSTATIN 100,000 UNITS/GM TOPICAL PWD 15 GM TOP ×2 (09:38→20:19)
[2017-11-28] MEDS: LISINOPRIL 10 MG TAB PO ×2 (09:39→20:19)
[2017-11-28] MEDS: PRAVASTATIN 20 MG TAB PO (20:13)
[2017-11-28] MEDS: LATANOPROST 0.005% OPHTH SOLN 2.5 ML OU (20:13)
[2017-11-28] MEDS: FUROSEMIDE 40 MG TAB PO (20:17)
[2017-11-28] MEDS: clonazePAM 0.5 MG TAB PO (20:17)
[2017-11-28] MEDS: MINOXIDIL 2.5 MG TAB PO (20:19)
[2017-11-28] MEDS: **NOTE PATIENT COMMENT** MISC XX (20:19)
[2017-11-29] MEDS: NORCO, ANEXSIA 5/325MG TABLET (HYDROcodone/ACETAMINOPHEN) PO ×4 (02:32→21:50)
[2017-11-29] MEDS: SLF 3 ML SYR IV ×2 (05:01→14:09)
[2017-11-29] MEDS: NYSTATIN 100,000 UNITS/GM TOPICAL PWD 15 GM TOP ×2 (05:54→21:00)
[2017-11-29] MEDS: PANTOPRAZOLE 40MG TAB (PROTONIX) PO ×2 (05:54→20:57)
[2017-11-29] MEDS: LISINOPRIL 10 MG TAB PO ×2 (05:55→20:58)
[2017-11-29] MEDS: PROPRANOLOL 20 MG TAB PO ×2 (05:55→20:59)
[2017-11-29] MEDS: ASCORBIC ACID 500 MG TAB PO ×2 (05:55→21:00)
[2017-11-29] MEDS: MULTIVITAMINS/MINERALS THERAP 1 TAB PO (05:55)
[2017-11-29] MEDS: FAMOTIDINE 20 MG TAB PO ×2 (05:55→20:57)
[2017-11-29] MEDS: **NOTE PATIENT COMMENT** MISC XX (20:51)
[2017-11-29] MEDS: clonazePAM 0.5 MG TAB PO (20:59)
[2017-11-29] MEDS: LATANOPROST 0.005% OPHTH SOLN 2.5 ML OU (21:00)
[2017-11-29] MEDS: FUROSEMIDE 40 MG TAB PO (21:00)
[2017-11-29] MEDS: PRAVASTATIN 20 MG TAB PO (21:00)
[2017-11-29] MEDS: MINOXIDIL 2.5 MG TAB PO (21:00)
[2017-11-30] MEDS: NORCO, ANEXSIA 5/325MG TABLET (HYDROcodone/ACETAMINOPHEN) PO ×2 (03:53→22:02)
[2017-11-30] MEDS: LISINOPRIL 10 MG TAB PO ×2 (08:52→22:01)
[2017-11-30] MEDS: PROPRANOLOL 20 MG TAB PO ×2 (08:52→22:03)
[2017-11-30] MEDS: MULTIVITAMINS/MINERALS THERAP 1 TAB PO (08:52)
[2017-11-30] MEDS: FAMOTIDINE 20 MG TAB PO ×2 (08:52→21:59)
[2017-11-30] MEDS: ASCORBIC ACID 500 MG TAB PO ×2 (08:52→21:59)
[2017-11-30] MEDS: PANTOPRAZOLE 40MG TAB (PROTONIX) PO ×2 (08:52→22:00)
[2017-11-30] MEDS: NYSTATIN 100,000 UNITS/GM TOPICAL PWD 15 GM TOP ×2 (08:53→22:02)
[2017-11-30] MEDS: **NOTE PATIENT COMMENT** MISC XX (21:00)
[2017-11-30] MEDS: FUROSEMIDE 40 MG TAB PO (21:59)
[2017-11-30] MEDS: clonazePAM 0.5 MG TAB PO (21:59)
[2017-11-30] MEDS: PRAVASTATIN 20 MG TAB PO (21:59)
[2017-11-30] MEDS: MINOXIDIL 2.5 MG TAB PO (22:00)
[2017-11-30] MEDS: LATANOPROST 0.005% OPHTH SOLN 2.5 ML OU (22:02)
[2017-12-01] MEDS: PROPRANOLOL 20 MG TAB PO ×2 (06:05→20:23)
[2017-12-01] MEDS: PANTOPRAZOLE 40MG TAB (PROTONIX) PO ×2 (06:05→20:24)
[2017-12-01] MEDS: ASCORBIC ACID 500 MG TAB PO ×2 (06:05→20:23)
[2017-12-01] MEDS: MULTIVITAMINS/MINERALS THERAP 1 TAB PO (06:05)
[2017-12-01] MEDS: FAMOTIDINE 20 MG TAB PO ×2 (06:06→20:23)
[2017-12-01] MEDS: LISINOPRIL 10 MG TAB PO ×2 (06:06→20:24)
[2017-12-01] MEDS: NORCO, ANEXSIA 5/325MG TABLET (HYDROcodone/ACETAMINOPHEN) PO ×3 (06:07→20:25)
[2017-12-01 06:43] LABS: HEMATOCRIT 30.6 % (42.0-52.0); MEAN CORPUSCULAR HEMOGLOBIN 30.1 pg (27.0-33.0); MEAN CORPUSCULAR HGB CONC 32.7 g/dl (32.0-36.5); MEAN CORPUSCULAR VOLUME 92.2 fl (80.0-96.0); PLATELET COUNT, AUTOMATED 156 10^3/uL (150-450); RED BLOOD COUNT 3.32 10^6/uL (4.30-6.10); RED CELL DISTRIBUTION WIDTH 18.1 % (11.5-14.5); WHITE BLOOD COUNT 5.4 10^3/uL (4.0-10.0)
[2017-12-01 06:52] LABS: ALBUMIN 2.2 GM/DL (3.2-5.2); ANION GAP 18 MEQ/L (8-16); BLOOD UREA NITROGEN 39 MG/DL (7-18); CALCIUM LEVEL 8.4 MG/DL (8.8-10.2); CARBON DIOXIDE LEVEL 20 MEQ/L (21-32); CHLORIDE LEVEL 99 MEQ/L (98-107); CREATININE FOR GFR 4.27 MG/DL (0.70-1.30); GLOMERULAR FILTRATION RATE 14.6 (>42); GLUCOSE, FASTING 133 MG/DL (70-100); MAGNESIUM LEVEL 2.1 MG/DL (1.8-2.4); PHOSPHORUS LEVEL 6.4 MG/DL (2.5-4.9); POTASSIUM SERUM 4.4 MEQ/L (3.5-5.1); SODIUM LEVEL 137 MEQ/L (136-145)
[2017-12-01] MEDS: NYSTATIN 100,000 UNITS/GM TOPICAL PWD 15 GM TOP ×2 (07:55→20:24)
[2017-12-01] MEDS: FUROSEMIDE 40 MG TAB PO (20:23)
[2017-12-01] MEDS: MINOXIDIL 2.5 MG TAB PO (20:23)
[2017-12-01] MEDS: PRAVASTATIN 20 MG TAB PO (20:23)
[2017-12-01] MEDS: **NOTE PATIENT COMMENT** MISC XX (20:24)
[2017-12-01] MEDS: clonazePAM 0.5 MG TAB PO (20:24)
[2017-12-01] MEDS: LATANOPROST 0.005% OPHTH SOLN 2.5 ML OU (20:24)
[2017-12-02] MEDS: FAMOTIDINE 20 MG TAB PO ×2 (08:51→21:30)
[2017-12-02] MEDS: ASCORBIC ACID 500 MG TAB PO ×2 (08:51→21:31)
[2017-12-02] MEDS: MULTIVITAMINS/MINERALS THERAP 1 TAB PO (08:51)
[2017-12-02] MEDS: PANTOPRAZOLE 40MG TAB (PROTONIX) PO ×2 (08:51→21:31)
[2017-12-02] MEDS: NORCO, ANEXSIA 5/325MG TABLET (HYDROcodone/ACETAMINOPHEN) PO ×2 (08:53→18:29)
[2017-12-02] MEDS: LISINOPRIL 10 MG TAB PO ×2 (08:53→21:31)
[2017-12-02] MEDS: NYSTATIN 100,000 UNITS/GM TOPICAL PWD 15 GM TOP ×3 (09:00→21:32)
[2017-12-02] MEDS: PROPRANOLOL 20 MG TAB PO ×2 (09:47→21:30)
[2017-12-02] MEDS: **NOTE PATIENT COMMENT** MISC XX (21:00)
[2017-12-02] MEDS: clonazePAM 0.5 MG TAB PO (21:30)
[2017-12-02] MEDS: MINOXIDIL 2.5 MG TAB PO (21:31)
[2017-12-02] MEDS: PRAVASTATIN 20 MG TAB PO (21:31)
[2017-12-02] MEDS: LATANOPROST 0.005% OPHTH SOLN 2.5 ML OU (21:32)
[2017-12-02] MEDS: FUROSEMIDE 40 MG TAB PO (21:32)
[2017-12-03] MEDS: NORCO, ANEXSIA 5/325MG TABLET (HYDROcodone/ACETAMINOPHEN) PO ×4 (00:58→21:58)
[2017-12-03] MEDS: FAMOTIDINE 20 MG TAB PO ×2 (06:00→21:59)
[2017-12-03] MEDS: ASCORBIC ACID 500 MG TAB PO ×2 (06:00→21:59)
[2017-12-03] MEDS: PANTOPRAZOLE 40MG TAB (PROTONIX) PO ×2 (06:00→22:00)
[2017-12-03] MEDS: MULTIVITAMINS/MINERALS THERAP 1 TAB PO (06:00)
[2017-12-03] MEDS: PROPRANOLOL 20 MG TAB PO ×2 (06:01→21:59)
[2017-12-03] MEDS: LISINOPRIL 10 MG TAB PO ×2 (06:01→22:00)
[2017-12-03] MEDS: NYSTATIN 100,000 UNITS/GM TOPICAL PWD 15 GM TOP ×2 (06:02→21:58)
[2017-12-03] MEDS: **NOTE PATIENT COMMENT** MISC XX (21:00)
[2017-12-03] MEDS: LATANOPROST 0.005% OPHTH SOLN 2.5 ML OU (21:58)
[2017-12-03] MEDS: clonazePAM 0.5 MG TAB PO (21:59)
[2017-12-03] MEDS: MINOXIDIL 2.5 MG TAB PO (21:59)
[2017-12-03] MEDS: FUROSEMIDE 40 MG TAB PO (22:00)
[2017-12-03] MEDS: PRAVASTATIN 20 MG TAB PO (22:00)
[2017-12-04] MEDS: NORCO, ANEXSIA 5/325MG TABLET (HYDROcodone/ACETAMINOPHEN) PO ×3 (04:30→21:25)
[2017-12-04 06:23] LABS: HEMATOCRIT 30.5 % (42.0-52.0); HEMOGLOBIN 9.7 g/dl (13.5-17.5); MEAN CORPUSCULAR HGB CONC 31.8 g/dl (32.0-36.5); MEAN CORPUSCULAR VOLUME 94.4 fl (80.0-96.0); PLATELET COUNT, AUTOMATED 130 10^3/uL (150-450); RED BLOOD COUNT 3.23 10^6/uL (4.30-6.10); RED CELL DISTRIBUTION WIDTH 17.9 % (11.5-14.5); WHITE BLOOD COUNT 4.9 10^3/uL (4.0-10.0)
[2017-12-04 06:43] LABS: ALBUMIN 2.1 GM/DL (3.2-5.2); ANION GAP 12 MEQ/L (8-16); BLOOD UREA NITROGEN 19 MG/DL (7-18); CALCIUM LEVEL 8.3 MG/DL (8.8-10.2); CARBON DIOXIDE LEVEL 24 MEQ/L (21-32); CHLORIDE LEVEL 100 MEQ/L (98-107); CREATININE FOR GFR 2.93 MG/DL (0.70-1.30); GLOMERULAR FILTRATION RATE 22.6 (>42); GLUCOSE, FASTING 169 MG/DL (70-100); PHOSPHORUS LEVEL 3.6 MG/DL (2.5-4.9); POTASSIUM SERUM 3.9 MEQ/L (3.5-5.1); SODIUM LEVEL 136 MEQ/L (136-145)
[2017-12-04] MEDS: PROPRANOLOL 20 MG TAB PO ×2 (08:22→21:22)
[2017-12-04] MEDS: ASCORBIC ACID 500 MG TAB PO (08:22)
[2017-12-04] MEDS: FAMOTIDINE 20 MG TAB PO ×2 (08:22→21:21)
[2017-12-04] MEDS: LISINOPRIL 10 MG TAB PO ×2 (08:22→21:22)
[2017-12-04] MEDS: PANTOPRAZOLE 40MG TAB (PROTONIX) PO ×2 (08:23→21:22)
[2017-12-04] MEDS: MULTIVITAMINS/MINERALS THERAP 1 TAB PO (08:23)
[2017-12-04] MEDS: NYSTATIN 100,000 UNITS/GM TOPICAL PWD 15 GM TOP ×2 (08:23→21:23)
[2017-12-04] MEDS: **NOTE PATIENT COMMENT** MISC XX (21:00)
[2017-12-04] MEDS: MINOXIDIL 2.5 MG TAB PO (21:20)
[2017-12-04] MEDS: PRAVASTATIN 20 MG TAB PO (21:21)
[2017-12-04] MEDS: clonazePAM 0.5 MG TAB PO (21:22)
[2017-12-04] MEDS: FUROSEMIDE 40 MG TAB PO (21:22)
[2017-12-04] MEDS: LATANOPROST 0.005% OPHTH SOLN 2.5 ML OU (21:23)
[2017-12-05] MEDS: FAMOTIDINE 20 MG TAB PO ×2 (08:58→20:30)
[2017-12-05] MEDS: ASCORBIC ACID 500 MG TAB PO (08:59)
[2017-12-05] MEDS: MULTIVITAMINS/MINERALS THERAP 1 TAB PO (08:59)
[2017-12-05] MEDS: LISINOPRIL 10 MG TAB PO ×2 (08:59→20:31)
[2017-12-05] MEDS: PANTOPRAZOLE 40MG TAB (PROTONIX) PO ×2 (08:59→20:31)
[2017-12-05] MEDS: NORCO, ANEXSIA 5/325MG TABLET (HYDROcodone/ACETAMINOPHEN) PO ×2 (08:59→16:28)
[2017-12-05] MEDS: PROPRANOLOL 20 MG TAB PO ×2 (09:03→20:30)
[2017-12-05] MEDS: NYSTATIN 100,000 UNITS/GM TOPICAL PWD 15 GM TOP ×2 (09:03→20:32)
[2017-12-05] MEDS: MINOXIDIL 2.5 MG TAB PO (20:30)
[2017-12-05] MEDS: clonazePAM 0.5 MG TAB PO (20:30)
[2017-12-05] MEDS: FUROSEMIDE 40 MG TAB PO (20:31)
[2017-12-05] MEDS: PRAVASTATIN 20 MG TAB PO (20:31)
[2017-12-05] MEDS: **NOTE PATIENT COMMENT** MISC XX (20:32)
[2017-12-05] MEDS: LATANOPROST 0.005% OPHTH SOLN 2.5 ML OU (20:32)
[2017-12-05] MEDS: ACETAMINOPHEN TAB 650MG DOSE (2X325MG) PO (20:33)
[2017-12-06] MEDS: NORCO, ANEXSIA 5/325MG TABLET (HYDROcodone/ACETAMINOPHEN) PO ×4 (00:50→22:40)
[2017-12-06] MEDS: PROPRANOLOL 20 MG TAB PO ×2 (06:37→21:03)
[2017-12-06] MEDS: FAMOTIDINE 20 MG TAB PO ×2 (06:37→21:03)
[2017-12-06] MEDS: NYSTATIN 100,000 UNITS/GM TOPICAL PWD 15 GM TOP ×2 (06:38→21:02)
[2017-12-06] MEDS: LISINOPRIL 10 MG TAB PO ×2 (06:38→21:04)
[2017-12-06] MEDS: PANTOPRAZOLE 40MG TAB (PROTONIX) PO ×2 (06:38→21:03)
[2017-12-06] MEDS: ASCORBIC ACID 500 MG TAB PO (06:38)
[2017-12-06] MEDS: MULTIVITAMINS/MINERALS THERAP 1 TAB PO (06:38)
[2017-12-06] MEDS: MINOXIDIL 2.5 MG TAB PO (21:03)
[2017-12-06] MEDS: clonazePAM 0.5 MG TAB PO (21:03)
[2017-12-06] MEDS: **NOTE PATIENT COMMENT** MISC XX (21:04)
[2017-12-06] MEDS: LATANOPROST 0.005% OPHTH SOLN 2.5 ML OU (21:04)
[2017-12-06] MEDS: PRAVASTATIN 20 MG TAB PO (21:04)
[2017-12-06] MEDS: FUROSEMIDE 40 MG TAB PO (21:04)
[2017-12-07] MEDS: NORCO, ANEXSIA 5/325MG TABLET (HYDROcodone/ACETAMINOPHEN) PO ×3 (06:02→23:18)
[2017-12-07 06:41] LABS: HEMATOCRIT 34.4 % (42.0-52.0); HEMOGLOBIN 11.1 g/dl (13.5-17.5); MEAN CORPUSCULAR HEMOGLOBIN 29.8 pg (27.0-33.0); MEAN CORPUSCULAR HGB CONC 32.3 g/dl (32.0-36.5); MEAN CORPUSCULAR VOLUME 92.5 fl (80.0-96.0); PLATELET COUNT, AUTOMATED 177 10^3/uL (150-450); RED BLOOD COUNT 3.72 10^6/uL (4.30-6.10); WHITE BLOOD COUNT 5.3 10^3/uL (4.0-10.0)
[2017-12-07 07:07] LABS: ALBUMIN 2.5 GM/DL (3.2-5.2); ANION GAP 9 MEQ/L (8-16); BLOOD UREA NITROGEN 21 MG/DL (7-18); CALCIUM LEVEL 8.4 MG/DL (8.8-10.2); CARBON DIOXIDE LEVEL 28 MEQ/L (21-32); CHLORIDE LEVEL 99 MEQ/L (98-107); CREATININE FOR GFR 3.27 MG/DL (0.70-1.30); GLOMERULAR FILTRATION RATE 19.9 (>42); GLUCOSE, FASTING 109 MG/DL (70-100); MAGNESIUM LEVEL 1.9 MG/DL (1.8-2.4); PHOSPHORUS LEVEL 4.5 MG/DL (2.5-4.9); POTASSIUM SERUM 4.1 MEQ/L (3.5-5.1); SODIUM LEVEL 136 MEQ/L (136-145)
[2017-12-07] MEDS: LISINOPRIL 10 MG TAB PO ×2 (09:01→22:04)
[2017-12-07] MEDS: MULTIVITAMINS/MINERALS THERAP 1 TAB PO (09:01)
[2017-12-07] MEDS: ASCORBIC ACID 500 MG TAB PO (09:02)
[2017-12-07] MEDS: NYSTATIN 100,000 UNITS/GM TOPICAL PWD 15 GM TOP ×2 (09:02→22:05)
[2017-12-07] MEDS: FAMOTIDINE 20 MG TAB PO ×2 (09:02→22:03)
[2017-12-07] MEDS: PANTOPRAZOLE 40MG TAB (PROTONIX) PO ×2 (09:02→22:05)
[2017-12-07] MEDS: PROPRANOLOL 20 MG TAB PO ×2 (09:02→22:04)
[2017-12-07] MEDS: **NOTE PATIENT COMMENT** MISC XX (21:00)
[2017-12-07] MEDS: PRAVASTATIN 20 MG TAB PO (22:03)
[2017-12-07] MEDS: MINOXIDIL 2.5 MG TAB PO (22:03)
[2017-12-07] MEDS: clonazePAM 0.5 MG TAB PO (22:04)
[2017-12-07] MEDS: FUROSEMIDE 40 MG TAB PO (22:05)
[2017-12-07] MEDS: LATANOPROST 0.005% OPHTH SOLN 2.5 ML OU (22:06)
[2017-12-08] MEDS: PANTOPRAZOLE 40MG TAB (PROTONIX) PO ×2 (06:15→22:00)
[2017-12-08] MEDS: ASCORBIC ACID 500 MG TAB PO (06:15)
[2017-12-08] MEDS: FAMOTIDINE 20 MG TAB PO ×2 (06:15→22:00)
[2017-12-08] MEDS: LISINOPRIL 10 MG TAB PO ×2 (06:16→22:00)
[2017-12-08] MEDS: MULTIVITAMINS/MINERALS THERAP 1 TAB PO (06:16)
[2017-12-08] MEDS: NORCO, ANEXSIA 5/325MG TABLET (HYDROcodone/ACETAMINOPHEN) PO ×2 (06:17→22:00)
[2017-12-08] MEDS: PROPRANOLOL 20 MG TAB PO ×2 (06:17→21:59)
[2017-12-08 06:36] LABS: HEMATOCRIT 32.4 % (42.0-52.0); HEMOGLOBIN 10.5 g/dl (13.5-17.5); MEAN CORPUSCULAR HEMOGLOBIN 29.8 pg (27.0-33.0); MEAN CORPUSCULAR HGB CONC 32.4 g/dl (32.0-36.5); PLATELET COUNT, AUTOMATED 155 10^3/uL (150-450); RED BLOOD COUNT 3.52 10^6/uL (4.30-6.10); RED CELL DISTRIBUTION WIDTH 17.7 % (11.5-14.5); WHITE BLOOD COUNT 4.5 10^3/uL (4.0-10.0)
[2017-12-08 07:02] LABS: ANION GAP 12 MEQ/L (8-16); BLOOD UREA NITROGEN 30 MG/DL (7-18); CALCIUM LEVEL 7.8 MG/DL (8.8-10.2); CARBON DIOXIDE LEVEL 24 MEQ/L (21-32); CHLORIDE LEVEL 100 MEQ/L (98-107); CREATININE FOR GFR 4.32 MG/DL (0.70-1.30); GLOMERULAR FILTRATION RATE 14.4 (>42); GLUCOSE, FASTING 102 MG/DL (70-100); POTASSIUM SERUM 4.3 MEQ/L (3.5-5.1); SODIUM LEVEL 136 MEQ/L (136-145)
[2017-12-08] MEDS: NYSTATIN 100,000 UNITS/GM TOPICAL PWD 15 GM TOP ×2 (09:00→22:02)
[2017-12-08] MEDS: **NOTE PATIENT COMMENT** MISC XX (21:00)
[2017-12-08] MEDS: clonazePAM 0.5 MG TAB PO (21:59)
[2017-12-08] MEDS: PRAVASTATIN 20 MG TAB PO (22:00)
[2017-12-08] MEDS: FUROSEMIDE 40 MG TAB PO (22:01)
[2017-12-08] MEDS: MINOXIDIL 2.5 MG TAB PO (22:01)
[2017-12-08] MEDS: LATANOPROST 0.005% OPHTH SOLN 2.5 ML OU (22:02)
[2017-12-09] MEDS: NORCO, ANEXSIA 5/325MG TABLET (HYDROcodone/ACETAMINOPHEN) PO (04:05)
[2017-12-09] MEDS: ASCORBIC ACID 500 MG TAB PO (08:33)
[2017-12-09] MEDS: LISINOPRIL 10 MG TAB PO (08:33)
[2017-12-09] MEDS: MULTIVITAMINS/MINERALS THERAP 1 TAB PO (08:33)
[2017-12-09] MEDS: PROPRANOLOL 20 MG TAB PO (08:34)
[2017-12-09] MEDS: FAMOTIDINE 20 MG TAB PO (08:34)
[2017-12-09] MEDS: NYSTATIN 100,000 UNITS/GM TOPICAL PWD 15 GM TOP (08:34)
[2017-12-09] MEDS: PANTOPRAZOLE 40MG TAB (PROTONIX) PO (08:34)
== END 2017-12-09 15:25 | disposition home health service (06) | DRG 682 ==
LOC: M PCU 11-08 02:38 → M MSPAV 11-18 15:23
PROC: 0W3P8ZZ Control Bleeding in Gastrointestinal Tract, Via Natural or Artificial Opening Endoscopic (ICD-10-PCS; principal; 2017-11-09 16:59)
PROC: 0DB78ZX Excision of Stomach, Pylorus, Via Natural or Artificial Opening Endoscopic, Diagnostic (ICD-10-PCS; 2017-11-09 16:59)
PROC: 0W9G3ZZ Drainage of Peritoneal Cavity, Percutaneous Approach (ICD-10-PCS; 2017-11-09 18:10)
PROC: 0W9G3ZZ Drainage of Peritoneal Cavity, Percutaneous Approach (ICD-10-PCS; 2017-11-09 18:10)
PROC: 0W9G3ZZ Drainage of Peritoneal Cavity, Percutaneous Approach (ICD-10-PCS; 2017-11-09 18:10)
PROC: 0W9G3ZZ Drainage of Peritoneal Cavity, Percutaneous Approach (ICD-10-PCS; 2017-11-09 18:10)
PROC: 0W9G3ZZ Drainage of Peritoneal Cavity, Percutaneous Approach (ICD-10-PCS; 2017-11-09 18:10)
PROC: 5A1D70Z Performance of Urinary Filtration, Intermittent, Less than 6 Hours Per Day (ICD-10-PCS; 2017-11-09 18:10)
PROC: 30233N1 Transfusion of Nonautologous Red Blood Cells into Peripheral Vein, Percutaneous Approach (ICD-10-PCS; 2017-11-09 18:10)
PROC: 30233J1 Transfusion of Nonautologous Serum Albumin into Peripheral Vein, Percutaneous Approach (ICD-10-PCS; 2017-11-09 18:10)
DX: I12.0 Hypertensive chronic kidney disease with stage 5 chronic kidney disease or end stage renal disease (principal); N18.6 End stage renal disease; K31.811 Angiodysplasia of stomach and duodenum with bleeding; J18.9 Pneumonia, unspecified organism; R18.8 Other ascites; D62 Acute posthemorrhagic anemia; E87.1 Hypo-osmolality and hyponatremia; K52.9 Noninfective gastroenteritis and colitis, unspecified; K74.60 Unspecified cirrhosis of liver; K31.89 Other diseases of stomach and duodenum; D63.1 Anemia in chronic kidney disease; I73.9 Peripheral vascular disease, unspecified; E11.22 Type 2 diabetes mellitus with diabetic chronic kidney disease; K21.9 Gastro-esophageal reflux disease without esophagitis; E78.5 Hyperlipidemia, unspecified; Z85.51 Personal history of malignant neoplasm of bladder; E87.5 Hyperkalemia; Z89.511 Acquired absence of right leg below knee; Z89.512 Acquired absence of left leg below knee; Z79.82 Long term (current) use of aspirin; Z79.899 Other long term (current) drug therapy; Z88.1 Allergy status to other antibiotic agents; Z99.2 Dependence on renal dialysis

== ENCOUNTER → 2017-12-14 | Outpatient (CLI) | payer MEDICARE ==
[2017-12-14 10:44] LABS: TYPE AND SCREEN 1
== END ==
LOC: M RADPRO 11:27
DX: N18.6 End stage renal disease (principal); R18.8 Other ascites; K74.69 Other cirrhosis of liver; Z79.899 Other long term (current) drug therapy; Z88.8 Allergy status to other drugs, medicaments and biological substances; Z89.511 Acquired absence of right leg below knee; Z89.512 Acquired absence of left leg below knee; Z97.13 Presence of artificial right leg (complete) (partial); Z97.14 Presence of artificial left leg (complete) (partial); Z87.891 Personal history of nicotine dependence
CPT/HCPCS: 49083

== ENCOUNTER → 2017-12-21 | Outpatient (CLI) | payer MEDICARE ==
[2017-12-21 10:07] LABS: TYPE AND SCREEN 1
== END ==
LOC: M RADPRO 10:48
DX: N18.6 End stage renal disease (principal); R18.8 Other ascites; K74.69 Other cirrhosis of liver; Z79.82 Long term (current) use of aspirin; Z79.891 Long term (current) use of opiate analgesic; Z79.899 Other long term (current) drug therapy; Z88.8 Allergy status to other drugs, medicaments and biological substances; Z87.891 Personal history of nicotine dependence; Z85.51 Personal history of malignant neoplasm of bladder
CPT/HCPCS: 49083

== ENCOUNTER → 2017-12-28 | Outpatient (CLI) | payer MEDICARE ==
[2017-12-28 09:07] LABS: TYPE AND SCREEN 1
== END ==
LOC: M RADPRO 11:25
DX: R18.8 Other ascites (principal); N18.6 End stage renal disease; K74.69 Other cirrhosis of liver
CPT/HCPCS: 49083

== ENCOUNTER → 2018-01-04 | Outpatient (CLI) | payer MEDICARE ==
[2018-01-04 08:42] LABS: TYPE AND SCREEN 1
== END ==
LOC: M RADPRO 10:53
DX: N18.6 End stage renal disease (principal); R18.8 Other ascites; K74.69 Other cirrhosis of liver; Z79.82 Long term (current) use of aspirin; Z79.891 Long term (current) use of opiate analgesic; Z79.899 Other long term (current) drug therapy; Z88.8 Allergy status to other drugs, medicaments and biological substances; Z87.891 Personal history of nicotine dependence; Z90.6 Acquired absence of other parts of urinary tract
CPT/HCPCS: 49083

== ENCOUNTER → 2018-01-11 | Outpatient (CLI) | payer MEDICARE | LOC: M RADPRO 11:13 | DX: N18.6 End stage renal disease (principal); R18.8 Other ascites; K74.69 Other cirrhosis of liver | CPT/HCPCS: 49083 ==

== ENCOUNTER → 2018-01-18 | Outpatient (CLI) | payer MEDICARE | LOC: M RADPRO 10:53 | DX: N18.6 End stage renal disease (principal); R18.8 Other ascites; K74.69 Other cirrhosis of liver; I12.0 Hypertensive chronic kidney disease with stage 5 chronic kidney disease or end stage renal disease; E78.00 Pure hypercholesterolemia, unspecified; E11.9 Type 2 diabetes mellitus without complications; Z79.82 Long term (current) use of aspirin; Z79.891 Long term (current) use of opiate analgesic; Z79.899 Other long term (current) drug therapy; Z88.8 Allergy status to other drugs, medicaments and biological substances; Z87.19 Personal history of other diseases of the digestive system; Z85.51 Personal history of malignant neoplasm of bladder; Z87.891 Personal history of nicotine dependence | CPT/HCPCS: 49083 ==

== ENCOUNTER 2018-01-21 10:57 | Inpatient (IN) | payer MEDICARE ==
[2018-01-21 12:18] LABS: BASO % 0.4 % (0.0-1.0); EOS # 0.5 10^3/uL (0.0-0.50); HEMATOCRIT 37.8 % (42.0-52.0); IMMATURE GRANULOCYTE % 0.7 % (0-3.0); LYMPH # 0.5 10^3/uL (1.5-4.5); MEAN CORPUSCULAR HEMOGLOBIN 29.5 pg (27.0-33.0); MEAN CORPUSCULAR HGB CONC 31.7 g/dl (32.0-36.5); MEAN CORPUSCULAR VOLUME 92.9 fl (80.0-96.0); MONO # 0.6 10^3/uL (0.0-0.8); MONO % 7.7 % (0.0-5.0); NEUTROPHILS % 79.2 % (36.0-66.0); PLATELET COUNT, AUTOMATED 130 10^3/uL (150-450); RED BLOOD COUNT 4.07 10^6/uL (4.30-6.10); RED CELL DISTRIBUTION WIDTH 15.8 % (11.5-14.5); WHITE BLOOD COUNT 7.5 10^3/uL (4.0-10.0)
[2018-01-21 13:03] LABS: ALBUMIN 2.4 GM/DL (3.2-5.2); ALBUMIN/GLOBULIN RATIO 0.62 (1.00-1.93); ALKALINE PHOSPHATASE 190 U/L (45-117); ALT/SGPT 36 U/L (12-78); ANION GAP 14 MEQ/L (8-16); AST/SGOT 44 U/L (7-37); BILIRUBIN,DIRECT 0.3 MG/DL (0.0-0.2); BILIRUBIN,TOTAL 0.7 MG/DL (0.2-1.0); BLOOD UREA NITROGEN 69 MG/DL (7-18); CALCIUM LEVEL 8.1 MG/DL (8.8-10.2); CARBON DIOXIDE LEVEL 23 MEQ/L (21-32); CHLORIDE LEVEL 102 MEQ/L (98-107); CPK CREATINE PHOSPHOKINASE 319 U/L (39-308); CREATININE FOR GFR 7.58 MG/DL (0.70-1.30); GLOMERULAR FILTRATION RATE 7.5 (>42); GLUCOSE, FASTING 111 MG/DL (70-100); LIPASE 182 U/L (73-393); MB/CK RELATIVE INDEX 5.24 (< OR =4); NT-PRO BNP 23566 PG/ML (<125); SODIUM LEVEL 139 MEQ/L (136-145); TOTAL PROTEIN 6.3 GM/DL (6.4-8.2); TROPONIN I 0.04 NG/ML (< 0.10)
[2018-01-21] MEDS ORDERED: CALCIUM GLUCONATE 1,000MG/10ML VIAL (100MG/ML) (J0610) As Ordered (13:08)
[2018-01-21] MEDS: HumuLIN R (REGULAR) INSULIN (NovoLIN R) **100U/ML** PER UNIT IV (13:15)
[2018-01-21] MEDS: DEXTROSE 50% 50 ML SYRINGE IV (13:18)
[2018-01-21] MEDS: SOD POLYSTYRENE SULFONATE SUSP 15 GM/60 ML UD PO (13:18)
[2018-01-21] MEDS: CALCIUM GLUCONATE 1,000 MG in D5W MINI-BAG PLUS 100 ML IV (13:19)
[2018-01-21] MEDS: ALBUTEROL SULFATE 2.5 MG/0.5 ML INH NEB SOLN NEB (13:19)
[2018-01-21] MEDS: FUROSEMIDE 40 MG/4 ML VIAL (J1940) IV (13:19)
[2018-01-21] MEDS: ALBUTEROL SULFATE 2.5 MG/0.5 ML INH NEB SOLN INH (13:36)
[2018-01-21] MEDS: hydrALAZINE INJ 20 MG/ML VIAL IV (13:46)
[2018-01-21] MEDS ORDERED: ACETAMINOPHEN TAB 650MG DOSE (2X325MG) PO (15:00)
[2018-01-21] MEDS ORDERED: LIDOCAINE 5% (LIDODERM) PATCH TD (15:00)
[2018-01-21] MEDS ORDERED: LOPERAMIDE 2 MG CAP PO (15:00)
[2018-01-21] MEDS ORDERED: ONDANSETRON 4MG/2ML VIAL (J2405) IV (15:45)
[2018-01-21] MEDS ORDERED: clonazePAM 0.5 MG TAB PO (16:15)
[2018-01-21] MEDS ORDERED: DICYCLOMINE 10 MG CAP PO (17:30)
[2018-01-21 18:34] LABS: ANION GAP 13 MEQ/L (8-16); BLOOD UREA NITROGEN 23 MG/DL (7-18); CALCIUM LEVEL 8.2 MG/DL (8.8-10.2); CARBON DIOXIDE LEVEL 25 MEQ/L (21-32); CHLORIDE LEVEL 101 MEQ/L (98-107); CREATININE FOR GFR 2.96 MG/DL (0.70-1.30); GLOMERULAR FILTRATION RATE 22.3 (>42); GLUCOSE, FASTING 97 MG/DL (70-100); POTASSIUM SERUM 3.3 MEQ/L (3.5-5.1); SODIUM LEVEL 139 MEQ/L (136-145)
[2018-01-21] MEDS: NORCO, ANEXSIA 5/325MG TABLET (HYDROcodone/ACETAMINOPHEN) PO (20:55)
[2018-01-21] MEDS: FAMOTIDINE 20 MG TAB PO (20:56)
[2018-01-21] MEDS: OMEGA-3 1000MG CAPSULE PO (20:56)
[2018-01-21] MEDS: clonazePAM 0.5 MG TAB PO (20:56)
[2018-01-21] MEDS: MINOXIDIL 2.5 MG TAB PO (20:56)
[2018-01-21] MEDS: LISINOPRIL 10 MG TAB PO (20:57)
[2018-01-21] MEDS: PANTOPRAZOLE 40MG TAB (PROTONIX) PO (20:57)
[2018-01-21] MEDS: FUROSEMIDE 40 MG TAB PO (20:57)
[2018-01-21] MEDS: HEPARIN SOD (PORCINE) 5000 UNITS/ML VIAL SQ (22:15)
[2018-01-22] MEDS: NORCO, ANEXSIA 5/325MG TABLET (HYDROcodone/ACETAMINOPHEN) PO ×3 (02:56→20:55)
[2018-01-22 05:39] LABS: HEMATOCRIT 33.3 % (42.0-52.0); HEMOGLOBIN 10.7 g/dl (13.5-17.5); MEAN CORPUSCULAR HEMOGLOBIN 28.9 pg (27.0-33.0); MEAN CORPUSCULAR HGB CONC 32.1 g/dl (32.0-36.5); PLATELET COUNT, AUTOMATED 114 10^3/uL (150-450); RED CELL DISTRIBUTION WIDTH 15.8 % (11.5-14.5); WHITE BLOOD COUNT 5.9 10^3/uL (4.0-10.0)
[2018-01-22 06:07] LABS: ALBUMIN 2.1 GM/DL (3.2-5.2); ALBUMIN/GLOBULIN RATIO 0.62 (1.00-1.93); ALKALINE PHOSPHATASE 152 U/L (45-117); ALT/SGPT 28 U/L (12-78); ANION GAP 11 MEQ/L (8-16); AST/SGOT 34 U/L (7-37); BILIRUBIN,DIRECT 0.2 MG/DL (0.0-0.2); BILIRUBIN,TOTAL 0.5 MG/DL (0.2-1.0); BLOOD UREA NITROGEN 39 MG/DL (7-18); CARBON DIOXIDE LEVEL 27 MEQ/L (21-32); CHLORIDE LEVEL 104 MEQ/L (98-107); CREATININE FOR GFR 5.02 MG/DL (0.70-1.30); GLOMERULAR FILTRATION RATE 12.1 (>42); GLUCOSE, FASTING 96 MG/DL (70-100); POTASSIUM SERUM 4.1 MEQ/L (3.5-5.1); SODIUM LEVEL 142 MEQ/L (136-145); TOTAL PROTEIN 5.5 GM/DL (6.4-8.2)
[2018-01-22] MEDS: HEPARIN SOD (PORCINE) 5000 UNITS/ML VIAL SQ ×3 (06:18→20:48)
[2018-01-22] MEDS: AZITHROMYCIN INJ 500 MG, VIAL MATE ADAPTER 1 EACH in D5W 250 ML IV (08:35)
[2018-01-22] MEDS: MULTIVITAMINS/MINERALS THERAP 1 TAB PO (08:35)
[2018-01-22] MEDS: ASCORBIC ACID 500 MG TAB PO (08:36)
[2018-01-22] MEDS: FAMOTIDINE 20 MG TAB PO ×2 (08:36→20:47)
[2018-01-22] MEDS: OMEGA-3 1000MG CAPSULE PO ×2 (08:36→20:47)
[2018-01-22] MEDS: PANTOPRAZOLE 40MG TAB (PROTONIX) PO ×2 (08:36→20:46)
[2018-01-22] MEDS: LISINOPRIL 10 MG TAB PO ×2 (08:36→20:49)
[2018-01-22] MEDS: ASPIRIN 81 MG ENTERIC TAB PO (08:36)
[2018-01-22] MEDS ORDERED: MAGNESIUM CHLORIDE 64 MG TABCR (SLO MAG) PO (09:00)
[2018-01-22 11:19] LABS: ANION GAP 15 MEQ/L (8-16); BLOOD UREA NITROGEN 43 MG/DL (7-18); CALCIUM LEVEL 7.8 MG/DL (8.8-10.2); CARBON DIOXIDE LEVEL 24 MEQ/L (21-32); CHLORIDE LEVEL 99 MEQ/L (98-107); CREATININE FOR GFR 5.47 MG/DL (0.70-1.30); GLUCOSE, FASTING 183 MG/DL (70-100); POTASSIUM SERUM 4.1 MEQ/L (3.5-5.1); SODIUM LEVEL 138 MEQ/L (136-145)
[2018-01-22] MEDS: MINOXIDIL 2.5 MG TAB PO (20:47)
[2018-01-22] MEDS: PRAVASTATIN 20 MG TAB PO (20:47)
[2018-01-22] MEDS: FUROSEMIDE 40 MG TAB PO (20:47)
[2018-01-22] MEDS: NYSTATIN 100,000 UNITS/GM TOPICAL PWD 15 GM TOP (20:48)
[2018-01-22] MEDS: clonazePAM 0.5 MG TAB PO (20:48)
[2018-01-23] MEDS ORDERED: LABETALOL HCL 100 MG/20 ML VIAL IV (00:45)
[2018-01-23] MEDS: LABETALOL HCL 100 MG/20 ML VIAL IV (00:53)
[2018-01-23 05:07] LABS: HEMATOCRIT 32.2 % (42.0-52.0); HEMOGLOBIN 10.3 g/dl (13.5-17.5); MEAN CORPUSCULAR HEMOGLOBIN 28.9 pg (27.0-33.0); MEAN CORPUSCULAR VOLUME 90.4 fl (80.0-96.0); PLATELET COUNT, AUTOMATED 111 10^3/uL (150-450); RED BLOOD COUNT 3.56 10^6/uL (4.30-6.10); RED CELL DISTRIBUTION WIDTH 15.4 % (11.5-14.5); WHITE BLOOD COUNT 4.8 10^3/uL (4.0-10.0)
[2018-01-23 05:34] LABS: ALKALINE PHOSPHATASE 162 U/L (45-117); ALT/SGPT 29 U/L (12-78); ANION GAP 12 MEQ/L (8-16); AST/SGOT 37 U/L (7-37); BLOOD UREA NITROGEN 51 MG/DL (7-18); CALCIUM LEVEL 7.8 MG/DL (8.8-10.2); CARBON DIOXIDE LEVEL 26 MEQ/L (21-32); CHLORIDE LEVEL 100 MEQ/L (98-107); CREATININE FOR GFR 6.08 MG/DL (0.70-1.30); GLOMERULAR FILTRATION RATE 9.7 (>42); GLUCOSE, FASTING 103 MG/DL (70-100); POTASSIUM SERUM 4.4 MEQ/L (3.5-5.1); SODIUM LEVEL 138 MEQ/L (136-145)
[2018-01-23 05:35] LABS: ALBUMIN/GLOBULIN RATIO 0.57 (1.00-1.93); BILIRUBIN,DIRECT 0.2 MG/DL (0.0-0.2); BILIRUBIN,TOTAL 0.5 MG/DL (0.2-1.0); MAGNESIUM LEVEL 1.8 MG/DL (1.8-2.4); TOTAL PROTEIN 5.5 GM/DL (6.4-8.2)
[2018-01-23] MEDS: HEPARIN SOD (PORCINE) 5000 UNITS/ML VIAL SQ (06:02)
[2018-01-23] MEDS: NORCO, ANEXSIA 5/325MG TABLET (HYDROcodone/ACETAMINOPHEN) PO (06:03)
[2018-01-23] MEDS: PANTOPRAZOLE 40MG TAB (PROTONIX) PO (08:10)
[2018-01-23] MEDS: OMEGA-3 1000MG CAPSULE PO (08:10)
[2018-01-23] MEDS: AZITHROMYCIN INJ 500 MG, VIAL MATE ADAPTER 1 EACH in D5W 250 ML IV (08:10)
[2018-01-23] MEDS: MULTIVITAMINS/MINERALS THERAP 1 TAB PO (08:10)
[2018-01-23] MEDS: FAMOTIDINE 20 MG TAB PO (08:11)
[2018-01-23] MEDS: ASCORBIC ACID 500 MG TAB PO (08:11)
[2018-01-23] MEDS: NYSTATIN 100,000 UNITS/GM TOPICAL PWD 15 GM TOP (08:11)
[2018-01-23] MEDS: LISINOPRIL 10 MG TAB PO (08:11)
[2018-01-23] MEDS: ASPIRIN 81 MG ENTERIC TAB PO (08:11)
== END 2018-01-23 13:35 | disposition home health service (06) | DRG 371 ==
LOC: M ED 10:57 → M ED INP 14:01 → M PCU 18:10
PROC: 5A1D70Z Performance of Urinary Filtration, Intermittent, Less than 6 Hours Per Day (ICD-10-PCS; principal; 2018-01-21)
DX: A04.0 Enteropathogenic Escherichia coli infection (principal); N18.6 End stage renal disease; I50.33 Acute on chronic diastolic (congestive) heart failure; R18.8 Other ascites; I13.2 Hypertensive heart and chronic kidney disease with heart failure and with stage 5 chronic kidney disease, or end stage renal disease; K76.6 Portal hypertension; K21.9 Gastro-esophageal reflux disease without esophagitis; D63.1 Anemia in chronic kidney disease; K74.60 Unspecified cirrhosis of liver; F41.9 Anxiety disorder, unspecified; E87.5 Hyperkalemia; H40.9 Unspecified glaucoma; I16.0 Hypertensive urgency; E78.5 Hyperlipidemia, unspecified; E11.22 Type 2 diabetes mellitus with diabetic chronic kidney disease; E11.51 Type 2 diabetes mellitus with diabetic peripheral angiopathy without gangrene; Z79.82 Long term (current) use of aspirin; Z79.891 Long term (current) use of opiate analgesic; Z79.899 Other long term (current) drug therapy; Z88.1 Allergy status to other antibiotic agents; Z99.2 Dependence on renal dialysis; Z95.828 Presence of other vascular implants and grafts; Z89.512 Acquired absence of left leg below knee; Z89.511 Acquired absence of right leg below knee; Z85.51 Personal history of malignant neoplasm of bladder; Z93.6 Other artificial openings of urinary tract status

== ENCOUNTER → 2018-01-25 | Outpatient (CLI) | payer MEDICARE | LOC: M RADPRO 11:16 | DX: N18.6 End stage renal disease (principal); R18.8 Other ascites; K74.69 Other cirrhosis of liver; Z79.82 Long term (current) use of aspirin; Z79.891 Long term (current) use of opiate analgesic; Z79.899 Other long term (current) drug therapy | CPT/HCPCS: 49083 ==

== ENCOUNTER → 2018-01-30 | Outpatient (CLI) | payer MEDICARE | LOC: M PT 10:13 | DX: Z89.512 Acquired absence of left leg below knee (principal); Z89.511 Acquired absence of right leg below knee; R53.1 Weakness | CPT/HCPCS: 97163 ==

== ENCOUNTER → 2018-02-01 | Outpatient (CLI) | payer MEDICARE | LOC: M RADPRO 12:21 | DX: N18.6 End stage renal disease (principal); R18.8 Other ascites; K74.69 Other cirrhosis of liver; Z79.82 Long term (current) use of aspirin; Z79.891 Long term (current) use of opiate analgesic; Z79.899 Other long term (current) drug therapy; Z88.8 Allergy status to other drugs, medicaments and biological substances | CPT/HCPCS: 49083 ==

== ENCOUNTER 2018-02-07 05:55 | Inpatient (IN) | payer MEDICARE ==
[2018-02-07] MEDS: OMEGA-3 1000MG CAPSULE PO ×2 (09:00→20:43)
[2018-02-07] MEDS: **hydrALAZINE** 50 MG TAB PO (12:06)
[2018-02-07] MEDS: hydrALAZINE INJ 20 MG/ML VIAL IV (12:06)
[2018-02-07] MEDS: PROPRANOLOL 20 MG TAB PO ×2 (12:09→20:41)
[2018-02-07] MEDS ORDERED: ACETAMINOPHEN TAB 650MG DOSE (2X325MG) PO (12:15)
[2018-02-07] MEDS ORDERED: DICYCLOMINE 10 MG CAP PO (12:30)
[2018-02-07] MEDS ORDERED: LOPERAMIDE 2 MG CAP PO (12:30)
[2018-02-07 12:51] LABS: HEMATOCRIT 31.8 % (42.0-52.0); HEMOGLOBIN 10.4 g/dl (13.5-17.5); MEAN CORPUSCULAR HEMOGLOBIN 29.2 pg (27.0-33.0); MEAN CORPUSCULAR HGB CONC 32.7 g/dl (32.0-36.5); MEAN CORPUSCULAR VOLUME 89.3 fl (80.0-96.0); RED BLOOD COUNT 3.56 10^6/uL (4.30-6.10); RED CELL DISTRIBUTION WIDTH 16.1 % (11.5-14.5); WHITE BLOOD COUNT 5.3 10^3/uL (4.0-10.0)
[2018-02-07 13:07] LABS: ANION GAP 10 MEQ/L (8-16); BLOOD UREA NITROGEN 25 MG/DL (7-18); CALCIUM LEVEL 8.7 MG/DL (8.8-10.2); CARBON DIOXIDE LEVEL 28 MEQ/L (21-32); CHLORIDE LEVEL 96 MEQ/L (98-107); CREATININE FOR GFR 3.17 MG/DL (0.70-1.30); GLOMERULAR FILTRATION RATE 20.6 (>42); GLUCOSE, FASTING 104 MG/DL (70-100); POTASSIUM SERUM 3.7 MEQ/L (3.5-5.1); SODIUM LEVEL 134 MEQ/L (136-145)
[2018-02-07 13:18] LABS: PLATELET COUNT, AUTOMATED 95 10^3/uL (150-450)
[2018-02-07 13:19] LABS: IMMATURE PLATELET FRACTION % 2.9 % (0.0-10.9)
[2018-02-07] MEDS: PRAVASTATIN 20 MG TAB PO (13:38)
[2018-02-07] MEDS: PANTOPRAZOLE 40MG TAB (PROTONIX) PO ×2 (13:38→20:42)
[2018-02-07] MEDS: ASCORBIC ACID 500 MG TAB PO (13:39)
[2018-02-07] MEDS: MULTIVITAMINS/MINERALS THERAP 1 TAB PO (13:39)
[2018-02-07] MEDS: FAMOTIDINE 20 MG TAB PO ×2 (13:39→20:42)
[2018-02-07] MEDS: ASPIRIN 81 MG ENTERIC TAB PO (13:39)
[2018-02-07] MEDS: clonazePAM 0.5 MG TAB PO ×2 (13:39→20:44)
[2018-02-07] MEDS: NORCO, ANEXSIA 5/325MG TABLET (HYDROcodone/ACETAMINOPHEN) PO ×2 (13:40→18:32)
[2018-02-07] MEDS: HEPARIN SOD (PORCINE) 5000 UNITS/ML VIAL SC ×2 (13:41→20:47)
[2018-02-07 14:09] LABS: BASO % 0.3 % (0.0-1.0); EOS # 0.2 10^3/uL (0.0-0.50); EOS % 3.8 % (0.0-3.0); HEMATOCRIT 33.4 % (42.0-52.0); HEMOGLOBIN 10.9 g/dl (13.5-17.5); IMMATURE GRANULOCYTE % 0.3 % (0-3.0); LYMPH # 0.4 10^3/uL (1.5-4.5); LYMPH % 7.2 % (24.0-44.0); MEAN CORPUSCULAR HEMOGLOBIN 29.9 pg (27.0-33.0); MEAN CORPUSCULAR HGB CONC 32.6 g/dl (32.0-36.5); MEAN CORPUSCULAR VOLUME 91.8 fl (80.0-96.0); MONO # 0.5 10^3/uL (0.0-0.8); MONO % 8.4 % (0.0-5.0); NEUTROPHILS # 4.6 10^3/uL (1.8-7.7); RED BLOOD COUNT 3.64 10^6/uL (4.30-6.10); WHITE BLOOD COUNT 5.8 10^3/uL (4.0-10.0)
[2018-02-07 14:10] LABS: PLATELET COUNT, AUTOMATED 98 10^3/uL (150-450)
[2018-02-07 14:34] LABS: ALBUMIN 2.4 GM/DL (3.2-5.2); ANION GAP 10 MEQ/L (8-16); BLOOD UREA NITROGEN 26 MG/DL (7-18); CALCIUM LEVEL 8.5 MG/DL (8.8-10.2); CARBON DIOXIDE LEVEL 30 MEQ/L (21-32); CHLORIDE LEVEL 96 MEQ/L (98-107); CREATININE FOR GFR 3.53 MG/DL (0.70-1.30); GLOMERULAR FILTRATION RATE 18.2 (>42); GLUCOSE, FASTING 146 MG/DL (70-100); PHOSPHORUS LEVEL 3.9 MG/DL (2.5-4.9); POTASSIUM SERUM 3.8 MEQ/L (3.5-5.1); SODIUM LEVEL 136 MEQ/L (136-145)
[2018-02-07] MEDS: MAGNESIUM CHLORIDE 64 MG TABCR (SLO MAG) PO (18:32)
[2018-02-07] MEDS: FUROSEMIDE 40 MG TAB PO (20:43)
[2018-02-07] MEDS: MINOXIDIL 2.5 MG TAB PO (20:44)
[2018-02-07] MEDS: LATANOPROST 0.005% OPHTH SOLN 2.5 ML OU (20:47)
[2018-02-07] MEDS ORDERED: **NOTE PATIENT COMMENT** MISC XX (21:00)
[2018-02-08] MEDS: NORCO, ANEXSIA 5/325MG TABLET (HYDROcodone/ACETAMINOPHEN) PO ×4 (00:06→19:25)
[2018-02-08] MEDS: HEPARIN SOD (PORCINE) 5000 UNITS/ML VIAL SC ×4 (05:16→21:53)
[2018-02-08 07:24] LABS: HEMATOCRIT 31.7 % (42.0-52.0); HEMOGLOBIN 10.2 g/dl (13.5-17.5); MEAN CORPUSCULAR HEMOGLOBIN 29.6 pg (27.0-33.0); MEAN CORPUSCULAR HGB CONC 32.2 g/dl (32.0-36.5); MEAN CORPUSCULAR VOLUME 91.9 fl (80.0-96.0); RED BLOOD COUNT 3.45 10^6/uL (4.30-6.10); RED CELL DISTRIBUTION WIDTH 16.2 % (11.5-14.5); WHITE BLOOD COUNT 5.2 10^3/uL (4.0-10.0)
[2018-02-08 07:25] LABS: PLATELET COUNT, AUTOMATED 93 10^3/uL (150-450)
[2018-02-08] MEDS: ASPIRIN 81 MG ENTERIC TAB PO (08:17)
[2018-02-08] MEDS: FAMOTIDINE 20 MG TAB PO (08:17)
[2018-02-08] MEDS: PANTOPRAZOLE 40MG TAB (PROTONIX) PO ×2 (08:17→21:54)
[2018-02-08] MEDS: PRAVASTATIN 20 MG TAB PO (08:17)
[2018-02-08] MEDS: MULTIVITAMINS/MINERALS THERAP 1 TAB PO (08:17)
[2018-02-08] MEDS: ASCORBIC ACID 500 MG TAB PO (08:17)
[2018-02-08] MEDS: OMEGA-3 1000MG CAPSULE PO ×2 (08:17→21:54)
[2018-02-08 08:53] LABS: ANION GAP 8 MEQ/L (8-16); BLOOD UREA NITROGEN 39 MG/DL (7-18); CALCIUM LEVEL 7.8 MG/DL (8.8-10.2); CARBON DIOXIDE LEVEL 29 MEQ/L (21-32); CHLORIDE LEVEL 98 MEQ/L (98-107); CREATININE FOR GFR 4.55 MG/DL (0.70-1.30); GLOMERULAR FILTRATION RATE 13.6 (>42); GLUCOSE, FASTING 110 MG/DL (70-100); POTASSIUM SERUM 4.8 MEQ/L (3.5-5.1); SODIUM LEVEL 135 MEQ/L (136-145)
[2018-02-08] MEDS: MAGNESIUM CHLORIDE 64 MG TABCR (SLO MAG) PO (14:25)
[2018-02-08] MEDS: FUROSEMIDE 40 MG TAB PO (21:54)
[2018-02-08] MEDS: clonazePAM 0.5 MG TAB PO (21:54)
[2018-02-08] MEDS: LATANOPROST 0.005% OPHTH SOLN 2.5 ML OU (21:55)
[2018-02-08] MEDS: MINOXIDIL 2.5 MG TAB PO (21:55)
[2018-02-09] MEDS: NORCO, ANEXSIA 5/325MG TABLET (HYDROcodone/ACETAMINOPHEN) PO ×5 (00:28→22:12)
[2018-02-09 05:12] LABS: HEMATOCRIT 29.1 % (42.0-52.0); HEMOGLOBIN 9.3 g/dl (13.5-17.5); MEAN CORPUSCULAR HEMOGLOBIN 29.1 pg (27.0-33.0); MEAN CORPUSCULAR VOLUME 90.9 fl (80.0-96.0); RED CELL DISTRIBUTION WIDTH 15.6 % (11.5-14.5); WHITE BLOOD COUNT 4.1 10^3/uL (4.0-10.0)
[2018-02-09 05:19] LABS: PLATELET COUNT, AUTOMATED 89 10^3/uL (150-450)
[2018-02-09 05:20] LABS: IMMATURE PLATELET FRACTION % 3.5 % (0.0-10.9)
[2018-02-09] MEDS: HEPARIN SOD (PORCINE) 5000 UNITS/ML VIAL SC ×3 (05:26→22:13)
[2018-02-09 05:36] LABS: ALBUMIN 1.9 GM/DL (3.2-5.2); ALBUMIN/GLOBULIN RATIO 0.54 (1.00-1.93); ALKALINE PHOSPHATASE 181 U/L (45-117); ALT/SGPT 31 U/L (12-78); ANION GAP 11 MEQ/L (8-16); AST/SGOT 35 U/L (7-37); BILIRUBIN,TOTAL 0.7 MG/DL (0.2-1.0); BLOOD UREA NITROGEN 49 MG/DL (7-18); CALCIUM LEVEL 7.8 MG/DL (8.8-10.2); CARBON DIOXIDE LEVEL 26 MEQ/L (21-32); CHLORIDE LEVEL 94 MEQ/L (98-107); CREATININE FOR GFR 5.37 MG/DL (0.70-1.30); GLOMERULAR FILTRATION RATE 11.2 (>42); GLUCOSE, FASTING 124 MG/DL (70-100); POTASSIUM SERUM 4.8 MEQ/L (3.5-5.1); SODIUM LEVEL 131 MEQ/L (136-145); TOTAL PROTEIN 5.4 GM/DL (6.4-8.2)
[2018-02-09] MEDS: PANTOPRAZOLE 40MG TAB (PROTONIX) PO ×2 (08:38→22:12)
[2018-02-09] MEDS: OMEGA-3 1000MG CAPSULE PO ×2 (08:38→22:10)
[2018-02-09] MEDS: FAMOTIDINE 20 MG TAB PO (08:38)
[2018-02-09] MEDS: PRAVASTATIN 20 MG TAB PO (08:38)
[2018-02-09] MEDS: ASPIRIN 81 MG ENTERIC TAB PO (08:38)
[2018-02-09] MEDS: MULTIVITAMINS/MINERALS THERAP 1 TAB PO (08:38)
[2018-02-09] MEDS ORDERED: DARBEPOETIN 100 MCG/0.5 ML *DIALYSIS* SYRINGE (J0882) IV (08:45)
[2018-02-09] MEDS: MAGNESIUM CHLORIDE 64 MG TABCR (SLO MAG) PO (15:59)
[2018-02-09] MEDS: PROPRANOLOL 10 MG TAB PO ×2 (15:59→22:11)
[2018-02-09] MEDS: clonazePAM 0.5 MG TAB PO (22:11)
[2018-02-09] MEDS: MINOXIDIL 2.5 MG TAB PO (22:11)
[2018-02-09] MEDS: FUROSEMIDE 40 MG TAB PO (22:12)
[2018-02-09] MEDS: LATANOPROST 0.005% OPHTH SOLN 2.5 ML OU (22:14)
[2018-02-10] MEDS: HEPARIN SOD (PORCINE) 5000 UNITS/ML VIAL SC ×3 (05:57→22:07)
[2018-02-10] MEDS: NORCO, ANEXSIA 5/325MG TABLET (HYDROcodone/ACETAMINOPHEN) PO ×4 (05:58→23:30)
[2018-02-10 06:52] LABS: HEMATOCRIT 32.6 % (42.0-52.0); HEMOGLOBIN 10.5 g/dl (13.5-17.5); MEAN CORPUSCULAR HEMOGLOBIN 29.3 pg (27.0-33.0); MEAN CORPUSCULAR HGB CONC 32.2 g/dl (32.0-36.5); MEAN CORPUSCULAR VOLUME 91.1 fl (80.0-96.0); PLATELET COUNT, AUTOMATED 117 10^3/uL (150-450); RED BLOOD COUNT 3.58 10^6/uL (4.30-6.10); RED CELL DISTRIBUTION WIDTH 15.6 % (11.5-14.5); WHITE BLOOD COUNT 5.2 10^3/uL (4.0-10.0)
[2018-02-10 07:16] LABS: ALBUMIN 2.1 GM/DL (3.2-5.2); ALBUMIN/GLOBULIN RATIO 0.54 (1.00-1.93); ALKALINE PHOSPHATASE 186 U/L (45-117); ALT/SGPT 31 U/L (12-78); ANION GAP 8 MEQ/L (8-16); AST/SGOT 32 U/L (7-37); BILIRUBIN,TOTAL 0.6 MG/DL (0.2-1.0); BLOOD UREA NITROGEN 24 MG/DL (7-18); CALCIUM LEVEL 7.8 MG/DL (8.8-10.2); CARBON DIOXIDE LEVEL 29 MEQ/L (21-32); CHLORIDE LEVEL 95 MEQ/L (98-107); CREATININE FOR GFR 3.64 MG/DL (0.70-1.30); GLOMERULAR FILTRATION RATE 17.6 (>42); GLUCOSE, FASTING 114 MG/DL (70-100); POTASSIUM SERUM 4.2 MEQ/L (3.5-5.1); SODIUM LEVEL 132 MEQ/L (136-145)
[2018-02-10] MEDS: MAGNESIUM CHLORIDE 64 MG TABCR (SLO MAG) PO (08:03)
[2018-02-10] MEDS: FAMOTIDINE 20 MG TAB PO (08:04)
[2018-02-10] MEDS: MULTIVITAMINS/MINERALS THERAP 1 TAB PO (08:04)
[2018-02-10] MEDS: ASPIRIN 81 MG ENTERIC TAB PO (08:04)
[2018-02-10] MEDS: PROPRANOLOL 10 MG TAB PO ×2 (08:04→22:06)
[2018-02-10] MEDS: OMEGA-3 1000MG CAPSULE PO ×2 (08:04→22:02)
[2018-02-10] MEDS: PRAVASTATIN 20 MG TAB PO (08:04)
[2018-02-10] MEDS: PANTOPRAZOLE 40MG TAB (PROTONIX) PO ×2 (08:04→22:07)
[2018-02-10] MEDS: clonazePAM 0.5 MG TAB PO (22:06)
[2018-02-10] MEDS: FUROSEMIDE 40 MG TAB PO (22:07)
[2018-02-10] MEDS: MINOXIDIL 2.5 MG TAB PO (22:07)
[2018-02-10] MEDS: LATANOPROST 0.005% OPHTH SOLN 2.5 ML OU (22:08)
[2018-02-11 06:25] LABS: HEMOGLOBIN 9.2 g/dl (13.5-17.5); MEAN CORPUSCULAR HEMOGLOBIN 29.4 pg (27.0-33.0); MEAN CORPUSCULAR HGB CONC 32.9 g/dl (32.0-36.5); MEAN CORPUSCULAR VOLUME 89.5 fl (80.0-96.0); PLATELET COUNT, AUTOMATED 125 10^3/uL (150-450); RED BLOOD COUNT 3.13 10^6/uL (4.30-6.10); RED CELL DISTRIBUTION WIDTH 15.3 % (11.5-14.5); WHITE BLOOD COUNT 5.9 10^3/uL (4.0-10.0)
[2018-02-11 06:43] LABS: ALBUMIN 2.2 GM/DL (3.2-5.2); ALBUMIN/GLOBULIN RATIO 0.65 (1.00-1.93); ALKALINE PHOSPHATASE 191 U/L (45-117); ALT/SGPT 33 U/L (12-78); ANION GAP 14 MEQ/L (8-16); AST/SGOT 42 U/L (7-37); BILIRUBIN,TOTAL 0.5 MG/DL (0.2-1.0); BLOOD UREA NITROGEN 35 MG/DL (7-18); CARBON DIOXIDE LEVEL 26 MEQ/L (21-32); CHLORIDE LEVEL 92 MEQ/L (98-107); CREATININE FOR GFR 4.84 MG/DL (0.70-1.30); GLOMERULAR FILTRATION RATE 12.6 (>42); GLUCOSE, FASTING 124 MG/DL (70-100); POTASSIUM SERUM 4.9 MEQ/L (3.5-5.1); SODIUM LEVEL 132 MEQ/L (136-145); TOTAL PROTEIN 5.6 GM/DL (6.4-8.2)
[2018-02-11] MEDS: NORCO, ANEXSIA 5/325MG TABLET (HYDROcodone/ACETAMINOPHEN) PO ×5 (06:46→23:16)
[2018-02-11] MEDS: HEPARIN SOD (PORCINE) 5000 UNITS/ML VIAL SC ×3 (06:46→21:31)
[2018-02-11] MEDS: PANTOPRAZOLE 40MG TAB (PROTONIX) PO ×2 (09:52→21:34)
[2018-02-11] MEDS: FAMOTIDINE 20 MG TAB PO (09:52)
[2018-02-11] MEDS: OMEGA-3 1000MG CAPSULE PO ×2 (09:52→21:34)
[2018-02-11] MEDS: ASPIRIN 81 MG ENTERIC TAB PO (09:52)
[2018-02-11] MEDS: MULTIVITAMINS/MINERALS THERAP 1 TAB PO (09:52)
[2018-02-11] MEDS: PRAVASTATIN 20 MG TAB PO (09:52)
[2018-02-11] MEDS: PROPRANOLOL 10 MG TAB PO ×2 (09:53→21:37)
[2018-02-11] MEDS: MAGNESIUM CHLORIDE 64 MG TABCR (SLO MAG) PO (09:53)
[2018-02-11] MEDS: LATANOPROST 0.005% OPHTH SOLN 2.5 ML OU (21:34)
[2018-02-11] MEDS: FUROSEMIDE 40 MG TAB PO (21:36)
[2018-02-11] MEDS: clonazePAM 0.5 MG TAB PO (21:36)
[2018-02-11] MEDS: MINOXIDIL 2.5 MG TAB PO (21:36)
[2018-02-12] MEDS: NORCO, ANEXSIA 5/325MG TABLET (HYDROcodone/ACETAMINOPHEN) PO ×3 (06:02→17:31)
[2018-02-12] MEDS: HEPARIN SOD (PORCINE) 5000 UNITS/ML VIAL SC ×3 (06:03→21:45)
[2018-02-12 06:13] LABS: HEMATOCRIT 29.3 % (42.0-52.0); HEMOGLOBIN 9.3 g/dl (13.5-17.5); MEAN CORPUSCULAR HEMOGLOBIN 29.2 pg (27.0-33.0); MEAN CORPUSCULAR HGB CONC 31.7 g/dl (32.0-36.5); MEAN CORPUSCULAR VOLUME 91.8 fl (80.0-96.0); PLATELET COUNT, AUTOMATED 121 10^3/uL (150-450); RED BLOOD COUNT 3.19 10^6/uL (4.30-6.10); RED CELL DISTRIBUTION WIDTH 15.9 % (11.5-14.5); WHITE BLOOD COUNT 4.6 10^3/uL (4.0-10.0)
[2018-02-12 06:39] LABS: ALBUMIN 1.9 GM/DL (3.2-5.2); ALBUMIN/GLOBULIN RATIO 0.51 (1.00-1.93); ALKALINE PHOSPHATASE 171 U/L (45-117); ALT/SGPT 31 U/L (12-78); ANION GAP 9 MEQ/L (8-16); AST/SGOT 29 U/L (7-37); BILIRUBIN,TOTAL 0.5 MG/DL (0.2-1.0); BLOOD UREA NITROGEN 25 MG/DL (7-18); CALCIUM LEVEL 7.9 MG/DL (8.8-10.2); CARBON DIOXIDE LEVEL 28 MEQ/L (21-32); CHLORIDE LEVEL 100 MEQ/L (98-107); CREATININE FOR GFR 3.72 MG/DL (0.70-1.30); GLOMERULAR FILTRATION RATE 17.1 (>42); GLUCOSE, FASTING 138 MG/DL (70-100); POTASSIUM SERUM 3.8 MEQ/L (3.5-5.1); SODIUM LEVEL 137 MEQ/L (136-145); TOTAL PROTEIN 5.6 GM/DL (6.4-8.2)
[2018-02-12] MEDS: PANTOPRAZOLE 40MG TAB (PROTONIX) PO ×2 (09:25→20:47)
[2018-02-12] MEDS: PROPRANOLOL 10 MG TAB PO ×2 (09:25→20:47)
[2018-02-12] MEDS: PRAVASTATIN 20 MG TAB PO (09:25)
[2018-02-12] MEDS: MAGNESIUM CHLORIDE 64 MG TABCR (SLO MAG) PO (09:26)
[2018-02-12] MEDS: OMEGA-3 1000MG CAPSULE PO ×2 (09:26→20:47)
[2018-02-12] MEDS: MULTIVITAMINS/MINERALS THERAP 1 TAB PO (09:26)
[2018-02-12] MEDS: FAMOTIDINE 20 MG TAB PO (09:26)
[2018-02-12] MEDS: ASPIRIN 81 MG ENTERIC TAB PO (09:26)
[2018-02-12] MEDS: MINOXIDIL 2.5 MG TAB PO (20:47)
[2018-02-12] MEDS: FUROSEMIDE 40 MG TAB PO (20:47)
[2018-02-12] MEDS: clonazePAM 0.5 MG TAB PO (20:47)
[2018-02-12] MEDS: LATANOPROST 0.005% OPHTH SOLN 2.5 ML OU (20:48)
[2018-02-13] MEDS: NORCO, ANEXSIA 5/325MG TABLET (HYDROcodone/ACETAMINOPHEN) PO ×5 (00:47→23:25)
[2018-02-13] MEDS: HEPARIN SOD (PORCINE) 5000 UNITS/ML VIAL SC ×3 (06:04→21:08)
[2018-02-13] MEDS: ASPIRIN 81 MG ENTERIC TAB PO (08:34)
[2018-02-13] MEDS: OMEGA-3 1000MG CAPSULE PO ×2 (08:34→21:07)
[2018-02-13] MEDS: MULTIVITAMINS/MINERALS THERAP 1 TAB PO (08:34)
[2018-02-13] MEDS: FAMOTIDINE 20 MG TAB PO (08:34)
[2018-02-13] MEDS: MAGNESIUM CHLORIDE 64 MG TABCR (SLO MAG) PO (08:34)
[2018-02-13] MEDS: PANTOPRAZOLE 40MG TAB (PROTONIX) PO ×2 (08:34→21:07)
[2018-02-13] MEDS: PRAVASTATIN 20 MG TAB PO (08:34)
[2018-02-13] MEDS: PROPRANOLOL 10 MG TAB PO ×2 (08:37→21:06)
[2018-02-13 11:37] LABS: HEMATOCRIT 29.6 % (42.0-52.0); HEMOGLOBIN 9.8 g/dl (13.5-17.5); MEAN CORPUSCULAR HGB CONC 33.1 g/dl (32.0-36.5); MEAN CORPUSCULAR VOLUME 90.5 fl (80.0-96.0); PLATELET COUNT, AUTOMATED 151 10^3/uL (150-450); RED BLOOD COUNT 3.27 10^6/uL (4.30-6.10); RED CELL DISTRIBUTION WIDTH 16.4 % (11.5-14.5); WHITE BLOOD COUNT 5.7 10^3/uL (4.0-10.0)
[2018-02-13 12:33] LABS: ALBUMIN 2.2 GM/DL (3.2-5.2); ANION GAP 12 MEQ/L (8-16); BLOOD UREA NITROGEN 39 MG/DL (7-18); CALCIUM LEVEL 8.3 MG/DL (8.8-10.2); CARBON DIOXIDE LEVEL 25 MEQ/L (21-32); CHLORIDE LEVEL 96 MEQ/L (98-107); CREATININE FOR GFR 5.01 MG/DL (0.70-1.30); GLOMERULAR FILTRATION RATE 12.1 (>42); GLUCOSE, FASTING 150 MG/DL (70-100); POTASSIUM SERUM 4.1 MEQ/L (3.5-5.1); SODIUM LEVEL 133 MEQ/L (136-145)
[2018-02-13] MEDS: FUROSEMIDE 40 MG TAB PO (21:06)
[2018-02-13] MEDS: clonazePAM 0.5 MG TAB PO (21:06)
[2018-02-13] MEDS: MINOXIDIL 2.5 MG TAB PO (21:07)
[2018-02-13] MEDS: LATANOPROST 0.005% OPHTH SOLN 2.5 ML OU (21:07)
[2018-02-13] MEDS: MOM 30ML SUSPENSION UDC PO (23:23)
[2018-02-14] MEDS: HEPARIN SOD (PORCINE) 5000 UNITS/ML VIAL SC ×3 (05:56→20:49)
[2018-02-14] MEDS: ONDANSETRON 4 MG ORAL DISINTEGRATING TAB (Q0162 PER 1MG) SL (05:56)
[2018-02-14] MEDS: NORCO, ANEXSIA 5/325MG TABLET (HYDROcodone/ACETAMINOPHEN) PO ×4 (05:56→23:38)
[2018-02-14 08:28] LABS: BASO % 0.4 % (0.0-1.0); EOS # 0.4 10^3/uL (0.0-0.50); EOS % 5.5 % (0.0-3.0); HEMATOCRIT 34.7 % (42.0-52.0); HEMOGLOBIN 11.2 g/dl (13.5-17.5); IMMATURE GRANULOCYTE % 1.4 % (0-3.0); LYMPH # 0.5 10^3/uL (1.5-4.5); LYMPH % 7.3 % (24.0-44.0); MEAN CORPUSCULAR HGB CONC 32.3 g/dl (32.0-36.5); MONO # 0.7 10^3/uL (0.0-0.8); MONO % 10.2 % (0.0-5.0); NEUTROPHILS # 5.5 10^3/uL (1.8-7.7); NEUTROPHILS % 75.2 % (36.0-66.0); PLATELET COUNT, AUTOMATED 184 10^3/uL (150-450); RED BLOOD COUNT 3.73 10^6/uL (4.30-6.10); RED CELL DISTRIBUTION WIDTH 16.8 % (11.5-14.5); WHITE BLOOD COUNT 7.3 10^3/uL (4.0-10.0)
[2018-02-14 09:02] LABS: ALBUMIN 2.6 GM/DL (3.2-5.2); ALKALINE PHOSPHATASE 216 U/L (45-117); ALT/SGPT 38 U/L (12-78); ANION GAP 6 MEQ/L (8-16); AST/SGOT 41 U/L (7-37); BILIRUBIN,TOTAL 0.6 MG/DL (0.2-1.0); BLOOD UREA NITROGEN 26 MG/DL (7-18); CALCIUM LEVEL 8.8 MG/DL (8.8-10.2); CARBON DIOXIDE LEVEL 31 MEQ/L (21-32); CHLORIDE LEVEL 98 MEQ/L (98-107); GLOMERULAR FILTRATION RATE 17.8 (>42); GLUCOSE, FASTING 138 MG/DL (70-100); MAGNESIUM LEVEL 2.5 MG/DL (1.8-2.4); POTASSIUM SERUM 4.5 MEQ/L (3.5-5.1); SODIUM LEVEL 135 MEQ/L (136-145); TOTAL PROTEIN 6.9 GM/DL (6.4-8.2)
[2018-02-14] MEDS: PRAVASTATIN 20 MG TAB PO (09:04)
[2018-02-14] MEDS: ASPIRIN 81 MG ENTERIC TAB PO (09:04)
[2018-02-14] MEDS: MAGNESIUM CHLORIDE 64 MG TABCR (SLO MAG) PO (09:04)
[2018-02-14] MEDS: PANTOPRAZOLE 40MG TAB (PROTONIX) PO ×2 (09:05→20:48)
[2018-02-14] MEDS: OMEGA-3 1000MG CAPSULE PO ×2 (09:05→20:48)
[2018-02-14] MEDS: MULTIVITAMINS/MINERALS THERAP 1 TAB PO (09:05)
[2018-02-14] MEDS: FAMOTIDINE 20 MG TAB PO (09:05)
[2018-02-14] MEDS: PROPRANOLOL 10 MG TAB PO ×2 (09:05→20:48)
[2018-02-14] MEDS: LATANOPROST 0.005% OPHTH SOLN 2.5 ML OU (20:48)
[2018-02-14] MEDS: clonazePAM 0.5 MG TAB PO (20:48)
[2018-02-14] MEDS: FUROSEMIDE 40 MG TAB PO (20:48)
[2018-02-14] MEDS: MINOXIDIL 2.5 MG TAB PO (20:48)
[2018-02-15 06:02] LABS: BASO % 0.4 % (0.0-1.0); EOS # 0.3 10^3/uL (0.0-0.50); EOS % 5.9 % (0.0-3.0); HEMATOCRIT 28.3 % (42.0-52.0); LYMPH # 0.6 10^3/uL (1.5-4.5); LYMPH % 10.8 % (24.0-44.0); MEAN CORPUSCULAR HEMOGLOBIN 29.5 pg (27.0-33.0); MEAN CORPUSCULAR HGB CONC 32.2 g/dl (32.0-36.5); MEAN CORPUSCULAR VOLUME 91.9 fl (80.0-96.0); MONO # 0.7 10^3/uL (0.0-0.8); MONO % 12.8 % (0.0-5.0); NEUTROPHILS # 3.5 10^3/uL (1.8-7.7); NEUTROPHILS % 69.1 % (36.0-66.0); PLATELET COUNT, AUTOMATED 144 10^3/uL (150-450); RED BLOOD COUNT 3.08 10^6/uL (4.30-6.10); RED CELL DISTRIBUTION WIDTH 16.9 % (11.5-14.5); WHITE BLOOD COUNT 5.1 10^3/uL (4.0-10.0)
[2018-02-15 06:06] LABS: HEMOGLOBIN 9.1 g/dl (13.5-17.5)
[2018-02-15] MEDS: HEPARIN SOD (PORCINE) 5000 UNITS/ML VIAL SC ×3 (06:13→21:39)
[2018-02-15] MEDS: ASPIRIN 81 MG ENTERIC TAB PO (06:13)
[2018-02-15] MEDS: PRAVASTATIN 20 MG TAB PO (06:15)
[2018-02-15] MEDS: PANTOPRAZOLE 40MG TAB (PROTONIX) PO ×2 (06:15→21:39)
[2018-02-15] MEDS: FAMOTIDINE 20 MG TAB PO (06:15)
[2018-02-15] MEDS: PROPRANOLOL 10 MG TAB PO ×2 (06:15→21:38)
[2018-02-15] MEDS: OMEGA-3 1000MG CAPSULE PO ×2 (06:15→21:39)
[2018-02-15] MEDS: MAGNESIUM CHLORIDE 64 MG TABCR (SLO MAG) PO (06:16)
[2018-02-15] MEDS: MULTIVITAMINS/MINERALS THERAP 1 TAB PO (06:16)
[2018-02-15] MEDS: NORCO, ANEXSIA 5/325MG TABLET (HYDROcodone/ACETAMINOPHEN) PO ×3 (06:17→18:33)
[2018-02-15 06:28] LABS: ALBUMIN 2.1 GM/DL (3.2-5.2); ALBUMIN/GLOBULIN RATIO 0.58 (1.00-1.93); ALKALINE PHOSPHATASE 160 U/L (45-117); ALT/SGPT 29 U/L (12-78); ANION GAP 11 MEQ/L (8-16); AST/SGOT 28 U/L (7-37); BILIRUBIN,TOTAL 0.5 MG/DL (0.2-1.0); BLOOD UREA NITROGEN 34 MG/DL (7-18); CALCIUM LEVEL 8.2 MG/DL (8.8-10.2); CARBON DIOXIDE LEVEL 26 MEQ/L (21-32); CHLORIDE LEVEL 102 MEQ/L (98-107); CREATININE FOR GFR 4.66 MG/DL (0.70-1.30); GLOMERULAR FILTRATION RATE 13.2 (>42); GLUCOSE, FASTING 122 MG/DL (70-100); MAGNESIUM LEVEL 2.3 MG/DL (1.8-2.4); POTASSIUM SERUM 4.6 MEQ/L (3.5-5.1); SODIUM LEVEL 139 MEQ/L (136-145); TOTAL PROTEIN 5.7 GM/DL (6.4-8.2)
[2018-02-15] MEDS: clonazePAM 0.5 MG TAB PO (21:38)
[2018-02-15] MEDS: FUROSEMIDE 40 MG TAB PO (21:38)
[2018-02-15] MEDS: MINOXIDIL 2.5 MG TAB PO (21:39)
[2018-02-15] MEDS: LATANOPROST 0.005% OPHTH SOLN 2.5 ML OU (21:39)
[2018-02-16] MEDS: NORCO, ANEXSIA 5/325MG TABLET (HYDROcodone/ACETAMINOPHEN) PO ×5 (00:16→23:33)
[2018-02-16 05:56] LABS: BASO % 0.4 % (0.0-1.0); EOS # 0.3 10^3/uL (0.0-0.50); EOS % 5.2 % (0.0-3.0); HEMOGLOBIN 9.3 g/dl (13.5-17.5); IMMATURE GRANULOCYTE % 1.3 % (0-3.0); LYMPH # 0.6 10^3/uL (1.5-4.5); LYMPH % 11.2 % (24.0-44.0); MEAN CORPUSCULAR HGB CONC 32.1 g/dl (32.0-36.5); MEAN CORPUSCULAR VOLUME 93.5 fl (80.0-96.0); MONO # 0.7 10^3/uL (0.0-0.8); MONO % 13.1 % (0.0-5.0); NEUTROPHILS # 3.6 10^3/uL (1.8-7.7); NEUTROPHILS % 68.8 % (36.0-66.0); PLATELET COUNT, AUTOMATED 123 10^3/uL (150-450); RED CELL DISTRIBUTION WIDTH 16.7 % (11.5-14.5); WHITE BLOOD COUNT 5.2 10^3/uL (4.0-10.0)
[2018-02-16] MEDS: HEPARIN SOD (PORCINE) 5000 UNITS/ML VIAL SC ×3 (06:12→20:42)
[2018-02-16 06:18] LABS: ALBUMIN/GLOBULIN RATIO 0.51 (1.00-1.93); ALKALINE PHOSPHATASE 173 U/L (45-117); ALT/SGPT 33 U/L (12-78); ANION GAP 9 MEQ/L (8-16); AST/SGOT 31 U/L (7-37); BILIRUBIN,TOTAL 0.5 MG/DL (0.2-1.0); BLOOD UREA NITROGEN 27 MG/DL (7-18); CALCIUM LEVEL 8.3 MG/DL (8.8-10.2); CARBON DIOXIDE LEVEL 28 MEQ/L (21-32); CHLORIDE LEVEL 100 MEQ/L (98-107); CREATININE FOR GFR 3.67 MG/DL (0.70-1.30); GLOMERULAR FILTRATION RATE 17.4 (>42); GLUCOSE, FASTING 116 MG/DL (70-100); MAGNESIUM LEVEL 2.2 MG/DL (1.8-2.4); POTASSIUM SERUM 4.1 MEQ/L (3.5-5.1); SODIUM LEVEL 137 MEQ/L (136-145); TOTAL PROTEIN 5.9 GM/DL (6.4-8.2)
[2018-02-16] MEDS: PROPRANOLOL 10 MG TAB PO ×2 (10:41→20:43)
[2018-02-16] MEDS: MAGNESIUM CHLORIDE 64 MG TABCR (SLO MAG) PO (10:41)
[2018-02-16] MEDS: ASPIRIN 81 MG ENTERIC TAB PO (10:42)
[2018-02-16] MEDS: FAMOTIDINE 20 MG TAB PO (10:42)
[2018-02-16] MEDS: PRAVASTATIN 20 MG TAB PO (10:42)
[2018-02-16] MEDS: MULTIVITAMINS/MINERALS THERAP 1 TAB PO (10:42)
[2018-02-16] MEDS: PANTOPRAZOLE 40MG TAB (PROTONIX) PO ×2 (10:42→20:42)
[2018-02-16] MEDS: OMEGA-3 1000MG CAPSULE PO ×2 (10:42→20:44)
[2018-02-16] MEDS: FUROSEMIDE 40 MG TAB PO (20:43)
[2018-02-16] MEDS: LATANOPROST 0.005% OPHTH SOLN 2.5 ML OU (20:44)
[2018-02-16] MEDS: clonazePAM 0.5 MG TAB PO (20:44)
[2018-02-16] MEDS: MINOXIDIL 2.5 MG TAB PO (20:44)
[2018-02-17 05:52] LABS: BASO % 0.4 % (0.0-1.0); EOS # 0.3 10^3/uL (0.0-0.50); EOS % 5.2 % (0.0-3.0); HEMATOCRIT 29.6 % (42.0-52.0); HEMOGLOBIN 9.7 g/dl (13.5-17.5); IMMATURE GRANULOCYTE % 1.2 % (0-3.0); LYMPH # 0.5 10^3/uL (1.5-4.5); LYMPH % 10.9 % (24.0-44.0); MEAN CORPUSCULAR HEMOGLOBIN 30.4 pg (27.0-33.0); MEAN CORPUSCULAR HGB CONC 32.8 g/dl (32.0-36.5); MEAN CORPUSCULAR VOLUME 92.8 fl (80.0-96.0); MONO # 0.6 10^3/uL (0.0-0.8); MONO % 11.7 % (0.0-5.0); NEUTROPHILS # 3.5 10^3/uL (1.8-7.7); NEUTROPHILS % 70.6 % (36.0-66.0); PLATELET COUNT, AUTOMATED 121 10^3/uL (150-450); RED BLOOD COUNT 3.19 10^6/uL (4.30-6.10); RED CELL DISTRIBUTION WIDTH 16.7 % (11.5-14.5)
[2018-02-17 06:25] LABS: ALBUMIN/GLOBULIN RATIO 0.53 (1.00-1.93); ALKALINE PHOSPHATASE 176 U/L (45-117); ALT/SGPT 34 U/L (12-78); ANION GAP 11 MEQ/L (8-16); AST/SGOT 35 U/L (7-37); BILIRUBIN,TOTAL 0.4 MG/DL (0.2-1.0); BLOOD UREA NITROGEN 45 MG/DL (7-18); CARBON DIOXIDE LEVEL 25 MEQ/L (21-32); CHLORIDE LEVEL 100 MEQ/L (98-107); CREATININE FOR GFR 4.94 MG/DL (0.70-1.30); GLOMERULAR FILTRATION RATE 12.3 (>42); GLUCOSE, FASTING 152 MG/DL (70-100); MAGNESIUM LEVEL 2.3 MG/DL (1.8-2.4); POTASSIUM SERUM 4.2 MEQ/L (3.5-5.1); SODIUM LEVEL 136 MEQ/L (136-145); TOTAL PROTEIN 5.8 GM/DL (6.4-8.2)
[2018-02-17] MEDS: MAGNESIUM CHLORIDE 64 MG TABCR (SLO MAG) PO (06:30)
[2018-02-17] MEDS: ASPIRIN 81 MG ENTERIC TAB PO (06:30)
[2018-02-17] MEDS: FAMOTIDINE 20 MG TAB PO (06:30)
[2018-02-17] MEDS: MULTIVITAMINS/MINERALS THERAP 1 TAB PO (06:31)
[2018-02-17] MEDS: PROPRANOLOL 10 MG TAB PO ×2 (06:31→20:46)
[2018-02-17] MEDS: PANTOPRAZOLE 40MG TAB (PROTONIX) PO ×2 (06:31→20:45)
[2018-02-17] MEDS: PRAVASTATIN 20 MG TAB PO (06:31)
[2018-02-17] MEDS: OMEGA-3 1000MG CAPSULE PO ×2 (06:31→20:45)
[2018-02-17] MEDS: NORCO, ANEXSIA 5/325MG TABLET (HYDROcodone/ACETAMINOPHEN) PO ×3 (06:32→17:58)
[2018-02-17] MEDS: HEPARIN SOD (PORCINE) 5000 UNITS/ML VIAL SC ×3 (06:32→20:46)
[2018-02-17] MEDS: ONDANSETRON 4 MG ORAL DISINTEGRATING TAB (Q0162 PER 1MG) SL (16:25)
[2018-02-17] MEDS: MOM 30ML SUSPENSION UDC PO (17:57)
[2018-02-17] MEDS: clonazePAM 0.5 MG TAB PO (20:44)
[2018-02-17] MEDS: MINOXIDIL 2.5 MG TAB PO (20:45)
[2018-02-17] MEDS: FUROSEMIDE 40 MG TAB PO (20:45)
[2018-02-17] MEDS: LATANOPROST 0.005% OPHTH SOLN 2.5 ML OU (20:46)
[2018-02-18] MEDS: NORCO, ANEXSIA 5/325MG TABLET (HYDROcodone/ACETAMINOPHEN) PO ×4 (00:19→17:29)
[2018-02-18 06:12] LABS: BASO % 0.3 % (0.0-1.0); EOS # 0.3 10^3/uL (0.0-0.50); EOS % 5.4 % (0.0-3.0); HEMATOCRIT 28.3 % (42.0-52.0); HEMOGLOBIN 9.2 g/dl (13.5-17.5); IMMATURE GRANULOCYTE % 0.7 % (0-3.0); LYMPH # 0.6 10^3/uL (1.5-4.5); LYMPH % 10.5 % (24.0-44.0); MEAN CORPUSCULAR HEMOGLOBIN 30.5 pg (27.0-33.0); MEAN CORPUSCULAR HGB CONC 32.5 g/dl (32.0-36.5); MEAN CORPUSCULAR VOLUME 93.7 fl (80.0-96.0); MONO # 0.7 10^3/uL (0.0-0.8); MONO % 11.7 % (0.0-5.0); NEUTROPHILS # 4.1 10^3/uL (1.8-7.7); NEUTROPHILS % 71.4 % (36.0-66.0); PLATELET COUNT, AUTOMATED 124 10^3/uL (150-450); RED BLOOD COUNT 3.02 10^6/uL (4.30-6.10); WHITE BLOOD COUNT 5.7 10^3/uL (4.0-10.0)
[2018-02-18] MEDS: MAGNESIUM CHLORIDE 64 MG TABCR (SLO MAG) PO (06:16)
[2018-02-18] MEDS: PROPRANOLOL 10 MG TAB PO ×2 (06:16→21:35)
[2018-02-18] MEDS: PANTOPRAZOLE 40MG TAB (PROTONIX) PO ×2 (06:16→21:34)
[2018-02-18] MEDS: PRAVASTATIN 20 MG TAB PO (06:16)
[2018-02-18] MEDS: FAMOTIDINE 20 MG TAB PO (06:16)
[2018-02-18] MEDS: OMEGA-3 1000MG CAPSULE PO ×2 (06:17→21:34)
[2018-02-18] MEDS: HEPARIN SOD (PORCINE) 5000 UNITS/ML VIAL SC ×3 (06:17→21:36)
[2018-02-18] MEDS: ASPIRIN 81 MG ENTERIC TAB PO (06:17)
[2018-02-18] MEDS: MULTIVITAMINS/MINERALS THERAP 1 TAB PO (06:17)
[2018-02-18 06:38] LABS: ALBUMIN 2.1 GM/DL (3.2-5.2); ALKALINE PHOSPHATASE 170 U/L (45-117); ALT/SGPT 35 U/L (12-78); ANION GAP 12 MEQ/L (8-16); AST/SGOT 34 U/L (7-37); BILIRUBIN,TOTAL 0.4 MG/DL (0.2-1.0); BLOOD UREA NITROGEN 58 MG/DL (7-18); CALCIUM LEVEL 8.1 MG/DL (8.8-10.2); CARBON DIOXIDE LEVEL 23 MEQ/L (21-32); CHLORIDE LEVEL 99 MEQ/L (98-107); CREATININE FOR GFR 6.35 MG/DL (0.70-1.30); GLOMERULAR FILTRATION RATE 9.2 (>42); GLUCOSE, FASTING 137 MG/DL (70-100); MAGNESIUM LEVEL 2.4 MG/DL (1.8-2.4); POTASSIUM SERUM 4.5 MEQ/L (3.5-5.1); SODIUM LEVEL 134 MEQ/L (136-145); TOTAL PROTEIN 5.6 GM/DL (6.4-8.2)
[2018-02-18] MEDS: clonazePAM 0.5 MG TAB PO (21:31)
[2018-02-18] MEDS: MINOXIDIL 2.5 MG TAB PO (21:34)
[2018-02-18] MEDS: LATANOPROST 0.005% OPHTH SOLN 2.5 ML OU (21:37)
[2018-02-18] MEDS: FUROSEMIDE 40 MG TAB PO (21:41)
[2018-02-19] MEDS: NORCO, ANEXSIA 5/325MG TABLET (HYDROcodone/ACETAMINOPHEN) PO ×5 (00:16→23:40)
[2018-02-19 06:03] LABS: BASO % 0.6 % (0.0-1.0); EOS # 0.2 10^3/uL (0.0-0.50); EOS % 4.5 % (0.0-3.0); HEMATOCRIT 28.6 % (42.0-52.0); HEMOGLOBIN 9.2 g/dl (13.5-17.5); IMMATURE GRANULOCYTE % 0.8 % (0-3.0); LYMPH # 0.5 10^3/uL (1.5-4.5); LYMPH % 8.9 % (24.0-44.0); MEAN CORPUSCULAR HEMOGLOBIN 30.1 pg (27.0-33.0); MEAN CORPUSCULAR HGB CONC 32.2 g/dl (32.0-36.5); MEAN CORPUSCULAR VOLUME 93.5 fl (80.0-96.0); MONO # 0.7 10^3/uL (0.0-0.8); MONO % 12.6 % (0.0-5.0); NEUTROPHILS # 3.9 10^3/uL (1.8-7.7); NEUTROPHILS % 72.6 % (36.0-66.0); PLATELET COUNT, AUTOMATED 110 10^3/uL (150-450); RED BLOOD COUNT 3.06 10^6/uL (4.30-6.10); RED CELL DISTRIBUTION WIDTH 17.1 % (11.5-14.5); WHITE BLOOD COUNT 5.3 10^3/uL (4.0-10.0)
[2018-02-19] MEDS: HEPARIN SOD (PORCINE) 5000 UNITS/ML VIAL SC ×3 (06:23→21:00)
[2018-02-19 06:38] LABS: ALBUMIN 2.1 GM/DL (3.2-5.2); ALBUMIN/GLOBULIN RATIO 0.54 (1.00-1.93); ALKALINE PHOSPHATASE 170 U/L (45-117); ALT/SGPT 30 U/L (12-78); ANION GAP 8 MEQ/L (8-16); AST/SGOT 33 U/L (7-37); BILIRUBIN,TOTAL 0.5 MG/DL (0.2-1.0); BLOOD UREA NITROGEN 28 MG/DL (7-18); CALCIUM LEVEL 7.9 MG/DL (8.8-10.2); CARBON DIOXIDE LEVEL 29 MEQ/L (21-32); CHLORIDE LEVEL 102 MEQ/L (98-107); CREATININE FOR GFR 3.97 MG/DL (0.70-1.30); GLOMERULAR FILTRATION RATE 15.9 (>42); GLUCOSE, FASTING 136 MG/DL (70-100); IRON (FE) 56 UG/DL (65-175); MAGNESIUM LEVEL 2.1 MG/DL (1.8-2.4); PERCENT SATURATION 30.9 % (19.7-50.0); POTASSIUM SERUM 3.9 MEQ/L (3.5-5.1); SODIUM LEVEL 139 MEQ/L (136-145); TOTAL IRON BINDING CAPACITY 181 UG/DL (250-450)
[2018-02-19] MEDS: PANTOPRAZOLE 40MG TAB (PROTONIX) PO ×2 (08:45→20:59)
[2018-02-19] MEDS: FAMOTIDINE 20 MG TAB PO (08:45)
[2018-02-19] MEDS: OMEGA-3 1000MG CAPSULE PO ×2 (08:45→20:59)
[2018-02-19] MEDS: MAGNESIUM CHLORIDE 64 MG TABCR (SLO MAG) PO (08:45)
[2018-02-19] MEDS: ASPIRIN 81 MG ENTERIC TAB PO (08:46)
[2018-02-19] MEDS: PROPRANOLOL 10 MG TAB PO ×2 (08:46→20:59)
[2018-02-19] MEDS: MULTIVITAMINS/MINERALS THERAP 1 TAB PO (08:46)
[2018-02-19] MEDS: PRAVASTATIN 20 MG TAB PO (08:46)
[2018-02-19] MEDS ORDERED: DARBEPOETIN 100 MCG/0.5 ML *DIALYSIS* SYRINGE (J0882) IV (09:30)
[2018-02-19] MEDS: ONDANSETRON 4 MG ORAL DISINTEGRATING TAB (Q0162 PER 1MG) SL (18:35)
[2018-02-19] MEDS: clonazePAM 0.5 MG TAB PO (20:59)
[2018-02-19] MEDS: MINOXIDIL 2.5 MG TAB PO (20:59)
[2018-02-19] MEDS: FUROSEMIDE 40 MG TAB PO (21:00)
[2018-02-19] MEDS: LATANOPROST 0.005% OPHTH SOLN 2.5 ML OU (21:00)
[2018-02-20] MEDS: HEPARIN SOD (PORCINE) 5000 UNITS/ML VIAL SC ×3 (05:46→21:43)
[2018-02-20] MEDS: NORCO, ANEXSIA 5/325MG TABLET (HYDROcodone/ACETAMINOPHEN) PO ×4 (05:47→23:11)
[2018-02-20 06:02] LABS: BASO % 0.5 % (0.0-1.0); EOS # 0.2 10^3/uL (0.0-0.50); EOS % 5.5 % (0.0-3.0); HEMATOCRIT 26.8 % (42.0-52.0); HEMOGLOBIN 8.6 g/dl (13.5-17.5); IMMATURE GRANULOCYTE % 0.5 % (0-3.0); LYMPH # 0.6 10^3/uL (1.5-4.5); LYMPH % 13.4 % (24.0-44.0); MEAN CORPUSCULAR HEMOGLOBIN 30.2 pg (27.0-33.0); MEAN CORPUSCULAR HGB CONC 32.1 g/dl (32.0-36.5); MONO # 0.7 10^3/uL (0.0-0.8); MONO % 15.8 % (0.0-5.0); NEUTROPHILS # 2.7 10^3/uL (1.8-7.7); NEUTROPHILS % 64.3 % (36.0-66.0); PLATELET COUNT, AUTOMATED 104 10^3/uL (150-450); RED BLOOD COUNT 2.85 10^6/uL (4.30-6.10); WHITE BLOOD COUNT 4.2 10^3/uL (4.0-10.0)
[2018-02-20 06:30] LABS: ALBUMIN/GLOBULIN RATIO 0.57 (1.00-1.93); ALKALINE PHOSPHATASE 147 U/L (45-117); ALT/SGPT 29 U/L (12-78); ANION GAP 11 MEQ/L (8-16); AST/SGOT 27 U/L (7-37); BILIRUBIN,TOTAL 0.5 MG/DL (0.2-1.0); BLOOD UREA NITROGEN 46 MG/DL (7-18); CALCIUM LEVEL 7.9 MG/DL (8.8-10.2); CARBON DIOXIDE LEVEL 26 MEQ/L (21-32); CHLORIDE LEVEL 100 MEQ/L (98-107); GLOMERULAR FILTRATION RATE 11.1 (>42); GLUCOSE, FASTING 163 MG/DL (70-100); MAGNESIUM LEVEL 2.2 MG/DL (1.8-2.4); POTASSIUM SERUM 4.3 MEQ/L (3.5-5.1); SODIUM LEVEL 137 MEQ/L (136-145); TOTAL PROTEIN 5.5 GM/DL (6.4-8.2)
[2018-02-20] MEDS: MULTIVITAMINS/MINERALS THERAP 1 TAB PO (09:39)
[2018-02-20] MEDS: PANTOPRAZOLE 40MG TAB (PROTONIX) PO ×2 (09:39→21:45)
[2018-02-20] MEDS: ASPIRIN 81 MG ENTERIC TAB PO (09:39)
[2018-02-20] MEDS: FAMOTIDINE 20 MG TAB PO (09:39)
[2018-02-20] MEDS: OMEGA-3 1000MG CAPSULE PO ×2 (09:39→21:44)
[2018-02-20] MEDS: MAGNESIUM CHLORIDE 64 MG TABCR (SLO MAG) PO (09:40)
[2018-02-20] MEDS: PRAVASTATIN 20 MG TAB PO (09:46)
[2018-02-20] MEDS: PROPRANOLOL 10 MG TAB PO ×2 (09:46→21:43)
[2018-02-20] MEDS: MINOXIDIL 2.5 MG TAB PO (21:44)
[2018-02-20] MEDS: clonazePAM 0.5 MG TAB PO (21:44)
[2018-02-20] MEDS: FUROSEMIDE 40 MG TAB PO (21:44)
[2018-02-20] MEDS: LATANOPROST 0.005% OPHTH SOLN 2.5 ML OU (21:45)
[2018-02-20] MEDS: LIDOCAINE 5% (LIDODERM) PATCH TD (23:12)
[2018-02-21 06:20] LABS: BASO % 0.3 % (0.0-1.0); EOS # 0.3 10^3/uL (0.0-0.50); EOS % 4.5 % (0.0-3.0); HEMATOCRIT 28.8 % (42.0-52.0); HEMOGLOBIN 9.2 g/dl (13.5-17.5); IMMATURE GRANULOCYTE % 0.8 % (0-3.0); LYMPH # 0.4 10^3/uL (1.5-4.5); LYMPH % 7.2 % (24.0-44.0); MEAN CORPUSCULAR HEMOGLOBIN 29.7 pg (27.0-33.0); MEAN CORPUSCULAR HGB CONC 31.9 g/dl (32.0-36.5); MEAN CORPUSCULAR VOLUME 92.9 fl (80.0-96.0); MONO # 0.8 10^3/uL (0.0-0.8); MONO % 12.7 % (0.0-5.0); NEUTROPHILS # 4.5 10^3/uL (1.8-7.7); NEUTROPHILS % 74.5 % (36.0-66.0); PLATELET COUNT, AUTOMATED 117 10^3/uL (150-450); RED CELL DISTRIBUTION WIDTH 17.1 % (11.5-14.5)
[2018-02-21 06:41] LABS: ALBUMIN 2.2 GM/DL (3.2-5.2); ALBUMIN/GLOBULIN RATIO 0.58 (1.00-1.93); ALKALINE PHOSPHATASE 158 U/L (45-117); ALT/SGPT 30 U/L (12-78); ANION GAP 12 MEQ/L (8-16); AST/SGOT 29 U/L (7-37); BILIRUBIN,TOTAL 0.6 MG/DL (0.2-1.0); BLOOD UREA NITROGEN 61 MG/DL (7-18); CALCIUM LEVEL 7.8 MG/DL (8.8-10.2); CARBON DIOXIDE LEVEL 24 MEQ/L (21-32); CHLORIDE LEVEL 100 MEQ/L (98-107); CREATININE FOR GFR 6.37 MG/DL (0.70-1.30); GLOMERULAR FILTRATION RATE 9.2 (>42); GLUCOSE, FASTING 125 MG/DL (70-100); MAGNESIUM LEVEL 2.4 MG/DL (1.8-2.4); POTASSIUM SERUM 4.8 MEQ/L (3.5-5.1); SODIUM LEVEL 136 MEQ/L (136-145)
[2018-02-21] MEDS: PANTOPRAZOLE 40MG TAB (PROTONIX) PO ×2 (06:46→20:59)
[2018-02-21] MEDS: MULTIVITAMINS/MINERALS THERAP 1 TAB PO (06:46)
[2018-02-21] MEDS: HEPARIN SOD (PORCINE) 5000 UNITS/ML VIAL SC ×3 (06:46→21:01)
[2018-02-21] MEDS: NORCO, ANEXSIA 5/325MG TABLET (HYDROcodone/ACETAMINOPHEN) PO ×3 (06:47→17:19)
[2018-02-21] MEDS: FAMOTIDINE 20 MG TAB PO (06:48)
[2018-02-21] MEDS: ASPIRIN 81 MG ENTERIC TAB PO (06:48)
[2018-02-21] MEDS: PRAVASTATIN 20 MG TAB PO (06:48)
[2018-02-21] MEDS: OMEGA-3 1000MG CAPSULE PO ×2 (06:48→21:00)
[2018-02-21] MEDS: PROPRANOLOL 10 MG TAB PO ×2 (06:49→21:00)
[2018-02-21] MEDS: clonazePAM 0.5 MG TAB PO (20:59)
[2018-02-21] MEDS: FUROSEMIDE 40 MG TAB PO (20:59)
[2018-02-21] MEDS: MINOXIDIL 2.5 MG TAB PO (21:00)
[2018-02-21] MEDS: LATANOPROST 0.005% OPHTH SOLN 2.5 ML OU (21:01)
[2018-02-22] MEDS: NORCO, ANEXSIA 5/325MG TABLET (HYDROcodone/ACETAMINOPHEN) PO ×5 (00:07→23:33)
[2018-02-22] MEDS: LIDOCAINE 5% (LIDODERM) PATCH TD (00:07)
[2018-02-22] MEDS: HEPARIN SOD (PORCINE) 5000 UNITS/ML VIAL SC ×3 (05:59→20:59)
[2018-02-22] MEDS: ASPIRIN 81 MG ENTERIC TAB PO (08:42)
[2018-02-22] MEDS: MULTIVITAMINS/MINERALS THERAP 1 TAB PO (08:42)
[2018-02-22] MEDS: PANTOPRAZOLE 40MG TAB (PROTONIX) PO ×2 (08:43→20:56)
[2018-02-22] MEDS: FAMOTIDINE 20 MG TAB PO (08:43)
[2018-02-22] MEDS: PRAVASTATIN 20 MG TAB PO (08:43)
[2018-02-22] MEDS: OMEGA-3 1000MG CAPSULE PO ×2 (08:43→20:58)
[2018-02-22] MEDS: PROPRANOLOL 10 MG TAB PO ×2 (08:48→20:58)
[2018-02-22] MEDS: ONDANSETRON 4 MG ORAL DISINTEGRATING TAB (Q0162 PER 1MG) SL (13:25)
[2018-02-22] MEDS: MOM 30ML SUSPENSION UDC PO (17:44)
[2018-02-22] MEDS: clonazePAM 0.5 MG TAB PO (20:56)
[2018-02-22] MEDS: FUROSEMIDE 40 MG TAB PO (20:56)
[2018-02-22] MEDS: MINOXIDIL 2.5 MG TAB PO (20:58)
[2018-02-22] MEDS: LATANOPROST 0.005% OPHTH SOLN 2.5 ML OU (20:59)
[2018-02-23] MEDS: MULTIVITAMINS/MINERALS THERAP 1 TAB PO (06:10)
[2018-02-23] MEDS: PRAVASTATIN 20 MG TAB PO (06:10)
[2018-02-23] MEDS: FAMOTIDINE 20 MG TAB PO (06:10)
[2018-02-23] MEDS: OMEGA-3 1000MG CAPSULE PO ×2 (06:10→20:52)
[2018-02-23] MEDS: PANTOPRAZOLE 40MG TAB (PROTONIX) PO ×2 (06:10→20:51)
[2018-02-23] MEDS: ASPIRIN 81 MG ENTERIC TAB PO (06:10)
[2018-02-23] MEDS: HEPARIN SOD (PORCINE) 5000 UNITS/ML VIAL SC ×3 (06:11→20:51)
[2018-02-23] MEDS: NORCO, ANEXSIA 5/325MG TABLET (HYDROcodone/ACETAMINOPHEN) PO ×3 (06:11→17:30)
[2018-02-23 07:37] LABS: HEMATOCRIT 29.5 % (42.0-52.0); HEMOGLOBIN 9.7 g/dl (13.5-17.5); MEAN CORPUSCULAR HEMOGLOBIN 30.8 pg (27.0-33.0); MEAN CORPUSCULAR HGB CONC 32.9 g/dl (32.0-36.5); MEAN CORPUSCULAR VOLUME 93.7 fl (80.0-96.0); PLATELET COUNT, AUTOMATED 111 10^3/uL (150-450); RED BLOOD COUNT 3.15 10^6/uL (4.30-6.10); RED CELL DISTRIBUTION WIDTH 16.8 % (11.5-14.5); WHITE BLOOD COUNT 3.9 10^3/uL (4.0-10.0)
[2018-02-23] MEDS: PROPRANOLOL 10 MG TAB PO ×2 (07:50→20:52)
[2018-02-23 07:59] LABS: ANION GAP 12 MEQ/L (8-16); BLOOD UREA NITROGEN 52 MG/DL (7-18); CARBON DIOXIDE LEVEL 25 MEQ/L (21-32); CHLORIDE LEVEL 98 MEQ/L (98-107); GLOMERULAR FILTRATION RATE 10.9 (>42); GLUCOSE, FASTING 153 MG/DL (70-100); POTASSIUM SERUM 4.5 MEQ/L (3.5-5.1); SODIUM LEVEL 135 MEQ/L (136-145)
[2018-02-23] MEDS: FUROSEMIDE 40 MG TAB PO (20:51)
[2018-02-23] MEDS: clonazePAM 0.5 MG TAB PO (20:51)
[2018-02-23] MEDS: MINOXIDIL 2.5 MG TAB PO (20:52)
[2018-02-23] MEDS: LATANOPROST 0.005% OPHTH SOLN 2.5 ML OU (20:53)
[2018-02-23] MEDS: MOM 30ML SUSPENSION UDC PO (20:56)
[2018-02-24] MEDS: ONDANSETRON 4 MG ORAL DISINTEGRATING TAB (Q0162 PER 1MG) SL ×2 (01:05→07:47)
[2018-02-24] MEDS: NORCO, ANEXSIA 5/325MG TABLET (HYDROcodone/ACETAMINOPHEN) PO ×4 (06:00→18:01)
[2018-02-24] MEDS: HEPARIN SOD (PORCINE) 5000 UNITS/ML VIAL SC ×3 (06:01→21:28)
[2018-02-24] MEDS: MOM 30ML SUSPENSION UDC PO (07:47)
[2018-02-24] MEDS: LIDOCAINE 5% (LIDODERM) PATCH TD (09:27)
[2018-02-24] MEDS: ASPIRIN 81 MG ENTERIC TAB PO (09:28)
[2018-02-24] MEDS: MULTIVITAMINS/MINERALS THERAP 1 TAB PO (09:28)
[2018-02-24] MEDS: PRAVASTATIN 20 MG TAB PO (09:28)
[2018-02-24] MEDS: PANTOPRAZOLE 40MG TAB (PROTONIX) PO ×2 (09:28→21:37)
[2018-02-24] MEDS: OMEGA-3 1000MG CAPSULE PO ×2 (09:28→21:29)
[2018-02-24] MEDS: FAMOTIDINE 20 MG TAB PO (09:28)
[2018-02-24] MEDS: PROPRANOLOL 10 MG TAB PO ×2 (12:00→21:37)
[2018-02-24] MEDS: FUROSEMIDE 40 MG TAB PO (21:29)
[2018-02-24] MEDS: MINOXIDIL 2.5 MG TAB PO (21:36)
[2018-02-24] MEDS: clonazePAM 0.5 MG TAB PO (21:37)
[2018-02-24] MEDS: LATANOPROST 0.005% OPHTH SOLN 2.5 ML OU (21:38)
[2018-02-25] MEDS: NORCO, ANEXSIA 5/325MG TABLET (HYDROcodone/ACETAMINOPHEN) PO ×4 (00:26→18:14)
[2018-02-25] MEDS: OMEGA-3 1000MG CAPSULE PO ×2 (06:41→21:19)
[2018-02-25] MEDS: HEPARIN SOD (PORCINE) 5000 UNITS/ML VIAL SC ×3 (06:41→21:19)
[2018-02-25] MEDS: MULTIVITAMINS/MINERALS THERAP 1 TAB PO (06:41)
[2018-02-25] MEDS: PANTOPRAZOLE 40MG TAB (PROTONIX) PO ×2 (06:41→21:18)
[2018-02-25] MEDS: PRAVASTATIN 20 MG TAB PO (06:43)
[2018-02-25] MEDS: ASPIRIN 81 MG ENTERIC TAB PO (06:43)
[2018-02-25] MEDS: FAMOTIDINE 20 MG TAB PO (06:43)
[2018-02-25] MEDS: PROPRANOLOL 10 MG TAB PO ×2 (06:44→21:19)
[2018-02-25] MEDS: LIDOCAINE 5% (LIDODERM) PATCH TD (06:46)
[2018-02-25 10:18] LABS: ALBUMIN 2.2 GM/DL (3.2-5.2); ANION GAP 13 MEQ/L (8-16); BLOOD UREA NITROGEN 51 MG/DL (7-18); CALCIUM LEVEL 7.6 MG/DL (8.8-10.2); CARBON DIOXIDE LEVEL 25 MEQ/L (21-32); CHLORIDE LEVEL 99 MEQ/L (98-107); CREATININE FOR GFR 5.31 MG/DL (0.70-1.30); GLOMERULAR FILTRATION RATE 11.4 (>42); GLUCOSE, FASTING 227 MG/DL (70-100); PHOSPHORUS LEVEL 4.7 MG/DL (2.5-4.9); POTASSIUM SERUM 4.4 MEQ/L (3.5-5.1); SODIUM LEVEL 137 MEQ/L (136-145)
[2018-02-25 10:54] LABS: BASO % 0.4 % (0.0-1.0); EOS # 0.3 10^3/uL (0.0-0.50); EOS % 5.2 % (0.0-3.0); HEMATOCRIT 29.6 % (42.0-52.0); HEMOGLOBIN 9.5 g/dl (13.5-17.5); IMMATURE GRANULOCYTE % 0.4 % (0-3.0); LYMPH # 0.3 10^3/uL (1.5-4.5); LYMPH % 7.1 % (24.0-44.0); MEAN CORPUSCULAR HEMOGLOBIN 30.1 pg (27.0-33.0); MEAN CORPUSCULAR HGB CONC 32.1 g/dl (32.0-36.5); MEAN CORPUSCULAR VOLUME 93.7 fl (80.0-96.0); MONO # 0.6 10^3/uL (0.0-0.8); MONO % 11.5 % (0.0-5.0); NEUTROPHILS # 3.6 10^3/uL (1.8-7.7); NEUTROPHILS % 75.4 % (36.0-66.0); PLATELET COUNT, AUTOMATED 113 10^3/uL (150-450); RED BLOOD COUNT 3.16 10^6/uL (4.30-6.10); RED CELL DISTRIBUTION WIDTH 16.6 % (11.5-14.5); WHITE BLOOD COUNT 4.8 10^3/uL (4.0-10.0)
[2018-02-25] MEDS: ONDANSETRON 4 MG ORAL DISINTEGRATING TAB (Q0162 PER 1MG) SL (12:05)
[2018-02-25] MEDS: clonazePAM 0.5 MG TAB PO (21:15)
[2018-02-25] MEDS: MINOXIDIL 2.5 MG TAB PO (21:18)
[2018-02-25] MEDS: FUROSEMIDE 40 MG TAB PO (21:18)
[2018-02-25] MEDS: LATANOPROST 0.005% OPHTH SOLN 2.5 ML OU (21:19)
[2018-02-26] MEDS: NORCO, ANEXSIA 5/325MG TABLET (HYDROcodone/ACETAMINOPHEN) PO ×4 (01:20→17:48)
[2018-02-26] MEDS: HEPARIN SOD (PORCINE) 5000 UNITS/ML VIAL SC ×3 (05:30→21:27)
[2018-02-26] MEDS: PRAVASTATIN 20 MG TAB PO (09:41)
[2018-02-26] MEDS: OMEGA-3 1000MG CAPSULE PO ×2 (09:41→21:29)
[2018-02-26] MEDS: PROPRANOLOL 10 MG TAB PO ×2 (09:41→21:30)
[2018-02-26] MEDS: ASPIRIN 81 MG ENTERIC TAB PO (09:42)
[2018-02-26] MEDS: FAMOTIDINE 20 MG TAB PO (09:42)
[2018-02-26] MEDS: MULTIVITAMINS/MINERALS THERAP 1 TAB PO (09:42)
[2018-02-26] MEDS: PANTOPRAZOLE 40MG TAB (PROTONIX) PO ×2 (09:42→21:29)
[2018-02-26] MEDS: LIDOCAINE 5% (LIDODERM) PATCH TD (11:20)
[2018-02-26] MEDS: MOM 30ML SUSPENSION UDC PO (11:20)
[2018-02-26] MEDS: clonazePAM 0.5 MG TAB PO (21:27)
[2018-02-26] MEDS: MINOXIDIL 2.5 MG TAB PO (21:29)
[2018-02-26] MEDS: FUROSEMIDE 40 MG TAB PO (21:29)
[2018-02-26] MEDS: LATANOPROST 0.005% OPHTH SOLN 2.5 ML OU (21:30)
[2018-02-27] MEDS: NORCO, ANEXSIA 5/325MG TABLET (HYDROcodone/ACETAMINOPHEN) PO ×4 (00:25→17:45)
[2018-02-27] MEDS: HEPARIN SOD (PORCINE) 5000 UNITS/ML VIAL SC ×3 (06:00→22:28)
[2018-02-27] MEDS: PROPRANOLOL 10 MG TAB PO ×2 (08:19→22:28)
[2018-02-27] MEDS: PANTOPRAZOLE 40MG TAB (PROTONIX) PO ×2 (08:19→22:28)
[2018-02-27] MEDS: PRAVASTATIN 20 MG TAB PO (08:19)
[2018-02-27] MEDS: MULTIVITAMINS/MINERALS THERAP 1 TAB PO (08:19)
[2018-02-27] MEDS: OMEGA-3 1000MG CAPSULE PO ×2 (08:19→22:28)
[2018-02-27] MEDS: FAMOTIDINE 20 MG TAB PO (08:19)
[2018-02-27] MEDS: ASPIRIN 81 MG ENTERIC TAB PO (08:19)
[2018-02-27] MEDS: ONDANSETRON 4 MG ORAL DISINTEGRATING TAB (Q0162 PER 1MG) SL (14:26)
[2018-02-27] MEDS: FUROSEMIDE 40 MG TAB PO (22:27)
[2018-02-27] MEDS: MINOXIDIL 2.5 MG TAB PO (22:28)
[2018-02-27] MEDS: MOM 30ML SUSPENSION UDC PO (22:28)
[2018-02-27] MEDS: clonazePAM 0.5 MG TAB PO (22:28)
[2018-02-27] MEDS: LATANOPROST 0.005% OPHTH SOLN 2.5 ML OU (22:29)
[2018-02-28] MEDS: ONDANSETRON 4 MG ORAL DISINTEGRATING TAB (Q0162 PER 1MG) SL ×2 (00:42→07:00)
[2018-02-28] MEDS: NORCO, ANEXSIA 5/325MG TABLET (HYDROcodone/ACETAMINOPHEN) PO ×4 (00:43→18:39)
[2018-02-28] MEDS: ASPIRIN 81 MG ENTERIC TAB PO (07:24)
[2018-02-28] MEDS: HEPARIN SOD (PORCINE) 5000 UNITS/ML VIAL SC ×3 (07:24→20:59)
[2018-02-28] MEDS: PRAVASTATIN 20 MG TAB PO (07:26)
[2018-02-28] MEDS: PROPRANOLOL 10 MG TAB PO ×2 (07:26→19:57)
[2018-02-28] MEDS: OMEGA-3 1000MG CAPSULE PO ×2 (07:26→19:56)
[2018-02-28] MEDS: MULTIVITAMINS/MINERALS THERAP 1 TAB PO (07:26)
[2018-02-28] MEDS: PANTOPRAZOLE 40MG TAB (PROTONIX) PO ×2 (07:26→19:56)
[2018-02-28] MEDS: FAMOTIDINE 20 MG TAB PO (07:26)
[2018-02-28] MEDS: clonazePAM 0.5 MG TAB PO ×2 (09:18→19:56)
[2018-02-28 10:16] LABS: ALBUMIN 2.6 GM/DL (3.2-5.2); ANION GAP 12 MEQ/L (8-16); BLOOD UREA NITROGEN 58 MG/DL (7-18); CALCIUM LEVEL 8.1 MG/DL (8.8-10.2); CARBON DIOXIDE LEVEL 25 MEQ/L (21-32); CHLORIDE LEVEL 98 MEQ/L (98-107); CREATININE FOR GFR 6.23 MG/DL (0.70-1.30); GLOMERULAR FILTRATION RATE 9.4 (>42); GLUCOSE, FASTING 158 MG/DL (70-100); PHOSPHORUS LEVEL 4.7 MG/DL (2.5-4.9); POTASSIUM SERUM 4.7 MEQ/L (3.5-5.1); SODIUM LEVEL 135 MEQ/L (136-145)
[2018-02-28 10:19] LABS: BASO % 0.3 % (0.0-1.0); EOS # 0.3 10^3/uL (0.0-0.50); EOS % 4.7 % (0.0-3.0); HEMATOCRIT 32.8 % (42.0-52.0); HEMOGLOBIN 10.6 g/dl (13.5-17.5); IMMATURE GRANULOCYTE % 1.3 % (0-3.0); LYMPH # 0.4 10^3/uL (1.5-4.5); MEAN CORPUSCULAR HEMOGLOBIN 30.1 pg (27.0-33.0); MEAN CORPUSCULAR HGB CONC 32.3 g/dl (32.0-36.5); MEAN CORPUSCULAR VOLUME 93.2 fl (80.0-96.0); MONO # 0.6 10^3/uL (0.0-0.8); MONO % 10.1 % (0.0-5.0); NEUTROPHILS # 4.8 10^3/uL (1.8-7.7); NEUTROPHILS % 77.6 % (36.0-66.0); PLATELET COUNT, AUTOMATED 151 10^3/uL (150-450); RED BLOOD COUNT 3.52 10^6/uL (4.30-6.10); RED CELL DISTRIBUTION WIDTH 16.7 % (11.5-14.5); WHITE BLOOD COUNT 6.2 10^3/uL (4.0-10.0)
[2018-02-28 12:43] LABS: AMMONIA 65 uMOL/L (<32)
[2018-02-28 15:21] LABS: ERYTHROCYTE SEDIMENTATION RATE 54 mm/hr (0-20)
[2018-02-28] MEDS: FUROSEMIDE 40 MG TAB PO (19:57)
[2018-02-28] MEDS: LATANOPROST 0.005% OPHTH SOLN 2.5 ML OU (19:58)
[2018-02-28] MEDS: MINOXIDIL 2.5 MG TAB PO (19:58)
[2018-02-28] MEDS: LACTULOSE 20 GM/30 ML SYRUP UD PO (21:00)
[2018-03-01 06:10] LABS: HEMATOCRIT 27.4 % (42.0-52.0); HEMOGLOBIN 8.9 g/dl (13.5-17.5); MEAN CORPUSCULAR HEMOGLOBIN 30.5 pg (27.0-33.0); MEAN CORPUSCULAR HGB CONC 32.5 g/dl (32.0-36.5); MEAN CORPUSCULAR VOLUME 93.8 fl (80.0-96.0); PLATELET COUNT, AUTOMATED 128 10^3/uL (150-450); RED BLOOD COUNT 2.92 10^6/uL (4.30-6.10); RED CELL DISTRIBUTION WIDTH 16.8 % (11.5-14.5); WHITE BLOOD COUNT 4.7 10^3/uL (4.0-10.0)
[2018-03-01] MEDS: HEPARIN SOD (PORCINE) 5000 UNITS/ML VIAL SC ×2 (06:28→13:54)
[2018-03-01] MEDS: LACTULOSE 20 GM/30 ML SYRUP UD PO ×2 (06:29→13:54)
[2018-03-01 06:31] LABS: ANION GAP 9 MEQ/L (8-16); BLOOD UREA NITROGEN 37 MG/DL (7-18); C REACTIVE PROTEIN QUANTITATIV 2.84 MG/DL (0.00-0.30); CALCIUM LEVEL 8.3 MG/DL (8.8-10.2); CARBON DIOXIDE LEVEL 28 MEQ/L (21-32); CHLORIDE LEVEL 101 MEQ/L (98-107); CREATININE FOR GFR 4.59 MG/DL (0.70-1.30); GLOMERULAR FILTRATION RATE 13.4 (>42); GLUCOSE, FASTING 111 MG/DL (70-100); MAGNESIUM LEVEL 2.2 MG/DL (1.8-2.4); POTASSIUM SERUM 3.8 MEQ/L (3.5-5.1); SODIUM LEVEL 138 MEQ/L (136-145)
[2018-03-01] MEDS: MULTIVITAMINS/MINERALS THERAP 1 TAB PO (09:00)
[2018-03-01] MEDS: OMEGA-3 1000MG CAPSULE PO (09:00)
[2018-03-01] MEDS: FAMOTIDINE 20 MG TAB PO (09:00)
[2018-03-01] MEDS: PROPRANOLOL 10 MG TAB PO (09:00)
[2018-03-01] MEDS: ASPIRIN 81 MG ENTERIC TAB PO (09:00)
[2018-03-01] MEDS: PANTOPRAZOLE 40MG TAB (PROTONIX) PO (09:00)
[2018-03-01] MEDS: PRAVASTATIN 20 MG TAB PO (09:00)
[2018-03-01] MEDS ORDERED: NORCO, ANEXSIA 5/325MG TABLET (HYDROcodone/ACETAMINOPHEN) PO (18:00)
== END 2018-03-01 16:45 | disposition home health service (06) | DRG 640 ==
LOC: M MSPAV 02-09 11:26 → M ICU 05:55
PROC: 5A1D70Z Performance of Urinary Filtration, Intermittent, Less than 6 Hours Per Day (ICD-10-PCS; principal; 2018-02-07)
PROC: 0W9G3ZZ Drainage of Peritoneal Cavity, Percutaneous Approach (ICD-10-PCS; 2018-02-08)
PROC: 0W9G3ZZ Drainage of Peritoneal Cavity, Percutaneous Approach (ICD-10-PCS; 2018-02-15)
PROC: 0W9G3ZZ Drainage of Peritoneal Cavity, Percutaneous Approach (ICD-10-PCS; 2018-02-22)
PROC: 0W9G3ZZ Drainage of Peritoneal Cavity, Percutaneous Approach (ICD-10-PCS; 2018-03-01)
DX: E87.5 Hyperkalemia (principal); N18.6 End stage renal disease; N25.81 Secondary hyperparathyroidism of renal origin; K76.6 Portal hypertension; I50.32 Chronic diastolic (congestive) heart failure; R18.8 Other ascites; I13.2 Hypertensive heart and chronic kidney disease with heart failure and with stage 5 chronic kidney disease, or end stage renal disease; I15.0 Renovascular hypertension; K74.60 Unspecified cirrhosis of liver; K72.90 Hepatic failure, unspecified without coma; I73.9 Peripheral vascular disease, unspecified; D63.1 Anemia in chronic kidney disease; K21.9 Gastro-esophageal reflux disease without esophagitis; B96.89 Other specified bacterial agents as the cause of diseases classified elsewhere; L72.3 Sebaceous cyst; Z85.51 Personal history of malignant neoplasm of bladder; Z99.2 Dependence on renal dialysis; Z79.82 Long term (current) use of aspirin; Z88.1 Allergy status to other antibiotic agents; Z88.8 Allergy status to other drugs, medicaments and biological substances; Z91.11 Patient's noncompliance with dietary regimen; Z89.511 Acquired absence of right leg below knee; Z89.512 Acquired absence of left leg below knee; Z91.15 Patient's noncompliance with renal dialysis

== ENCOUNTER → 2018-03-08 | Outpatient (CLI) | payer MEDICARE | LOC: M RADPRO 12:43 | DX: R18.8 Other ascites (principal); N18.6 End stage renal disease; K74.69 Other cirrhosis of liver; Z79.82 Long term (current) use of aspirin; Z79.899 Other long term (current) drug therapy; Z88.8 Allergy status to other drugs, medicaments and biological substances; Z88.1 Allergy status to other antibiotic agents | CPT/HCPCS: 49083 ==

== ENCOUNTER → 2018-03-15 | Outpatient (CLI) | payer MEDICARE ==
[~2018-03-15] MED LIST changes: +ACET1TAB55 PO; +ACET30TAB PO; +ASPI1TAB PO; +ATEN100T PO; +ATEN50TA2 PO; +AZIT500T2 PO; +Acetaminophen Tab PO; +BACT800T5 PO; +BIMA01SOL OU; -BISACODYL 10 MG SUPP PR; -BISACODYL 5 MG TAB PO; +CALC1TAB30 PO; +CALC1TAB42 PO; +CENTTAB PO; +CLEO300C2 PO; +CLON0.5T8 PO; +DICY10CA13 PO; +DIPHCR TOP; +DOXY-350 PO; +DRIS50003 PO; +FISH7.5C PO; +FLAX10005 PO; +FLEEENE4 PR; -FLEET ENEMA PR; +FURO40TA2 PO; +HYDR-3713 PO; +HYDR10TAB PO; +HYDR1CRE TOP; +INSUDET SC; +LACT10SO3 PO; +LASI40TA PO; +LATA5OPD OU; +LIDO5TD TD; +LISI-538 PO; +LISI10TA4 PO; +LOPE2CAP PO; +MAGN64TASA PO; +MINO2.5T PO; +NEPHTAB PO; +NIAS500T23 PO; +NORC1TAB4 PO; +NORCOTAB PO; +NYAM10003 TOP; +NYST1POW9 TOP; +ONDA8TAB8 PO; -ONDANSETRON 4 MG ORAL DISINTEGRATING TAB (Q0162 PER 1MG) PO; +PANT40TA3 PO; +PRAV20TA2 PO; +PROP10TAB PO; +PROP20TA PO; +PROP20TA72 PO; +PROP40TA62 PO; +RANI150T PO; +RANI1TAB38 PO; +SUCR1TA PO; +SUCR1TAB56 PO; +VIAG100T PO; +VITA50005 PO; +VITA500T PO; +VITMTA PO; +XALA0.007 OU
--- NOTE | 2018-03-15 20:33 | REP ---
Ultrasound-guided paracentesis The procedure was performed under the direct supervision of Dr. Reyna. The risks and benefits of the procedure were explained to the patient and informed consent was obtained. The largest pocket of fluid was localized in the left flank using ultrasound guidance. The skin was prepped and draped in a sterile fashion. 1% lidocaine was used as a local anesthetic. An 8-Tunisian multi side-hole catheter was inserted using trocar technique. 3400 ml of low viscosity red colored fluid was withdrawn and discarded. The patient tolerated the procedure well and there were no immediate complications. After the appropriate amount of monitored convalescence the patient was discharged from the department. Reviewed by SIMRAN Ji 03/15/2018 04:40 P Electronically Signed by Karlos Reyna MD 03/15/2018 08:24 P
== END ==
LOC: M RADPRO 11:32
PROVIDERS: ATTEND Internal Medicine Nephrology
DX: R18.8 Other ascites (principal); N18.6 End stage renal disease; K74.69 Other cirrhosis of liver; Z79.899 Other long term (current) drug therapy; Z88.1 Allergy status to other antibiotic agents; Z79.82 Long term (current) use of aspirin

== ENCOUNTER → 2018-03-22 | Outpatient (CLI) | payer MEDICARE ==
[~2018-03-22] MED LIST changes: -LASI40TA PO; +LASI40TA9 PO
--- NOTE | 2018-03-22 14:10 | REP ---
ULTRASOUND GUIDED ABDOMINAL PARACENTESIS: Patient was referred for ultrasound guided abdominal paracentesis. Informed consent was obtained. Under sterile conditions and after satisfactory administration of local anesthesia, using ultrasound guidance, access to ascites fluid is obtained in the left flank an 8-Jordanian paracentesis catheter was utilized and was hooked up to wall suction. Approximately 3100 mL of dark yellow fluid was aspirated without difficulty. Catheter was removed and hemostasis was obtained with no immediate complication. Patient was discharged in stable condition. Electronically Signed by Carlos Rodas MD 03/22/2018 02:20 P
== END ==
LOC: M RADPRO 10:36
PROVIDERS: ATTEND Internal Medicine Nephrology
DX: R18.8 Other ascites (principal); N18.6 End stage renal disease; K74.69 Other cirrhosis of liver; Z79.82 Long term (current) use of aspirin; Z79.899 Other long term (current) drug therapy; Z88.1 Allergy status to other antibiotic agents

== ENCOUNTER → 2018-04-12 | Outpatient (CLI) | payer MEDICARE ==
--- NOTE | 2018-04-12 19:41 | REP ---
ULTRASOUND-GUIDED PARACENTESIS The procedure was performed under the direct supervision of Dr. Reyna. The risks and benefits of the procedure were explained to the patient and informed consent was obtained. The largest pocket of fluid was localized in the left flank using ultrasound guidance. The skin was prepped and draped in a sterile fashion. 1% lidocaine was used as a local anesthetic. An 8-Gibraltarian multi side-hole catheter was inserted using trocar technique. 3400 ml of deng colored fluid was withdrawn and discarded. The patient tolerated the procedure well and there were no immediate complications. After the appropriate amount of monitored convalescence the patient was discharged from the department. Reviewed by SIMRAN Ji 04/12/2018 03:15 P Electronically Signed by Karlos Reyna MD 04/12/2018 07:31 P
== END ==
LOC: M RADPRO 08:25
PROVIDERS: ATTEND Internal Medicine Nephrology
DX: N18.6 End stage renal disease (principal); R18.8 Other ascites; K74.69 Other cirrhosis of liver

== ENCOUNTER → 2018-04-19 | Outpatient (CLI) | payer MEDICARE ==
--- NOTE | 2018-04-19 17:22 | REP ---
Ultrasound-guided paracentesis The procedure was performed under the direct supervision of Dr. Reyna. The risks and benefits of the procedure were explained to the patient and informed consent was obtained. The largest pocket of fluid was localized in the left flank using ultrasound guidance. The skin was prepped and draped in a sterile fashion. 1% lidocaine was used as a local anesthetic. An 8-Armenian multi side-hole catheter was inserted using trocar technique. 4950 ml of clear yellow fluid was withdrawn and discarded. The patient tolerated the procedure well and there were no immediate complications. After the appropriate amount of monitored convalescence the patient was discharged from the department. Reviewed by SIMRAN Ji 04/19/2018 02:26 P Electronically Signed by Karlos Reyna MD 04/19/2018 05:13 P
== END ==
LOC: M RADPRO 09:47
PROVIDERS: ATTEND Internal Medicine Nephrology
DX: N18.6 End stage renal disease (principal); R18.8 Other ascites; K74.69 Other cirrhosis of liver; Z88.1 Allergy status to other antibiotic agents; Z88.8 Allergy status to other drugs, medicaments and biological substances; Z79.82 Long term (current) use of aspirin; Z79.899 Other long term (current) drug therapy

== ENCOUNTER → 2018-04-26 | Outpatient (CLI) | payer MEDICARE ==
[~2018-04-26] MED LIST changes: +ATOR1TAB19 PO; +CALC1TAB30; +CEFP200T; +HYDR10TAB; +MUPI2OI; +ONDA8TAB8; +PROP10TA56; +RENV2TAB PO
--- NOTE | 2018-04-27 10:18 | REP ---
Ultrasound-guided paracentesis The procedure was performed under the direct supervision of Dr. Rodas. The risks and benefits of the procedure were explained to the patient and informed consent was obtained. The largest pocket of fluid was localized in the left flank using ultrasound guidance. The skin was prepped and draped in a sterile fashion. 1% lidocaine was used as a local anesthetic. An 8-Japanese multi side-hole catheter was inserted using trocar technique. 4900 ml of yellow fluid was withdrawn and discarded. The patient tolerated the procedure well and there were no immediate complications. After the appropriate amount of monitored convalescence the patient was discharged from the department. Reviewed by SIMRAN Ji 04/26/2018 03:01 P Electronically Signed by Carlos Rodas MD 04/27/2018 10:09 A
== END ==
LOC: M RADPRO 09:59
PROVIDERS: ATTEND Internal Medicine Nephrology
DX: N18.6 End stage renal disease (principal); R18.8 Other ascites; K74.60 Unspecified cirrhosis of liver

== ENCOUNTER → 2018-05-03 | Outpatient (CLI) | payer MEDICARE ==
[~2018-05-03] MED LIST changes: +ASCO500T PO; +CENT1TAB PO; +DICY1CAP8 PO; +FERR325T16 PO; +FLAX100012 PO; +LIDO5DIS41 TD; +ONDA8TAB7 PO
--- NOTE | 2018-05-03 18:43 | REP ---
Ultrasound-guided paracentesis The procedure was performed under the direct supervision of Dr. Reyna. The risks and benefits of the procedure were explained to the patient and informed consent was obtained. The largest pocket of fluid was localized in the left flank using ultrasound guidance. The skin was prepped and draped in a sterile fashion. 1% lidocaine was used as a local anesthetic. An 8-Pashto multi side-hole catheter was inserted using trocar technique. 4700 ml of yellow fluid was withdrawn and discarded. The patient tolerated the procedure well and there were no immediate complications. After the appropriate amount of monitored convalescence the patient was discharged from the department. Reviewed by SIMRAN Ji 05/03/2018 03:18 P Electronically Signed by Karlos Reyna MD 05/03/2018 06:34 P
== END ==
LOC: M RADPRO 09:33
PROVIDERS: ATTEND Internal Medicine Nephrology
DX: N18.6 End stage renal disease (principal); R18.8 Other ascites; K74.69 Other cirrhosis of liver; Z79.82 Long term (current) use of aspirin; Z79.899 Other long term (current) drug therapy

== ENCOUNTER 2018-05-04 15:52 | Emergency (ER) | payer MEDICARE ==
[~2018-05-04 15:52] MED LIST changes: -ASCO500T PO; -ATOR1TAB19 PO; -CALC1TAB30; -CEFP200T; -CENT1TAB PO; -DICY1CAP8 PO; -FERR325T16 PO; -FLAX100012 PO; -HYDR10TAB; -LIDO5DIS41 TD; -MUPI2OI; -ONDA8TAB7 PO; -ONDA8TAB8; -PROP10TA56; -RENV2TAB PO
--- NOTE | 2018-05-04 16:20 | REP ---
Chest one-view HISTORY: Chest pain Comparison: 01/21/2018 A diffuse increase in interstitial markings is present in the lungs consistent with chronic interstitial change. The cardiac silhouette is enlarged. The pulmonary vasculature is normal in appearance. Impression: 1. Chronic interstitial change. 2. Cardiomegaly. Electronically Signed by Reji Johnson MD 05/04/2018 04:11 P
[2018-05-04] MEDS ORDERED: CALC1TAB30 (16:38)
[2018-05-04] MEDS ORDERED: HYDR10TAB (16:38)
[2018-05-04] MEDS ORDERED: ATOR1TAB19 PO (16:38)
[2018-05-04] MEDS ORDERED: VIAG100T PO (16:38)
[2018-05-04] MEDS ORDERED: PROP10TA56 (16:38)
[2018-05-04] MEDS ORDERED: ONDA8TAB8 (16:38)
[2018-05-04] MEDS ORDERED: RENV2TAB PO (16:38)
[2018-05-04] MEDS ORDERED: MUPI2OI (16:38)
[2018-05-04] MEDS ORDERED: CEFP200T (16:38)
[2018-05-04 16:41] LABS: BASO % 0.2 % (0.0-1.0); EOS # 0.1 10^3/uL (0.0-0.50); EOS % 3.2 % (0.0-3.0); HEMATOCRIT 31.4 % (42.0-52.0); LYMPH % 4.1 % (24.0-44.0); MEAN CORPUSCULAR HEMOGLOBIN 28.4 pg (27.0-33.0); MEAN CORPUSCULAR HGB CONC 31.8 g/dl (32.0-36.5); MEAN CORPUSCULAR VOLUME 89.2 fl (80.0-96.0); MONO # 0.5 10^3/uL (0.0-0.8); NEUTROPHILS # 3.5 10^3/uL (1.8-7.7); NEUTROPHILS % 80.8 % (36.0-66.0); PLATELET COUNT, AUTOMATED 180 10^3/uL (150-450); RED BLOOD COUNT 3.52 10^6/uL (4.30-6.10); WHITE BLOOD COUNT 4.4 10^3/uL (4.0-10.0)
[2018-05-04 16:56] LABS: INR 1.13; PARTIAL THROMBOPLASTIN TIME 32.9 SECONDS (25.4-37.6); PROTHROMBIN TIME 14.6 SECONDS (12.1-14.4)
[2018-05-04 17:00] LABS: LYMPH # 0.2 10^3/uL (1.5-4.5)
[2018-05-04 17:10] LABS: ALBUMIN 1.7 GM/DL (3.2-5.2); BILIRUBIN,DIRECT 0.3 MG/DL (0.0-0.2); BILIRUBIN,TOTAL 0.6 MG/DL (0.2-1.0); CALCIUM LEVEL 7.4 MG/DL (8.8-10.2); CREATININE FOR GFR 4.22 MG/DL (0.70-1.30); FREE T4 1.42 NG/DL (0.76-1.46); GLOMERULAR FILTRATION RATE 14.8 (>42); MB/CK RELATIVE INDEX 4.21 (< OR =4); POTASSIUM SERUM 4.4 MEQ/L (3.5-5.1); THYROID STIMULATING HORMONE 2.25 uIU/ML (0.358-3.740); TOTAL PROTEIN 5.1 GM/DL (6.4-8.2); TROPONIN I 0.02 NG/ML (< 0.10)
[2018-05-04] MEDS ORDERED: NS 500 ML IV ONE (19:00)
--- NOTE | 2018-05-04 21:01 | ECGEPIP ---
Stationary ECG Study [facility] - ED Test Date: 2018-05-04 Pat Name: XIOMARA ALBRECHT Department: Room: - Gender: M Projection Technician: sb : 1945 Requested By: Saran Roque Order Number: [id number] Reading MD: Jamilah Hopkins Measurements Intervals [place] Rate: 93 P: NH: 0 QRS: -27 QRSD: 78 T: 32 QT: 377 QTc: 471 Interpretive Statements ATRIAL FIBRILLATION BORDERLINE LEFT AXIS DEVIATION MODERATE ST DEPRESSION INFERIOR INFARCT, OLD Electronically Signed On 05-04-2018 21:01:31 EST by Jamilah Hopkins
[2018-05-04 21:05] LABS: MB/CK RELATIVE INDEX 3.94 (< OR =4); TROPONIN I 0.09 NG/ML (< 0.10)
--- NOTE | 2018-05-04 21:05 | ECGEPIP ---
Stationary ECG Study [facility] - ED Test Date: 2018-05-04 Pat Name: XIOMARA ALBRECHT Department: Room: - Gender: M Research Program Coordinator: : 1945 Requested By: Saran Roque Order Number: [id number] Reading MD: Jamilah Hopkins Measurements Intervals [place] Rate: 85 P: MT: 0 QRS: -25 QRSD: 84 T: 11 QT: 400 QTc: 477 Interpretive Statements ATRIAL FIBRILLATION INFERIOR MYOCARDIAL INFARCTION, PROBABLY OLD PRWP DECREASED RATE 05/04/18 Electronically Signed On 05-04-2018 21:04:58 EST by Jamilah Hopkins
[2018-05-04 21:30] VITALS: BP 91/55
== END 2018-05-04 22:54 | disposition home or self-care (01) ==
LOC: M ED 15:52
DX: R07.9 Chest pain, unspecified (principal); I48.91 Unspecified atrial fibrillation; K21.9 Gastro-esophageal reflux disease without esophagitis; N18.6 End stage renal disease; Z99.2 Dependence on renal dialysis; K92.2 Gastrointestinal hemorrhage, unspecified; K74.60 Unspecified cirrhosis of liver; Z85.51 Personal history of malignant neoplasm of bladder; I51.7 Cardiomegaly; Z79.82 Long term (current) use of aspirin; Z79.899 Other long term (current) drug therapy; Z88.8 Allergy status to other drugs, medicaments and biological substances

== ENCOUNTER 2018-05-06 08:50 | Inpatient (IN) | payer MEDICARE ==
[~2018-05-06] VITALS: Ht 172.7 cm; Wt 79.2 kg
[~2018-05-06 08:50] MED LIST changes: +ATOR1TAB19 PO; +CALC1TAB30; +CEFP200T; +HYDR10TAB; +MUPI2OI; +ONDA8TAB8; +PROP10TA56; +RENV2TAB PO
[2018-05-06 09:44] LABS: BASO % 0.2 % (0.0-1.0); EOS # 0.2 10^3/uL (0.0-0.50); EOS % 2.1 % (0.0-3.0); HEMATOCRIT 32.6 % (42.0-52.0); HEMOGLOBIN 10.7 g/dl (13.5-17.5); LYMPH # 0.3 10^3/uL (1.5-4.5); LYMPH % 4.2 % (24.0-44.0); MEAN CORPUSCULAR HEMOGLOBIN 28.7 pg (27.0-33.0); MEAN CORPUSCULAR HGB CONC 32.8 g/dl (32.0-36.5); MEAN CORPUSCULAR VOLUME 87.4 fl (80.0-96.0); MONO # 0.7 10^3/uL (0.0-0.8); MONO % 8.6 % (0.0-5.0); NEUTROPHILS # 6.9 10^3/uL (1.8-7.7); NEUTROPHILS % 84.3 % (36.0-66.0); PLATELET COUNT, AUTOMATED 201 10^3/uL (150-450); RED BLOOD COUNT 3.73 10^6/uL (4.30-6.10); WHITE BLOOD COUNT 8.2 10^3/uL (4.0-10.0)
[2018-05-06 10:01] LABS: INR 1.11; PROTHROMBIN TIME 14.4 SECONDS (12.1-14.4)
[2018-05-06 10:02] LABS: PARTIAL THROMBOPLASTIN TIME 31.3 SECONDS (25.4-37.6)
[2018-05-06 10:11] LABS: ACETAMINOPHEN LEVEL < 2.0 UG/ML (10.0-30.0); ALBUMIN 1.9 GM/DL (3.2-5.2); ALT/SGPT 31 U/L (12-78); BILIRUBIN,DIRECT 0.3 MG/DL (0.0-0.2); BILIRUBIN,TOTAL 0.6 MG/DL (0.2-1.0); BLOOD UREA NITROGEN 52 MG/DL (7-18); CALCIUM LEVEL 7.6 MG/DL (8.8-10.2); CARBON DIOXIDE LEVEL 28 MEQ/L (21-32); CHLORIDE LEVEL 99 MEQ/L (98-107); CPK CREATINE PHOSPHOKINASE 588 U/L (39-308); CREATININE FOR GFR 6.36 MG/DL (0.70-1.30); ETHYL ALCOHOL (ETHANOL) < 0.003 % (0.000-0.010); GLOMERULAR FILTRATION RATE 9.2 (>42); GLUCOSE, FASTING 126 MG/DL (70-100); LIPASE 68 U/L (73-393); MB/CK RELATIVE INDEX 3.04 (< OR =4); POTASSIUM SERUM 6.4 MEQ/L (3.5-5.1); SALICYLATE LEVEL < 1.7 MG/DL (5.0-30.0); SODIUM LEVEL 137 MEQ/L (136-145); TOTAL PROTEIN 5.6 GM/DL (6.4-8.2); TROPONIN I 0.16 NG/ML (< 0.10)
--- NOTE | 2018-05-06 10:15 | REP ---
PORTABLE CHEST: AP portable view of the chest is performed and compared to prior studies, most recent of which is 05/04/2018. There is mild cardiomegaly. There is mild calcification of the thoracic aorta. The mediastinal silhouette is unchanged. There are mildly increased interstitial markings which are stable and chronic in nature. No new infiltrate is seen. IMPRESSION: Mild cardiomegaly and mild chronic interstitial changes. No acute infiltrate. Electronically Signed by Carlos Rodas MD 05/06/2018 07:20 P
[2018-05-06] MEDS ORDERED: DEXTROSE 50% 50 ML SYRINGE IV STA ×2 (10:17→13:55)
[2018-05-06] MEDS ORDERED: SODIUM BICARBONATE 8.4% INJ 50 ML SYRINGE IV STA (10:17)
[2018-05-06] MEDS ORDERED: HumuLIN R (REGULAR) INSULIN (NovoLIN R) **100U/ML** PER UNIT IV ONE (10:30)
[2018-05-06] MEDS ORDERED: CALCIUM GLUCONATE 1,000 MG in D5W MINI-BAG PLUS 100 ML IV ONE (10:30)
[2018-05-06] MEDS ORDERED: PATIROMER SORBITEX CALCIUM 8.4 GM POWDER PACKET (VELTASSA) PO SCH (12:00)
[2018-05-06] MEDS ORDERED: FLAX100012 PO (12:46)
[2018-05-06] MEDS ORDERED: CLON0.5T8 PO (12:46)
[2018-05-06] MEDS ORDERED: PRAV20TA2 PO (12:46)
[2018-05-06] MEDS ORDERED: FISH7.5C PO (12:46)
[2018-05-06] MEDS ORDERED: LIDO5DIS41 TD (12:46)
[2018-05-06] MEDS ORDERED: ONDA8TAB7 PO (12:46)
[2018-05-06] MEDS ORDERED: DICY1CAP8 PO (12:46)
[2018-05-06] MEDS ORDERED: ASPI1TAB PO (12:46)
[2018-05-06] MEDS ORDERED: MINO2.5T PO (12:46)
[2018-05-06] MEDS ORDERED: FERR325T16 PO (12:46)
[2018-05-06] MEDS ORDERED: CENT1TAB PO (12:46)
[2018-05-06] MEDS ORDERED: FURO40TA2 PO (12:46)
[2018-05-06] MEDS ORDERED: ASCO500T PO (12:46)
[2018-05-06] MEDS ORDERED: XALA0.007 OU (12:46)
[2018-05-06] MEDS ORDERED: DRIS50003 PO (12:49)
[2018-05-06] MEDS ORDERED: RENV2TAB PO (12:49)
[2018-05-06] MEDS ORDERED: PANT40TA3 PO (12:49)
[2018-05-06] MEDS ORDERED: RANI150T PO (12:49)
[2018-05-06] MEDS ORDERED: VIAG100T PO (12:49)
[2018-05-06] MEDS ORDERED: PROP20TA PO (12:53)
[2018-05-06] MEDS ORDERED: DEXTROSE 50% 50 ML SYRINGE As Ordered ONE (13:56)
--- NOTE | 2018-05-06 14:11 | HPE ---
DATE OF ADMISSION: 05/06/2018 PRIMARY CARE PROVIDER: [facility] RETAIL ADVERTISING ACCOUNT EXECUTIVE: Dr. Jackson CHIEF COMPLAINT: Generalized weakness. HISTORY: Jadiel Rodriguez was brought to the emergency room by ambulance for generalized weakness. He has cirrhosis, end stage renal disease on dialysis. He just underwent a paracentesis of high volume 4700 mL on 05/03/2018. He had 4900 mL removed on 04/26/2018. In the emergency room, his potassium was as high as 6.4 and he has intermediate elevation of his troponin so he is being admitted for this. I spoke with Dr. Coleman, who will be seeing him in consultation. The patient is well known to the hospitalist service. He is a bilateral lower extremity amputee. He has end stage renal disease and gets Tuesday, Tuesday, Tuesday hemodialysis. He has a history of cirrhosis and gets weekly paracentesis. He has a history of gastroesophageal reflux disease (GERD), gastrointestinal bleeds, renovascular hypertension. Surgical history of bilateral below the knee amputations, status post right lower quadrant ileoconduit for bladder cancer, umbilical hernia repair, paracenteses. ALLERGIES: QUINOLONES, AMLODIPINE. FAMILY HISTORY: Negative. SOCIAL HISTORY: He apparently lives with his son. HOME MEDICATIONS: - Tylenol as needed - Percocet as needed - aspirin 81 mg daily - vitamin C 500 mg daily - atorvastatin 5 mg (half of a 10 mg tablet daily) - Klonopin 0.5 mg daily as needed for agitation and 0.5 mg at night for sleep - dicyclomine 10 mg before food and nightly for abdominal distress - vitamin D 50,000 units weekly - furosemide 40 mg at night - hydralazine 10 mg, frequency unknown - Lisinopril 10 mg twice a day - loperamide 2 mg twice a day as needed - magnesium chloride 64 mg daily - minoxidil 5 mg at night - multivitamin - Zofran 8 mg as needed - Protonix 40 mg twice a day - ranitidine 50 mg twice a day - lactulose 30 mL every 8 hours (I hope he is not taking loperamide and lactulose together) - Renvela 800 mg three times a day with meals - Viagra 100 mg as needed PHYSICAL EXAMINATION: 131/67, pulse was not recorded, it was around 60 when I was seeing him, 98% oxygen saturation, 97.5 degrees. GENERAL APPEARANCE: Chronically ill-appearing, lying in bed. HEENT: Unremarkable. LUNGS: Decreased breath sounds. HEART: Regular rate and rhythm. ABDOMEN: Soft, mild ascites. EXTREMITIES: Bilateral below the knee amputations. No edema of his thighs. He moves arms with equal strength. LABORATORIES: Sodium 137, potassium 6.4, blood sugar 126, ammonia 60, troponin intermediate of 0.16 (baseline troponin is usually normal of 0.02), white count 8.2, hemoglobin 10.7, platelets 201. IMPRESSION: 1. Generalized weakness, probably from missing dialysis. Case was discussed with nephrology, Dr. Coleman, to see the patient in consultation and address the hyperkalemia. 2. Elevated troponin. I will get repeat troponin every 8 hours times two more. He is at increased risk of coronary artery disease due to his end stage renal disease. 3. Hypertensive heart disease. We will continue his current regimen, we need to sort out what his medications are. 4. History of cirrhosis, gets weekly paracentesis. I do not think he gets albumin infusions with these. His albumin is low. 5. Chronic anemia secondary to end stage renal disease, which is addressed by nephrology. 6. Medical nonadherence complicating care, which is an ongoing problem.
[2018-05-06] MEDS ORDERED: ONDANSETRON 4 MG TAB (S0181) PO PRN (16:30)
--- NOTE | 2018-05-06 19:22 | ECGEPIP ---
Stationary ECG Study [facility] - ED Test Date: 2018-05-06 Pat Name: XIOMARA ALBRECHT Department: Room: - Gender: M Dermatology Physician: dago : 1945 Requested By: Lucy Estrada Order Number: [id number] Reading MD: Lucy Estrada Measurements Intervals [place] Rate: 62 P: -7 MS: 259 QRS: -26 QRSD: 94 T: -2 QT: 461 QTc: 468 Interpretive Statements SINUS RHYTHM WITH FIRST DEGREE AV BLOCK POSSIBLE INFERIOR AND ANTERIOR MYOCARDIAL INFARCTION, PROBABLY OLD LAD DEALYED R WAVE PROGRESSIO INFERIOR ST T WAVE CHANGES - CONSIDER ISCHEMIA CW 05/04/[address] T WAVE CHANGES Electronically Signed On 05-06-2018 19:21:56 EST by Lucy Estrada
[2018-05-06] MEDS: LATANOPROST 0.005% OPHTH SOLN 2.5 ML OU SCH (21:00)
[2018-05-06] MEDS: MINOXIDIL 2.5 MG TAB PO SCH (21:00)
[2018-05-06] MEDS: **NOTE PATIENT COMMENT** MISC XX SCH (21:00)
[2018-05-06] MEDS: OMEGA-3 1000MG CAPSULE PO SCH (21:00)
[2018-05-06 22:52] LABS: AMPHETAMINES LEVEL URINE NEGATIVE (NEGATIVE); BARBITURATES URINE NEGATIVE (NEGATIVE); BENZODIAZEPINES URINE NEGATIVE (NEGATIVE); CANNABINOIDS URINE NEGATIVE (NEGATIVE); COCAINE METABOLITE URINE NEGATIVE (NEGATIVE); METHADONE URINE NEGATIVE (NEGATIVE); OPIATES URINE NEGATIVE (NEGATIVE); PHENCYCLIDINE URINE NEGATIVE (NEGATIVE)
[2018-05-06 22:56] LABS: MB/CK RELATIVE INDEX 3.73 (< OR =4); TROPONIN I 0.14 NG/ML (< 0.10)
[2018-05-06 23:15] VITALS: BP 134/64
[2018-05-06] MEDS: PANTOPRAZOLE 40MG TAB (PROTONIX) PO SCH (23:35)
[2018-05-06] MEDS: clonazePAM 0.5 MG TAB PO SCH (23:35)
[2018-05-06] MEDS: FAMOTIDINE 20 MG TAB PO SCH (23:36)
[2018-05-06] MEDS: HEPARIN SOD (PORCINE) 5000 UNITS/ML VIAL SQ SCH (23:36)
[2018-05-06] MEDS: PROPRANOLOL 20 MG TAB PO SCH (23:37)
[2018-05-07] VITALS (7 sets, daily range): BP systolic 91–139; BP diastolic 49–79
[2018-05-07 04:38] LABS: HEMATOCRIT 28.8 % (42.0-52.0); HEMOGLOBIN 9.2 g/dl (13.5-17.5); MEAN CORPUSCULAR HEMOGLOBIN 27.8 pg (27.0-33.0); MEAN CORPUSCULAR HGB CONC 31.9 g/dl (32.0-36.5); PLATELET COUNT, AUTOMATED 181 10^3/uL (150-450); RED BLOOD COUNT 3.31 10^6/uL (4.30-6.10); WHITE BLOOD COUNT 4.3 10^3/uL (4.0-10.0)
[2018-05-07 05:09] LABS: ALBUMIN 1.6 GM/DL (3.2-5.2); CALCIUM LEVEL 7.1 MG/DL (8.8-10.2); CREATININE FOR GFR 4.29 MG/DL (0.70-1.30); GLOMERULAR FILTRATION RATE 14.5 (>42); MAGNESIUM LEVEL 1.8 MG/DL (1.8-2.4); MB/CK RELATIVE INDEX 3.77 (< OR =4); PHOSPHORUS LEVEL 3.4 MG/DL (2.5-4.9); POTASSIUM SERUM 4.4 MEQ/L (3.5-5.1); TROPONIN I 0.17 NG/ML (< 0.10)
[2018-05-07] MEDS: PRAVASTATIN 20 MG TAB PO SCH (09:12)
[2018-05-07] MEDS: OMEGA-3 1000MG CAPSULE PO SCH ×2 (09:12→21:18)
[2018-05-07] MEDS: FERROUS GLUCONATE 324 MG TAB PO SCH (09:12)
[2018-05-07] MEDS: ASCORBIC ACID 500 MG TAB PO SCH (09:12)
[2018-05-07] MEDS: MULTIVITAMINS/MINERALS THERAP 1 TAB PO SCH (09:12)
[2018-05-07] MEDS: PROPRANOLOL 20 MG TAB PO SCH ×2 (09:13→21:18)
[2018-05-07] MEDS: HEPARIN SOD (PORCINE) 5000 UNITS/ML VIAL SQ SCH ×2 (09:13→21:19)
[2018-05-07] MEDS: ASPIRIN 81 MG ENTERIC TAB PO SCH (09:13)
[2018-05-07] MEDS: FAMOTIDINE 20 MG TAB PO SCH ×2 (09:13→21:18)
[2018-05-07] MEDS: PANTOPRAZOLE 40MG TAB (PROTONIX) PO SCH ×2 (09:13→21:18)
[2018-05-07] MEDS: FUROSEMIDE 40 MG TAB PO SCH (09:13)
[2018-05-07] MEDS: ceFAZolin SOD 1 GM in D5W MINI-BAG PLUS 50 ML IV SCH (13:35)
[2018-05-07] MEDS ORDERED: SLF 3 ML SYR IV PRN (13:45)
[2018-05-07] MEDS: SLF 3 ML SYR IV SCH ×2 (14:00→21:20)
[2018-05-07 15:18] LABS: MB/CK RELATIVE INDEX 3.79 (< OR =4); TROPONIN I 0.14 NG/ML (< 0.10)
[2018-05-07] MEDS: **NOTE PATIENT COMMENT** MISC XX SCH (21:00)
[2018-05-07] MEDS: clonazePAM 0.5 MG TAB PO SCH (21:18)
[2018-05-07] MEDS: MINOXIDIL 2.5 MG TAB PO SCH (21:19)
[2018-05-07] MEDS: LATANOPROST 0.005% OPHTH SOLN 2.5 ML OU SCH (22:20)
--- NOTE | 2018-05-07 23:20 | CR ---
DATE OF CONSULTATION: 05/06/2018 REQUESTING PHYSICIAN: Emmanuel Gordon MD CONSULTING PHYSICIAN: Raffy Coleman MD REASON FOR CONSULTATION: Management of end-stage renal disease, hemodialysis and hyperkalemia. CHIEF COMPLAINT: The patient presented to the hospital with generalized weakness. HISTORY OF PRESENT ILLNESS: Mr. Jadiel Rodriguez is a 72-year-old male with past medical history of end-stage renal disease on hemodialysis every Tuesday, , Tuesday. Today is his regular day of dialysis. He also has a history of cirrhosis requiring frequent paracentesis. His last paracentesis was done on May 03, 2018, 4.7 liters of fluid was removed. He has been getting these taps every week now. He was brought in my Emergency Medical Service (EMS) today in the emergency room with generalized weakness and lethargy. He was found to have hyperkalemia and he also had elevated ammonia levels. The patient was admitted under the hospitalist service. Nephrology service was called for further help and the management of end-stage renal disease, hemodialysis and hyperkalemia. I saw and evaluated the patient today afternoon in the emergency room. The patient reports that he has generalized weakness. It is almost the same as he had before because of hyperkalemia. He denies any fevers and chills. He denies any cough or phlegm. PAST MEDICAL HISTORY: 1. End-stage renal disease on hemodialysis every Tuesday, , Tuesday. 2. History of liver cirrhosis, once a week paracentesis. 3. Bilateral lower extremity amputations with prosthesis. 4. Anemia secondary to end-stage renal disease. 5. Gastroesophageal reflux disease. 6. History of gastrointestinal (GI) bleed in the past. 7. Renal vascular hypertension. 8. Chronic noncompliance with fluid restriction. 9. Low potassium diet and with dialysis regimen. PAST SURGICAL HISTORY: Status post bilateral below knee amputations. Status post right lower quadrant ileoconduit because of history of bladder cancer. Umbilical hernia repair in the past and he gets weekly ascitic taps done, last tap was done on May 03, 2018. ALLERGIES: The patient is allergic to QUINOLONES AND AMLODIPINE. FAMILY HISTORY: No significant family history of end-stage renal disease requiring hemodialysis. SOCIAL HISTORY: The patient denies any recent drug abuse, smoking or alcohol abuse. REVIEW OF SYSTEMS: CONSTITUTIONAL: The patient reports feeling very weak and tired. EYES: He denies any blurry vision, double vision. ENT: He denies any dysphagia, odynophagia, ear discharge. CARDIOVASCULAR: He denies any palpitations, but he was in the emergency room one day ago with chest pain. RESPIRATORY: He denies any shortness of breath or cough. GASTROINTESTINAL (GI): He reports history of cirrhosis, recurrent ascites requiring ascitic tap. GENITOURINARY (): The patient has an ileoconduit and has history of CA of bladder in the past. MUSCULOSKELETAL: He reports generalized muscle weakness. He has bilateral lower extremity amputations. SECURITY ORDERLY: He denies any strokes or seizures. SKIN: He denies any rashes or ulcers. HEMATOLOGICAL: He denies any easy bleeding or bruising. ENDOCRINE: He reports history of secondary hyperparathyroidism. All other review of systems is negative. PHYSICAL EXAMINATION: GENERAL: The patient is a awake, alert, oriented times three, sitting on the bed in no apparent distress. VITAL SIGNS: Temperature is 97.3 degrees Fahrenheit. Blood pressure 117/84, pulse is 104, respiratory rate of 16, saturating 98% on room air. HEAD AND NECK EXAM: Extraocular muscles intact. Pupils equally round and reactive to light. Mucous membranes are moist. Neck is supple. There is no jugular venous distension (JVD). CARDIOVASCULAR: S1, S2 regular rate. No edema of the bilateral lower extremity stumps. Left upper arm arteriovenous (AV) fistula, which is large with positive thrill and bruit. RESPIRATORY: Mildly decreased breath sounds at the bases with crepitations on deep inspiration. ABDOMEN: Soft, positive bowel sounds. Ileoconduit was noted. Urine in the bag is clear. MUSCULOSKELETAL: He has bilateral below-knee amputations. No edema of the stumps was noted. SECURITY ORDERLY: No focal deficit. Power is 5/5 in bilateral lower extremities. LABORATORY REVIEW: Complete blood count (CBC) showed a white blood count (WBC) 8.2, hemoglobin 10.7, platelets are 201. Basic metabolic panel (BMP) showed sodium 137, potassium 6.4, chloride 99, bicarbonate 28, BUN 52, creatinine is 6.3 and glucose 126, lactic acid 0.9, calcium 7.6. Ammonia 60. Albumin 1.9. Lipase is 68. Thyroid simulating hormone (TSH) is 2.1. Microbiology: Blood cultures are pending. IMAGING: A chest x-ray portable was done today, which showed mild cardiomegaly, mild chronic interstitial changes. No acute infiltrates. CURRENT INPATIENT MEDICATIONS: The patient was given a dose of calcium gluconate. He is on vitamin C 500 mg daily, aspirin 81 mg daily, clonazepam 0.5 mg at bedtime (q.h.s.), Pepcid 20 mg twice a day, Lasix 40 mg by mouth daily, minoxidil 5 mg at bedtime (q.h.s.), multivitamins, Zofran as needed, Protonix 40 mg twice a day, Pravastatin 20 mg by mouth daily, propranolol 20 mg by mouth twice a day and sodium bicarbonate, one dose was given in the emergency room (ER). ASSESSMENT: 72-year-old male with history of end-stage renal disease on hemodialysis, history of hypertension, history of cirrhosis requiring a weekly test admitted this time with hypertension and hyperkalemia after missing dialysis. PLAN: 1. End-stage renal disease on hemodialysis. Today is the patient's regular day of dialysis. I will dialyze him for three hours and try to remove at least 2.5 to 3 kg of fluid as tolerated by his blood pressure. 2. Hyperkalemia, it is secondary to missed dialysis and noncompliance with low potassium diet. He is being dialyzed with one K bath that will hopefully improve his potassium. 3. Elevated troponins. It is most likely secondary to stress and renal disease. Troponins are being cycled every 8 hours. Volume optimization is with hemodialysis. 4. History of decompensated cirrhosis with recurrent ascites. The patient gets paracentesis once a week, last paracentesis was done on May 03, 2018. Albumin levels are low, continue propranolol for portal hypertension. Pt should start getting albumin 25%,25 gram IV with paracentesis. 5. Anemia and end-stage renal disease. Hemoglobin is 10.7, which is optimal. No need of Aranesp at this point. 6. Hypertension. The patient was having low blood pressures recently as outpatient. Continue current dose of propranolol 20 mg by mouth twice a day. Continue minoxidil 5 mg at bedtime (q.h.s.); if needed the dose can be decreased. Thank you for involving me in the care of this patient. I shall be happy to follow the patient along with you akinorrow morning. MTDD
[2018-05-08] MEDS: SLF 3 ML SYR IV SCH ×4 (00:26→21:06)
[2018-05-08] MEDS: ceFAZolin SOD 1 GM in D5W MINI-BAG PLUS 50 ML IV SCH ×2 (00:26→13:09)
[2018-05-08 02:00] VITALS: BP 127/73
--- NOTE | 2018-05-08 05:59 | IPN ---
DATE OF VISIT: 05/07/2018 HISTORY OF PRESENT ILLNESS: Jadiel is seen in the intensive care unit (ICU). I spoke with Dr. Coleman from nephrology yesterday. The patient went for dialysis where, typically they remove a few liters of fluid, but they actually had to give him some saline due to hypotension. There was some concern whether that might be an indication of sepsis. His lactic acid level was normal. We did discuss possible starting empiric antibiotic therapy and I deferred that to nephrology. Today the patient is resting comfortably. He is afebrile, his vitals are stable. His blood pressure is 136/76 and he feels well. He doles not look septic. PHYSICAL EXAMINATION: VITAL SIGNS: Afebrile, 136/76, pulse 64. LUNGS: Clear. ABDOMEN: Soft, acute and distended with ascites which accumulates each week. EXTREMITIES: He is status post bilateral below the knee amputation (BKA). LABORATORY DATA; Potassium 4.4, white count 4.3, hemoglobin 9.2, platelets 181. IMPRESSION: 1. Hyperkalemia. This has resolved with dialysis. 2. Elevated troponin. Troponins have been flat. There is no indication this is a cardiac event. 3. Question of sepsis. He does not look septic. He is not on any antibiotics. His urine did have too many white cells to count, as well as 3+ bacteria so I am going to cover him with some Ancef. There was discussion last night about possible spontaneous bacterial peritonitis, not sure I can get a paracentesis done today. I will put the order in. If possible, we could draw some fluid off, send it for culture and it would be optimal to do this before starting antibiotics but with the dirty looking urine I think he needs to begin something. 4. Cirrhosis with ascites. He gets weekly paracentesis. I do not thnk he gets albumin with this routinely. It looks like the last time he got albumen with a paracentesis was 01/04/2018. I will defer this to nephrology as they order his paracentesis.
[2018-05-08 06:00] VITALS: BP 136/83
[2018-05-08 06:50] LABS: HEMATOCRIT 30.6 % (42.0-52.0); HEMOGLOBIN 9.7 g/dl (13.5-17.5); MEAN CORPUSCULAR HEMOGLOBIN 28.5 pg (27.0-33.0); MEAN CORPUSCULAR HGB CONC 31.7 g/dl (32.0-36.5); PLATELET COUNT, AUTOMATED 178 10^3/uL (150-450); WHITE BLOOD COUNT 4.9 10^3/uL (4.0-10.0)
[2018-05-08 07:19] LABS: ALBUMIN 1.6 GM/DL (3.2-5.2); CALCIUM LEVEL 7.3 MG/DL (8.8-10.2); CREATININE FOR GFR 5.28 MG/DL (0.70-1.30); GLOMERULAR FILTRATION RATE 11.4 (>42); MAGNESIUM LEVEL 1.8 MG/DL (1.8-2.4); PHOSPHORUS LEVEL 3.5 MG/DL (2.5-4.9); POTASSIUM SERUM 4.6 MEQ/L (3.5-5.1)
[2018-05-08] MEDS: NYSTATIN 100,000 UNITS/GM TOPICAL PWD 15 GM TOP SCH ×2 (09:00→20:37)
[2018-05-08] MEDS: FERROUS GLUCONATE 324 MG TAB PO SCH (09:40)
[2018-05-08] MEDS: FAMOTIDINE 20 MG TAB PO SCH ×2 (09:41→20:35)
[2018-05-08] MEDS: MULTIVITAMINS/MINERALS THERAP 1 TAB PO SCH (09:41)
[2018-05-08] MEDS: ASCORBIC ACID 500 MG TAB PO SCH (09:41)
[2018-05-08] MEDS: ASPIRIN 81 MG ENTERIC TAB PO SCH (09:41)
[2018-05-08] MEDS: HEPARIN SOD (PORCINE) 5000 UNITS/ML VIAL SQ SCH ×2 (09:41→20:37)
[2018-05-08] MEDS: OMEGA-3 1000MG CAPSULE PO SCH ×2 (09:41→20:35)
[2018-05-08] MEDS: PRAVASTATIN 20 MG TAB PO SCH (09:41)
[2018-05-08] MEDS: PROPRANOLOL 20 MG TAB PO SCH ×2 (09:41→20:38)
[2018-05-08] MEDS: FUROSEMIDE 40 MG TAB PO SCH (09:41)
[2018-05-08] MEDS: PANTOPRAZOLE 40MG TAB (PROTONIX) PO SCH ×2 (09:41→20:36)
--- NOTE | 2018-05-08 10:13 | IPN ---
DATE: 05/08/2018 Chris is seen on [address]. He denies any chest pain or shortness of breath. His potassium normalized after dialysis. As note yesterday, there was some question of whether he might have some sepsis and I suspect he has at least a urinary tract infection and he is on some IV Ancef for that today. He is supposed to get a paracentesis, at minimal a diagnostic, so we can send it for cell count and culture (though he has been on antibiotic for the past 24 hours - could not get this done over the weekend). I am wondering whether he could get his therapeutic paracentesis done today, it has been five days since his last one and I have got a call in to interventional radiology to discuss this with them and expect them to call me back about this. PHYSICAL EXAMINATION: Vitals stable 136/83, afebrile. He is alert and conversant, no distress. Lungs clear. Heart regular rate. Abdomen soft, distended with ascites, nontender. Bilateral below knee amputation. No edema of the thighs. LABS: Potassium is 4.6. CBC unremarkable. IMPRESSION: 1. Urinary tract infection. Culture pending. He is on Ancef. 2. Cirrhosis with ascites question (?) spontaneous bacterial peritonitis (SBP). He does not have any clinical signs of this, but he did require IV fluids during dialysis where typically they end up removing fluids, so there was some question of whether that might be a sign of some early sepsis. I put the orders in to have the fluid analyzed. 3. End stage renal disease (ESRD). Dialysis per nephrology. 4. Hyperkalemia. Resolved with dialysis. 5. Elevated troponin. Troponins were flat. No indicate of acute ischemic events. If the ascitic fluid does not show evidence of peritonitis, he could probably be discharged in the next day or so. Physical therapy has been ordered. Apparently in the past he has had prolonged hospitalizations, but hopefully with getting therapy involved early we can get him out of here once the situation is clarified as far as his ascites. Dr. Kandice Haywood will assume his care tomorrow.
[2018-05-08 11:08] LABS: APPEARANCE, BODY FLUID HAZY (CLEAR); ASCITES FL COLOR PALE YELLOW (COLORLESS); SOURCE, BODY FLUID ASCITES
[2018-05-08 11:27] LABS: SOURCE, BODY FLUID ALBUMIN ASCITES; SOURCE, BODY FLUID GLUCOSE ASCITES; SOURCE, BODY FLUID TOT PROTEIN ASCITES; TOTAL PROTEIN, BODY FLUID 1.9 G/DL (NOT ESTABLISHED)
[2018-05-08 11:28] LABS: SPEC. GRAVITY BODY FLUIDS 1.015 (NOT ESTABLISHED)
--- NOTE | 2018-05-08 12:58 | IPN ---
DATE: 05/08/2018 SUBJECTIVE: Patient seen and examined this morning at the bedside. He had his paracentesis done this morning, about 5 liters of fluid was drained. The fluid analysis is pending. He is still having abdominal cramps. He otherwise denies any issues. VITAL SIGNS: Temperature 97.4, pulse 65, respiratory rate 19, blood pressure 136/83, saturating 99% on room air. INTAKE AND OUTPUT: Intake yesterday was 1610. Urine output was 125. Weight on the bed scale today is not recorded. GENERAL: Patient is seen going to the commode and to the wheelchair at the bedside with the Katlin Schaffer. He is awake, alert and oriented, comfortable in on distress. HEENT: Extraocular muscles intact. Tongue is moist. NECK: Supple. HEART: Heart sounds are regular rate and rhythm. LUNGS: Clear to auscultation bilaterally. ABDOMEN: Soft. The ascitic fluid has recently been drained. There is a right lower quadrant urostomy. There are bilateral below knee amputations. There is a left upper extremity fistula with thrill and bruit. There is no edema in the peripheries. NEUROLOGIC: He is oriented, at baseline mentation. LABORATORIES: Sodium 136, potassium 4.6, bicarbonate 28, magnesium 1.8. Microbiology: Urine culture and ascitic fluid culture are pending. INPATIENT MEDICATIONS: Reviewed by myself and no change from prior. PROBLEMS: 1. End stage renal disease on hemodialysis on Tuesday, , Tuesday schedule. No fluid was removed on Tuesday due to his borderline blood pressures. He had a paracentesis done just this morning with reportedly about 5 liters of fluid removed. His next dialysis will be on Tuesday, and I do not intent to remove significant fluid given the paracentesis today. His electrolytes and volume status are acceptable. 2. Cirrhosis with recurrent ascites and recent episode of hypotension and ongoing complaints of abdominal cramping. Very worrisome for a peritonitis. He had the diagnostic and therapeutic tap done this morning with 5 liters of fluid removed. The ascitic culture and the ascitic fluid analysis is pending. 3. Protein calorie malnutrition. I have put in orders with interventional radiology for him to receive albumin infusion with his weekly paracentesis on Tuesday's going forward. He is otherwise encouraged for dietary protein intake with his usual renal diet. 4. Hypertension status post episode of hypotension. Blood pressures are now closer to his usual baseline. He continues on propranolol and minoxidil with holding parameters.
[2018-05-08 14:00] VITALS: BP 172/76
[2018-05-08 16:00] VITALS: BP 148/63
--- NOTE | 2018-05-08 18:30 | IPN ---
DATE: 05/07/2018 SUBJECTIVE: The patient is seen and examined this morning at the bedside. He denies any acute overnight events but does complain of on and off abdominal cramping, which is relieved by having a bowel movement. His blood pressures were quite soft yesterday in the evening. The hemodialysis nurse was unable to remove any fluid with dialysis as his systolic was 80s to 90s. This is not typical of Jadiel. This morning his blood pressures are noted to be improved, up to systolic 130s. He remains afebrile. Vital Signs: Temperature 99.6, pulse 66, respiratory rate 20, blood pressure 135/61, saturating 94% on room air. Intake yesterday was not recorded. Dialysis removed 0 mL of fluid yesterday. Weight on the bed scale today is 80.1 kg. General: The patient is seen lying in bed, awake, alert, oriented, comfortable, in no acute distress. Extraocular muscles are intact. Tongue is moist. Neck is supple. Jugular veins are mildly elevated. Cardiac: S1, S2, regular rate and rhythm. Lungs: Show diminished breath sounds at bases otherwise clear. Abdomen is (dictation cut off). There is a right lower quadrant urostomy. Extremities show bilateral [id number] amputations. There is no edema. There is a left upper extremity fistula with thrill and bruit. Neurologic: He is oriented times three and at his usual baseline mentation. LABORATORY: Sodium 137, potassium 4.4, bicarbonate 32, magnesium 1.8, phosphorus 3.4, hemoglobin 9.2, white count 4.3. Microbiology: Blood cultures with no growth for 24 hours times two sets. Urine culture pending. Chest x-ray 05/06/2018 without any acute infiltrate. INPATIENT MEDICATIONS: The patient is noted to be started on cefazolin 1 gram IV twice a day. His remainder of medications are unchanged from prior. PROBLEMS: 1. End-stage renal disease, on hemodialysis on a Tuesday, , Tuesday schedule. The patient was dialyzed yesterday due to his uncharacteristically low blood pressures on dialysis, systolic 80s to 90s. We were unable to remove fluid with his treatment yesterday. His blood pressure is improved this morning. His electrolytes are acceptable. His next dialysis will likely be on Tuesday. 2. Abdominal cramping, borderline hypotension. Blood pressures were systolic 80s to 90s yesterday, which is uncharacteristic of this usually hypertensive patient. We were unable to remove fluid with dialysis yesterday. He does have a weekly paracentesis. His complaint is of episodic abdominal cramps. I am concerned of possible peritonitis. Primary team has already set him up for diagnostic paracentesis tomorrow. 3. Hypertension with hypertensive heart disease. His blood pressure is improved today as compared to yesterday. I wrote holding parameters with minoxidil. He continues on his usual propranolol and Lasix. 4. Cirrhosis with recurrent ascites and weekly paracentesis. He is for diagnostic tap tomorrow with fluid analysis. Will give albumin with his next therapeutic tap. 5. Chronic anemia secondary to renal failure and history of gastrointestinal (GI) bleed in the past. He will continue on the usual Aranesp with dialysis, and he is on oral iron as well.
[2018-05-08] MEDS ORDERED: LOMOTIL 2.5MG/0.025MG TABLET PO ONE (20:15)
[2018-05-08] MEDS ORDERED: HEPARIN SOD (PORCINE) 5000 UNITS/ML VIAL As Ordered ONE (20:18)
[2018-05-08] MEDS: cefTRIAXone SOD 2 GM in D5W MINI-BAG PLUS 50 ML IV SCH (20:35)
[2018-05-08] MEDS: LATANOPROST 0.005% OPHTH SOLN 2.5 ML OU SCH (20:37)
[2018-05-08] MEDS: clonazePAM 0.5 MG TAB PO SCH (20:38)
[2018-05-08] MEDS: MINOXIDIL 2.5 MG TAB PO SCH (20:38)
[2018-05-08] MEDS: **NOTE PATIENT COMMENT** MISC XX SCH (20:39)
[2018-05-08 22:00] VITALS: BP 138/65
[2018-05-09] MEDS ORDERED: MULTIVITAMINS/MINERALS THERAP 1 TAB As Ordered ONE (05:04)
[2018-05-09] MEDS ORDERED: LACTOBACILLUS ACIDOPHILUS CAP (BACID) As Ordered ONE (05:04)
[2018-05-09] MEDS ORDERED: HEPARIN SOD (PORCINE) 5000 UNITS/ML VIAL As Ordered ONE (05:04)
[2018-05-09] MEDS ORDERED: ASCORBIC ACID 500 MG TAB As Ordered ONE (05:04)
[2018-05-09] MEDS ORDERED: PANTOPRAZOLE 40MG TAB (PROTONIX) As Ordered ONE (05:04)
[2018-05-09] MEDS ORDERED: PRAVASTATIN 20 MG TAB As Ordered ONE (05:04)
[2018-05-09] MEDS ORDERED: FAMOTIDINE 20 MG TAB As Ordered ONE (05:05)
[2018-05-09] MEDS ORDERED: PROPRANOLOL 20 MG TAB As Ordered ONE (05:05)
[2018-05-09] MEDS ORDERED: FUROSEMIDE 40 MG TAB As Ordered ONE (05:05)
[2018-05-09] MEDS ORDERED: ASPIRIN 81 MG ENTERIC TAB As Ordered ONE (05:05)
[2018-05-09] MEDS ORDERED: FERROUS GLUCONATE 324 MG TAB As Ordered ONE (05:06)
[2018-05-09] MEDS: HEPARIN SOD (PORCINE) 5000 UNITS/ML VIAL SQ SCH ×2 (05:10→20:47)
[2018-05-09] MEDS: OMEGA-3 1000MG CAPSULE PO SCH ×2 (05:11→20:47)
[2018-05-09] MEDS: ASCORBIC ACID 500 MG TAB PO SCH (05:11)
[2018-05-09] MEDS: FERROUS GLUCONATE 324 MG TAB PO SCH (05:11)
[2018-05-09] MEDS: MULTIVITAMINS/MINERALS THERAP 1 TAB PO SCH (05:11)
[2018-05-09] MEDS: FAMOTIDINE 20 MG TAB PO SCH ×2 (05:11→20:47)
[2018-05-09] MEDS: ASPIRIN 81 MG ENTERIC TAB PO SCH (05:11)
[2018-05-09] MEDS: PANTOPRAZOLE 40MG TAB (PROTONIX) PO SCH ×2 (05:11→20:48)
[2018-05-09] MEDS: PROPRANOLOL 20 MG TAB PO SCH ×2 (05:12→20:49)
[2018-05-09] MEDS: PRAVASTATIN 20 MG TAB PO SCH (05:12)
[2018-05-09] MEDS: FUROSEMIDE 40 MG TAB PO SCH (05:12)
[2018-05-09] MEDS: LIDOCAINE 5% (LIDODERM) PATCH TD PRN (05:13)
[2018-05-09] MEDS: LACTOBACILLUS ACIDOPHILUS CAP (BACID) PO SCH ×3 (05:13→18:21)
[2018-05-09] MEDS: NYSTATIN 100,000 UNITS/GM TOPICAL PWD 15 GM TOP SCH ×2 (05:13→20:16)
[2018-05-09 06:00] VITALS: BP 150/65
[2018-05-09 06:43] LABS: HEMATOCRIT 36.6 % (42.0-52.0); HEMOGLOBIN 11.6 g/dl (13.5-17.5); MEAN CORPUSCULAR HEMOGLOBIN 28.1 pg (27.0-33.0); MEAN CORPUSCULAR HGB CONC 31.7 g/dl (32.0-36.5); MEAN CORPUSCULAR VOLUME 88.6 fl (80.0-96.0); PLATELET COUNT, AUTOMATED 184 10^3/uL (150-450); RED BLOOD COUNT 4.13 10^6/uL (4.30-6.10); WHITE BLOOD COUNT 6.7 10^3/uL (4.0-10.0)
[2018-05-09 07:08] LABS: ALBUMIN 1.8 GM/DL (3.2-5.2); CALCIUM LEVEL 7.9 MG/DL (8.8-10.2); CREATININE FOR GFR 6.08 MG/DL (0.70-1.30); GLOMERULAR FILTRATION RATE 9.7 (>42); MAGNESIUM LEVEL 1.8 MG/DL (1.8-2.4); PHOSPHORUS LEVEL 3.5 MG/DL (2.5-4.9); POTASSIUM SERUM 5.1 MEQ/L (3.5-5.1)
--- NOTE | 2018-05-09 10:32 | REP ---
Ultrasound-guided paracentesis The procedure was performed under the direct supervision of Dr. Rodas. The risks and benefits of the procedure were explained to the patient and informed consent was obtained. The largest pocket of fluid was localized in the left flank using ultrasound guidance. The skin was prepped and draped in a sterile fashion. 1% lidocaine was used as a local anesthetic. An 8-Korean multi side-hole catheter was inserted using trocar technique. 5050 ml of deng colored fluid was withdrawn with a sample sent to the lab for analysis. The patient tolerated the procedure well and there were no immediate complications. After the appropriate amount of monitored convalescence the patient was discharged from the department. Reviewed by SIMRAN Ji 05/08/2018 05:18 P Electronically Signed by Carlos Rodas MD 05/09/2018 10:23 A
[2018-05-09] MEDS: SLF 3 ML SYR IV SCH ×3 (12:06→20:50)
[2018-05-09] MEDS: NORCO, ANEXSIA 5/325MG TABLET (HYDROcodone/ACETAMINOPHEN) PO PRN ×2 (12:33→20:49)
[2018-05-09 14:00] VITALS: BP 104/49
[2018-05-09] MEDS: **NOTE PATIENT COMMENT** MISC XX SCH (20:16)
[2018-05-09] MEDS: cefTRIAXone SOD 2 GM in D5W MINI-BAG PLUS 50 ML IV SCH (20:16)
[2018-05-09] MEDS: LATANOPROST 0.005% OPHTH SOLN 2.5 ML OU SCH (20:16)
[2018-05-09] MEDS: clonazePAM 0.5 MG TAB PO SCH (20:47)
[2018-05-09] MEDS: MINOXIDIL 2.5 MG TAB PO SCH (20:48)
[2018-05-09 22:00] VITALS: BP 136/61
--- NOTE | 2018-05-10 00:58 | IPNPDOC ---
Text Note Date of Service The patient was seen on 05/09/18. NOTE SUBJECTIVE: Sitting up in chair does not offer any complaints. PHYSICAL EXAMINATION: Vitals: As below GENERAL: He is alert and conversant, no distress. LUNGS: clear. No ronchi or crackles HEART: regular rate. No rub, murmur or gallop. ABDOMEN: soft, distended with ascites, nontender. EXTREMITIES:Bilateral below knee amputation. No edema of the thighs. LABS and Radiology: Reviewed Assessment and Plan: This is a 46 year old male who is a bilateral lower extrem ity amputee with PMH of end stage renal disease and gets HD on Tuesday, Tuesday, Tuesday, cirrhosis and gets weekly paracentesis, gastroesophageal reflux disease (GERD), gastrointestinal bleeds due to gastric angiectasia and portal hypertensive gastropathy, renovascular hypertension bladder cancer status post right lower quadrant ileoconduit presented to the hospital for generalized weakness and lethargy. Found to have hyperkalemia and SBP and UTI. SBP continue ceftriaxone Urinary tract infection. morganella sensitive to ceftiraxone Cirrhosis with ascites , portal hypertension, portal hypertensive gastropathy s/p paracentensis on 05/08 continue propranolol End stage renal disease (ESRD). Dialysis per nephrology. HTN BP well controlled Furosemide, Minoxidil and Propranolol DLP ASA and Pravastatin s/p Urostomy fro bladder cancer c/w bag / dressing changes PAD s/p b/l BKA c/w ASA and Pravastatin Chronic anemia due to renal diasease and iron deficiency Hg appears stable continue iron and vit c. Hx of GI bleed / GERD c/w Protonix DVT prophylaxis c/w Heparin VS,Fishbone, I+O VS, Fishbone, I+O Laboratory Tests 05/09/18 05:45 Red Blood Count 4.13 L, Mean Corpuscular Volume 88.6, Mean Corpuscular Hemoglobin 28.1, Mean Corpuscular Hemoglobin Concent 31.7 L, Red Cell Distribution Width 15.3 H, Anion Gap 11 Vital Signs Date Time Temp Pulse Resp B/P (MAP) Pulse Ox O2 Delivery O2 Flow Rate FiO2 05/09/18 22:00 98.0 68 18 136/61 (86) 98 05/06/18 22:48 Room Air I&O- Last 24 Hours up to 6 AM 05/10/18 06:00 Intake Total 1004 ml Output Total 800 ml Balance 204 ml JESSICA BRADSHAW MD May 10, 2018 00:58
[2018-05-10 06:00] VITALS: BP 133/60
[2018-05-10 07:15] LABS: HEMATOCRIT 33.4 % (42.0-52.0); MEAN CORPUSCULAR HEMOGLOBIN 28.9 pg (27.0-33.0); MEAN CORPUSCULAR HGB CONC 32.9 g/dl (32.0-36.5); MEAN CORPUSCULAR VOLUME 87.7 fl (80.0-96.0); PLATELET COUNT, AUTOMATED 171 10^3/uL (150-450); RED BLOOD COUNT 3.81 10^6/uL (4.30-6.10); WHITE BLOOD COUNT 6.6 10^3/uL (4.0-10.0)
[2018-05-10 07:41] LABS: ALBUMIN 1.7 GM/DL (3.2-5.2); CALCIUM LEVEL 7.4 MG/DL (8.8-10.2); CREATININE FOR GFR 4.26 MG/DL (0.70-1.30); GLOMERULAR FILTRATION RATE 14.6 (>42); MAGNESIUM LEVEL 1.7 MG/DL (1.8-2.4); PHOSPHORUS LEVEL 3.6 MG/DL (2.5-4.9); POTASSIUM SERUM 4.2 MEQ/L (3.5-5.1)
[2018-05-10] MEDS: LACTOBACILLUS ACIDOPHILUS CAP (BACID) PO SCH ×3 (09:55→17:42)
[2018-05-10] MEDS: HEPARIN SOD (PORCINE) 5000 UNITS/ML VIAL SQ SCH ×2 (09:55→20:10)
[2018-05-10] MEDS: ASCORBIC ACID 500 MG TAB PO SCH (09:56)
[2018-05-10] MEDS: FAMOTIDINE 20 MG TAB PO SCH ×2 (09:56→20:11)
[2018-05-10] MEDS: PRAVASTATIN 20 MG TAB PO SCH (09:56)
[2018-05-10] MEDS: OMEGA-3 1000MG CAPSULE PO SCH ×2 (09:56→20:10)
[2018-05-10] MEDS: MULTIVITAMINS/MINERALS THERAP 1 TAB PO SCH (09:56)
[2018-05-10] MEDS: MAGNESIUM OXIDE 400 MG TAB (MAG-OX) PO SCH ×2 (09:56→20:11)
[2018-05-10] MEDS: FERROUS GLUCONATE 324 MG TAB PO SCH (09:56)
[2018-05-10] MEDS: PANTOPRAZOLE 40MG TAB (PROTONIX) PO SCH ×2 (09:56→20:11)
[2018-05-10] MEDS: ASPIRIN 81 MG ENTERIC TAB PO SCH (09:56)
[2018-05-10] MEDS: PROPRANOLOL 20 MG TAB PO SCH ×2 (09:56→20:14)
[2018-05-10] MEDS: FUROSEMIDE 40 MG TAB PO SCH (09:57)
[2018-05-10] MEDS: NYSTATIN 100,000 UNITS/GM TOPICAL PWD 15 GM TOP SCH ×2 (09:57→20:11)
[2018-05-10] MEDS: NORCO, ANEXSIA 5/325MG TABLET (HYDROcodone/ACETAMINOPHEN) PO PRN (10:00)
[2018-05-10] MEDS: SLF 3 ML SYR IV SCH ×2 (13:39→20:11)
[2018-05-10 14:00] VITALS: BP 117/56
--- NOTE | 2018-05-10 15:31 | IPN ---
DATE OF SERVICE: 05/09/2018 SUBJECTIVE: Patient is seen and examined this morning on dialysis receiving his maintenance treatment. He underwent a diagnostic and therapeutic paracentesis with 5 liters of ascitic fluid removed. Hence, his dialysis goal fluid removal today is less than 1 kilo. Temperature 96.9, pulse 67, respiratory rate 18, blood pressure 150/65, saturating 97% on room air. Intake yesterday was 2100. Ascitic tap yesterday removed 5 liters. Dialysis today removed 800 mL. Weight on the bed scale today is not recorded. General: Patient is seen on dialysis receiving his maintenance treatment. Awake, alert, oriented, comfortable, in no acute distress. Extraocular muscles are intact. Tongue is moist. Neck is supple. Cardiac: S1, S2, regular rate and rhythm. Lungs show clear air entry bilaterally. Abdomen shows decreased ascitic fluid. There is a right lower quadrant urostomy. Extremities shows bilateral below the knee amputations. There is no edema in the peripheries. There is a left upper extremity fistula, which is presently in use. Neurologic: He is oriented times three and at baseline mentation. Skin: normal turgor and temperature. There are some dressings present on his stumps. LABS: White count 6.7, hemoglobin 11.6, platelets 184. Sodium 132, potassium 5.1, magnesium 1.8. MICROBIOLOGY: Urine culture 05/06/2018 grew Morganella. Repeat urine culture 05/08/2018 showed no growth. INPATIENT MEDICATIONS: The patient is receiving ceftriaxone 2 grams IV daily. He received a one time dose of Lomotil. He is on Bacid. Remainder of medications are unchanged from prior. PROBLEMS: 1. End-stage renal disease on hemodialysis on Tuesday, , Tuesday schedule. Patient's goal fluid removal today is less than 1 liters due to his having the diagnostic and therapeutic paracentesis yesterday with 5 liters of ascitic fluid removed. He is tolerating his treatment today without issues. His volume status and electrolytes are acceptable. His next dialysis will be on . 2. Peritonitis. Ascitic fluid analysis showed 450 WBCs of which 70% were polymorph. This was after the patient had already been on cefazolin for a day. Hence, I am suspicious of peritonitis and he is now on ceftriaxone 2 grams IV daily for a total 5 day course of treatment. When he has his next weekly paracentesis on 05/17/2018, we will send it for repeat fluid analysis. 3. Hypertension with hypertensive heart disease. Blood pressures are acceptable. No changes are being made to his present medications. There are holding parameters written. 4. Cirrhosis with recurrent ascites and weekly paracentesis. As above, he had an off scheduled therapeutic tap on Tuesday. He is on ceftriaxone for peritonitis. His next scheduled tap will be on 05/17/2018, and he will receive albumin with large volume paracentesis. 5. Diarrhea. The primary team has started him on Lomotil and Bacid. If diarrhea is persistent would work up further with stool study. 6. Chronic anemia related to renal failure. Hemoglobin is at goal and no changes are being made. He will continue on the usual Aranesp with dialysis and he is on oral iron as well.
[2018-05-10] MEDS: cefTRIAXone SOD 2 GM in D5W MINI-BAG PLUS 50 ML IV SCH (20:09)
[2018-05-10] MEDS: clonazePAM 0.5 MG TAB PO SCH (20:11)
[2018-05-10] MEDS: LATANOPROST 0.005% OPHTH SOLN 2.5 ML OU SCH (20:12)
[2018-05-10] MEDS: MINOXIDIL 2.5 MG TAB PO SCH (20:14)
[2018-05-10] MEDS: **NOTE PATIENT COMMENT** MISC XX SCH (20:20)
--- NOTE | 2018-05-10 20:37 | IPNPDOC ---
Text Note Date of Service The patient was seen on 05/10/18. NOTE SUBJECTIVE: Sitting up in bed does not offer any complaints. Aenies any abdom inal pain or cramping. Had one bowel movement yesterday , no fever or chills. PHYSICAL EXAMINATION: Vitals: As below GENERAL: He is alert and conversant, no distress. LUNGS: clear. No ronchi or crackles HEART: regular rate. No rub, or gallop. there is a systolic murmur present ABDOMEN: soft, distended with ascites, nontender. EXTREMITIES:Bilateral below knee amputation. No edema of the thighs. LABS and Radiology: Reviewed Assessment and Plan: This is a 46 year old male who is a bilateral lower extremity amputee with PMH of end stage renal disease and gets HD on Tuesday, , Tuesday, cirrhosis and gets weekly paracentesis, gastroesophageal reflux disease (GERD), gastrointestinal bleeds due to gastric angiectasia and portal hypertensive gastropathy, renovascular hypertension bladder cancer status post right lower quadrant ileoconduit presented to the hospital for generalized weakness and lethargy. Found to have hyperkalemia and SBP and UTI. SBP continue ceftriaxone Urinary tract infection. morganella sensitive to ceftiraxone Cirrhosis with ascites , portal hypertension, portal hypertensive gastropathy s/p paracentensis on 05/08 continue propranolol End stage renal disease (ESRD). Dialysis per nephrology. HTN BP well controlled Furosemide, Minoxidil and Propranolol DLP ASA and Pravastatin s/p Urostomy fro bladder cancer c/w bag / dressing changes PAD s/p b/l BKA c/w ASA and Pravastatin Chronic anemia due to renal diasease and iron deficiency Hg appears stable continue iron and vit c. Hx of GI bleed / GERD c/w Protonix DVT prophylaxis c/w Heparin VS,Fishbone, I+O VS, Fishbone, I+O Laboratory Tests 05/10/18 06:46 Red Blood Count 3.81 L, Mean Corpuscular Volume 87.7, Mean Corpuscular He moglobin 28.9, Mean Corpuscular Hemoglobin Concent 32.9, Red Cell Distribution Width 15.4 H, Anion Gap 8 Vital Signs Date Time Temp Pulse Resp B/P (MAP) Pulse Ox O2 Delivery O2 Flow Rate FiO2 05/10/18 20:14 70 108/60 05/10/18 14:00 97.5 18 96 05/06/18 22:48 Room Air I&O- Last 24 Hours up to 6 AM 05/10/18 06:00 Intake Total 1004 ml Output Total 800 ml Balance 204 ml JESSICA BRADSHAW MD May 10, 2018 20:37
[2018-05-10 22:00] VITALS: BP 108/60
[2018-05-11] MEDS: LIDOCAINE 5% (LIDODERM) PATCH TD PRN ×2 (00:17→23:55)
[2018-05-11 06:00] VITALS: BP 135/63
[2018-05-11] MEDS: SLF 3 ML SYR IV SCH ×3 (06:24→20:20)
[2018-05-11] MEDS: HEPARIN SOD (PORCINE) 5000 UNITS/ML VIAL SQ SCH ×2 (06:24→20:19)
[2018-05-11] MEDS: PROPRANOLOL 20 MG TAB PO SCH ×2 (06:24→20:18)
[2018-05-11] MEDS: ASPIRIN 81 MG ENTERIC TAB PO SCH (06:24)
[2018-05-11] MEDS: FERROUS GLUCONATE 324 MG TAB PO SCH (06:24)
[2018-05-11] MEDS: OMEGA-3 1000MG CAPSULE PO SCH ×2 (06:25→20:21)
[2018-05-11] MEDS: MULTIVITAMINS/MINERALS THERAP 1 TAB PO SCH (06:25)
[2018-05-11] MEDS: FAMOTIDINE 20 MG TAB PO SCH ×2 (06:25→20:19)
[2018-05-11] MEDS: PRAVASTATIN 20 MG TAB PO SCH (06:25)
[2018-05-11] MEDS: MAGNESIUM OXIDE 400 MG TAB (MAG-OX) PO SCH ×2 (06:25→20:19)
[2018-05-11] MEDS: FUROSEMIDE 40 MG TAB PO SCH (06:25)
[2018-05-11] MEDS: NYSTATIN 100,000 UNITS/GM TOPICAL PWD 15 GM TOP SCH ×2 (06:26→20:19)
[2018-05-11] MEDS: LACTOBACILLUS ACIDOPHILUS CAP (BACID) PO SCH ×3 (06:26→17:08)
[2018-05-11] MEDS: PANTOPRAZOLE 40MG TAB (PROTONIX) PO SCH ×2 (06:26→20:17)
[2018-05-11] MEDS: ASCORBIC ACID 500 MG TAB PO SCH (06:26)
[2018-05-11 07:01] LABS: HEMATOCRIT 33.6 % (42.0-52.0); HEMOGLOBIN 10.9 g/dl (13.5-17.5); MEAN CORPUSCULAR HEMOGLOBIN 28.6 pg (27.0-33.0); MEAN CORPUSCULAR HGB CONC 32.4 g/dl (32.0-36.5); MEAN CORPUSCULAR VOLUME 88.2 fl (80.0-96.0); PLATELET COUNT, AUTOMATED 165 10^3/uL (150-450); RED BLOOD COUNT 3.81 10^6/uL (4.30-6.10); WHITE BLOOD COUNT 7.5 10^3/uL (4.0-10.0)
[2018-05-11 07:25] LABS: ALBUMIN 1.7 GM/DL (3.2-5.2); CALCIUM LEVEL 7.6 MG/DL (8.8-10.2); CREATININE FOR GFR 5.39 MG/DL (0.70-1.30); GLOMERULAR FILTRATION RATE 11.2 (>42); MAGNESIUM LEVEL 1.8 MG/DL (1.8-2.4); PHOSPHORUS LEVEL 4.8 MG/DL (2.5-4.9); POTASSIUM SERUM 4.8 MEQ/L (3.5-5.1)
--- NOTE | 2018-05-11 13:15 | IPNPDOC ---
Text Note Date of Service The patient was seen on 05/11/18. NOTE SUBJECTIVE: Sitting up in bed does not offer any complaints. Going for HD. no fever or chills. Abdominal pain and cramping has resolved PHYSICAL EXAMINATION: Vitals: As below GENERAL: He is alert and conversant, no distress. LUNGS: clear. No ronchi or crackles HEART: regular rate. No rub, or gallop. there is a systolic murmur present ABDOMEN: soft, distended with ascites, nontender. EXTREMITIES:Bilateral below knee amputation. No edema of the thighs. LABS and Radiology: Reviewed Assessment and Plan: This is a 46 year old male who is a bilateral lower extre mity amputee with PMH of end stage renal disease and gets HD on Tuesday, , Tuesday, cirrhosis and gets weekly paracentesis, gastroesophageal reflux disease (GERD), gastrointestinal bleeds due to gastric angiectasia and portal hypertensive gastropathy, renovascular hypertension bladder cancer status post right lower quadrant ileoconduit presented to the hospital for generalized weakness and lethargy. Found to have hyperkalemia and SBP and UTI. SBP continue ceftriaxone Urinary tract infection. Morganella sensitive to ceftriaxone Cirrhosis with ascites , portal hypertension, portal hypertensive gastropathy s/p paracentesis on 05/08 continue propranolol End stage renal disease (ESRD). Dialysis per nephrology. HTN BP well controlled Furosemide, Minoxidil and Propranolol DLP ASA and Pravastatin s/p Urostomy fro bladder cancer c/w bag / dressing changes PAD s/p b/l BKA c/w ASA and Pravastatin Chronic anemia due to renal diasease and iron deficiency Hg appears stable continue iron and vit c. Hx of GI bleed / GERD c/w Protonix DVT prophylaxis c/w Heparin VS,Fishbone, I+O VS, Fishbone, I+O Laboratory Tests 05/11/18 06:48 Red Blood Count 3.81 L, Mean Corpuscular Volume 88.2, Mean Corpuscular Hemoglobin 28.6, Mean Corpuscular Hemoglobin Concent 32.4, Red Cell Distribution Width 16.2 H, Anion Gap 8 Vital Signs Date Time Temp Pulse Resp B/P (MAP) Pulse Ox O2 Delivery O2 Flow Rate FiO2 05/11/18 06:24 59 135/63 05/11/18 06:00 97.1 18 95 05/06/18 22:48 Room Air l I&O- Last 24 Hours up to 6 AM 05/11/18 06:00 Intake Total 840 ml Output Total 0 ml Balance 840 ml JESSICA BRADSHAW MD May 11, 2018 13:15
[2018-05-11 14:00] VITALS: BP 137/65
[2018-05-11] MEDS: NORCO, ANEXSIA 5/325MG TABLET (HYDROcodone/ACETAMINOPHEN) PO PRN ×2 (17:08→23:54)
[2018-05-11] MEDS: cefTRIAXone SOD 2 GM in D5W MINI-BAG PLUS 50 ML IV SCH (20:16)
[2018-05-11] MEDS: clonazePAM 0.5 MG TAB PO SCH (20:17)
[2018-05-11] MEDS: LATANOPROST 0.005% OPHTH SOLN 2.5 ML OU SCH (20:20)
[2018-05-11] MEDS: **NOTE PATIENT COMMENT** MISC XX SCH (20:20)
[2018-05-11] MEDS: MINOXIDIL 2.5 MG TAB PO SCH (20:21)
[2018-05-11 22:00] VITALS: BP 112/57
[2018-05-12 06:00] VITALS: BP 133/79
[2018-05-12] MEDS: SLF 3 ML SYR IV SCH ×2 (06:00→14:40)
[2018-05-12 06:03] LABS: HEMATOCRIT 32.2 % (42.0-52.0); HEMOGLOBIN 10.5 g/dl (13.5-17.5); MEAN CORPUSCULAR HEMOGLOBIN 29.2 pg (27.0-33.0); MEAN CORPUSCULAR HGB CONC 32.6 g/dl (32.0-36.5); MEAN CORPUSCULAR VOLUME 89.4 fl (80.0-96.0); PLATELET COUNT, AUTOMATED 147 10^3/uL (150-450); WHITE BLOOD COUNT 5.9 10^3/uL (4.0-10.0)
[2018-05-12] MEDS: NORCO, ANEXSIA 5/325MG TABLET (HYDROcodone/ACETAMINOPHEN) PO PRN (06:36)
[2018-05-12 06:40] LABS: ALBUMIN 1.6 GM/DL (3.2-5.2); CALCIUM LEVEL 7.5 MG/DL (8.8-10.2); CREATININE FOR GFR 3.82 MG/DL (0.70-1.30); GLOMERULAR FILTRATION RATE 16.6 (>42); MAGNESIUM LEVEL 1.9 MG/DL (1.8-2.4); PHOSPHORUS LEVEL 3.4 MG/DL (2.5-4.9); POTASSIUM SERUM 3.9 MEQ/L (3.5-5.1)
[2018-05-12] MEDS: PRAVASTATIN 20 MG TAB PO SCH (08:15)
[2018-05-12] MEDS: FAMOTIDINE 20 MG TAB PO SCH (08:15)
[2018-05-12] MEDS: LACTOBACILLUS ACIDOPHILUS CAP (BACID) PO SCH ×2 (08:15→12:39)
[2018-05-12 08:16] VITALS: BP 112/60
[2018-05-12] MEDS: MAGNESIUM OXIDE 400 MG TAB (MAG-OX) PO SCH (08:16)
[2018-05-12] MEDS: ASCORBIC ACID 500 MG TAB PO SCH (08:16)
[2018-05-12] MEDS: PANTOPRAZOLE 40MG TAB (PROTONIX) PO SCH (08:16)
[2018-05-12] MEDS: PROPRANOLOL 20 MG TAB PO SCH (08:16)
[2018-05-12] MEDS: FUROSEMIDE 40 MG TAB PO SCH (08:16)
[2018-05-12] MEDS: OMEGA-3 1000MG CAPSULE PO SCH (08:16)
[2018-05-12] MEDS: ASPIRIN 81 MG ENTERIC TAB PO SCH (08:16)
[2018-05-12] MEDS: FERROUS GLUCONATE 324 MG TAB PO SCH (08:16)
[2018-05-12] MEDS: MULTIVITAMINS/MINERALS THERAP 1 TAB PO SCH (08:16)
[2018-05-12] MEDS: NYSTATIN 100,000 UNITS/GM TOPICAL PWD 15 GM TOP SCH (08:17)
[2018-05-12] MEDS ORDERED: CEFDINIR 300 MG CAP (OMNICEF) PO ONE (10:00)
[2018-05-12] MEDS ORDERED: CEFD300CAP PO (10:04)
[2018-05-12] MEDS ORDERED: NYAM10003 TOP (10:04)
[2018-05-12 12:30] VITALS: BP 160/80
--- NOTE | 2018-05-12 16:31 | REP ---
Ultrasound-guided paracentesis The procedure was performed under the direct supervision of Dr. Rodas. The risks and benefits of the procedure were explained to the patient and informed consent was obtained. The largest pocket of fluid was localized in the left flank using ultrasound guidance. The skin was prepped and draped in a sterile fashion. 1% lidocaine was used as a local anesthetic. An 8-Danish multi side-hole catheter was inserted using trocar technique. 6700 ml of brown colored fluid was withdrawn and discarded. The patient tolerated the procedure well and there were no immediate complications. After the appropriate amount of monitored convalescence the patient was discharged from the department. Reviewed by SIMRAN Ji 05/12/2018 03:29 P Electronically Signed by Carlos Rodas MD 05/12/2018 04:22 P
--- NOTE | 2018-05-12 16:39 | IPN ---
DATE: 05/11/2018 SUBJECTIVE: Jadiel is seen and examined this morning in the hemodialysis unit receiving his maintenance treatment. Denies any acute overnight events or issues. VITAL SIGNS: Temperature 97.1, pulse 59, respiratory rate 18, blood pressure 135/63, saturating 95% on room air. Intake yesterday was 840. Weight in the bed scale today is not recorded. Goal dialysis removal of 1-1.5 liters as tolerated. GENERAL: Patient seen on dialysis, awake, alert, conversational. No acute distress. Extraocular muscles are intact. Tongue is moist. NECK: Supple. CARDIAC: S1, S2, regular rate and rhythm. LUNGS: Show clear to auscultation bilaterally. No rhonchus or rales. ABDOMEN: Soft. There is some ascitic fluid reaccumulating. There is a urostomy present in the right lower quadrant. EXTREMITIES: Show bilateral below-knee amputations. There is no edema. The left upper extremity fistula is in use. SKIN: Normal turgor and temperature. LABORATORY DATA: White count 7.5, hemoglobin 10.9. Sodium 133, potassium 4.8, bicarbonate 27, phosphorus 4.8, magnesium 1.8. INPATIENT MEDICATIONS: Reviewed by myself and no change from prior. Noted primary team did start him on magnesium. PROBLEMS: 1. End-stage renal disease on hemodialysis on a Tuesday, , Tuesday schedule. Patient is being dialyzed today per his maintenance schedule. Goal fluid removal will be 1-1.5 liters as tolerated by his hemodynamics. His electrolytes and volume status are acceptable. His fistula is in good use. 2. Cirrhosis with recurrent ascites, portal hypertension, and portal hypertensive gastropathy with history of gastrointestinal (GI) bleed in the past. Patient continues with weekly paracentesis. He is presently receiving 5 days of ceftriaxone for peritonitis. He is symptomatically improved. 3. Hypertension. Blood pressures are acceptable, and no changes are being made to the current regimen of propranolol, minoxidil, and furosemide. There are holding parameters written with the minoxidil. 4. Chronic anemia related to renal failure Patient's hemoglobin remains at goal, and no changes are being made. He continues on oral iron supplementation.
--- NOTE | 2018-05-12 22:44 | DS.PDOC ---
Discharge Summary General Date of Admission May 06, 2018 at 13:15 Date of Discharge 05/12/18 Attending Physician: JESSICA BRADSHAW MD Specialist/Consultants Involve: CALEB CASTILLO DO Discharge Summary PROCEDURES PERFORMED DURING STAY: Paracentesis x 2 Maintenance HD DISCHARGE DIAGNOSES: SBP UTI Hyperkalemia Decompensated cirrhosis Portal hypertensive gastropathy ESRD on HD Bilateral below knee amputation Peripheral arterial disease History of bladder cancer with total cystectomy with ileal conduit and urostomy bag Hypertension Hyperlipidemia Chronic anemia Iron deficiency H/O GIB due to gastric angiectasia GERD COMPLICATIONS/CHIEF COMPLAINT: Elevated Troponin Hyperkalemia. HISTORY OF PRESENT ILLNESS: See History and physical HOSPITAL COURSE: This is a 72 year old male who is a bilateral lower extremity amputee with PMH of end stage renal disease and gets HD on Tuesday, , Tuesday, cirrhosis and gets weekly paracentesis, gastroesophageal reflux disease (GERD), gastrointestinal bleeds due to gastric angiectasia and portal hypertensive gastropathy, renovascular hypertension bladder cancer status post right lower quadrant ileoconduit presented to the hospital for generalized weakness and lethargy. Found to have hyperkalemia and SBP and UTI. SBP had 5 days of IV antibiotics then switched to cefdinir. Urinary tract infection. Morganella treated. Cirrhosis with ascites , portal hypertension, portal hypertensive gastropathy s/p paracentesis on 05/08 and 05/12 received 4 units of 25% albumin after second paracentesis. continue propranolol End stage renal disease (ESRD). Dialysis per nephrology. HTN BP well controlled Furosemide, Minoxidil and Propranolol DLP ASA and Pravastatin s/p Urostomy for bladder cancer c/w bag / dressing changes PAD s/p b/l BKA c/w ASA and Pravastatin Chronic anemia due to renal disease and iron deficiency Hg appears stable continue iron and vit c. Hx of GI bleed / GERD c/w Protonix DISCHARGE MEDICATIONS: Please see below. ALLERGIES: Please see below. PHYSICAL EXAMINATION ON DISCHARGE: VITAL SIGNS: Please see below. GENERAL: He is alert and conversant, no distress. LUNGS: clear. No ronchi or crackles HEART: regular rate. No rub, or gallop. there is a systolic murmur present ABDOMEN: soft, minimal ascites, nontender. EXTREMITIES:Bilateral below knee amputation. No edema of the thighs. LABORATORY DATA: Please see below. ACTIVITY: [As tolerated]. DIET: 2 gm potassium DISPOSITION: 01 Home, Self-Care. DISCHARGE INSTRUCTIONS: Follow up PMD in 1 week DISCHARGE CONDITION: [Stable]. TIME SPENT ON DISCHARGE: Greater than 30 minutes. Vital Signs/I&Os Vital Signs Date Time Temp Pulse Resp B/P (MAP) Pulse Ox O2 Delivery O2 Flow Rate FiO2 05/12/18 12:30 97.3 66 14 160/80 (106) 95 05/06/18 22:48 Room Air I&O- Last 24 Hours up to 6 AM 05/12/18 06:00 Intake Total 1310 ml Output Total 2125 ml Balance -815 ml Laboratory Data Labs 24H Laboratory Tests 2 05/12/18 05:46: Nucleated Red Blood Cells % (auto) 0.0, Blood Urea Nitrogen 25H, Creatinine 3.82H, Sodium Level 137, Potassium Level 3.9, Chloride Level 100, Carbon Dioxide Level 28, Anion Gap 9, Glomerular Filtration Rate 16.6L, Calcium Level 7.5L, Phosphorus Level 3.4#, Magnesium Level 1.9, Albumin 1.6L CBC/BMP Laboratory Tests 05/12/18 05:46 Red Blood Count 3.60 L, Mean Corpuscular Volume 89.4, Mean Corpuscular Hemoglobin 29.2, Mean Corpuscular Hemoglobin Concent 32.6, Red Cell Distribution Width 16.3 H, Anion Gap 9 Microbiology Microbiology 05/06/18 Blood Culture - Final, Complete NO GROWTH AFTER 5 DAYS 05/06/18 Blood Culture - Final, Complete NO GROWTH AFTER 5 DAYS 05/08/18 Gram Stain - Final, Complete 05/08/18 Body Fluid Culture - Final, Complete 05/08/18 Urine Culture - Final, Complete 05/06/18 Urine Culture - Final, Complete Morganella Morganii Ssp Reynold Corynebacterium Species Discharge Medications Scheduled Ascorbic Acid (Ascorbic Acid) 500 Mg Tab, 500 MG PO DAILY, (Reported) Aspirin (Aspirin 81) 81 Mg Tab, 81 MG PO DAILY, (Reported) Aspirin (Aspirin 81) 81 Mg Tab, 81 MG PO DAILY, (Reported) Cefdinir (Cefdinir) 300 Mg Cap, 300 MG PO Q48H Take at evening. Clonazepam (Clonazepam) 0.5 Mg Tab, 0.5 MG PO QHS, (Reported) Dicyclomine HCl (Dicyclomine HCl) 10 Mg Cap, 10 MG PO QHS, (Reported) Ferrous Gluconate (Ferrous Gluconate) 324 Mg Tab, 324 MG PO QWEEK, (Reported) SUNDAYS Furosemide (Furosemide) 40 Mg Tab, 40 MG PO 4XWK, (Reported) TAKES ON NON-DIALYSIS DAYS TUE/TUE/TUE/TUE Latanoprost (Xalatan) 0.005 % [place], 1 DROP OU QHS, (Reported) Linseed Oil (Flax Seed Oil) 1,000 Mg Cap, 1,000 MG PO BID, (Reported) Minoxidil (Minoxidil) 2.5 Mg Tab, 5 MG PO QHS, (Reported) Multivitamins (Centrum Silver Adult 50+) 1 Tab Tab, 1 TAB PO DAILY, (Reported) Nystatin (Nyamyc) 100,000 Unit/Gm Pow, 0 DOSE TOP BID [place] 3 Polyunsat Fatty Acids (Fish Oil 1000 mg) 1 Cap Cap, 1 CAP PO BID, (Reported) Pantoprazole Sodium (Pantoprazole Sodium) 40 Mg Tab, 40 MG PO BID, (Reported) Pravastatin Sodium (Pravastatin Sodium) 20 Mg Tab, 20 MG PO DAILY, (Reported) Propranolol HCl (Propranolol HCl) 20 Mg Tab, 20 MG PO BID, (Reported) Ranitidine HCl (Ranitidine HCl) 150 Mg Tab, 1 TAB PO BID, (Reported) Sevelamer Carbonate (Renvela) 800 Mg Tab, 800 MG PO WM, (Reported) Vitamin D (Drisdol) 50,000 Unit Cap, 50,000 UNIT PO QWEEK, (Reported) SUNDAYS Scheduled PRN Lidocaine (Lidoderm) 5 % Dis, 1 PATCH TD DAILY PRN for PAIN, (Reported) APPLIES ONE PATCH TO BILATERAL LEGS PRN Ondansetron HCl (Ondansetron HCl) 8 Mg Tab, 8 MG PO Q6H PRN for NAUSEA OR VOMITING, (Reported) Sildenafil Citrate (Viagra) 100 Mg Tab, 100 MG PO for ERECTILE DYSFUNCTION, (Reported) Allergies Coded Allergies: Quinolones (Verified Allergy, Mild, RASH RT ARM,ITCHING, 05/04/18) Levofloxacin (Verified Allergy, Unknown, 05/04/18) Amlodipine (Verified Adverse Reaction, Intermediate, LOWER EXTREMITY SWELLING, 05/06/18) JESSICA BRADSHAW MD May 12, 2018 22:43
--- NOTE | 2018-05-14 13:53 | IPN ---
DATE: 05/12/2018 SUBJECTIVE: Jadiel is seen and examined this morning at the bedside. He tolerated dialysis yesterday without any issues with 1500 mL of fluid removed. He is discharge pending today. INTAKE AND OUTPUT: Intake yesterday 1080, urine output 400, dialysis yesterday removed 1500, net negative 820. Weight on the bed scale today is not recorded. VITAL SIGNS: Temperature 97.3, pulse 66, respiratory rate 14, blood pressure 160/80, saturating 95% on room air. GENERAL: Patient is seen in bed, awake, alert, oriented, comfortable in no acute distress. HEENT: Extraocular muscles are intact. Tongue is moist. NECK: Supple. Jugular veins are not elevated. CARDIAC: S1, S2, regular rate and rhythm. LUNGS: Show clear to auscultation bilaterally. No rhonchus or rales. ABDOMEN: Soft. There is some ascitic fluid reaccumulating. There is a urostomy present in the right lower quadrant. EXTREMITIES: Show bilateral below-knee amputations. There is no edema. The left upper extremity fistula is patent. SKIN: Normal turgor and temperature. LABORATORY DATA: White count 5.9, hemoglobin 10.5, platelets 147. Sodium 137, potassium 3.9, magnesium 1.9. Paracentesis today in the afternoon removed 6700 mL of fluid. INPATIENT MEDICATIONS: Reviewed by myself and no change from prior. PROBLEMS: 1. End-stage renal disease on hemodialysis on a Tuesday, , Tuesday schedule. He is tolerating his dialysis treatments well. Next treatment will be tomorrow in the outpatient setting. His electrolytes and volume status are acceptable. His fistula is in good use. Because he had two paracentesis in the past one week, his goal fluid removal with dialysis has been less than usual this past week. 2. Cirrhosis with recurrent ascites, portal hypertension, and portal hypertensive gastropathy with history of gastrointestinal (GI) bleed in the past. He will continue with weekly paracentesis as an outpatient. He will receive albumin with large volume paracentesis. He has completed a five day course of antibiotic for peritonitis. He is symptomatically improved. He had a paracentesis done today prior to hospital discharge. 3. Hypertension. Blood pressures are acceptable, and no changes are being made to the current regimen of propranolol twice daily, minoxidil and Lasix. 4. Chronic anemia related to renal failure. The patient's hemoglobin is 10.5, which is at target and no changes are being made.
== END 2018-05-12 17:35 | disposition home or self-care (01) | DRG 371 ==
LOC: EDBD 08:50 → M ED 08:50 → M ED INP 13:15 → M ICU 23:06 → M MS5PR 05-07 17:23
PROVIDERS: ADMIT Family Medicine; ATTEND Internal Medicine Nephrology
PROC: 5A1D70Z Performance of Urinary Filtration, Intermittent, Less than 6 Hours Per Day (ICD-10-PCS; principal; 2018-05-06)
PROC: 0W9G3ZX Drainage of Peritoneal Cavity, Percutaneous Approach, Diagnostic (ICD-10-PCS; 2018-05-08)
PROC: 0W9G3ZZ Drainage of Peritoneal Cavity, Percutaneous Approach (ICD-10-PCS; 2018-05-12)
PROC: 30233J1 Transfusion of Nonautologous Serum Albumin into Peripheral Vein, Percutaneous Approach (ICD-10-PCS; 2018-05-12)
DX: K65.2 Spontaneous bacterial peritonitis (principal); N18.6 End stage renal disease; N25.81 Secondary hyperparathyroidism of renal origin; R18.8 Other ascites; I12.0 Hypertensive chronic kidney disease with stage 5 chronic kidney disease or end stage renal disease; E46 Unspecified protein-calorie malnutrition; K76.6 Portal hypertension; N39.0 Urinary tract infection, site not specified; E87.5 Hyperkalemia; Z66 Do not resuscitate; I73.9 Peripheral vascular disease, unspecified; K21.9 Gastro-esophageal reflux disease without esophagitis; K74.60 Unspecified cirrhosis of liver; K31.89 Other diseases of stomach and duodenum; I95.3 Hypotension of hemodialysis; D63.1 Anemia in chronic kidney disease; Z89.511 Acquired absence of right leg below knee; Z89.512 Acquired absence of left leg below knee; Z88.1 Allergy status to other antibiotic agents; Z88.8 Allergy status to other drugs, medicaments and biological substances; Z79.82 Long term (current) use of aspirin; Z99.2 Dependence on renal dialysis; Z79.899 Other long term (current) drug therapy; Z91.15 Patient's noncompliance with renal dialysis; R53.1 Weakness; Z91.11 Patient's noncompliance with dietary regimen; Z85.51 Personal history of malignant neoplasm of bladder; Z93.6 Other artificial openings of urinary tract status

== ENCOUNTER → 2018-05-17 | Outpatient (CLI) | payer MEDICARE ==
[~2018-05-17] MED LIST changes: +ASCO500T PO; +CEFD300CAP PO; +CENT1TAB PO; +DICY1CAP8 PO; +FERR325T16 PO; +FLAX100012 PO; +LIDO5DIS41 TD; +ONDA8TAB7 PO
--- NOTE | 2018-05-17 21:19 | REP ---
Ultrasound-guided paracentesis The procedure was performed under the direct supervision of Dr. Paulson. The risks and benefits of the procedure were explained to the patient and informed consent was obtained. The largest pocket of fluid was localized in the left flank using ultrasound guidance. The skin was prepped and draped in a sterile fashion. 1% lidocaine was used as a local anesthetic. An 8-Georgian multi side-hole catheter was inserted using trocar technique. 4800 ml of yellow fluid was withdrawn and discarded. The patient tolerated the procedure well and there were no immediate complications. After the appropriate amount of monitored convalescence the patient was discharged from the department. Reviewed by SIMRAN Ji 05/17/2018 05:29 P Electronically Signed by Pratik Paulson MD 05/17/2018 09:10 P
== END ==
LOC: M RADPRO 09:53
PROVIDERS: ATTEND Internal Medicine Nephrology
DX: N18.4 Chronic kidney disease, stage 4 (severe) (principal); R18.8 Other ascites; K74.69 Other cirrhosis of liver

== ENCOUNTER → 2018-05-17 | Outpatient (CLI) | payer MEDICARE | LOC: M RADPRO 08:00 | PROVIDERS: ATTEND Internal Medicine Nephrology | DX: K74.60 Unspecified cirrhosis of liver (principal); R18.8 Other ascites; N18.6 End stage renal disease; Z99.2 Dependence on renal dialysis; Z79.899 Other long term (current) drug therapy | CPT/HCPCS: 49083; 96365; P9047 ==

== ENCOUNTER → 2018-05-24 | Outpatient (CLI) | payer MEDICARE ==
--- NOTE | 2018-05-25 08:12 | REP ---
Ultrasound-guided paracentesis The procedure was performed under the direct supervision of Dr. Reyna. The risks and benefits of the procedure were explained to the patient and informed consent was obtained. The largest pocket of fluid was localized in the left flank using ultrasound guidance. The skin was prepped and draped in a sterile fashion. 1% lidocaine was used as a local anesthetic. An 8-Bengali multi side-hole catheter was inserted using trocar technique. 5500 ml of yellow fluid was withdrawn and discarded. The patient tolerated the procedure well and there were no immediate complications. After the appropriate amount of monitored convalescence the patient was discharged from the department. Reviewed by SIMRAN Ji 05/24/2018 04:07 P Electronically Signed by Karlos Reyna MD 05/25/2018 08:03 A
== END ==
LOC: M RADPRO 09:24
PROVIDERS: ATTEND Internal Medicine Nephrology
DX: R18.8 Other ascites (principal); K74.60 Unspecified cirrhosis of liver; Z99.2 Dependence on renal dialysis; Z79.82 Long term (current) use of aspirin; Z79.899 Other long term (current) drug therapy
CPT/HCPCS: 49083; 96365; P9047

== ENCOUNTER → 2018-05-31 | Outpatient (CLI) | payer MEDICARE ==
--- NOTE | 2018-05-31 20:35 | REP ---
Ultrasound-guided paracentesis The procedure was performed under the direct supervision of Dr. Rodas. The risks and benefits of the procedure were explained to the patient and informed consent was obtained. The largest pocket of fluid was localized in the left flank using ultrasound guidance. The skin was prepped and draped in a sterile fashion. 1% lidocaine was used as a local anesthetic. An 8-Hebrew multi side-hole catheter was inserted using trocar technique. 5700 ml of yellow fluid was withdrawn and discarded. The patient tolerated the procedure well and there were no immediate complications. After the appropriate amount of monitored convalescence the patient was discharged from the department. Reviewed by SIMRAN Ji 05/31/2018 02:31 P Electronically Signed by Carlos Rodas MD 05/31/2018 08:27 P
== END ==
LOC: M RADPRO 10:33
PROVIDERS: ATTEND Internal Medicine Nephrology
DX: R18.8 Other ascites (principal); K74.60 Unspecified cirrhosis of liver; Z99.2 Dependence on renal dialysis
CPT/HCPCS: 49083; 96365; P9047

== ENCOUNTER → 2018-06-07 | Outpatient (CLI) | payer MEDICARE ==
--- NOTE | 2018-06-07 21:50 | REP ---
Ultrasound-guided paracentesis The procedure was performed under the direct supervision of Dr. Paulson. The risks and benefits of the procedure were explained to the patient and informed consent was obtained. The largest pocket of fluid was localized in the left flank using ultrasound guidance. The skin was prepped and draped in a sterile fashion. 1% lidocaine was used as a local anesthetic. An 8-Telugu multi side-hole catheter was inserted using trocar technique. 5700 ml of deng colored fluid was withdrawn and discarded. The patient tolerated the procedure well and there were no immediate complications. After the appropriate amount of monitored convalescence the patient was discharged from the department. Reviewed by SIMRAN Ji 06/07/2018 05:15 P Electronically Signed by Pratik Paulson MD 06/07/2018 09:41 P
== END ==
LOC: M RADPRO 10:24
PROVIDERS: ATTEND Internal Medicine Nephrology
DX: R18.8 Other ascites (principal); K74.60 Unspecified cirrhosis of liver; Z99.2 Dependence on renal dialysis
CPT/HCPCS: 49083; 96365; P9047

== ENCOUNTER → 2018-06-21 | Outpatient (CLI) | payer MEDICARE ==
[~2018-06-21] MED LIST changes: +ACET-716 PO; -ACET30TAB PO; -ASPI1TAB PO; +ASPI81TA26 PO; +DOXY100T PO; +HYDR-3715 PO; +LATA0.0013 OU; -LATA5OPD OU; +MIDO5TA PO; +NEPH1TAB11 PO; -NEPHTAB PO; -NORC1TAB4 PO; +NORC1TAB7 PO; -NORCOTAB PO; +PROP10TA55 PO; -PROP10TAB PO; +VELT1POW PO
--- NOTE | 2018-06-21 16:56 | REP ---
Ultrasound-guided paracentesis The procedure was performed under the direct supervision of Dr. Rodas. The risks and benefits of the procedure were explained to the patient and informed consent was obtained. The largest pocket of fluid was localized in the left flank using ultrasound guidance. The skin was prepped and draped in a sterile fashion. 1% lidocaine was used as a local anesthetic. An 8-Luxembourgish multi side-hole catheter was inserted using trocar technique. 6100 ml of yellow fluid was withdrawn and discarded. The patient tolerated the procedure well and there were no immediate complications. After the appropriate amount of monitored convalescence the patient was discharged from the department. Reviewed by SIMRAN Ji 06/21/2018 03:36 P Electronically Signed by Carlos Rodas MD 06/21/2018 04:47 P
== END ==
LOC: M RADPRO 10:27
PROVIDERS: ATTEND Internal Medicine Nephrology
DX: K74.60 Unspecified cirrhosis of liver (principal); R18.8 Other ascites; Z99.2 Dependence on renal dialysis; Z79.899 Other long term (current) drug therapy
CPT/HCPCS: 49083; 96365; P9047

== ENCOUNTER 2018-06-26 13:38 | Inpatient (IN) | payer MEDICARE ==
[~2018-06-26 13:38] MED LIST changes: -DOXY100T PO; -MIDO5TA PO; -VELT1POW PO
[2018-06-26 15:30] VITALS: BP 172/79
[2018-06-26] MEDS ORDERED: MIDO5TA PO (17:51)
[2018-06-26] MEDS ORDERED: NORC1TAB7 PO (18:07)
[2018-06-26] MEDS ORDERED: VELT1POW PO (18:07)
[2018-06-26] MEDS: PIPERACILLIN/TAZOBACTAM SOD 2.25 GM in D5W MINI-BAG PLUS 50 ML IV SCH (18:45)
--- NOTE | 2018-06-26 18:49 | HPE ---
DATE OF ADMISSION: 06/26/2018 73-year-old female with a past medical history of end stage renal disease on hemodialysis Tuesday, and Tuesday, history of cirrhosis, peripheral vascular disease status post bilateral below the knee amputations, history of requiring paracentesis weekly, gastroesophageal reflux disease (GERD), who presents as a transfer from [facility] for dialysis. The patient apparently has not been feeling well and has had generalized weakness for approximately three days prior to coming to [place]. When he got to the emergency room, the urinalysis was positive for a urinary tract infection (UTI) and the patient was given gentamicin IV, but because the patient required dialysis tomorrow, the patient was transferred to [facility] for further management. At this time, the patient denies any subjective fever, aches or chills. No abdominal pain, nausea or vomiting. He will be admitted to our medical/surgical floor for further management. PAST MEDICAL HISTORY: Again, past medical history of: 1. End stage renal disease on hemodialysis Tuesday, and Tuesday. 2. History of cirrhosis requiring paracentesis weekly. 3. History of GERD 4. Peripheral vascular disease status post bilateral below the knee amputations. 5. History of lower quadrant ileoconduit for bladder cancer. 6. Umbilical hernia repair. ALLERGIES: He has drug allergies to QUINOLONES and AMLODIPINE. FAMILY HISTORY: Noncontributory. SOCIAL HISTORY: The patient denies tobacco, alcohol, or illicit drugs. MEDICATIONS: He takes at home: - ascorbic acid 500 mg by mouth daily - aspirin 81 mg by mouth daily - Cefdinir 300 mg by mouth every 48 hours - clonazepam 0.5 mg by mouth at bedtime - ferrous gluconate 324 mg by mouth weekly - Lasix 40 mg by mouth four times weekly - latanoprost one drop to both eyes at night - Lidocaine one patch transdermal daily - multivitamin one tablet by mouth daily - omega 3 fatty acid one capsule by mouth twice a day - ondansetron 8 mg by mouth every 6 hours as needed - pantoprazole 40 mg by mouth twice a day - pravastatin 12 mg by mouth daily - propranolol 20 mg by mouth twice a day - ranitidine one tablet by mouth twice a day at 150 mg - vitamin D 50,000 units by mouth weekly - dicyclomine 10 mg by mouth at bedtime - linseed oil 1000 mg by mouth twice a day - minoxidil 5 mg by mouth at bedtime - Sevelamir 800 mg by mouth Tuesday and Tuesday, twice weekly - sildenafil 100 mg by mouth as needed REVIEW OF SYSTEMS: Negative for all ten major systems except what is mentioned in the history of present illness. PHYSICAL EXAMINATION: VITAL SIGNS: Blood pressure 172/79, heart rate 64 and regular, respirations 16, temperature 97.2, oxygen saturation 97% on room air. Head is atraumatic, normocephalic. Neck is supple with no jugular venous distention (JVD). Lungs clear to auscultation. S1, S2 audible. No murmurs appreciated. Abdomen is soft. Positive bowel sounds. There are bilateral below knee amputations present. Skin is intact. Neurologic examination, the patient is awake, alert and oriented times three. LABORATORIES: Sodium 135, potassium 5.2, chloride 97, CO2 of 25, BUN 36, creatinine 4.2, chloride 139, WBC 12.7, hemoglobin 11.5, hematocrit 35.7, platelets 165,000. IMPRESSION: 1. Urinary tract infection (UTI). 2. End stage renal disease on hemodialysis. PLAN: The patient is to be admitted to the medical/surgical floor. I will give him Zosyn 2.25 IV every 12 hours. We will continue his other preadmission medications. Dr. Jackson has been placed on official consult, I spoke to him and he approved the Zosyn, as well as starting to giving the patient dialysis tomorrow morning. We will continue following his care on the medical/surgical floor.
[2018-06-26] MEDS ORDERED: LIDOCAINE 5% (LIDODERM) PATCH TD PRN (19:45)
[2018-06-26] MEDS ORDERED: ONDANSETRON 4 MG TAB (S0181) PO PRN (19:45)
[2018-06-26] MEDS: clonazePAM 0.5 MG TAB PO SCH (20:50)
[2018-06-26] MEDS: FAMOTIDINE 20 MG TAB PO SCH (20:50)
[2018-06-26] MEDS: OMEGA-3 1000MG CAPSULE PO SCH (20:50)
[2018-06-26] MEDS: LATANOPROST 0.005% OPHTH SOLN 2.5 ML OU SCH (20:50)
[2018-06-26] MEDS: PROPRANOLOL 20 MG TAB PO SCH (20:51)
[2018-06-26] MEDS ORDERED: MINOXIDIL 2.5 MG TAB PO SCH (21:00)
[2018-06-26 22:00] VITALS: BP 99/48
[2018-06-26] MEDS: **NOTE PATIENT COMMENT** MISC XX SCH (22:21)
[2018-06-26 22:30] VITALS: BP 107/50
[2018-06-26] MEDS: NORCO, ANEXSIA 5/325MG TABLET (HYDROcodone/ACETAMINOPHEN) PO PRN (22:32)
[2018-06-26] MEDS: SENOKOT S TAB PO SCH (22:32)
[2018-06-27] MEDS: NORCO, ANEXSIA 5/325MG TABLET (HYDROcodone/ACETAMINOPHEN) PO PRN ×2 (02:45→21:32)
[2018-06-27 06:00] VITALS: BP 151/56
[2018-06-27 06:35] LABS: BASO % 0.4 % (0.0-1.0); EOS # 0.4 10^3/uL (0.0-0.50); EOS % 4.4 % (0.0-3.0); HEMATOCRIT 34.2 % (42.0-52.0); LYMPH # 0.6 10^3/uL (1.5-4.5); LYMPH % 6.1 % (24.0-44.0); MEAN CORPUSCULAR HEMOGLOBIN 28.4 pg (27.0-33.0); MEAN CORPUSCULAR HGB CONC 32.2 g/dl (32.0-36.5); MEAN CORPUSCULAR VOLUME 88.4 fl (80.0-96.0); MONO # 1.2 10^3/uL (0.0-0.8); MONO % 12.1 % (0.0-5.0); NEUTROPHILS # 7.4 10^3/uL (1.8-7.7); NEUTROPHILS % 76.5 % (36.0-66.0); PLATELET COUNT, AUTOMATED 161 10^3/uL (150-450); RED BLOOD COUNT 3.87 10^6/uL (4.30-6.10); WHITE BLOOD COUNT 9.7 10^3/uL (4.0-10.0)
[2018-06-27] MEDS: PIPERACILLIN/TAZOBACTAM SOD 2.25 GM in D5W MINI-BAG PLUS 50 ML IV SCH ×2 (06:35→17:58)
[2018-06-27] MEDS: MULTIVITAMINS/MINERALS THERAP 1 TAB PO SCH (06:43)
[2018-06-27] MEDS: ASPIRIN 81 MG ENTERIC TAB PO SCH (06:43)
[2018-06-27] MEDS: MIDODRINE 5 MG TAB PO SCH (06:43)
[2018-06-27] MEDS: PANTOPRAZOLE 40MG TAB (PROTONIX) PO SCH (06:43)
[2018-06-27] MEDS: PRAVASTATIN 20 MG TAB PO SCH (06:43)
[2018-06-27] MEDS: SENOKOT S TAB PO SCH ×2 (06:43→21:33)
[2018-06-27] MEDS: ASCORBIC ACID 500 MG TAB PO SCH (06:43)
[2018-06-27] MEDS: OMEGA-3 1000MG CAPSULE PO SCH ×2 (06:43→21:33)
[2018-06-27] MEDS: PROPRANOLOL 20 MG TAB PO SCH ×2 (06:44→21:33)
[2018-06-27] MEDS: FAMOTIDINE 20 MG TAB PO SCH ×2 (06:44→21:33)
[2018-06-27 06:56] LABS: CALCIUM LEVEL 7.7 MG/DL (8.8-10.2); CREATININE FOR GFR 4.98 MG/DL (0.70-1.30); GLOMERULAR FILTRATION RATE 12.2 (>42)
--- NOTE | 2018-06-27 10:05 | CR ---
DATE OF CONSULTATION: 06/26/2018 NEPHROLOGY CONSULTATION FOR: Juancarlos Cortes MD REASON FOR CONSULTATION To assist in the management of end-stage renal disease. HISTORY OF PRESENT ILLNESS: Mr. Rodriguez is a 73-year-old gentleman, who is well-known to me from previous followup. He has known history of end-stage renal disease secondary to diabetic nephropathy, history of cirrhosis of liver with ascites requiring weekly paracentesis, history of peripheral vascular disease, status post bilateral [id number]-yie-eeij amputations, history of radical cystectomy due to bladder cancer, status post urostomy and history of hypertension. He is admitted to [facility] via transfer from [facility] due to generalized weakness and urinary infection. He has cloudy urine in his bag and not been feeling well. Patient is regularly dialyzed on Tuesday, and Tuesday schedule. He is due for dialysis tomorrow and nephrology consultation was requested. Patient is seen this afternoon on his bedside. PAST MEDICAL AND SURGICAL HISTORY: Significant for: 1. Longstanding diabetes. 2. end-stage renal disease secondary to diabetic nephropathy. 3. History of cirrhosis of liver and ascites requiring frequent paracentesis. 4. History of gastrointestinal (GI) bleed with esophageal varices. 5. History of gastroesophageal reflux disease. 6. History of peripheral vascular disease. 7. Status post bilateral oyywi-nbe-huar amputations. 8. History of radical cystectomy. 9. Status post ileal conduit. 10. History of umbilical hernia repair. 11. He has arteriovenous (AV) fistula in his left arm. PERSONAL AND SOCIAL HISTORY: Patient denies any tobacco or drug use. He currently does not drink any alcohol. Family history is noncontributory. ALLERGIES: He has allergy to AMLODIPINE and QUINOLONES. HOME MEDICATIONS: His medications include: - vitamin C 500 mg daily - aspirin 81 mg daily - clonazepam 0.5 mg at bedtime - ferrous gluconate 324 mg daily - Lasix 40 mg on non-dialysis days - multivitamin 1 tablet daily - Zofran as needed for nausea - Protonix 40 mg daily - pravastatin 40 mg daily - propranolol 20 mg twice a day - vitamin D 50,000 units weekly - dicyclomine 10 mg three times a day - minoxidil 5 mg once a day - Renvela 800 mg three times a day with meals - Viagra 100 mg as needed REVIEW OF SYSTEMS: Patient has been feeling weak and tired. He denies any high-grade fever or chills. Ears, nose and throat are unremarkable. Cardiovascular system is negative for dyspnea or chest pain. Respiratory system is negative for cough or hemoptysis. GI system is significant for recurrent ascites with cirrhosis of liver and requiring weekly paracentesis. Genitourinary () system is significant for history of bladder cancer, status post cystectomy and urostomy. Musculoskeletal system is significant for bilateral ulnnc-mhm-jlux amputations and he uses leg prosthesis. Endocrine system is significant for type 2 diabetes and secondary hyperparathyroidism. Hematological system is significant for prior history of GI bleed with anemia requiring transfusions. He is not on any anticoagulation. Neurological system is negative for seizures or stroke. Skin is negative for rash or ulcers. Psychosocial system is significant for depression and anxiety. PHYSICAL EXAMINATION: Temperature 97.2 degrees Fahrenheit, heart rate 64 per minute and respiratory rate 16 per minute. Blood pressure earlier 172/79 mmHg and later down to 107/50 mmHg. Oxygen saturation is 97% on room air. Head is atraumatic. Neck is supple and there is no jugular venous distention (JVD) or thyroid enlargement. She has no oral thrush or ulcers. Heart sounds are regular and without a pericardial friction rub. Lungs: Sound clear to auscultation. Abdomen: Soft, distended with large amount of ascites and bowel sounds are present. Umbilical hernia is noticed and urostomy in right lower quadrant is functioning. There is cloudy urine in the bag. Extremities have no cyanosis or clubbing. He has a left arm AV fistulal, which is quite large and patent. He has bilateral kzbbs-akv-nyff amputations. Stumps are well-healed. Neurologically, he is awake and at his baseline mentation without a focal deficit. LABORATORY DATA: He did come with labs from [facility], which has been reviewed. There are no new labs done here. His sodium was 135, potassium 5.2, CO2 25, BUN 36 and creatinine 4.2. WBC count is 12.7, hemoglobin 11.5 and hematocrit 35.7. PROBLEMS: 1. End-stage renal disease. Patient is due for dialysis tomorrow and we will plan to dialyze him tomorrow. At present, there is no emergent need for dialysis today. 2. Hyperkalemia. This is very mild as he does have history of chronic hyperkalemia. I do not feel that urgent dialysis is needed at present and we will wait till tomorrow. He should be placed on 2 grams potassium diet. 3. Hypertension. His initial blood pressure was quite high, however, later reading is low. He is not feeling very well. He does have history of recurrent hypotension during dialysis. I am going to stop his minoxidil for now and we will readjust his medications tomorrow. 4. Anemia. His anemia is mild at present and does not need any urgent intervention. 5. Cirrhosis of liver with recurrent ascites. The patient has significant ascites once again and he gets paracentesis done every Tuesday. He will likely require paracentesis on Tuesday. Thank you for involving me in the care of Mr. Rodriguez. I will follow him along with you.
--- NOTE | 2018-06-27 13:12 | IPNPDOC ---
Date Seen The patient was seen on 06/27/18. Progress Note SUBJECTIVE: Pt not back to baseline strength yet. c/o weakness and says he lives alone with a motorized wheelchair. Pt Refuses Physical therapy as he had a bad experience with them before when Neurosurgery, Dr. Kamara certified him to be nonoperative and wheelchair bound. OBJECTIVE: PHYSICAL EXAMINATION: VITAL SIGNS: pls see below Head is atraumatic, normocephalic. Neck is supple with no jugular venous distention (JVD). Lungs clear to auscultation. S1, S2 audible. No murmurs appreciated. Abdomen is soft. Positive bowel sounds. There are bilateral below knee amputations present. Skin is intact. Neurologic examination, the patient is awake, alert and oriented times three. LABORATORY DATA, IMAGING STUDIES, MICROBIOLOGY: PLS SEE BELOW ASSESSMENT AND PLAN: 73-year-old female with a past medical history of end stage renal disease on hemodialysis Tuesday, and Tuesday, history of cirrhosis, peripheral vascular disease status post bilateral below the knee amputations, history of requiring paracentesis weekly, gastroesophageal reflux disease (GERD), who presents as a transfer from [facility] for dialysis. The patient apparently has not been feeling well and has had generalized weakness for approximately three days prior to coming to [place]. When he got to the emergency room, the urinalysis was positive for a urinary tract infection (UTI) and the patient was given gentamicin IV, but because the patient required dialysis tomorrow, the patient was transferred to [facility] for further management. At this time, the patient denies any subjective fever, aches or chills. No abdominal pain, nausea or vomiting. He will be admitted to our medical/surgical floor for further management. Urinary tract infection (UTI). The patient is to be admitted to the medical/surgical floor. I will give him Zosyn 2.[address] Jackson has been placed on official consult he approved the Zosyn, as well as starting to giving the patient dialysis tomorrow morning. We will continue following his care on the medical/surgical floor. await culture results End stage renal disease on hemodialysis Tuesday, and Tuesday. nephrology consulted History of cirrhosis requiring paracentesis every tuesday History of GERD Peripheral vascular disease status post bilateral below the knee amputations. History of lower quadrant ileoconduit for bladder cancer. Umbilical hernia repair disposition: await micro results. pt refusing physical therapy. VS, I&O, 24H, Fishbone Vital Signs/I&O Vital Signs Date Time Temp Pulse Resp B/P (MAP) Pulse Ox O2 Delivery O2 Flow Rate FiO2 06/27/18 06:44 71 151/56 06/27/18 06:00 97.7 18 98 I&O- Last 24 Hours up to 6 AM 06/27/18 06:00 Intake Total 680 ml Output Total 200 ml Balance 480 ml Laboratory Data 24H LABS Laboratory Tests 2 06/26/18 20:02: Bedside Glucose (Misc Panel) 142H 06/27/18 05:58: Immature Granulocyte % (Auto) 0.5, White Blood Count 9.7, Red Blood Count 3.87L, Hemoglobin 11.0L, Hematocrit 34.2L, Mean Corpuscular Volume 88.4, Mean Corpuscular Hemoglobin 28.4, Mean Corpuscular Hemoglobin Concent 32.2, Red Cell Distribution Width 17.9H, Platelet Count 161, Neutrophils (%) (Auto) 76.5H, Lymphocytes (%) (Auto) 6.1L, Monocytes (%) (Auto) 12.1H, Eosinophils (%) (Auto) 4.4H, Basophils (%) (Auto) 0.4, Neutrophils # (Auto) 7.4, Lymphocytes # (Auto) 0.6L, Monocytes # (Auto) 1.2H, Eosinophils # (Auto) 0.4, Basophils # (Auto) 0.0, Nucleated Red Blood Cells % (auto) 0.0, Anion Gap 9, Glomerular Filtration Rate 12.2L, Blood Urea Nitrogen 48H, Creatinine 4.98H, Sodium Level 133L, Potassium Level 5.0, Chloride Level 102, Carbon Dioxide Level 22, Calcium Level 7.7L 06/27/18 11:30: Bedside Glucose (Misc Panel) 169H CBC/BMP Laboratory Tests 06/27/18 05:58 Red Blood Count 3.87 L, Mean Corpuscular Volume 88.4, Mean Corpuscular Hemoglobin 28.4, Mean Corpuscular Hemoglobin Concent 32.2, Red Cell Distribution Width 17.9 H, Neutrophils (%) (Auto) 76.5 H, Lymphocytes (%) (Auto) 6.1 L, Monocytes (%) (Auto) 12.1 H, Eosinophils (%) (Auto) 4.4 H, Basophils (%) (Auto) 0.4, Neutrophils # (Auto) 7.4, Lymphocytes # (Auto) 0.6 L, Monocytes # (Auto) 1. 2 H, Eosinophils # (Auto) 0.4, Basophils # (Auto) 0.0, Calcium Level 7.7 L SULMA PARKS MD Jun 27, 2018 12:35
[2018-06-27] MEDS: LATANOPROST 0.005% OPHTH SOLN 2.5 ML OU SCH (21:32)
[2018-06-27] MEDS: clonazePAM 0.5 MG TAB PO SCH (21:33)
[2018-06-27] MEDS: **NOTE PATIENT COMMENT** MISC XX SCH (21:39)
[2018-06-27 22:00] VITALS: BP 130/60
[2018-06-28] MEDS: PIPERACILLIN/TAZOBACTAM SOD 2.25 GM in D5W MINI-BAG PLUS 50 ML IV SCH (05:26)
[2018-06-28 06:00] VITALS: BP 147/65
[2018-06-28] MEDS: SENOKOT S TAB PO SCH ×2 (08:41→20:01)
[2018-06-28] MEDS: ASCORBIC ACID 500 MG TAB PO SCH (08:41)
[2018-06-28] MEDS: OMEGA-3 1000MG CAPSULE PO SCH ×2 (08:41→20:01)
[2018-06-28] MEDS: FAMOTIDINE 20 MG TAB PO SCH ×2 (08:41→20:01)
[2018-06-28] MEDS: PRAVASTATIN 20 MG TAB PO SCH (08:41)
[2018-06-28] MEDS: ASPIRIN 81 MG ENTERIC TAB PO SCH (08:41)
[2018-06-28] MEDS: PANTOPRAZOLE 40MG TAB (PROTONIX) PO SCH (08:41)
[2018-06-28] MEDS: MULTIVITAMINS/MINERALS THERAP 1 TAB PO SCH (08:41)
[2018-06-28] MEDS: PROPRANOLOL 20 MG TAB PO SCH ×2 (08:41→20:04)
[2018-06-28] MEDS: FUROSEMIDE 40 MG TAB PO SCH ×2 (08:42→20:01)
[2018-06-28] MEDS: NORCO, ANEXSIA 5/325MG TABLET (HYDROcodone/ACETAMINOPHEN) PO PRN ×2 (08:48→20:05)
--- NOTE | 2018-06-28 11:52 | IPN ---
DATE: 06/28/2018 Mr. Rodriguez is seen this morning. He was dialyzed yesterday and tolerated it well. He has abdominal distension with ascites and is due for paracentesis today. His chronic problems are essentially unchanged. PHYSICAL EXAMINATION: Temperature 97.2 degrees Fahrenheit, heart rate 62 per minute and respiratory rate 17 per minute. Blood pressure 134/50 mmHg. Oxygen saturation is 97% on room air. Head is atraumatic. Neck is supple and without jugular venous distention (JVD) or thyroid enlargement. Heart sounds regular. Lungs are clear to auscultation. Abdomen is distended with large amount of ascites and bowel sounds are present. Umbilical hernia is unchanged. Extremities without any cyanosis or clubbing. Left arm arteriovenous (AV) fistula patent and he has prior bilateral [id number]-[id number] amputations. Neurologically, no focal deficit noted. There are no new laboratories done today. PROBLEMS: 1. End-stage renal disease. The patient was dialyzed yesterday and next dialysis will be scheduled for tomorrow which is his regular day. There is no emergent indication for dialysis today. 2. Hypertension. I had stopped his minoxidil due to drop in blood pressure and blood pressure seems to be doing well now. We will continue with current antihypertensive medications. No changes are being made today. 3. Anemia. His anemia has been stable and does not need any urgent intervention. There is no repeat laboratories done today. 4. Cirrhosis of liver with recurrent ascites. The patient does get weekly paracentesis and is due for paracentesis today. I think he should have it done today so he can be dialyzed tomorrow. 5. Urinary tract infection (UTI). The patient did have cloudy urine from his urostomy and there is no urine culture done here. He is afebrile and I feel that he can be discharged to home and followup in outpatient clinic. We can even consider giving him antibiotic in the outpatient dialysis clinic.
[2018-06-28] MEDS ORDERED: DOXY-350 PO (11:58)
--- NOTE | 2018-06-28 13:41 | IPNPDOC ---
Date Seen The patient was seen on 06/28/18. Progress Note SUBJECTIVE: Pt refused discharge. urine c& s from [place]:klebsiella, morganella both sensitive to tetracycline. Pt not back to baseline strength yet. c/o weakness and says he lives alone with a motorized wheelchair. Pt Refuses Physical therapy as he had a bad experience with them before when Neurosurgery, Dr. Kamara certified him to be nonoperative and wheelchair bound. However, he changed his mind and says he will reconsider working with physical therapy OBJECTIVE: PHYSICAL EXAMINATION: VITAL SIGNS: pls see below Head is atraumatic, normocephalic. Neck is supple with no jugular venous distention (JVD). Lungs clear to auscultation. S1, S2 audible. No murmurs appreciated. Abdomen is soft. Positive bowel sounds. There are bilateral below knee amputations present. Skin is intact. Neurologic examination, the patient is awake, alert and oriented times three. LABORATORY DATA, IMAGING STUDIES, MICROBIOLOGY: PLS SEE BELOW ASSESSMENT AND PLAN: 73-year-old female with a past medical history of end stage renal disease on hemodialysis Tuesday, and Tuesday, history of cirrhosis, peripheral vascular disease status post bilateral below the knee amputations, history of requiring paracentesis weekly, gastroesophageal reflux disease (GERD), who presents as a transfer from [facility] for dialysis. The patient apparently has not been feeling well and has had generalized weakness for approximately three days prior to coming to [place]. When he got to the emergency room, the urinalysis was positive for a urinary tract infection (UTI) and the patient was given gentamicin IV, but because the patient required dialysis tomorrow, the patient was transferred to [facility] for further management. At this time, the patient denies any subjective fever, aches or chills. No abdominal pain, nausea or vomiting. He will be admitted to our medical/surgical floor for further management. Urinary tract infection (UTI). The patient is to be admitted to the medical/surgical floor. s/p Zosyn 2.25 IV every 12 hours. po tetracycline for klebsiella and morganella urine cx. End stage renal disease on hemodialysis Tuesday, and Tuesday. nephrology consulted History of cirrhosis requiring paracentesis every tuesday paracentesis 06/28/18 Deconditioning pt agreeable to working with PT. History of GERD Peripheral vascular disease status post bilateral below the knee amputations. History of lower quadrant ileoconduit for bladder cancer. Umbilical hernia repair disposition: changed to alc/snf status until cleared by physical therapy. VS, I&O, 24H, Fishbone Vital Signs/I&O Vital Signs Date Time Temp Pulse Resp B/P (MAP) Pulse Ox O2 Delivery O2 Flow Rate FiO2 06/28/18 08:48 17 06/28/18 08:41 62 134/50 06/28/18 06:00 97.2 97 I&O- Last 24 Hours up to 6 AM 06/28/18 06:00 Intake Total 1190 ml Output Total 1550 ml Balance -360 ml Laboratory Data 24H LABS Laboratory Tests 2 06/27/18 11:30: Bedside Glucose (Misc Panel) 169H 06/27/18 16:38: Bedside Glucose (Misc Panel) 169H SULMA PARKS MD Jun 28, 2018 10:59
[2018-06-28 13:54] LABS: CALCIUM LEVEL 7.6 MG/DL (8.8-10.2); CREATININE FOR GFR 3.9 MG/DL (0.70-1.30); GLOMERULAR FILTRATION RATE 16.2 (>42); POTASSIUM SERUM 4.3 MEQ/L (3.5-5.1)
[2018-06-28 15:51] LABS: BASO % 0.6 % (0.0-1.0); EOS # 0.4 10^3/uL (0.0-0.50); EOS % 5.8 % (0.0-3.0); HEMATOCRIT 34.6 % (42.0-52.0); HEMOGLOBIN 11.4 g/dl (13.5-17.5); LYMPH # 0.4 10^3/uL (1.5-4.5); LYMPH % 6.7 % (24.0-44.0); MEAN CORPUSCULAR HEMOGLOBIN 29.5 pg (27.0-33.0); MEAN CORPUSCULAR HGB CONC 32.9 g/dl (32.0-36.5); MEAN CORPUSCULAR VOLUME 89.6 fl (80.0-96.0); MONO # 0.9 10^3/uL (0.0-0.8); MONO % 13.2 % (0.0-5.0); NEUTROPHILS # 4.7 10^3/uL (1.8-7.7); NEUTROPHILS % 72.8 % (36.0-66.0); PLATELET COUNT, AUTOMATED 152 10^3/uL (150-450); RED BLOOD COUNT 3.86 10^6/uL (4.30-6.10); WHITE BLOOD COUNT 6.5 10^3/uL (4.0-10.0)
--- NOTE | 2018-06-28 16:41 | REP ---
Ultrasound-guided paracentesis The procedure was performed under the direct supervision of Dr. Rodas. The risks and benefits of the procedure were explained to the patient and informed consent was obtained. The largest pocket of fluid was localized in the left flank using ultrasound guidance. The skin was prepped and draped in a sterile fashion. 1% lidocaine was used as a local anesthetic. An 8-Uzbek multi side-hole catheter was inserted using trocar technique. 6000 ml of yellow fluid was withdrawn and discarded. The patient tolerated the procedure well and there were no immediate complications. After the appropriate amount of monitored convalescence the patient was discharged from the department. Reviewed by SIMRAN Ji 06/28/2018 03:48 P Electronically Signed by Carlos Rodas MD 06/28/2018 04:30 P
[2018-06-28] MEDS: clonazePAM 0.5 MG TAB PO SCH (20:01)
[2018-06-28] MEDS: LATANOPROST 0.005% OPHTH SOLN 2.5 ML OU SCH (20:05)
[2018-06-28] MEDS: **NOTE PATIENT COMMENT** MISC XX SCH (20:06)
[2018-06-28 22:00] VITALS: BP 126/59
[2018-06-29] MEDS: FAMOTIDINE 20 MG TAB PO SCH ×2 (05:47→20:12)
[2018-06-29] MEDS: ASCORBIC ACID 500 MG TAB PO SCH (05:47)
[2018-06-29] MEDS: MULTIVITAMINS/MINERALS THERAP 1 TAB PO SCH (05:47)
[2018-06-29] MEDS: ASPIRIN 81 MG ENTERIC TAB PO SCH (05:47)
[2018-06-29] MEDS: PANTOPRAZOLE 40MG TAB (PROTONIX) PO SCH (05:48)
[2018-06-29] MEDS: MIDODRINE 5 MG TAB PO SCH (05:48)
[2018-06-29] MEDS: SENOKOT S TAB PO SCH ×2 (05:48→20:12)
[2018-06-29] MEDS: OMEGA-3 1000MG CAPSULE PO SCH ×2 (05:48→20:12)
[2018-06-29] MEDS: PRAVASTATIN 20 MG TAB PO SCH (05:48)
[2018-06-29] MEDS: PROPRANOLOL 20 MG TAB PO SCH ×2 (05:49→20:15)
[2018-06-29] MEDS: NORCO, ANEXSIA 5/325MG TABLET (HYDROcodone/ACETAMINOPHEN) PO PRN ×3 (05:53→23:14)
[2018-06-29 06:00] VITALS: BP 155/71
--- NOTE | 2018-06-29 11:39 | IPN ---
DATE OF VISIT: 06/29/2018 Mr. Rodriguez is seen during dialysis this morning on his bedside. He is feeling somewhat weak but denies any other problems. He underwent paracentesis yesterday and 6 liters of fluid was removed. The patient denies any dyspnea, chest pain, nausea, vomiting, fever or chills. PHYSICAL EXAMINATION: Temperature 97 degrees Fahrenheit, heart rate 60 per minute and respiratory rate 18 per minute. Blood pressure 155/70 mmHg and oxygen saturation 96% on room air. Head is atraumatic. Neck is supple and without jugular venous distention (JVD) or thyroid enlargement. Heart sounds are regular and lungs clear to auscultation. Abdomen is soft and nontender. Ascites has improved significantly with paracentesis yesterday. Extremities have no cyanosis or clubbing. Left arm AV fistula is patent and currently being used for dialysis. He has bilateral [id number] amputations. Neurologically he is awake, alert and oriented times three. PROBLEMS: 1. End-stage renal disease. The patient is being dialyzed today and tolerating dialysis very well. 2. Anemia. His anemia has been very mild and stable. No intervention is indicated for anemia. 4. Congestive heart failure and hypervolemia. His volume status is very well compensated at present. We are removing about 2 liters of fluid today with dialysis as tolerated. 5. Cirrhosis of liver with recurrent ascites. The patient gets weekly paracentesis and had a paracentesis done yesterday, and 6 liters of fluid was removed. 6. Urinary tract infection. The patient is currently asymptomatic. He has prior history of cystectomy and has a ileal conduit. At present, I feel that he can be discharged to home and probably can be treated for UTI even as an outpatient with oral antibiotic.
--- NOTE | 2018-06-29 13:42 | IPNPDOC ---
Date Seen The patient was seen on 06/29/18. Progress Note SUBJECTIVE: PATIENT REFUSES DISCHARGE, AND DISCHARGE POSTPONED UNTIL HE PASSES HOME SAFETY EVALUATION BY PHYSICAL THERAPY. Pt was seen and examined at the bedside, Chart has been reviewed. Pt not back to baseline strength yet. c/o weakness and says he lives alone with a motorized wheelchair. Pt Refused Physical therapy as he had a bad experience with them before when Neurosurgery, Dr. Kamara certified him to be nonoperative and wheelchair bound. However, he changed his mind and says he will reconsider working with physical therapy . Per PFS, pt has a hospital bed and motorized wheelchair that goes up and down. still waiting for PT to clear the patient for hospital discharge. urine c& s from [place]:klebsiella, morganella both sensitive to tetracycline. OBJECTIVE: PHYSICAL EXAMINATION: VITAL SIGNS: pls see below Head is atraumatic, normocephalic. Neck is supple with no jugular venous distention (JVD). Lungs clear to auscultation. S1, S2 audible. No murmurs appreciated. Abdomen is soft. Positive bowel sounds. There are bilateral below knee amputations present. Skin is intact. Neurologic examination, the patient is awake, alert and oriented times three. LABORATORY DATA, IMAGING STUDIES, MICROBIOLOGY: PLS SEE BELOW ASSESSMENT AND PLAN: 73-year-old female with a past medical history of end stage renal disease on hemodialysis Tuesday, and Tuesday, history of cirrhosis, peripheral vascular disease status post bilateral below the knee amputations, history of requiring paracentesis weekly, gastroesophageal reflux disease (GERD), who presents as a transfer from [facility] for dialysis. The patient apparently has not been feeling well and has had generalized weakness for approximately three days prior to coming to [place]. When he got to the emergency room, the urinalysis was positive for a urinary tract infection (UTI) and the patient was given gentamicin IV, but because the patient required dialysis tomorrow, the patient was transferred to [facility] for further management. At this time, the patient denies any subjective fever, aches or chills. No abdominal pain, nausea or vomiting. He will be admitted to our medical/surgical floor for further management. Urinary tract infection (UTI). The patient is to be admitted to the medical/surgical floor. s/p Zosyn 2.25 IV every 12 hours. po tetracycline for klebsiella and morganella urine cx. End stage renal disease on hemodialysis Tuesday, and Tuesday. nephrology consulted History of cirrhosis requiring paracentesis every tuesday paracentesis 06/28/18 Deconditioning pt agreeable to working with PT. History of GERD Peripheral vascular disease status post bilateral below the knee amputations. History of lower quadrant ileoconduit for bladder cancer. Umbilical hernia repair disposition: awaiting PT clearance. VS, I&O, 24H, Fishbone Vital Signs/I&O Vital Signs Date Time Temp Pulse Resp B/P (MAP) Pulse Ox O2 Delivery O2 Flow Rate FiO2 06/29/18 06:25 16 06/29/18 06:00 97.1 60 155/71 (99) 96 I&O- Last 24 Hours up to 6 AM 06/29/18 06:00 Intake Total 1130 ml Output Total 60 ml Balance 1070 ml Laboratory Data 24H LABS Laboratory Tests 2 06/28/18 13:07: Immature Granulocyte % (Auto) 0.9, White Blood Count 6.5, Red Blood Count 3.86L, Hemoglobin 11.4L, Hematocrit 34.6L, Mean Corpuscular Volume 89.6, Mean Corpuscular Hemoglobin 29.5, Mean Corpuscular Hemoglobin Concent 32.9, Red Cell Distribution Width 18.3H, Platelet Count 152, Neutrophils (%) (Auto) 72.8H, Lymp hocytes (%) (Auto) 6.7L, Monocytes (%) (Auto) 13.2H, Eosinophils (%) (Auto) 5.8H, Basophils (%) (Auto) 0.6, Neutrophils # (Auto) 4.7, Lymphocytes # (Auto) 0.4L, Monocytes # (Auto) 0.9H, Eosinophils # (Auto) 0.4, Basophils # (Auto) 0.0, Nucleated Red Blood Cells % (auto) 0.0, Anion Gap 8, Glomerular Filtration Rate 16.2L, Blood Urea Nitrogen 33H, Creatinine 3.90H, Sodium Level 134L, Potassium Level 4.3, Chloride Level 100, Carbon Dioxide Level 26, Calcium Level 7.6L CBC/BMP Laboratory Tests 06/28/18 13:07 Red Blood Count 3.86 L, Mean Corpuscular Volume 89.6, Mean Corpuscular Hemoglobin 29.5, Mean Corpuscular Hemoglobin Concent 32.9, Red Cell Distribution Width 18.3 H, Neutrophils (%) (Auto) 72.8 H, Lymphocytes (%) (Auto) 6.7 L, Monocytes (%) (Auto) 13.2 H, Eosinophils (%) (Auto) 5.8 H, Basophils (%) (Auto) 0.6, Neutrophils # (Auto) 4.7, Lymphocytes # (Auto) 0.4 L, Monocytes # (Auto) 0.9 H, Eosinophils # (Auto) 0.4, Basophils # (Auto) 0.0, Calcium Level 7.6 L SULMA PARKS MD Jun 29, 2018 11:49
[2018-06-29 14:00] VITALS: BP 100/58
[2018-06-29] MEDS: LACTOBACILLUS ACIDOPHILUS CAP (BACID) PO SCH ×2 (16:07→16:55)
[2018-06-29] MEDS: DOXYCYCLINE HYCLATE 100 MG TAB PO SCH ×2 (16:07→20:12)
[2018-06-29] MEDS: LATANOPROST 0.005% OPHTH SOLN 2.5 ML OU SCH (20:15)
[2018-06-29] MEDS: clonazePAM 0.5 MG TAB PO SCH (20:15)
[2018-06-29] MEDS: **NOTE PATIENT COMMENT** MISC XX SCH (20:16)
[2018-06-30 06:00] VITALS: BP 152/71
[2018-06-30] MEDS: NORCO, ANEXSIA 5/325MG TABLET (HYDROcodone/ACETAMINOPHEN) PO PRN ×3 (06:07→20:43)
[2018-06-30 08:47] LABS: HEMATOCRIT 35.1 % (42.0-52.0); HEMOGLOBIN 11.3 g/dl (13.5-17.5); MEAN CORPUSCULAR HEMOGLOBIN 28.8 pg (27.0-33.0); MEAN CORPUSCULAR HGB CONC 32.2 g/dl (32.0-36.5); MEAN CORPUSCULAR VOLUME 89.5 fl (80.0-96.0); PLATELET COUNT, AUTOMATED 133 10^3/uL (150-450); RED BLOOD COUNT 3.92 10^6/uL (4.30-6.10); WHITE BLOOD COUNT 5.6 10^3/uL (4.0-10.0)
[2018-06-30] MEDS: SENOKOT S TAB PO SCH ×2 (09:00→20:44)
[2018-06-30 09:12] LABS: CALCIUM LEVEL 7.6 MG/DL (8.8-10.2); CREATININE FOR GFR 3.56 MG/DL (0.70-1.30)
[2018-06-30] MEDS: LACTOBACILLUS ACIDOPHILUS CAP (BACID) PO SCH ×3 (09:47→18:31)
[2018-06-30] MEDS: MULTIVITAMINS/MINERALS THERAP 1 TAB PO SCH (09:47)
[2018-06-30] MEDS: ASCORBIC ACID 500 MG TAB PO SCH (09:47)
[2018-06-30] MEDS: OMEGA-3 1000MG CAPSULE PO SCH ×2 (09:47→20:43)
[2018-06-30] MEDS: FAMOTIDINE 20 MG TAB PO SCH ×2 (09:47→20:43)
[2018-06-30] MEDS: PANTOPRAZOLE 40MG TAB (PROTONIX) PO SCH (09:47)
[2018-06-30] MEDS: PRAVASTATIN 20 MG TAB PO SCH (09:47)
[2018-06-30] MEDS: ASPIRIN 81 MG ENTERIC TAB PO SCH (09:47)
[2018-06-30] MEDS: DOXYCYCLINE HYCLATE 100 MG TAB PO SCH ×2 (09:47→20:43)
[2018-06-30 09:51] VITALS: BP 114/56
[2018-06-30] MEDS: PROPRANOLOL 20 MG TAB PO SCH ×2 (11:12→20:43)
[2018-06-30] MEDS: FUROSEMIDE 40 MG TAB PO SCH ×2 (11:12→20:42)
--- NOTE | 2018-06-30 11:46 | IPNPDOC ---
Date Seen The patient was seen on 06/30/18. Progress Note SUBJECTIVE: Pt seen and examined at the bedside. Chart has been reviewed. Pt c/o of not being able to pay for his bills and write checks because he is in the hospital. He says he is thinking about rehab, but would still prefer home. Per PFS, his son will not be able to provide 24/7 care at home. He remains under ALC/SNF status since he has not been cleared by physical therapy. He denies any sob,s/p paracentesis with no c/o nausea, vomiting, abd pain, or changes in appetite. OBJECTIVE: PHYSICAL EXAMINATION: VITAL SIGNS: pls see below Head is atraumatic, normocephalic. Neck is supple with no jugular venous distention (JVD). Lungs clear to auscultation. S1, S2 audible. No murmurs appreciated. Abdomen is soft. Positive bowel sounds. There are bilateral below knee amputations present. Skin is intact. Neurologic examination, the patient is awake, alert and oriented times three. LABORATORY DATA, IMAGING STUDIES, MICROBIOLOGY: PLS SEE BELOW ASSESSMENT AND PLAN: 73-year-old female with a past medical history of end stage renal disease on hemodialysis Tuesday, and Tuesday, history of cirrhosis, peripheral vascular disease status post bilateral below the knee amputations, history of requiring paracentesis weekly, gastroesophageal reflux disease (GERD), who presents as a transfer from [facility] for dialysis. The patient apparently has not been feeling well and has had generalized weakness for approximately three days prior to coming to [place]. When he got to the emergency room, the urinalysis was positive for a urinary tract infection (UTI) and the patient was given gentamicin IV, but because the patient required dialysis tomorrow, the patient was transferred to [facility] for further management. At this time, the patient denies any subjective fever, aches or chills. No abdominal pain, nausea or vomiting. He will be admitted to our medical/surgical floor for further management. Urinary tract infection (UTI). The patient is to be admitted to the medical/surgical floor. s/p Zosyn 2.25 IV every 12 hours. po tetracycline for klebsiella and morganella urine cx. End stage renal disease on hemodialysis Tuesday, and Tuesday. nephrology consulted History of cirrhosis requiring paracentesis every tuesday paracentesis 06/28/18 Deconditioning pt agreeable to working with PT. History of GERD Peripheral vascular disease status post bilateral below the knee amputations. History of lower quadrant ileoconduit for bladder cancer. Umbilical hernia repair disposition: awaiting PT clearance. remains in ALC/SNF status. VS, I&O, 24H, Fishbone VS, I&O, 24H, Fishbone Vital Signs/I&O Vital Signs Date Time Temp Pulse Resp B/P (MAP) Pulse Ox O2 Delivery O2 Flow Rate FiO2 06/30/18 09:51 66 114/56 (75) 06/30/18 06:37 17 06/30/18 06:00 97.8 98 I&O- Last 24 Hours up to 6 AM 06/30/18 06:00 Intake Total 1320 ml Output Total 2120 ml Balance -800 ml Laboratory Data 24H LABS Laboratory Tests 2 06/30/18 08:30: Nucleated Red Blood Cells % (auto) 0.0, Anion Gap 8, Glomerular Filtration Rate 18.0L, Blood Urea Nitrogen 22H, Creatinine 3.56H, Sodium Level 136, Potassium Level 4.0, Chloride Level 100, Carbon Dioxide Level 28, Calcium Level 7.6L CBC/BMP Laboratory Tests 06/30/18 08:30 Red Blood Count 3.92 L, Mean Corpuscular Volume 89.5, Mean Corpuscular Hemoglobin 28.8, Mean Corpuscular Hemoglobin Concent 32.2, Red Cell Distribution Width 17.8 H, Calcium Level 7.6 L SULMA PARKS MD Jun 30, 2018 11:46
--- NOTE | 2018-06-30 17:10 | IPN ---
DATE: 06/30/2018 Mr. Rodriguez is seen this morning on his bedside. He is feeling well and hoping to go home. He denies any nausea, vomiting, dyspnea, chest pain, fever or chills. He was dialyzed yesterday which he tolerated well. He had his paracentesis done two days ago and six liters of fluid was removed. PHYSICAL EXAMINATION: Temperature 97.8 degrees Fahrenheit, heart rate 66 per minute and respiratory rate 16 per minute. Blood pressure 114/56 mmHg and oxygen saturation 98% on room air. His head is atraumatic. Neck is supple and without jugular venous distention (JVD) or thyroid enlargement. Heart sounds regular. Lungs are clear to auscultation. Abdomen is soft and ascites is present. His urostomy is functioning. Extremities without cyanosis, clubbing or edema. LABORATORY DATA: Today's laboratories show WBC count 5.6, hemoglobin 11.3 and hematocrit 35.1. Sodium 136, potassium 4.0, BUN 22 and creatinine 3.56. PROBLEMS: 1. End-stage renal disease. The patient was dialyzed yesterday and next dialysis will be scheduled as an outpatient tomorrow. 2. Cirrhosis of liver with recurrent ascites. The patient already had a paracentesis done on Tuesday and he usually gets every week, every Tuesday. 3. Hyponatremia. Sodium level has corrected and other electrolytes are also normal. No intervention is indicated at this point. 4. Urinary tract infection (UTI). The patient is currently asymptomatic and can be treated with outpatient antibiotic as an oral. He is on doxycycline 100 mg twice a day. DISPOSITION: From a renal standpoint, the patient can be discharged to home today. He will followup in outpatient dialysis clinic.
[2018-06-30] MEDS: clonazePAM 0.5 MG TAB PO SCH (20:42)
[2018-06-30] MEDS: LATANOPROST 0.005% OPHTH SOLN 2.5 ML OU SCH (20:44)
[2018-06-30] MEDS: **NOTE PATIENT COMMENT** MISC XX SCH (20:46)
[2018-06-30 22:00] VITALS: BP 106/55
[2018-07-01 06:00] VITALS: BP 161/72
[2018-07-01] MEDS: PANTOPRAZOLE 40MG TAB (PROTONIX) PO SCH (06:25)
[2018-07-01] MEDS: PROPRANOLOL 20 MG TAB PO SCH ×2 (06:25→21:15)
[2018-07-01] MEDS: MULTIVITAMINS/MINERALS THERAP 1 TAB PO SCH (06:25)
[2018-07-01] MEDS: LACTOBACILLUS ACIDOPHILUS CAP (BACID) PO SCH ×3 (06:25→17:52)
[2018-07-01] MEDS: PRAVASTATIN 20 MG TAB PO SCH (06:25)
[2018-07-01] MEDS: FAMOTIDINE 20 MG TAB PO SCH ×2 (06:26→21:15)
[2018-07-01] MEDS: ASPIRIN 81 MG ENTERIC TAB PO SCH (06:26)
[2018-07-01] MEDS: ASCORBIC ACID 500 MG TAB PO SCH (06:26)
[2018-07-01] MEDS: OMEGA-3 1000MG CAPSULE PO SCH ×2 (06:26→21:15)
[2018-07-01] MEDS: DOXYCYCLINE HYCLATE 100 MG TAB PO SCH ×2 (06:26→21:15)
[2018-07-01] MEDS: NORCO, ANEXSIA 5/325MG TABLET (HYDROcodone/ACETAMINOPHEN) PO PRN ×3 (06:29→21:17)
[2018-07-01] MEDS: MIDODRINE 5 MG TAB PO SCH (09:00)
[2018-07-01] MEDS: SENOKOT S TAB PO SCH ×2 (09:00→21:00)
--- NOTE | 2018-07-01 13:34 | IPNPDOC ---
Date Seen The patient was seen on 07/01/18. Progress Note SUBJECTIVE: Pt remains frustrated that he cannot go home. He was seen and examined at the bedside. Chart has been reviewed. Pt c/o of not being able to pay for his bills and write checks because he is in the hospital. He says he is thinking about rehab, but would still prefer home. Per PFS, his son will not be able to provide 24/7 care at home. He remains under ALC/SNF status since he has not been cleared by physical therapy. He denies any sob,s/p paracentesis with no c/o nausea, vomiting, abd pain, or changes in appetite. OBJECTIVE: PHYSICAL EXAMINATION: VITAL SIGNS: pls see below Head is atraumatic, normocephalic. Neck is supple with no jugular venous distention (JVD). Lungs clear to auscultation. S1, S2 audible. No murmurs appreciated. Abdomen is soft. Positive bowel sounds. There are bilateral below knee amputations present. Skin is intact. Neurologic examination, the patient is awake, alert and oriented times three. LABORATORY DATA, IMAGING STUDIES, MICROBIOLOGY: PLS SEE BELOW ASSESSMENT AND PLAN: 73-year-old female with a past medical history of end stage renal disease on hemodialysis Tuesday, and Tuesday, history of cirrhosis, peripheral vascular disease status post bilateral below the knee amputations, history of requiring paracentesis weekly, gastroesophageal reflux disease (GERD), who presents as a transfer from [facility] for dialysis. The patient apparently has not been feeling well and has had generalized weakness for approximately three days prior to coming to [place]. When he got to the emergency room, the urinalysis was positive for a urinary tract infection (UTI) and the patient was given gentamicin IV, but because the patient required dialysis tomorrow, the patient was transferred to [facility] for further management. At this time, the patient denies any subjective fever, aches or chills. No abdominal pain, nausea or vomiting. He will be admitted to our medical/surgical floor for further management. Urinary tract infection (UTI). The patient is to be admitted to the medical/surgical floor. s/p Zosyn 2.25 IV every 12 hours. po tetracycline for klebsiella and morganella urine cx. End stage renal disease on hemodialysis Tuesday, and Tuesday. nephrology consulted History of cirrhosis requiring paracentesis every tuesday paracentesis 06/28/18 Deconditioning pt agreeable to working with PT. History of GERD Peripheral vascular disease status post bilateral below the knee amputations. History of lower quadrant ileoconduit for bladder cancer. Umbilical hernia repair disposition: awaiting PT clearance. remains in ALC/SNF status. VS, I&O, 24H, Fishbone Vital Signs/I&O Vital Signs Date Time Temp Pulse Resp B/P (MAP) Pulse Ox O2 Delivery O2 Flow Rate FiO2 07/01/18 13:22 18 07/01/18 06:25 62 162/72 07/01/18 06:00 97.7 96 I&O- Last 24 Hours up to 6 AM 07/01/18 06:00 Intake Total 1325 ml Output Total 75 ml Balance 1250 ml SULMA PARKS MD Jul 01, 2018 13:34
[2018-07-01 14:00] VITALS: BP 127/56
[2018-07-01] MEDS: **NOTE PATIENT COMMENT** MISC XX SCH (21:00)
[2018-07-01] MEDS: clonazePAM 0.5 MG TAB PO SCH (21:15)
[2018-07-01] MEDS: LATANOPROST 0.005% OPHTH SOLN 2.5 ML OU SCH (21:16)
[2018-07-01 22:00] VITALS: BP 138/67
[2018-07-02 06:00] VITALS: BP 148/70
[2018-07-02] MEDS: FAMOTIDINE 20 MG TAB PO SCH ×2 (08:28→20:02)
[2018-07-02] MEDS: LACTOBACILLUS ACIDOPHILUS CAP (BACID) PO SCH ×3 (08:28→17:53)
[2018-07-02] MEDS: ASPIRIN 81 MG ENTERIC TAB PO SCH (08:28)
[2018-07-02] MEDS: PANTOPRAZOLE 40MG TAB (PROTONIX) PO SCH (08:28)
[2018-07-02] MEDS: DOXYCYCLINE HYCLATE 100 MG TAB PO SCH ×2 (08:29→20:06)
[2018-07-02] MEDS: MULTIVITAMINS/MINERALS THERAP 1 TAB PO SCH (08:29)
[2018-07-02] MEDS: PROPRANOLOL 20 MG TAB PO SCH ×2 (08:29→20:05)
[2018-07-02] MEDS: ASCORBIC ACID 500 MG TAB PO SCH (08:29)
[2018-07-02] MEDS: PRAVASTATIN 20 MG TAB PO SCH (08:29)
[2018-07-02] MEDS: FUROSEMIDE 40 MG TAB PO SCH ×2 (08:29→20:02)
[2018-07-02] MEDS: OMEGA-3 1000MG CAPSULE PO SCH ×2 (08:30→20:06)
[2018-07-02] MEDS: SENOKOT S TAB PO SCH ×2 (08:30→20:06)
[2018-07-02] MEDS: NORCO, ANEXSIA 5/325MG TABLET (HYDROcodone/ACETAMINOPHEN) PO PRN ×3 (08:36→23:22)
[2018-07-02] MEDS ORDERED: VITAMIN D 50,000 UNITS CAPSULE (ERGOCALCIFEROL 1.25MG) PO SCH (09:00)
[2018-07-02] MEDS ORDERED: FERROUS GLUCONATE 324 MG TAB PO SCH (09:00)
[2018-07-02 14:00] VITALS: BP 117/61
--- NOTE | 2018-07-02 15:56 | IPNPDOC ---
Date Seen The patient was seen on 07/02/18. Progress Note SUBJECTIVE: In a much better mood today, watching fishing on Television. Pt remains frustrated that he cannot go home. He was seen and examined at the bedside. Chart has been reviewed. Pt c/o of not being able to pay for his bills and write checks because he is in the hospital. He says he is thinking about rehab, but would still prefer home. Per PFS, his son will not be able to provide 24/7 care at home. He remains under ALC/SNF status since he has not been cleared by physical therapy. He denies any sob,s/p paracentesis with no c/o nausea, vomiting, abd pain, or changes in appetite. OBJECTIVE: PHYSICAL EXAMINATION: VITAL SIGNS: pls see below Head is atraumatic, normocephalic. Neck is supple with no jugular venous distention (JVD). Lungs clear to auscultation. S1, S2 audible. No murmurs appreciated. Abdomen is soft. Positive bowel sounds. There are bilateral below knee amputations present. Skin is intact. Neurologic examination, the patient is awake, alert and oriented times three. LABORATORY DATA, IMAGING STUDIES, MICROBIOLOGY: PLS SEE BELOW ASSESSMENT AND PLAN: 73-year-old female with a past medical history of end stage renal disease on hemodialysis Tuesday, and Tuesday, history of cirrhosis, peripheral vascular disease status post bilateral below the knee amputations, history of requiring paracentesis weekly, gastroesophageal reflux disease (GERD), who presents as a transfer from [facility] for dialysis. The patient apparently has not been feeling well and has had generalized weakness for approximately three days prior to coming to [place]. When he got to the emergency room, the urinalysis was positive for a urinary tract infection (UTI) and the patient was given gentamicin IV, but because the patient required dialysis tomorrow, the patient was transferred to [facility] for further management. At this time, the patient denies any subjective fever, aches or chills. No abdominal pain, nausea or vomiting. He will be admitted to our medical/surgical floor for further management. Urinary tract infection (UTI). The patient is to be admitted to the medical/surgical floor. s/p Zosyn 2.25 IV every 12 hours. po tetracycline for klebsiella and morganella urine cx. End stage renal disease on hemodialysis Tuesday, and Tuesday. nephrology consulted History of cirrhosis requiring paracentesis every tuesday paracentesis 06/28/18 Deconditioning pt agreeable to working with PT. History of GERD Peripheral vascular disease status post bilateral below the knee amputations. History of lower quadrant ileoconduit for bladder cancer. Umbilical hernia repair disposition: awaiting PT clearance. remains in ALC/SNF status. VS, I&O, 24H, Fishbone Vital Signs/I&O Vital Signs Date Time Temp Pulse Resp B/P (MAP) Pulse Ox O2 Delivery O2 Flow Rate FiO2 07/02/18 14:00 97.8 53 18 117/61 (79) 96 I&O- Last 24 Hours up to 6 AM 07/02/18 06:00 Intake Total 860 ml Output Total 2650 ml Balance -1790 ml SULMA PARKS MD Jul 02, 2018 15:56
--- NOTE | 2018-07-02 19:06 | IPN ---
DATE: 07/02/2018 SUBJECTIVE: Patient was seen and examined at the bedside today morning. He reports that he feels much better. He got hemodialysis done yesterday, 2.5 liters of fluid was removed. Patient is very happy that he got a motorized wheelchair now that he will be able to use at home. He is planning to go home tomorrow morning. OBJECTIVE: VITAL SIGNS: Temperature is 97.3 degrees Fahrenheit, blood pressure 148/70, pulse 60, respiratory rate of 18, saturating 95% on room air. Intake and output: Urine output recorded is 50 mL, fluid removal with hemodialysis was 2.5 liters. PHYSICAL EXAMINATION: GENERAL: Patient is awake, alert, oriented times three, sitting in the bed, no apparent distress. HEAD and NECK EXAM: Extraocular muscles intact. Pupils equally round and reactive to light. Mucous membranes are moist. Neck is supple. There is no jugular venous distention (JVD). CARDIOVASCULAR: S1, S2, regular rate. No edema of the bilateral lower extremities. RESPIRATORY: Chest is clear to auscultation bilaterally. Bilateral equal air entry. No rales or rhonchi. ABDOMEN: Soft, positive bowel sounds. Urostomy tube is noted. MUSCULOSKELETAL: He has bilateral below-knee amputations. CENTRAL NERVOUS SYSTEM (TEMPLATE STORAGE CLERK): No focal deficit. Power is 5/5 in bilateral upper extremities. SKIN: No rashes or ulcers. LABORATORY REVIEW: CBC and BMP are from 06/30/2018 and they were already reviewed. CURRENT INPATIENT MEDICATIONS: Patient's medications were all reviewed by me. There is no change in the medications today as compared with yesterday. ASSESSMENT AND PLAN: 1. End-stage renal disease. Patient is hemodialysis dependent. He was dialyzed yesterday according to his regular schedule. Next hemodialysis session will be as outpatient on Tuesday. 2. Urinary tract infection. He is currently on doxycycline. He is symptomatically better now. 3. Hypertension. Blood pressure is better. Continue current dose of propranolol which helps with portal hypertension and systemic hypertension. 4. Cirrhosis with recurrent ascites. Patient gets an ascitic tap once a week on Tuesday. DISPOSITION: Patient is optimized from a renal standpoint for discharge back home whenever he is cleared from physical therapy.
[2018-07-02] MEDS: clonazePAM 0.5 MG TAB PO SCH (20:02)
[2018-07-02] MEDS: **NOTE PATIENT COMMENT** MISC XX SCH (20:06)
[2018-07-02] MEDS: LATANOPROST 0.005% OPHTH SOLN 2.5 ML OU SCH (20:36)
[2018-07-03] MEDS: SENOKOT S TAB PO SCH (09:00)
[2018-07-03 09:26] VITALS: BP 130/66
[2018-07-03] MEDS: ASPIRIN 81 MG ENTERIC TAB PO SCH (09:26)
[2018-07-03] MEDS: PRAVASTATIN 20 MG TAB PO SCH (09:26)
[2018-07-03] MEDS: FUROSEMIDE 40 MG TAB PO SCH (09:26)
[2018-07-03] MEDS: MULTIVITAMINS/MINERALS THERAP 1 TAB PO SCH (09:26)
[2018-07-03] MEDS: OMEGA-3 1000MG CAPSULE PO SCH (09:26)
[2018-07-03] MEDS: PROPRANOLOL 20 MG TAB PO SCH (09:26)
[2018-07-03] MEDS: PANTOPRAZOLE 40MG TAB (PROTONIX) PO SCH (09:26)
[2018-07-03] MEDS: ASCORBIC ACID 500 MG TAB PO SCH (09:26)
[2018-07-03] MEDS: FAMOTIDINE 20 MG TAB PO SCH (09:26)
[2018-07-03] MEDS: DOXYCYCLINE HYCLATE 100 MG TAB PO SCH (09:26)
[2018-07-03] MEDS: LACTOBACILLUS ACIDOPHILUS CAP (BACID) PO SCH (09:26)
--- NOTE | 2018-07-03 11:03 | DS.PDOC ---
Discharge Summary General Date of Admission Jun 26, 2018 at 17:25 Date of Discharge July 03, 2018 transferred to ALC/SNF status 06/30/18, discharge AGAINST MEDICAL ADVICE 07/03/18 Discharge Summary MILITARY ANALYST: DR. GUNDERSON. DR. BRITTNEY CASTILLO DISCHARGE DIAGNOSES: Urinary tract infection (UTI) klebsiella and morganella End stage renal disease on hemodialysis Tuesday, and Tuesday. History of cirrhosis requiring paracentesis every tuesday Deconditioning History of GERD Peripheral vascular disease status post bilateral below the kneeamputations. History of lower quadrant ileoconduit for bladder cancer. Umbilical hernia repair DISCHARGE MEDICATIONS: PLS SEE BELOW HISTORY OF PRESENT ILLNESS 73-year-old female with a past medical history of end stage renal disease on hemodialysis Tuesday, and Tuesday, history of cirrhosis, peripheral vascular disease status post bilateral below the knee amputations, history of requiring paracentesis weekly, gastroesophageal reflux disease (GERD), who presents as a transfer from [facility] for dialysis. The patient apparently has not been feeling well and has had generalized weakness for approximately three days prior to coming to [place]. When he got to the emergency room, the urinalysis was positive for a urinary tract infection (UTI) and the patient was given gentamicin IV, but because the patient required dialysis tomorrow, the patient was transferred to [facility] for further management. At this time, the patient denies any subjective fever, aches or chills. No abdominal pain, nausea or vomiting. He will be admitted to our medical/surgical floor for further management. HOSPITAL COURSE; Urinary tract infection (UTI). The patient is to be admitted to the medical/surgical floor. s/p Zosyn 2.25 IV every 12 hours. po tetracycline for klebsiella and morganella urine cx. to complete a 10 day course. End stage renal disease on hemodialysis Tuesday, and Tuesday. nephrology consulted History of cirrhosis requiring paracentesis every tuesday paracentesis 06/28/18 Deconditioning pt agreeable to working with PT. History of GERD Peripheral vascular disease status post bilateral below the knee amputations. History of lower quadrant ileoconduit for bladder cancer. Umbilical hernia repair disposition: awaiting PT clearance. CHANGED TO ALC status 06/30/18, but signed out AMA 07/03/18 Pt has a motorized wheelchair and hospital bed, but was unable to demonstrate mobility while inpt. Pt's son cannot care for him,and pt was adamant about AMA despite having no help at home. He was unable to have someone bring his motorized wheelchair to the hospital to demonstrate mobilty for PT to clear him. DISCHARGE PHYSICAL EXAMINATION: VITAL SIGNS: pls see below Head is atraumatic, normocephalic. Neck is supple with no jugular venous distention (JVD). Lungs clear to auscultation. S1, S2 audible. No murmurs appreciated. Abdomen is soft. Positive bowel sounds. There are bilateral below knee amputations present. Skin is intact. Neurologic examination, the patient is awake, alert and oriented times three. LABORATORY DATA, IMAGING STUDIES, MICROBIOLOGY: PLS SEE BELOW TIME SPENT ON DISCHARGE : 30 MIN. Vital Signs/I&Os Vital Signs Date Time Temp Pulse Resp B/P (MAP) Pulse Ox O2 Delivery O2 Flow Rate FiO2 07/03/18 09:26 61 130/66 07/03/18 00:42 17 07/02/18 14:00 97.8 96 I&O- Last 24 Hours up to 6 AM 07/03/18 06:00 Intake Total 1050 ml Output Total 50 ml Balance 1000 ml Discharge Medications Scheduled Ascorbic Acid (Ascorbic Acid) 500 Mg Tab, 500 MG PO DAILY, (Reported) Aspirin (Aspirin 81) 81 Mg Tab, 81 MG PO DAILY, (Reported) Clonazepam (Clonazepam) 0.5 Mg Tab, 0.5 MG PO QHS, (Reported) Doxycycline Hyclate (Doxycycline) 100 Mg Cap, 100 MG PO BID Ferrous Gluconate (Ferrous Gluconate) 324 Mg Tab, 324 MG PO QWEEK, (Reported) SUNDAYS Furosemide (Furosemide) 40 Mg Tab, 40 MG PO BID, (Reported) TAKES ON NON-DIALYSIS DAYS TUE/TUE/TUE/TUE Latanoprost (Xalatan) 0.005 % [place], 1 DROP OU QHS, (Reported) Linseed Oil (Flax Seed Oil) 1,000 Mg Cap, 1,000 MG PO BID, (Reported) Midodrine HCl (Midodrine HCl) 5 Mg Tab, 5 MG PO 3XW, (Reported) TAKES BEFORE DIALYSIS ON //TUE Minoxidil (Minoxidil) 2.5 Mg Tab, 5 MG PO QHS, (Reported) Multivitamins (Centrum Silver Adult 50+) 1 Tab Tab, 1 TAB PO DAILY, (Reported) [place] 3 Polyunsat Fatty Acids (Fish Oil 1000 mg) 1 Cap Cap, 1 CAP PO BID, (Reported) Pantoprazole Sodium (Pantoprazole Sodium) 40 Mg Tab, 40 MG PO DAILY, (Reported) Patiromer Sorbitex Calcium (Veltassa) 8.4 Gm Pow, 8.4 GM PO 2XW, (Reported) TUESDAY,TUESDAY Pravastatin Sodium (Pravastatin Sodium) 20 Mg Tab, 20 MG PO DAILY, (Reported) Propranolol HCl (Propranolol HCl) 20 Mg Tab, 20 MG PO BID, (Reported) Ranitidine HCl (Ranitidine HCl) 150 Mg Tab, 1 TAB PO BID, (Reported) Sevelamer Carbonate (Renvela) 800 Mg Tab, 800 MG PO WM, (Reported) Vitamin D (Drisdol) 50,000 Unit Cap, 50,000 UNIT PO QWEEK, (Reported) SUNDAYS Scheduled PRN Acetaminophen/Hydrocodone ([place] 5-325 mg) 1 Tab Tab, 1 TAB PO Q4H PRN for PAIN, (Reported) Dicyclomine HCl (Dicyclomine HCl) 10 Mg Cap, 10 MG PO ACHS PRN for GI PAIN , (Reported) Lidocaine (Lidoderm) 5 % Dis, 1 PATCH TD DAILY PRN for PAIN, (Reported) APPLIES ONE PATCH TO BILATERAL LEGS PRN Ondansetron HCl (Ondansetron HCl) 8 Mg Tab, 8 MG PO Q6H PRN for NAUSEA OR VOMITING, (Reported) Sildenafil Citrate (Viagra) 100 Mg Tab, 100 MG PO for ERECTILE DYSFUNCTION, (Reported) Allergies Coded Allergies: amlodipine (Verified Adverse Reaction, Intermediate, BLLE SWELLING, 06/26/18) levofloxacin (Verified Adverse Reaction, Mild, RUE RASH, PRURITIS, 06/26/18) INJECTION SITE REACTION SULMA PARKS MD Jul 03, 2018 11:02
[2018-07-03] MEDS ORDERED: DOXY100T PO (11:49)
--- NOTE | 2018-07-03 12:07 | IPN ---
DATE OF SERVICE: 07/03/2018 SUBJECTIVE: Patient was seen and examined at the bedside today morning. He is very upset today that he is not being discharged earlier as he planned. He was refusing to do physical therapy, and physical therapy was unable to assess him. He is threatening to sign out against medical advice. Patient is otherwise afebrile and hemodynamically stable. OBJECTIVE: VITAL SIGNS: Temperature is 97.8 degrees Fahrenheit, blood pressure 130/66, pulse is 61, respiratory rate of 17, saturating 96% on room air. Intake and output: Urine output recorded as 50 mL. Weight in the bed scale is not available. PHYSICAL EXAM: GENERAL: Patient is awake, alert, oriented times three, sitting up in the bed, no apparent distress. HEAD and NECK EXAM: Extraocular muscles intact. Pupils equally round and reactive to light. Mucous membranes are moist. Neck is supple. There is no jugular venous distention (JVD). CARDIOVASCULAR: S1, S2, regular rate. No edema of the bilateral lower extremities. RESPIRATORY: Chest is clear to auscultation bilaterally. Bilateral equal air entry. No rales or rhonchi. ABDOMEN: Soft, positive bowel sounds. Urostomy bag is noted. MUSCULOSKELETAL: He has bilateral below-knee amputations. CENTRAL NERVOUS SYSTEM (EXTRUSION PRESS ADJUSTER): No focal deficit. Power is 5/5 in bilateral upper extremities. PSYCHIATRIC: Patient is agitated today. LAB REVIEW: There are no labs available from today. CURRENT INPATIENT MEDICATIONS: Patient's medications were all reviewed by me. There is no change in the medications today as compared with yesterday. ASSESSMENT AND PLAN: 1. End-stage renal disease on hemodialysis. Patient's regular dialysis days are Tuesday, , Tuesday. He will be dialyzed tomorrow as outpatient. 2. Urinary tract infection. His symptoms are significantly better. He will finish a course of doxycycline as outpatient. 3. Hypertension. Blood pressure optimized. Continue current dose of propranolol. 4. Disposition. Patient is optimized from nephrology standpoint to be discharged from the hospital.
== END 2018-07-03 11:55 | disposition left against medical advice (07) | DRG 689 ==
LOC: M MSPAV 15:32 → OBSVTOIN 17:25
PROVIDERS: ADMIT Internal Medicine; ATTEND General Practice
PROC: 0W9G3ZZ Drainage of Peritoneal Cavity, Percutaneous Approach (ICD-10-PCS; 2018-06-28)
PROC: 5A1D70Z Performance of Urinary Filtration, Intermittent, Less than 6 Hours Per Day (ICD-10-PCS; principal; 2018-06-29)
DX: N39.0 Urinary tract infection, site not specified (principal); N18.6 End stage renal disease; R18.8 Other ascites; K74.60 Unspecified cirrhosis of liver; E11.51 Type 2 diabetes mellitus with diabetic peripheral angiopathy without gangrene; B96.1 Klebsiella pneumoniae [K. pneumoniae] as the cause of diseases classified elsewhere; E11.22 Type 2 diabetes mellitus with diabetic chronic kidney disease; E11.21 Type 2 diabetes mellitus with diabetic nephropathy; I95.3 Hypotension of hemodialysis; I50.9 Heart failure, unspecified; E87.5 Hyperkalemia; K21.9 Gastro-esophageal reflux disease without esophagitis; Z89.511 Acquired absence of right leg below knee; Z89.512 Acquired absence of left leg below knee; Z88.1 Allergy status to other antibiotic agents; Z88.8 Allergy status to other drugs, medicaments and biological substances; Z79.82 Long term (current) use of aspirin; Z79.899 Other long term (current) drug therapy; Z99.2 Dependence on renal dialysis; Z85.51 Personal history of malignant neoplasm of bladder; Z93.6 Other artificial openings of urinary tract status